=== PATIENT | female | born 1950 | race Caucasian/White ===

== ENCOUNTER 2018-05-29 15:42 | Emergency (ER) | payer MEDICARE, SELFPAY ==
[2018-05-29] VITALS (7 sets, daily range): BP systolic 139–172; BP diastolic 69–88; PULSE 62–78; RESP 18–31; TEMP 30.9–37.5; O2SAT 92–93; BMI 26.4
--- NOTE | 2018-05-29 16:03 | EKG12_ITS ---
Test Reason : SOB Blood Pressure : / mmHG Vent. Rate : 063 BPM Atrial Rate : 063 BPM P-R Int : 162 ms QRS Dur : 092 ms QT Int : 456 ms P-R-T Axes : 056 038 030 degrees QTc Int : 466 ms Normal sinus rhythm Nonspecific T wave abnormality Abnormal ECG Confirmed by LI JEFFRIES, CRISTI ([id number]), field map editor SHANTEL KEMP ([id number]) on 06/04/2018 9:54:16 AM Referred By: EMILY Confirmed By:CRISTI JEFFERSON MD
[2018-05-29 17:18] LABS: Absolute Lymphocyte Count 1.35 X10^3/ul (0.83-4.51); Absolute Neutrophil Count 3.4 X10^3/uL (2.0-7.7); Basophil# 0.03 X10^3/uL; Basophil% 0.6 % (0-1); Eosinophil# 0.18 X10^3/uL; Eosinophils% 3.4 % (0-5); Hematocrit 36.8 % (37-47); Hemoglobin 11.4 g/dl (12.0-15.0); Lymphocyte # 1.35 X10^3/ul (4.0); Lymphocyte % 25.4 % (19-41); Mean Corpuscular Hgb 28.9 pg (27.0-32.0); Mean Corpuscular Volume 93.4 fL (81-99); Mean Platelet Vol. 10.2 fl (6.2-12.0); Monocyte# 0.32 X10^3/uL; Neutrophil # 3.43 X10^3/uL (2.7-7.7); Neutrophil % 64.6 % (47-70); Platelet Count 156 K/mm3 (150-450); RBC Distribution Width CV 13.7 % (11.6-14.6); RBC Distribution Width SD 46.8 fl (35.1-43.9); Red Blood Count 3.94 M/mm3 (4.2-5.4); White Blood Count 5.3 K/mm3 (4.4-11.0)
[2018-05-29 17:20] LABS: POSITIVE COUNT NO; POSITIVE DIFFERENTIAL NO; POSITIVE MORPHOLOGY NO
--- NOTE | 2018-05-29 17:25 | RAD_ITS ---
STUDY: X-RAY CHEST REASON FOR EXAM: Female, 68 years old. Shortness of breath, leg swelling, crackles in lungs. TECHNIQUE: PA and lateral views of the chest. The patient is mildly rotated to the left. COMPARISON: Portable AP upright chest x-ray October 12, 2016. FINDINGS: Right chest wall MediPort again seen with its tip in the superior vena cava. There are postsurgical changes in the right lung with radiopaque sutures again seen in a vertical orientation along the lateral apex and midlung. Elevation of right diaphragm corresponds to overall volume loss in the right hemithorax. There is persistent prominence of the pulmonary vascular markings versus inflammatory peribronchial thickening. No acute lobar consolidation. There is no demonstrated pleural abnormality. There is stable mild to moderate cardiac enlargement. Normal mediastinum. Stable mild fullness of the elif. There is stable atherosclerotic calcification of the aortic arch. There is demineralization of the osseous structures. There are stable mild degenerative changes of the visualized thoracic spine. Metal hardware of prior left total shoulder arthroplasty again noted. There are surgical clips of prior cholecystectomy in the left upper quadrant abdomen. Radiopaque suture line seen in the medial left upper quadrant. The upper portion of a double-J right ureteral stent is also identified. RAD/Chest PA and Lateral IMPRESSION: Stable x-ray examination of the chest since September 2016, as described. Electronically Signed: Josiah Bolden MD at 18:21 EST , Service support ,
[2018-05-29 17:36] LABS: D-Dimer Quantitative (DVT/PE) 1.12 FEU/ug/m (0.27-0.49)
--- NOTE | 2018-05-29 17:37 | CT_ITS ---
STUDY: CTA CHEST REASON FOR EXAM: Female, 68 years old. Dyspnea. Swelling of the right leg. RADIATION DOSAGE (If Supplied By Facility): CTDIvol = ( 6.82 ) mGy, DLP = ( 148.82 ) mGycm TECHNIQUE: The examination was performed with the intravenous administration of 75ML ml of Isovue 370 contrast material. Post-processing of the angiographic images was performed, with multiplanar reformation and 3D reconstruction. Individualized dose optimization techniques were used for this CT. COMPARISON: Chest, May 29, 2018. CT of the chest, February 04, 2015. FINDINGS: There is a right jugular [id number] with its catheter in the superior vena cava. Normal enhancement of the main pulmonary artery and right and left pulmonary arteries. Normal enhancement of the bilateral peripheral pulmonary arteries. There is no demonstrated pulmonary embolism. There is prominence of the main pulmonary arteries and peripheral pulmonary arteries, consistent with congestive heart failure (CHF). There is atherosclerotic tortuosity of the thoracic aorta without aneurysm. There is no demonstrated aortic dissection. The heart is enlarged. There is no evidence of pericardial abnormality. Normal mediastinum. Normal hilar regions. Normal visualized trachea and bronchi. The lungs are hypoexpanded. There is diffuse groundglass densities throughout both lungs. Normal pleura. There are no pleural effusions. Normal chest wall structures. There are degenerative changes of the thoracic spine. There is a left artificial shoulder. Normal visualized upper abdomen. CT/CTA Chest W/WO Contrast IMPRESSION: 1. No evidence of pulmonary embolus. 2. No aortic dissection or aneurysm. 3. Cardiomegaly with prominent pulmonary arteries in groundglass infiltrates in both lungs. Question mild failure. 4. Stable right jugular Port-A-Cath. Electronically Signed: Tha Feng DO at 19:18 EST Tel [phone], Service support ,
--- NOTE | 2018-05-29 17:37 | ED.RN ---
LAB CALLED WITH D-DIMER 1.12, DR RUEDA INFORMED OF SAME.
[2018-05-29 17:40] LABS: Anion Gap 8 (5-15); BUN 27 mg/dL (7-18); BUN/Creat Ratio 22.1 RATIO (10-20); Calcium,Total 8.2 mg/dL (8.5-10.1); Chloride 114 mmol/L (98-107); Creatinine, Serum 1.22 mg/dL (0.55-1.02); EST Glomerular Filtration Rate 46 mL/min (>60); Est Glom Filt Rate - Afr Amer 56 mL/min (>60); Estimated Creatinine Clearance 40.24 ml/min; Glucose 89 mg/dL (74-106); Potassium 3.9 mmol/L (3.5-5.1); Sodium Level 146 mmol/L (136-145)
[2018-05-29 18:34] LABS: BNP,B-Type NATRIURETIC PEPTIDE 2002.1 pg/mL (0-100)
--- NOTE | 2018-05-29 19:33 | ED.DCSUM_ITS ---
- ER Visit Summary Date of Service: 05/29/18 Chief Complaint: [Shortness of breath] History of Present Illness: The patient is a 68 F [presents to the emergency department with complaint of shortness of breath that is relatively chronic. She was seen by her primary care physician yesterday and was referred for follow-up in the emergency department because patient's been complaining of right leg swelling out of proportion to the left. There was concern about DVT or PE. Primary care physician also heard some rales in the bases of the lungs and was concerned about congestive heart failure. Patient states that she does have a history of prior congestive heart failure. Patient has a history of hypertension as well as lung fibrosis. 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 Patient states she is chronically short of breath and does not feel like she is more short of breath than usual. She denies recent travel or recent surgery. Patient's last chemo was 6 years ago.] Patient states that she is gained about 10 pounds in the last week. Patient has a water pill as needed for home but she states she has to be careful about taking it due to her kidney function. Physical Examination: [HEENT-PERRLA, EOMI. Cranial nerves II through XII grossly intact. TMs clear. Mucous membranes moist. No adenopathy. Cardiovascular-regular rate and rhythm without murmur or ectopy Lungs-diminished bilaterally. Few rales in both bases. No accessory muscle use or retractions. Abdomen-normoactive bowel sounds, soft, nontender, no rebound or rigidity, no peritoneal signs. Extremities-intact ?4, normal range of motion, normal pulses, atraumatic. Patient does have +2 edema both lower extremities.] Test Results: [EKG obtained arrival shows sinus rhythm with a ventricular rate of 63 bpm with some nonspecific ST changes noted. CBC with differential showed a white count of 5.3, hemoglobin 11.4, hematocrit 37, platelets 156. Chemistries unremarkable. BUN was 27 and creatinine 1.22. Troponin was 0.024. BNP was 2002. D-dimer was slightly elevated 1.12. Chest x-ray showed some postsurgical changes otherwise nothing acute. CT of the chest showed no evidence of PE or dissection however she had some bilateral groundglass infiltrates which raise the possibility for mild CHF.] Emergency Department Course and Treatment: [Patient will be given Lasix 40 mg IV.] Treatment Plan: [Patient advised to take Lasix for the next 2 days and follow-up with her primary care physician to have her kidney function rechecked. At this point she is hemodynamically stable and is in no respiratory distress. I feel patient can be discharged home with outpatient follow-up.] Disposition: [Discharged home in stable condition] Impression: [CHF exacerbation-mild] This note was generated with [email or web address] dictation software. It may contain incorrect words, spelling, and punctuation that were not noted in review of the chart prior to signing ED Disposition - Plan for ED Patient: Chief Complaint: Shortness of Breath Referrals: Sharad Burns MD [Primary Care Provider] -
--- NOTE | 2018-05-29 19:34 | ED.DEP ---
ED Disposition - Plan for ED Patient: Chief Complaint: Shortness of Breath Instructions: ED CHF General Referrals: Sharad Burns MD [Primary Care Provider] - 3-5 Days Additional Instructions: take your water pill for the next 2 days and follow up with your doctor to have your kidney function checked again
[2018-05-29] MEDS: Furosemide 40 MG/4 ML Vial IV (19:45)
== END 2018-05-29 21:15 | disposition home or self-care (01) ==
LOC: ED 16:13
PROVIDERS: Emergency Provider Emergency Medicine; Family Provider Family Medicine; PCP Family Medicine
DX: I11.0 Hypertensive heart disease with heart failure (principal); I50.9 Heart failure, unspecified; J84.10 Pulmonary fibrosis, unspecified; Z85.831 Personal history of malignant neoplasm of soft tissue; Z86.2 Personal history of diseases of the blood and blood-forming organs and certain disorders involving the immune mechanism; Z92.21 Personal history of antineoplastic chemotherapy; Z79.899 Other long term (current) drug therapy
CPT/HCPCS: 36591; 71046; 71275; 80048; 83880; 84484; 85025; 85379; 93005; 93970; 96374; 99283; Q9967; A4216; J1940

== ENCOUNTER 2018-08-20 16:33 | Inpatient (IN) | payer MEDICARE, BC, SELFPAY ==
[2018-05-29 15:44] VITALS: BMI 26.4
[2018-08-20] VITALS (11 sets, daily range): BP systolic 147–176; BP diastolic 73–123; PULSE 60–93; RESP 17–27; TEMP 36.7–37.9; O2SAT 88–97; BMI 25.0; BMI 24.3
--- NOTE | 2018-08-20 16:53 | EKG12_ITS ---
Test Reason : CP Blood Pressure : / mmHG Vent. Rate : 088 BPM Atrial Rate : 088 BPM P-R Int : 168 ms QRS Dur : 090 ms QT Int : 374 ms P-R-T Axes : 050 002 -27 degrees QTc Int : 452 ms Sinus rhythm with Premature supraventricular complexes Left ventricular hypertrophy Nonspecific ST/T Wave Abnormality Abnormal ECG Confirmed by EV JEFFRIES, PARVIN ([id number]), dude wrangler IRAM MCKEON ([id number]) on 08/24/2018 11:33:04 AM Referred By: Teodoro Gonzalez Confirmed By:PARVIN CARRENO MD
--- NOTE | 2018-08-20 17:35 | RAD_ITS ---
STUDY: X-RAY CHEST REASON FOR EXAM: Female, 68 years old. Shortness of breath. TECHNIQUE: PA and lateral views of the chest. COMPARISON: PA and lateral chest x-ray May 29, 2018. FINDINGS: Right-sided Port-A-Cath again seen with its tip in the superior vena cava. There is stable mild elevation of the right diaphragm stable postsurgical changes in the right upper and midlung. Persistent prominence of the bilateral interstitial/vascular markings. No acute consolidating infiltrate. There is no demonstrated pleural abnormality. There is stable mild to moderate cardiac enlargement. Normal mediastinum. Stable mild fullness of the elif. There is stable atherosclerotic calcification of the aortic arch. There are stable degenerative changes of the visualized thoracic spine. Prior left total shoulder arthroplasty with metal hardware again noted. Surgical clips of prior cholecystectomy again project in the medial right upper quadrant of the abdomen. There is a nonspecific bowel gas pattern. The upper portion of right ureteral stent is again seen. Suture line again projects in the medial left upper quadrant. RAD/Chest PA and Lateral IMPRESSION: Stable x-ray examination of the chest May 29, 2018, as described. Electronically Signed: Josiah Bolden MD at 18:29 EDT , Service support ,
[2018-08-20 17:40] LABS: Absolute Neutrophil Count 3.4 X10^3/uL (2.0-7.7); Basophil# 0.04 X10^3/uL; Basophil% 0.8 % (0-1); Eosinophil# 0.09 X10^3/uL; Eosinophils% 1.7 % (0-5); Hematocrit 37.7 % (37-47); Hemoglobin 11.9 g/dl (12.0-15.0); Mean Corp Hgb Conc 31.6 g/gl (32-36); Mean Corpuscular Hgb 29.5 pg (27.0-32.0); Mean Corpuscular Volume 93.3 fL (81-99); Mean Platelet Vol. 11.6 fl (6.2-12.0); Monocyte# 0.64 X10^3/uL; Monocyte% 12.2 % (0-10); Neutrophil # 3.35 X10^3/uL (2.7-7.7); Neutrophil % 64.1 % (47-70); POSITIVE COUNT NO; POSITIVE DIFFERENTIAL NO; POSITIVE MORPHOLOGY NO; Platelet Count 133 K/mm3 (150-450); RBC Distribution Width CV 14.2 % (11.6-14.6); RBC Distribution Width SD 47.4 fl (35.1-43.9); Red Blood Count 4.04 M/mm3 (4.2-5.4); White Blood Count 5.2 K/mm3 (4.4-11.0)
[2018-08-20 17:51] LABS: Anion Gap 5 (5-15); BUN 20 mg/dL (7-18); BUN/Creat Ratio 16.5 RATIO (10-20); Calcium,Total 7.9 mg/dL (8.5-10.1); Chloride 109 mmol/L (98-107); Creatinine, Serum 1.21 mg/dL (0.55-1.02); EST Glomerular Filtration Rate 47 mL/min (>60); Est Glom Filt Rate - Afr Amer 57 mL/min (>60); Estimated Creatinine Clearance 38.49 ml/min; Glucose 79 mg/dL (74-106); Potassium 3.5 mmol/L (3.5-5.1); Sodium Level 141 mmol/L (136-145)
--- NOTE | 2018-08-20 18:46 | ED.VISSUMM ---
- ER Visit Summary Date of Service: 08/20/18 Chief Complaint: Short of breath, cough, chest pain History of Present Illness: The patient is a 68 F with a one-week history of shortness of breath, worse with exertion. She also has chest pain with exertion. Patient recently stopped her Lasix stating that it made her sick. She was seen by her PCP today and was noted to have cardiomegaly on chest x-ray which they stated was different from her prior study. She also had evidence of interstitial edema. Her oxygen saturation was 89% in the office. Patient states that she has been having to sit upright to sleep at night. She does note increased swelling to her legs. Physical Examination: Blood pressure is 156/73, temperature 100.2 TA, 98.9 oral. Heart rate is 93, respiratory rate 18, pulse ox 94% on room air. Patient is a cachectic appearing elderly female. She is in no acute distress and speaking full sentences. Heart is regular rate and rhythm. Lung sounds are diminished at the bases. Abdomen is soft and nontender. Lower external examination was 2-3+ edema that is symmetric. Test Results: EKG is sinus 88 with occasional PACs. Minimal ST depression is noted in V5 and V6. Slightly more pronounced when compared to prior. Two-view chest x-ray shows mild to moderate cardiomegaly. CBC significant only for platelet count of 133,000. Chemistry studies reveal BUN of 20 creatinine 1.21. Troponin is 0.019. BNP is 2326. Emergency Department Course and Treatment: Test results were discussed with the patient. She states she did not have any trouble last time she was given IV Lasix in the hospital. She be given 40 mg of IV Lasix and a Amanda catheter will be placed as she normally has to straight cath in order to urinate at home. Oxygen saturations did drop down to 88% on room air and she is on 2 L nasal cannula at the time of my re-eval. Her oxygen saturations on 2 L are in the high 90s. Treatment Plan: [] Disposition: Admit Impression: CHF with mild hypoxia This note was generated with [employer] dictation software. It may contain incorrect words, spelling, and punctuation that were not noted in review of the chart prior to signing ED Disposition - Plan for ED Patient: Referrals: Sharad Burns MD [Primary Care Provider] -
[2018-08-20] MEDS: Furosemide 40 MG/4 ML Vial IV (19:13)
--- NOTE | 2018-08-20 19:42 | PCM.HP.STD ---
Problem List (1) Acute respiratory failure with hypoxia Status: Acute (2) Acute exacerbation of CHF (congestive heart failure) Status: Chronic Qualifiers: Heart failure type: unspecified Qualified Code(s): I50.9 - Heart failure, unspecified History of Present Illness Date of Admission: 08/20/18 Chief Complaint: shortness of breath. The patient is a 68 year old F with shortness of breath. Patient has been short of breath for months but has increasingly gotten worse over the past 3 days. Over the past 3 weeks, patient was on Lasix for reported heart failure. Patient stopped it about a week ago because it was making her nauseous. Patient was directed to the emergency room from her primary care's office due to heart failure and cardiomegaly. Patient states that she has put on 10 pounds over the past week though was not she told the emergency room physician that she does not with herself daily. She does state that she has increasing lower extremity edema. Does have chest pain when she coughs. [] Past Medical History Past Medical History (Chronic Problems): Chronic Problems Acute exacerbation of CHF (congestive heart failure) (Chronic) Chronic anemia (Chronic) Hypertension (Chronic) Congestive heart failure (Chronic) Synovial sarcoma of right hip (Chronic) Chronic acquired lymphedema (Chronic) Chronic venous stasis dermatitis (Chronic) Chronic fibrosis of lung (Chronic) Peripheral venous insufficiency (Chronic) Venous stasis dermatitis of both lower extremities (Chronic) Lymphedema of both lower extremities (Chronic) Allergies linezolid [From Zyvox] Adverse Reaction (Unknown, Verified 08/20/18 16:42) Other azithromycin Adverse Reaction (Verified 08/20/18 16:42) Diarrhea Home Medications: Ambulatory Orders Medication Instructions Recorded Calcium Carbonate [Calcium] 600 mg PO DAILY 05/29/18 Carvedilol 6.25 mg PO BID 05/29/18 Cholecalciferol (Vitamin D3) 2,000 unit PO DAILY 05/29/18 [D3-2000] Cyanocobalamin (Vitamin B-12) 1,000 mcg IJ QMONTH 05/29/18 [Cyanocobalamin Injection] Lisinopril [Zestril] 10 mg PO DAILY 05/29/18 Oxybutynin Chloride [Oxybutynin 15 mg PO DAILY 05/29/18 Chloride ER] Sertraline HCl 150 mg PO DAILY 05/29/18 traZODone [Desyrel] 100 mg PO QHS PRN PRN 05/29/18 Gabapentin 600 mg PO TID 08/20/18 Lactobacillus Acidophilus 1 each PO DAILY 08/20/18 [Probiotic] Multivit-Min/Iron/Folic/Lutein 1 tab PO DAILY 08/20/18 [Centrum Silver Women Tablet] Mv,Giovanny,Iron,Mn/Folic Acid/Chol 1 cap PO DAILY 08/20/18 [Hair, Skin and Nails Capsule] Potassium (Otc) [Potassium Otc] 99 mg PO DAILY 08/20/18 Surgical History: cholecystectomy, gastric bypass, herniorrhaphy, hysterectomy, tonsillectomy, - - 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 Denies: Anorexia, Chills, Fever Eyes: Denies: Blurred vision, Double vision HEENT: Denies: Head Aches, Sinus Congestion, Sinus Drainage Cardiovascular: Reports: Chest Pain, Edema Respiratory: Reports: Cough, Shortness of breath upon exertion, Sputum production Gastrointestinal: Reports: Abdominal Pain, Constipation, Diarrhea, Dyspepsia Genitourinary: Reports: Dysuria, Frequency, Hematuria Musculoskeletal: Denies: Arm Pain, Foot Pain Skin: Denies: Dryness, Jaundice Neurological: Denies: Balance problems, Blurred vision, Double vision Psychiatric: Denies: Anxiety, Depression Endocrine: Reports: Change in Body Habitus. Denies: Heat/ Cold Intolerance Hematologic/ Lymphatic: Denies: Easy Bruising, Easy Bleeding, Hx of blood clot Comment: A 10 point review of systems were negative except as mentioned in the history of present illness and the other review of systems. VTE Information - Inpt Only VTE Present on Admission: No VTE Mechan Device Prophylaxis: None VTE Pharm Prophylaxis ordered?: Yes Patient Problems: Active and Suspected Problems Acute respiratory failure with hypoxia (Acute) - Physical Exam General: Alert, Cooperative, No apparent distress HEENT: Atraumatic, Normocephalic, - - No scleral icterus Oral: Moist Mucosa, No Gingival or Mucosal Lesions/ Ulcerations Neck: No Nodes, Thyroid Normal Size and Texture, JVD, Right Lungs: Diminished, - - Crackles bilaterally Cardiovascular: Regular rate, Regular Rhythm, Normal S1, Normal S2, - - 2/6 holosystolic murmur Abdomen: Bowel Sounds Present, Soft, Non Tender, Non-Distended Extremities: No Calf Tenderness, Edema - Trace in lower extremities Skin: No rashes, No breakdown Psych/Mental Status: Normal Affect, Appropriate Vital Signs Temp Pulse Resp BP Pulse Ox 37.9 C H 80 24 H 159/78 H 97 08/20/18 16:35 08/20/18 19:17 08/20/18 19:17 08/20/18 19:17 08/20/18 19:17 Oxygen Flow Rate (L/min) 2 Oxygen Delivery Method Nasal Cannula Weight: 56.36 kg Body Mass Index (BMI) 25.0 Laboratory Tests Past 24 Hrs 08/20/18 08/20/18 08/20/18 17:22 17:22 17:22 WBC 5.2 RBC 4.04 L Hgb 11.9 L Hct 37.7 MCV 93.3 MCH 29.5 MCHC 31.6 L RDW 14.2 RDW Differential 47.4 H Plt Count 133 L MPV 11.6 Immature Gran % (Auto) 0.200 Neut % (Auto) 64.1 Lymph % (Auto) 21.0 Sterling % (Auto) 12.2 H Eos % (Auto) 1.7 Baso % (Auto) 0.8 Absolute Neuts (auto) 3.4 Absolute Lymphs (auto) 1.10 Total Counted Not Reportable Sodium 141 Potassium 3.5 Chloride 109 H Carbon Dioxide 27.0 Anion Gap 5 BUN 20 H Creatinine 1.21 H Estim Creat Clear Calc 38.49 Est GFR (MDRD) Af Amer 57 L Est GFR (MDRD) Non-Af 47 L BUN/Creatinine Ratio 16.5 Glucose 79 Calcium 7.9 L Troponin I 0.019 B-Natriuretic Peptide 2326.1 H Chest x-ray personally reviewed and shows more likely chronic changes in her lungs. Appears somewhat better from May of this year. No effusions noted. Assessment/Plan All Active Problems Acute respiratory failure with hypoxia (Acute) Acute respiratory insufficiency (Resolved) Fall on stairs (Resolved) Healthcare-associated pneumonia (Resolved) MRSA (methicillin resistant Staphylococcus aureus) (Resolved) 1. Acute heart failure Presumed. Patient does have shortness of breath and she does have an elevated BNP and abnormal chest x-ray. Chest x-ray appears to be chronically abnormal dating back to at least 2017. We will treat the patient empirically for heart failure with IV Lasix. Check an echocardiogram 2. Acute hypoxic respiratory failure Patient was hypoxic upon arrival and was having tachypnea and labored breathing. Improved with the implementation of oxygen Etiology of the hypoxia is undetermined at this time but may be multifactorial. Possibilities include heart failure as mentioned above versus chronic lung disease unclear as to what that may be and other possibilities such as upper respiratory infections. Wean oxygen as tolerated Depending on the patient's clinical response to heart failure therapy may need secondary opinion in regards to this is cardiac versus pulmonary or combination thereof with a specialist. Holding off on consultation at this time 3. Cachexia Patient is a very gaunt. 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 Appears to be in summation at this time Follow-up with oncology as outpatient 5. Chest pain Atypical Per history, worse with cough Suspect may be chest wall pain/costochondritis Will cycle troponins and if those are negative, would not recommend any additional workup at this time unless her condition changes 6.DVT prophylaxis with Lovenox Code Visit Inpatient E&M: 38003 Init Hosp L3
--- NOTE | 2018-08-20 19:47 | HP.PCM_ITS ---
Problem List (1) Acute respiratory failure with hypoxia Status: Acute (2) Acute exacerbation of CHF (congestive heart failure) Status: Chronic Qualifiers: Heart failure type: unspecified Qualified Code(s): I50.9 - Heart failure, unspecified History of Present Illness Date of Admission: 08/20/18 Chief Complaint: shortness of breath. The patient is a 68 year old F with shortness of breath. Patient has been short of breath for months but has increasingly gotten worse over the past 3 days. Over the past 3 weeks, patient was on Lasix for reported heart failure. Patient stopped it about a week ago because it was making her nauseous. Patient was directed to the emergency room from her primary care's office due to heart failure and cardiomegaly. Patient states that she has put on 10 pounds over the past week though was not she told the emergency room physician that she does not with herself daily. She does state that she has increasing lower extremity edema. Does have chest pain when she coughs. [] Past Medical History Past Medical History (Chronic Problems): Chronic Problems Acute exacerbation of CHF (congestive heart failure) (Chronic) Chronic anemia (Chronic) Hypertension (Chronic) Congestive heart failure (Chronic) Synovial sarcoma of right hip (Chronic) Chronic acquired lymphedema (Chronic) Chronic venous stasis dermatitis (Chronic) Chronic fibrosis of lung (Chronic) Peripheral venous insufficiency (Chronic) Venous stasis dermatitis of both lower extremities (Chronic) Lymphedema of both lower extremities (Chronic) Allergies linezolid [From Zyvox] Adverse Reaction (Unknown, Verified 08/20/18 16:42) Other azithromycin Adverse Reaction (Verified 08/20/18 16:42) Diarrhea Home Medications: Ambulatory Orders Medication Instructions Recorded Calcium Carbonate [Calcium] 600 mg PO DAILY 05/29/18 Carvedilol 6.25 mg PO BID 05/29/18 Cholecalciferol (Vitamin D3) 2,000 unit PO DAILY 05/29/18 [D3-2000] Cyanocobalamin (Vitamin B-12) 1,000 mcg IJ QMONTH 05/29/18 [Cyanocobalamin Injection] Lisinopril [Zestril] 10 mg PO DAILY 05/29/18 Oxybutynin Chloride [Oxybutynin 15 mg PO DAILY 05/29/18 Chloride ER] Sertraline HCl 150 mg PO DAILY 05/29/18 traZODone [Desyrel] 100 mg PO QHS PRN PRN 05/29/18 Gabapentin 600 mg PO TID 08/20/18 Lactobacillus Acidophilus 1 each PO DAILY 08/20/18 [Probiotic] Multivit-Min/Iron/Folic/Lutein 1 tab PO DAILY 08/20/18 [Centrum Silver Women Tablet] Mv,Giovanny,Iron,Mn/Folic Acid/Chol 1 cap PO DAILY 08/20/18 [Hair, Skin and Nails Capsule] Potassium (Otc) [Potassium Otc] 99 mg PO DAILY 08/20/18 Surgical History: cholecystectomy, gastric bypass, herniorrhaphy, hysterectomy, tonsillectomy, - - 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 Psychiatric History: Anxiety, Depression [employer] History: No pertinent [employer] history, - Lives: Spouse/ Significant Other Smoking Status: Never smoker Tobacco Use: Non-smoker - *Family History Maternal History Items: Diabetes - alive age 86 Paternal History Items: Cancer - age 79 Offspring History Items: - - 3 children: 2 living, 1 Review of Systems Constitutional: Reports: Malaise, Weakness. Denies: Anorexia, Chills, Fever Eyes: Denies: Blurred vision, Double vision HEENT: Denies: Head Aches, Sinus Congestion, Sinus Drainage Cardiovascular: Reports: Chest Pain, Edema Respiratory: Reports: Cough, Shortness of breath upon exertion, Sputum production Gastrointestinal: Reports: Abdominal Pain, Constipation, Diarrhea, Dyspepsia Genitourinary: Reports: Dysuria, Frequency, Hematuria Musculoskeletal: Denies: Arm Pain, Foot Pain Skin: Denies: Dryness, Jaundice Neurological: Denies: Balance problems, Blurred vision, Double vision Psychiatric: Denies: Anxiety, Depression Endocrine: Reports: Change in Body Habitus. Denies: Heat/ Cold Intolerance Hematologic/ Lymphatic: Denies: Easy Bruising, Easy Bleeding, Hx of blood clot Comment: A 10 point review of systems were negative except as mentioned in the history of present illness and the other review of systems. VTE Information - Inpt Only VTE Present on Admission: No VTE Mechan Device Prophylaxis: None VTE Pharm Prophylaxis ordered?: Yes Patient Problems: Active and Suspected Problems Acute respiratory failure with hypoxia (Acute) - Physical Exam General: Alert, Cooperative, No apparent distress HEENT: Atraumatic, Normocephalic, - - No scleral icterus Oral: Moist Mucosa, No Gingival or Mucosal Lesions/ Ulcerations Neck: No Nodes, Thyroid Normal Size and Texture, JVD, Right Lungs: Diminished, - - Crackles bilaterally Cardiovascular: Regular rate, Regular Rhythm, Normal S1, Normal S2, - - 2/6 holosystolic murmur Abdomen: Bowel Sounds Present, Soft, Non Tender, Non-Distended Extremities: No Calf Tenderness, Edema - Trace in lower extremities Skin: No rashes, No breakdown Psych/Mental Status: Normal Affect, Appropriate Vital Signs Temp Pulse Resp BP Pulse Ox 37.9 C H 80 24 H 159/78 H 97 08/20/18 16:35 08/20/18 19:17 08/20/18 19:17 08/20/18 19:17 08/20/18 19:17 Oxygen Flow Rate (L/min) 2 Oxygen Delivery Method Nasal Cannula Weight: 56.36 kg Body Mass Index (BMI) 25.0 Laboratory Tests Past 24 Hrs 08/20/18 08/20/18 08/20/18 17:22 17:22 17:22 WBC 5.2 RBC 4.04 L Hgb 11.9 L Hct 37.7 MCV 93.3 MCH 29.5 MCHC 31.6 L RDW 14.2 RDW Differential 47.4 H Plt Count 133 L MPV 11.6 Immature Gran % (Auto) 0.200 Neut % (Auto) 64.1 Lymph % (Auto) 21.0 [place] % (Auto) 12.2 H Eos % (Auto) 1.7 Baso % (Auto) 0.8 Absolute Neuts (auto) 3.4 Absolute Lymphs (auto) 1.10 Total Counted Not Reportable Sodium 141 Potassium 3.5 Chloride 109 H Carbon Dioxide 27.0 Anion Gap 5 BUN 20 H Creatinine 1.21 H Estim Creat Clear Calc 38.49 Est GFR (MDRD) Af Amer 57 L Est GFR (MDRD) Non-Af 47 L BUN/Creatinine Ratio 16.5 Glucose 79 Calcium 7.9 L Troponin I 0.019 B-Natriuretic Peptide 2326.1 H Chest x-ray personally reviewed and shows more likely chronic changes in her lungs. Appears somewhat better from May of this year. No effusions noted. Assessment/Plan All Active Problems Acute respiratory failure with hypoxia (Acute) Acute respiratory insufficiency (Resolved) Fall on stairs (Resolved) Healthcare-associated pneumonia (Resolved) MRSA (methicillin resistant Staphylococcus aureus) (Resolved) 1. Acute heart failure * Presumed. Patient does have shortness of breath and she does have an elevated BNP and abnormal chest x-ray. Chest x-ray appears to be chronically abnormal dating back to at least 2017. We will treat the patient empirically for heart failure with IV Lasix. * Check an echocardiogram 2. Acute hypoxic respiratory failure * Patient was hypoxic upon arrival and was having tachypnea and labored breathing. * Improved with the implementation of oxygen * Etiology of the hypoxia is undetermined at this time but may be multifactorial. Possibilities include heart failure as mentioned above versus chronic lung disease unclear as to what that may be and other possibilities such as upper respiratory infections. * Wean oxygen as tolerated * Depending on the patient's clinical response to heart failure therapy may need secondary opinion in regards to this is cardiac versus pulmonary or co mbination thereof with a specialist. Holding off on consultation at this time 3. Cachexia * Patient is a very gaunt. 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 * Appears to be in summation at this time * Follow-up with oncology as outpatient 5. Chest pain * Atypical * Per history, worse with cough * Suspect may be chest wall pain/costochondritis * Will cycle troponins and if those are negative, would not recommend any additional workup at this time unless her condition changes 6.DVT prophylaxis with Lovenox Code Visit Inpatient E&M: 79623 Init Hosp L3
--- NOTE | 2018-08-20 20:18 | ECHOD_ITS ---
Reason For Study: CHF Procedure This was a 2D Doppler, Color Flow transthoracic echocardiogram. The exam was of adequate technical quality. Exam performed portable in patient room. Left Ventricle Normal LV size. Mild global left ventricular systolic dysfunction. The estimated ejection fraction is 40 %. There is evidence of diastolic dysfunction. Right Ventricle Normal RV size. Normal systolic function. Atria The left atrium is moderately enlarged. Normal right atrium. No doppler evidence for ASD. Mitral Valve There is moderate mitral annular calcification. Extension of the mitral annular calcification onto the posterior mitral valve leaflet. Mild diffuse mitral valve thickening. Mild (1+) mitral valve insufficiency. Tricuspid Valve Normal tricuspid valve. Trivial tricuspid valve insufficiency. Right ventricular systolic pressure estimated to be 31 mmHg. Aortic Valve Trisinus/trileaflet aortic valve. Normal aortic valve. Pulmonic Valve The pulmonic valve is not well visualized. Mild (1+) pulmonic valve insufficiency. Great Vessels Normal sized aortic root. Pericardium/Pleural No pericardial effusion. MMode/2D Measurements & Calculations LVIDd: 5.0 cm IVSd: 0.90 cm Ao root diam: 3.3 cm LVIDs: 4.1 cm LVPWd: 0.92 cm RVDd: 3.3 cm FS: 18.3 % LAV(MOD-bp): 104.5 ml LA A4 area: 28.2 cm2 RA A4 area: 11.9 cm2 LAV(MOD-bp) Indexed: 70.4 ml/m2 LAV(MOD-sp2): 92.5 ml LAV(MOD-sp4): 117.0 ml Doppler Measurements & Calculations MV E max arvin: 63.9 cm/sec Lat Peak E' Arvin: 7.3 cm/sec Med Peak E' Arvin: 3.5 cm/sec MV A max arvin: 79.5 cm/sec E/E' lat: 8.8 E/E' med: 18.0 MV E/A: 0.80 Ao V2 max: 169.7 cm/sec LV V1 max: 63.2 cm/sec PA V2 max: 111.1 cm/sec Ao max P.5 mmHg LV V1 max P.6 mmHg TR max arvin: 264.8 cm/sec TR max P.2 mmHg Interpretation Summary Mild global left ventricular systolic dysfunction. The estimated ejection fraction is 40 %. The left atrium is moderately enlarged. There is moderate mitral annular calcification. Extension of the mitral annular calcification onto the posterior mitral valve leaflet. Mild diffuse mitral valve thickening. Mild (1+) mitral valve insufficiency. Trivial tricuspid valve insufficiency. Mild (1+) pulmonic valve insufficiency. Right ventricular systolic pressure estimated to be 31 mmHg. There is evidence of diastolic dysfunction. Ordering Physician: Teodoro Gonzalez Referring Physician: Sharad Burns Performed By: Shirlene France RDCS, RVT
[2018-08-20] MEDS: Gabapentin 600 MG Tablet PO (20:47)
[2018-08-20] MEDS: Carvedilol 6.25 MG Tablet PO (20:47)
[2018-08-20 21:12] LABS: Thyroid Stim Hormone (TSH) 0.47 uIU/mL (0.358-3.74)
[2018-08-20] MEDS: 0.9% NaCl VAD Flush 10 ML IV (22:13)
[2018-08-21] VITALS (15 sets, daily range): BP systolic 116–164; BP diastolic 61–72; PULSE 56–79; RESP 16; TEMP 36.6–37.3; O2SAT 93–98
[2018-08-21] MEDS: Loperamide 2 MG Capsule PO (00:02)
[2018-08-21] MEDS: 0.9% NaCl VAD Flush 10 ML IV ×4 (00:06→04:50)
[2018-08-21 05:12] LABS: Anion Gap 4 (5-15); BUN 19 mg/dL (7-18); BUN/Creat Ratio 13.7 RATIO (10-20); Calcium,Total 7.7 mg/dL (8.5-10.1); Chloride 108 mmol/L (98-107); Cholesterol 110 mg/dL (200); Creatinine, Serum 1.39 mg/dL (0.55-1.02); EST Glomerular Filtration Rate 40 mL/min (>60); Est Glom Filt Rate - Afr Amer 48 mL/min (>60); Estimated Creatinine Clearance 32.46 ml/min; Glucose 80 mg/dL (74-106); High Density Lipoprotein 41 mg/dL; Potassium 3.1 mmol/L (3.5-5.1); Prealbumin 15.6 mg/dL (20.0-40.0); Sodium Level 143 mmol/L (136-145); Triglycerides 101 mg/dL; Very Low Density Lipoprotein 20 mg/dL (5-40)
[2018-08-21] MEDS: Gabapentin 600 MG Tablet PO ×3 (06:15→21:36)
[2018-08-21] MEDS: Tolterodine Tartrate 4 MG CAP.SA PO (09:01)
[2018-08-21] MEDS: Sertraline 50 MG Tablet 150 MG PO (09:01)
[2018-08-21] MEDS: Carvedilol 6.25 MG Tablet PO ×2 (09:01→21:36)
[2018-08-21] MEDS: Calcium (Elemental) 500 MG Tablet PO (09:02)
[2018-08-21] MEDS: Enoxaparin 40 MG/0.4 ML Syringe SC (09:02)
[2018-08-21] MEDS: Furosemide 40 MG/4 ML Vial IV (09:02)
[2018-08-21] MEDS: Multivitamins,Ther W-Minerals Tablet 1 TABLET PO (09:02)
[2018-08-21] MEDS: Lisinopril 10 MG Tablet PO (09:03)
--- NOTE | 2018-08-21 11:13 | CASEMGMT ---
YOLANDA HOOK assessment: Face to Face with patient for initial transition planning/care coordination assessment. YOLANDA HOOK introduced self and role at [facility], pt voices understanding and consents to assessment at this time. Pt is sitting up in chair in no distress at this time. Pt is A/Ox4 at this time and answers all questions appropriately at this time. Care providers, pharmacy, and demographics verified at this time. PCP: Katy Specialists: paz Cintron Pharmacy: [facility] Insurance: [employer] Prescription Benefit: [employer] Living Will/HPOA: Pt has LW/HPOA and they are currently on file at [facility] at this time. Pt states her , Jose Carey, is HPOA. LNOK: Jose Carey, /HPOA Living Arrangements: Pt states lives with on main level of 2 story home and states no concerns at home at this time. Pt states that their landlord has not fixed their walkway and it is uneven. Pt states is independent with ADL's at this time. Transportation: Pt states drives self or drives and states no transportation concerns at this time. DME/HHC: Pt states has a cane, walker, w/c and shower chair but only really uses the shower chair. Pt states no need for any further DME at this time. Pt states that she does have a therapy dog also. Pt states has had HHC in the past when in [place] and has been to the [facility] s/p hip replacement. Pt states 'I am depressed, I am at the bottom of the barrel.' Pt states that she has been depressed d/t her teeth. Pt states that the chemo she had ruined her teeth and she is very self-conscious about it. Pt states 'I used to be very social and go out all the time to different activities but know I only go to [employer] and [employer] occasionally.' Pt states that her PCP put her on zoloft but states that she has never talked to anybody. Pt is agreeable to Behavioral Health referral at this time. Call to Brain at [facility] behavioral health and he states he will try to come over this afternoon to speak with pt. Pt states no concerns with going home at time of discharge. Pt states is retired. Pt states does not smoke and drinks ETOH rarely. Pt voices no further questions/concerns/needs at this time. CM to follow for any further discharge planning/needs. Advised pt to ask for CM if any further questions/concerns/needs arise, voices understanding. Plan: Home SStmatilde GUERRERO CM
[2018-08-21 11:50] LABS: Bedside Glucose 125 mg/dL (70-110)
[2018-08-21] MEDS: Acetaminophen 325 MG Tablet 650 MG PO (13:08)
--- NOTE | 2018-08-21 13:25 | PCM.PROGNOTE ---
<Ameena Whitman - Last Filed: 08/21/18 13:35> Patient Problems: Active and Suspected Problems Acute respiratory failure with hypoxia (Acute) Subjective: Patient seen and examined. Reports improvement in shortness of breath. She states she has side effects from Lasix including diarrhea and headache. She states she has been placed on Lasix as outpatient in the past and has had those side effects as well. - Physical Exam General: Alert, Oriented x3, Cooperative HEENT: Atraumatic, PERRLA, EOMI, Normocephalic Neck: Supple, No JVD, Negative Carotid Bruits Lungs: Diminished, - - Find crackles bilateral bases Cardiovascular: Regular rate, Regular Rhythm, Normal S1, Normal S2, Murmur Abdomen: Bowel Sounds Present, Soft, Non Tender, Non-Distended Extremities: No clubbing, No cyanosis, No edema, Capillary Refill Less than 3 Seconds Skin: No rashes, No breakdown Musculoskeletal: No Tenderness to Palpation of Joints or Extremities Neurological: Cranial nerves II-XII grossly intact, Neuro grossly intact Psych/Mental Status: Normal Affect, Appropriate Vital Signs Temp Pulse Resp BP Pulse Ox 99.2 F H 71 16 141/61 H 98 08/21/18 08:54 08/21/18 08:54 08/21/18 08:54 08/21/18 08:54 08/21/18 11:25 Oxygen Flow Rate (L/min) 2 Oxygen Delivery Method Nasal Cannula Weight: 120 lb 5.958 oz Body Mass Index (BMI) 24.3 Intake and Output for Last 24 Hours 08/19/18 08/20/18 08/21/18 23:59 23:59 23:59 Intake Total 150 / 150 100 / 100 Output Total 1275 / 1275 550 / 550 Balance -1125 / -1125 -450 / -450 Laboratory Tests Past 24 Hrs 08/20/18 08/20/18 08/20/18 17:22 17:22 17:22 WBC 5.2 RBC 4.04 L Hgb 11.9 L Hct 37.7 MCV 93.3 MCH 29.5 MCHC 31.6 L RDW 14.2 RDW Differential 47.4 H Plt Count 133 L MPV 11.6 Immature Gran % (Auto) 0.200 Neut % (Auto) 64.1 Lymph % (Auto) 21.0 [place] % (Auto) 12.2 H Eos % (Auto) 1.7 Baso % (Auto) 0.8 Absolute Neuts (auto) 3.4 Absolute Lymphs (auto) 1.10 Total Counted Not Reportable Sodium 141 Potassium 3.5 Chloride 109 H Carbon Dioxide 27.0 Anion Gap 5 BUN 20 H Creatinine 1.21 H Estim Creat Clear Calc 38.49 Est GFR (MDRD) Af Amer 57 L Est GFR (MDRD) Non-Af 47 L BUN/Creatinine Ratio 16.5 Glucose 79 Calcium 7.9 L Troponin I 0.019 B-Natriuretic Peptide 2326.1 H Prealbumin Triglycerides Cholesterol LDL Cholesterol VLDL Cholesterol HDL Cholesterol TSH 08/20/18 08/20/18 08/21/18 17:22 21:10 00:05 WBC RBC Hgb Hct MCV MCH MCHC RDW RDW Differential Plt Count MPV Immature Gran % (Auto) Neut % (Auto) Lymph % (Auto) [place] % (Auto) Eos % (Auto) Baso % (Auto) Absolute Neuts (auto) Absolute Lymphs (auto) Total Counted Sodium Potassium Chloride Carbon Dioxide Anion Gap BUN Creatinine Estim Creat Clear Calc Est GFR (MDRD) Af Amer Est GFR (MDRD) Non-Af BUN/Creatinine Ratio Glucose Calcium Troponin I 0.026 0.022 B-Natriuretic Peptide Prealbumin Triglycerides Cholesterol LDL Cholesterol VLDL Cholesterol HDL Cholesterol TSH 0.47 08/21/18 04:45 WBC RBC Hgb Hct MCV MCH MCHC RDW RDW Differential Plt Count MPV Immature Gran % (Auto) Neut % (Auto) Lymph % (Auto) [place] % (Auto) Eos % (Auto) Baso % (Auto) Absolute Neuts (auto) Absolute Lymphs (auto) Total Counted Sodium 143 Potassium 3.1 L Chloride 108 H Carbon Dioxide 31.0 Anion Gap 4 L BUN 19 H Creatinine 1.39 H Estim Creat Clear Calc 32.46 Est GFR (MDRD) Af Amer 48 L Est GFR (MDRD) Non-Af 40 L BUN/Creatinine Ratio 13.7 Glucose 80 Calcium 7.7 L Troponin I B-Natriuretic Peptide Prealbumin 15.6 L Triglycerides 101 Cholesterol 110 LDL Cholesterol 49 VLDL Cholesterol 20 HDL Cholesterol 41 TSH POC Glucose 08/21/18 11:09 POC Glucose 125 H Medical Necessity - Tobacco Use Smoking Status: Never smoker Tobacco Use: Non-smoker Assessment/Plan All Active Problems Acute respiratory failure with hypoxia (Acute) Acute respiratory insufficiency (Resolved) Fall on stairs (Resolved) Healthcare-associated pneumonia (Resolved) MRSA (methicillin resistant Staphylococcus aureus) (Resolved) 1. Acute hypoxia secondary to acute on chronic combined systolic and diastolic CHF-BNP 2326. Chest x-ray admission stable. Patient reports poor reaction to Lasix including diarrhea. She reports similar symptoms when placed on Lasix as outpatient as well. Transition IV Lasix to IV Bumex. Echocardiogram from September 2016 with EF 40-45%, stage I diastolic dysfunction, mild tricuspid valve insufficiency, RVSP estimated to be 29 mmHg. Repeat echocardiogram pending. Strict I&O. Daily weight. 2. Hypokalemia-secondary to diuretic regimen. Replace per protocol. Trend BMP. 3. Hypertension-stable, continue home carvedilol, lisinopril regimen. 4. Anemia of chronic disease- stable. 5. Chronic kidney disease stage III-stable, trend BMP. 6. 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 Follows with Dr. Cintron, oncology. 7. History of gastric bypass 8. Depression-continue home sertraline/trazodone regimen. DVT prophylaxis-Lovenox subcu This patient was seen by ОЛЕГ Maldonado under the supervision of Dr. Jennings. <Kayla Jennings - Last Filed: 08/21/18 14:29> - Physical Exam Vital Signs Temp Pulse Resp BP Pulse Ox 99.2 F H 71 16 141/61 H 98 08/21/18 08:54 08/21/18 08:54 08/21/18 08:54 08/21/18 08:54 08/21/18 11:25 Oxygen Flow Rate (L/min) 2 Oxygen Delivery Method Nasal Cannula Weight: 54.6 kg Body Mass Index (BMI) 24.3 Intake and Output for Last 24 Hours 08/19/18 08/20/18 08/21/18 23:59 23:59 23:59 Intake Total 150 / 150 100 / 100 Output Total 1275 / 1275 550 / 550 Balance -1125 / -1125 -450 / -450 Laboratory Tests Past 24 Hrs 08/20/18 08/20/18 08/20/18 17:22 17:22 17:22 WBC 5.2 RBC 4.04 L Hgb 11.9 L Hct 37.7 MCV 93.3 MCH 29.5 MCHC 31.6 L RDW 14.2 RDW Differential 47.4 H Plt Count 133 L MPV 11.6 Immature Gran % (Auto) 0.200 Neut % (Auto) 64.1 Lymph % (Auto) 21.0 [place] % (Auto) 12.2 H Eos % (Auto) 1.7 Baso % (Auto) 0.8 Absolute Neuts (auto) 3.4 Absolute Lymphs (auto) 1.10 Total Counted Not Reportable Sodium 141 Potassium 3.5 Chloride 109 H Carbon Dioxide 27.0 Anion Gap 5 BUN 20 H Creatinine 1.21 H Estim Creat Clear Calc 38.49 Est GFR (MDRD) Af Amer 57 L Est GFR (MDRD) Non-Af 47 L BUN/Creatinine Ratio 16.5 Glucose 79 Calcium 7.9 L Troponin I 0.019 B-Natriuretic Peptide 2326.1 H Prealbumin Triglycerides Cholesterol LDL Cholesterol VLDL Cholesterol HDL Cholesterol TSH 08/20/18 08/20/18 08/21/18 17:22 21:10 00:05 WBC RBC Hgb Hct MCV MCH MCHC RDW RDW Differential Plt Count MPV Immature Gran % (Auto) Neut % (Auto) Lymph % (Auto) [place] % (Auto) Eos % (Auto) Baso % (Auto) Absolute Neuts (auto) Absolute Lymphs (auto) Total Counted Sodium Potassium Chloride Carbon Dioxide Anion Gap BUN Creatinine Estim Creat Clear Calc Est GFR (MDRD) Af Amer Est GFR (MDRD) Non-Af BUN/Creatinine Ratio Glucose Calcium Troponin I 0.026 0.022 B-Natriuretic Peptide Prealbumin Triglycerides Cholesterol LDL Cholesterol VLDL Cholesterol HDL Cholesterol TSH 0.47 08/21/18 04:45 WBC RBC Hgb Hct MCV MCH MCHC RDW RDW Differential Plt Count MPV Immature Gran % (Auto) Neut % (Auto) Lymph % (Auto) [place] % (Auto) Eos % (Auto) Baso % (Auto) Absolute Neuts (auto) Absolute Lymphs (auto) Total Counted Sodium 143 Potassium 3.1 L Chloride 108 H Carbon Dioxide 31.0 Anion Gap 4 L BUN 19 H Creatinine 1.39 H Estim Creat Clear Calc 32.46 Est GFR (MDRD) Af Amer 48 L Est GFR (MDRD) Non-Af 40 L BUN/Creatinine Ratio 13.7 Glucose 80 Calcium 7.7 L Troponin I B-Natriuretic Peptide Prealbumin 15.6 L Triglycerides 101 Cholesterol 110 LDL Cholesterol 49 VLDL Cholesterol 20 HDL Cholesterol 41 TSH POC Glucose 08/21/18 11:09 POC Glucose 125 H Assessment/Plan This patient was seen in conjunction with Ameena Whitman NP. I have independently interviewed and examined the patient and reviewed pertinent historical, laboratory, and other data. Please refer to her note for patient's presentation, findings, and recommendations. Patient was seen and examined. She complains of diarrhea in the past with Lasix. Had one large loose bowel movement last night. She expresses concern over continued use of Lasix. Denied any worsening shortness of breath. Generally feels improved. No chest pain or dizziness or palpitations. Vitals were reviewed, on 2 L of oxygen which is new for her Physical Exam: Gen: Appears comfortable, not pale, not jaundiced, alert oriented x3, 2 L of oxygen, kyphosis of the thoracic spine CVS:HS I +II, regular, no murmurs RESP: Few crackles at the lung bases GI: Full, soft, nontender, no palpable organs EXT: +1 bipedal edema Labs reviewed: ASSESSMENT: 1. Acute hypoxic respiratory insufficiency second to acute on chronic combined CHF 2. Acute combined CHF 3. Hypokalemia 4. Anemia of chronic disease 5. CKD stage III 6. 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 Depression Meds reviewed Plan: Discussed with pharmacy, will switch patient to Bumex IV -therapeutic exchange Continue with strict I's and O's Incentive spirometer Wean off oxygen for SPO2 more than 94% Code Visit Inpatient E&M: 95025 Subs Hosp L2
--- NOTE | 2018-08-21 15:55 | BH.NOTE ---
BH: Inpatient Note - Notes Behavioral Health Inpatient Note: 08/21/18 15:56 Referral to [facility] Behavioral Health from [facility] due to depression. Met with pt in her room with present. Pt was agreeable to speaking with present. Pt reports long-standing hx of Depression and Anxiety. Currently she is prescribed an antidepressant from her PCP. Hx of counseling in the past however has not attended in 6 years. Reports significant stressors including financial, medical, and housing. Most significant trigger to increased depression is teeth complications as the result of chemotherapy. Extremely self-conscious of her appearance due to teeth. Teeth also resulting in difficulty chewing and swallowing food. Pt reports that cancer resulted in loss of job. Endorses anxiety attacks in certain situations. Due to depression and anxiety pt reports isolative behaviors stating I don't want people to see me like this. Denies any suicidal ideations, plan, or intent. Denies any desire to be . is supportive however doesn't see the point in counseling and believes her emotions will improve with reconstructive surgery for her mouth and more stable housing. Pt has more insight and believes that counseling could be an additional benefit to her antidepressant. Pt is agreeable to local mental health provider. Referred to [facility] in [place]. Also gave additional counseling providers.
[2018-08-21] MEDS: Bumetanide 1 MG/4 ML Vial IV (17:50)
[2018-08-21] MEDS: traZODone 50 MG Tablet 100 MG PO (23:39)
[2018-08-22] VITALS (11 sets, daily range): BP systolic 101–121; BP diastolic 31–82; PULSE 60–89; RESP 14–18; TEMP 36.7–37.4; O2SAT 91–94
[2018-08-22] MEDS: 0.9% NaCl VAD Flush 10 ML IV ×2 (05:00→05:05)
[2018-08-22 05:46] LABS: Anion Gap 6 (5-15); BUN 29 mg/dL (7-18); Calcium,Total 8.3 mg/dL (8.5-10.1); Chloride 105 mmol/L (98-107); Creatinine, Serum 1.61 mg/dL (0.55-1.02); EST Glomerular Filtration Rate 34 mL/min (>60); Est Glom Filt Rate - Afr Amer 41 mL/min (>60); Estimated Creatinine Clearance 28.03 ml/min; Glucose 85 mg/dL (74-106); Potassium 3.8 mmol/L (3.5-5.1); Sodium Level 141 mmol/L (136-145)
[2018-08-22] MEDS: Gabapentin 600 MG Tablet PO ×3 (05:46→22:18)
[2018-08-22] MEDS: Sertraline 50 MG Tablet 150 MG PO (09:22)
[2018-08-22] MEDS: Calcium (Elemental) 500 MG Tablet PO (09:22)
[2018-08-22] MEDS: Multivitamins,Ther W-Minerals Tablet 1 TABLET PO (09:22)
[2018-08-22] MEDS: Tolterodine Tartrate 4 MG CAP.SA PO (09:22)
[2018-08-22] MEDS: Carvedilol 6.25 MG Tablet PO ×2 (09:27→22:18)
[2018-08-22] MEDS: Enoxaparin 40 MG/0.4 ML Syringe SC (09:27)
[2018-08-22] MEDS: Acetaminophen 325 MG Tablet 650 MG PO (09:28)
--- NOTE | 2018-08-22 12:59 | PN_ITS ---
Addendum entered and electronically signed by ОЛЕГ Maldonado 08/22/18 14:28: Code Visit Clarification: Patient noted to have acute hypoxic respiratory insufficiency, respiratory failure ruled out. Original Note: <Ameena Whitman - Last Filed: 08/22/18 14:28> Patient Problems: Active and Suspected Problems Acute respiratory failure with hypoxia (Acute) Subjective: Patient seen and examined. Reports improvement in breathing. Complains of nonproductive cough and generalized weakness. Denies other current complaints. - Physical Exam General: Alert, Oriented x3, Cooperative HEENT: Atraumatic, PERRLA, EOMI, Normocephalic Neck: Supple, No JVD, Negative Carotid Bruits Lungs: Clear to auscultation, Diminished Cardiovascular: Regular rate, Regular Rhythm, Normal S1, Normal S2, No murmurs Abdomen: Bowel Sounds Present, Soft, Non Tender, Non-Distended Extremities: No clubbing, No cyanosis, No edema, Capillary Refill Less than 3 Seconds Skin: No rashes, No breakdown Musculoskeletal: No Tenderness to Palpation of Joints or Extremities Neurological: Cranial nerves II-XII grossly intact, Neuro grossly intact Psych/Mental Status: Normal Affect, Appropriate Vital Signs Temp Pulse Resp BP Pulse Ox 98.0 F 60 18 103/31 L 93 08/22/18 09:16 08/22/18 10:59 08/22/18 09:16 08/22/18 09:16 08/22/18 09:16 Oxygen Flow Rate (L/min) 1 Oxygen Delivery Method Room Air Weight: 118 lb 2.684 oz Body Mass Index (BMI) 24.3 Intake and Output for Last 24 Hours 08/20/18 08/21/18 08/22/18 23:59 23:59 23:59 Intake Total 150 / 150 540 / 540 Output Total 1275 / 1275 1900 / 1900 200 / 200 Balance -1125 / -1125 -1360 / -1360 -200 / -200 Laboratory Tests Past 24 Hrs 08/22/18 05:00 Sodium 141 Potassium 3.8 Chloride 105 Carbon Dioxide 30.0 Anion Gap 6 BUN 29 H Creatinine 1.61 H Estim Creat Clear Calc 28.03 Est GFR (MDRD) Af Amer 41 L Est GFR (MDRD) Non-Af 34 L BUN/Creatinine Ratio 18.0 Glucose 85 Calcium 8.3 L Medical Necessity - Tobacco Use Smoking Status: Never smoker Tobacco Use: Non-smoker Assessment/Plan All Active Problems Acute respiratory failure with hypoxia (Acute) Acute respiratory insufficiency (Resolved) Fall on stairs (Resolved) Healthcare-associated pneumonia (Resolved) MRSA (methicillin resistant Staphylococcus aureus) (Resolved) 1. Acute hypoxia secondary to acute on chronic combined systolic and diastolic CHF-BNP 2326. Chest x-ray admission stable. Patient reports poor reaction to Lasix including diarrhea. She reports similar symptoms when placed on Lasix as outpatient as well. IV Lasix changed to IV Bumex. DC further direutics given increase in creatinine. Echocardiogram from September 2016 with EF 40-45%, stage I diastolic dysfunction, mild tricuspid valve insufficiency, RVSP estimated to be 29 mmHg. Repeat echocardiogram shows an EF of 40%, mild mitral valve insufficiency, trivial tricuspid valve insufficiency, mild pulmonic valve insufficiency, RVSP estimated to be 31 mmHg. Strict I&O. Daily weight. 2. URI symptoms, suspect viral- Respiratory panel pending. Albuterol aerosols and PRN Robitussin for symptoms. 3. FROYLAN on Chronic kidney disease stage III-secondary to diuretic regimen. Diuretic regimen discontinued. Trend BMP. 4. Anemia of chronic disease- stable. 5. Hypertension-stable, continue home carvedilol, regimen. Lisinopril on hold due to acute kidney injury. 6. 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 Follows with Dr. Cintron, oncology. 7. History of gastric bypass 8. Depression-continue home sertraline/trazodone regimen. Behavioral health consulted. Patient given outpatient resources. 9. Hypokalemia- resolved. DVT prophylaxis-Lovenox subcu This patient was seen by ОЛЕГ Malodnado under the supervision of Dr. Jennings. <Kayla Jennings - Last Filed: 08/22/18 17:33> - Physical Exam Vital Signs Temp Pulse Resp BP Pulse Ox 98.7 F 68 16 116/57 L 93 08/22/18 15:30 08/22/18 15:30 08/22/18 15:30 08/22/18 15:30 08/22/18 15:30 Oxygen Flow Rate (L/min) 1 Oxygen Delivery Method Room Air Weight: 53.6 kg Body Mass Index (BMI) 24.3 Intake and Output for Last 24 Hours 08/20/18 08/21/18 08/22/18 23:59 23:59 23:59 Intake Total 150 / 150 540 / 540 875 / 875 Output Total 1275 / 1275 1900 / 1900 200 / 200 Balance -1125 / -1125 -1360 / -1360 675 / 675 Laboratory Tests Past 24 Hrs 08/22/18 05:00 Sodium 141 Potassium 3.8 Chloride 105 Carbon Dioxide 30.0 Anion Gap 6 BUN 29 H Creatinine 1.61 H Estim Creat Clear Calc 28.03 Est GFR (MDRD) Af Amer 41 L Est GFR (MDRD) Non-Af 34 L BUN/Creatinine Ratio 18.0 Glucose 85 Calcium 8.3 L Assessment/Plan This patient was seen in conjunction with Ameena Whtiman NP. I have independently interviewed and examined the patient and reviewed pertinent historical, laboratory, and other data. Please refer to her note for patient's p resentation, findings, and recommendations. Patient was seen and examined. She feels improved. off oxygen. Denies any worsening chest pain, dizziness, palpitations. Vitals were reviewed. Physical Exam: Gen: Appears comfortable, not pale, not jaundiced, alert oriented x3, kyphosis of the thoracic spine CVS:HS I +II, regular, no murmurs RESP: CTA GI: Full, soft, nontender, no palpable organs EXT: No edema Labs reviewed: ASSESSMENT: 1. Acute hypoxic respiratory insufficiency secondary to acute on chronic combined CHF, resolved 2. Acute combined CHF, resolved 3. Hypokalemia, resolved 4. Anemia of chronic disease 5. CKD stage III 6. 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 Depression Meds reviewed Plan: Will hold diuretics today Recheck BMP in am Patient might possible need oral Bumex every other day on discharge, possibly tomorrow Code Visit Inpatient E&M: 72082 Subs Hosp L2
[2018-08-22] MEDS: Loperamide 2 MG Capsule PO (13:07)
[2018-08-22] MEDS: Ensure Clear 120 ML Liquid PO (13:07)
--- NOTE | 2018-08-22 15:04 | CHAPLAIN ---
Type of Pastoral Visit _x__ Initial Visit ___ Follow-up Visit ___ On-call Visit ___ General Patient Visit ___ Spiritual Assessment ___ Family Conference ___ Bereavement ___ Rapid Response ___ Code Blue ___ Other (describe below) Pastoral Care Referral From _x__ Patient ___ Family ___ Nurse ___ Physician ___ Dam Worker ___ Capsule Filler ___ Other (describe below) Sacrament/Intervention _x__ Active listening ___ Anointing ___ Restorationism ___ Bereavement ___ Communion _x__ Ryann exploration ___ _x__ Life review _x__ Prayer ___ Reconciliation ___ Sacrament of Sick _x__ Supportive presence ___ Wedding ___ Other (describe below) Pastoral Comments
[2018-08-22] MEDS: guaiFENesin 10 ML UDC (200MG/10ML) PO ×2 (15:40→22:18)
[2018-08-22] MEDS: Fluticasone 0.05% 1 SPRAY NASAL.SRY NASAL (18:41)
[2018-08-22] MEDS: Benzonatate 100 MG Capsule PO (18:41)
[2018-08-22] MEDS: traZODone 50 MG Tablet 100 MG PO (23:50)
[2018-08-23] VITALS (7 sets, daily range): BP systolic 110–142; BP diastolic 43–70; PULSE 66–74; RESP 16–17; TEMP 36.6–36.9; O2SAT 91–94
[2018-08-23] MEDS: 0.9% NaCl VAD Flush 10 ML IV ×4 (04:51→15:34)
[2018-08-23 05:13] LABS: Anion Gap 5 (5-15); BUN 35 mg/dL (7-18); BUN/Creat Ratio 20.7 RATIO (10-20); Calcium,Total 7.8 mg/dL (8.5-10.1); Chloride 109 mmol/L (98-107); Creatinine, Serum 1.69 mg/dL (0.55-1.02); EST Glomerular Filtration Rate 32 mL/min (>60); Est Glom Filt Rate - Afr Amer 38 mL/min (>60); Estimated Creatinine Clearance 26.21 ml/min; Glucose 88 mg/dL (74-106); Potassium 3.5 mmol/L (3.5-5.1); Sodium Level 143 mmol/L (136-145)
[2018-08-23 05:15] LABS: Hematocrit 38.8 % (37-47); Hemoglobin 12.1 g/dl (12.0-15.0); Mean Corp Hgb Conc 31.2 g/gl (32-36); Mean Corpuscular Hgb 29.4 pg (27.0-32.0); Mean Corpuscular Volume 94.4 fL (81-99); Mean Platelet Vol. 10.9 fl (6.2-12.0); Platelet Count 120 K/mm3 (150-450); RBC Distribution Width CV 14.2 % (11.6-14.6); RBC Distribution Width SD 48.7 fl (35.1-43.9); Red Blood Count 4.11 M/mm3 (4.2-5.4); White Blood Count 5.1 K/mm3 (4.4-11.0)
[2018-08-23 05:16] LABS: Scan Indicated on CBC? Y/N NO
[2018-08-23] MEDS: Gabapentin 600 MG Tablet PO ×2 (05:31→15:13)
[2018-08-23] MEDS: Benzonatate 100 MG Capsule PO ×2 (06:23→15:17)
[2018-08-23] MEDS: Acetaminophen 325 MG Tablet 650 MG PO (06:23)
[2018-08-23] MEDS: guaiFENesin 10 ML UDC (200MG/10ML) PO ×2 (09:00→15:17)
[2018-08-23] MEDS: Sertraline 50 MG Tablet 150 MG PO (09:00)
[2018-08-23] MEDS: Multivitamins,Ther W-Minerals Tablet 1 TABLET PO (09:00)
[2018-08-23] MEDS: Carvedilol 6.25 MG Tablet PO (09:01)
[2018-08-23] MEDS: Calcium (Elemental) 500 MG Tablet PO (09:01)
[2018-08-23] MEDS: Tolterodine Tartrate 4 MG CAP.SA PO (09:01)
[2018-08-23] MEDS: Fluticasone 0.05% 1 SPRAY NASAL.SRY NASAL (09:01)
[2018-08-23] MEDS: Enoxaparin 40 MG/0.4 ML Syringe SC (09:01)
[2018-08-23] MEDS: Loratadine 10 MG Tablet PO (11:15)
[2018-08-23] MEDS: SUMAtriptan 6 MG/0.5 ML Vial SC (11:15)
--- NOTE | 2018-08-23 11:18 | CASEMGMT ---
This RN CM to room to speak with pt regarding discharge plan and pt is requesting pain meds for migraine at this time. Miroslava GUERRERO aware and states she is awaiting med from pharmacy at this time. This RN CM will check in later after meds kick in to discuss discharge plan. Laurie GUERRERO CM
--- NOTE | 2018-08-23 11:26 | DCINST_ITS ---
- Discharge Diagnoses Current Active Problems: Current Active and Chronic Problems Acute respiratory failure with hypoxia (Acute) Acute exacerbation of CHF (congestive heart failure) (Chronic) Reason(s) for Visit for Discharge Instructions: Shortness of breath You will use the following diet at home:: Cardiac, Fluid restricted (specify 2000 mls, 1500 mls) - 1500mls Your food should be the consistency of: Regular Your liquids should be the consistency of: Regular/Thin Discharge Activity: Return to Normal Activity Additional Instructions: You are advised to continue on a low salt diet and to restrict your total fluid intake to less than 1500mls. Follow-up with your PCP within a week for repeat blood work to follow up on your kidney function. Weigh yourself everyday and let your doctor know if you gain more than 5 pounds of weight. Continue on conservative management for your viral infection. You should follow-up with your primary care doctor for referral to cardiology if needed for heart failure. Allergies/Adverse Reactions: Allergies linezolid [From Zyvox] Adverse Reaction (Unknown, Verified 08/20/18 16:42) Other azithromycin Adverse Reaction (Verified 08/20/18 16:42) Diarrhea Medications to take at Discharge Calcium Carbonate [Calcium] 600 mg PO DAILY 05/29/18 Carvedilol 6.25 mg PO BID 05/29/18 Cholecalciferol (Vitamin D3) [D3-2000] 2,000 unit PO DAILY 05/29/18 Cyanocobalamin (Vitamin B-12) [Cyanocobalamin Injection] 1,000 mcg IJ QMONTH 05/29/18 Oxybutynin Chloride [Oxybutynin Chloride ER] 15 mg PO DAILY 05/29/18 Sertraline HCl 150 mg PO DAILY 05/29/18 traZODone [Desyrel] 100 mg PO QHS PRN PRN 05/29/18 Gabapentin 600 mg PO TID 08/20/18 Lactobacillus Acidophilus [Probiotic] 1 each PO DAILY 08/20/18 Multivit-Min/Iron/Folic/Lutein [Centrum Silver Women Tablet] 1 tab PO DAILY 08/20/18 Mv,Giovanny,Iron,Mn/Folic Acid/Chol [Hair, Skin and Nails Capsule] 1 cap PO DAILY 08/20/18 Potassium (Otc) [Potassium OTC] 99 mg PO DAILY 08/20/18 Acetaminophen [Tylenol Tablet] 650 mg PO Q6H PRN PRN tablet 08/23/18 Benzonatate [Tessalon Perle] 100 mg PO TID PRN PRN #20 capsule 08/23/18 Bumetanide [Bumex] 0.5 mg GT QODAY #15 tablet 08/23/18 Ensure Clear 120 ml PO 4X/DAY #120 liquid 08/23/18 Fluticasone 0.05% [Flonase Nasal [place]] 1 spray NASAL BID #1 nasal.sry 08/23/18 Guaifenesin [Robitussin] 10 ml PO Q4H PRN PRN 7 Days #1 bottle 08/23/18 Loratadine [Claritin] 10 mg PO DAILY #7 tablet 08/23/18 The following prescriptions were given: Guaifenesin [Robitussin] 10 ml PO Q4H PRN PRN 7 Days #1 bottle PRN Reason: Cough Benzonatate [Tessalon Perle] 100 mg PO TID PRN PRN #20 capsule PRN Reason: COUGH Bumetanide [Bumex] 0.5 mg GT QODAY #15 tablet Loratadine [Claritin] 10 mg PO DAILY #7 tablet Fluticasone 0.05% [Flonase Nasal [place]] 1 spray NASAL BID #1 nasal.sry Ensure Clear 120 ml PO 4X/DAY #120 liquid Primary Care Physician: Sharad Burns MD [Primary Care Provider] - Please follow up with your Primary Care Physician in: within 1-2 weeks Test Results: Test results from this visit will be discussed in further detail at your follow- up appointment, if applicable. Proposed Discharge Date: 08/23/18
--- NOTE | 2018-08-23 11:33 | DS.PCM_ITS ---
Discharge Date and Diagnosis - Problem List Patient Problems: Active and Suspected Problems Acute respiratory failure with hypoxia (Acute) Date of Admission: 08/20/18 Date of Discharge: 08/23/18 - Primary Discharge Diagnosis Active and Suspected Problems Acute hypoxic respiratory insufficiency Acute on chronic combined CHF RSV B upper respiratory infection FROYLAN on CKD stage III secondary to diuretic use - Secondary Discharge Diagnosis Chronic Problems Acute exacerbation of CHF (congestive heart failure) (Chronic) Chronic anemia (Chronic) Hypertension (Chronic) Congestive heart failure (Chronic) Synovial sarcoma of right hip (Chronic) Chronic acquired lymphedema (Chronic) Chronic venous stasis dermatitis (Chronic) Chronic fibrosis of lung (Chronic) Peripheral venous insufficiency (Chronic) Venous stasis dermatitis of both lower extremities (Chronic) Lymphedema of both lower extremities (Chronic) Hospital Course and Treatment Imaging Results: Clinical Impression(s) from Imaging Studies Chest X-Ray 08/20/18 17:35 IMPRESSION: Stable x-ray examination of the chest May 29, 2018, as described. Electronically Signed: Josiah Bolden MD at 18:29 EDT , Service support , Operations: None, - Procedures: 2-D Echocardiogram Summary of Care Provided: The patient is a 68 year old F with multiple comorbidities who presented with shortness of breath ongoing for months but worse 3 days prior to admission. Patient reported that she was on Lasix for heart failure but stopped it a week prior because it was making her nauseous. Patient was found to be in severe heart failure, admitting BNP was 2326.1. She was started on IV Lasix but reportedly had large bowel movements and insisted on being taken off it. She subsequently was put on Bumex for which she did well with. Her creatinine continued to increase the next day and Bumex was stopped. She initially was on oxygen but got off oxygen the next day. Patient was managed off diuretics and repeat blood work the next day shows slightly worsening of the kidney function. She was discharged on Bumex every other day with repeat blood work to be done within a week. States that she will follow-up with a primary care doctor in the [facility] system and have her linked to a meat blender in the [facility] system. Patient had complained of nasal congestion, respiratory panel was positive for RSV B. Conservative, symptomatic care was recommended. She was discharged on Claritin, saline nasal spray. Patient Problems: Active and Suspected Problems Acute respiratory failure with hypoxia (Acute) Subjective: On the day of discharge, patient was seen and examined. Respiratory panel was positive for RSV B. Patient complains of postnasal drip, started on Claritin and nasal spray. Denied any fever or chills. Objective: Physical Exam: Gen: Appears comfortable, not pale, not jaundiced, alert oriented x3, kyphosis of the thoracic spine CVS:HS I +II, regular, no murmurs RESP: CTA GI: Full, soft, nontender, no palpable organs EXT: No edema - Physical Exam Vital Signs Temp Pulse Resp BP Pulse Ox 97.9 F 66 16 110/43 L 94 08/23/18 08:46 08/23/18 11:00 08/23/18 08:46 08/23/18 08:46 08/23/18 08:46 Oxygen Flow Rate (L/min) 1 Oxygen Delivery Method Room Air Weight: 53.6 kg Body Mass Index (BMI) 24.3 Intake and Output for Last 24 Hours 08/21/18 08/22/18 08/23/18 23:59 23:59 23:59 Intake Total 540 / 540 1095 / 1095 Output Total 1900 / 1900 525 / 525 300 / 300 Balance -1360 / -1360 570 / 570 -300 / -300 Laboratory Tests Past 24 Hrs 08/23/18 08/23/18 04:50 04:50 WBC 5.1 RBC 4.11 L Hgb 12.1 Hct 38.8 MCV 94.4 MCH 29.4 MCHC 31.2 L RDW 14.2 RDW Differential 48.7 H Plt Count 120 L MPV 10.9 Sodium 143 Potassium 3.5 Chloride 109 H Carbon Dioxide 29.0 Anion Gap 5 BUN 35 H Creatinine 1.69 H Estim Creat Clear Calc 26.21 Est GFR (MDRD) Af Amer 38 L Est GFR (MDRD) Non-Af 32 L BUN/Creatinine Ratio 20.7 H Glucose 88 Calcium 7.8 L Discharge Diet: Low fat/ Low Cholesterol, 2000 mg Sodium Diet Discharge Activity: Return to Normal Activity Home Medications: Medications to take at Discharge Calcium Carbonate [Calcium] 600 mg PO DAILY 05/29/18 Carvedilol 6.25 mg PO BID 05/29/18 Cholecalciferol (Vitamin D3) [D3-2000] 2,000 unit PO DAILY 05/29/18 Cyanocobalamin (Vitamin B-12) [Cyanocobalamin Injection] 1,000 mcg IJ QMONTH 05/29/18 Oxybutynin Chloride [Oxybutynin Chloride ER] 15 mg PO DAILY 05/29/18 Sertraline HCl 150 mg PO DAILY 05/29/18 traZODone [Desyrel] 100 mg PO QHS PRN PRN 05/29/18 Gabapentin 600 mg PO TID 08/20/18 Lactobacillus Acidophilus [Probiotic] 1 each PO DAILY 08/20/18 Multivit-Min/Iron/Folic/Lutein [Centrum Silver Women Tablet] 1 tab PO DAILY 08/20/18 Mv,Giovanny,Iron,Mn/Folic Acid/Chol [Hair, Skin and Nails Capsule] 1 cap PO DAILY 08/20/18 Potassium (Otc) [Potassium OTC] 99 mg PO DAILY 08/20/18 Acetaminophen [Tylenol Tablet] 650 mg PO Q6H PRN PRN tablet 08/23/18 Benzonatate [Tessalon Perle] 100 mg PO TID PRN PRN #20 capsule 08/23/18 Bumetanide [Bumex] 0.5 mg GT QODAY #15 tablet 08/23/18 Ensure Clear 120 ml PO 4X/DAY #120 liquid 08/23/18 Fluticasone 0.05% [Flonase Nasal [place]] 1 spray NASAL BID #1 nasal.sry 08/23/18 Guaifenesin [Robitussin] 10 ml PO Q4H PRN PRN 7 Days #1 bottle 08/23/18 Loratadine [Claritin] 10 mg PO DAILY #7 tablet 08/23/18 Following Prescrptions Were Given to Patient: Guaifenesin [Robitussin] 10 ml PO Q4H PRN PRN 7 Days #1 bottle PRN Reason: Cough Benzonatate [Tessalon Perle] 100 mg PO TID PRN PRN #20 capsule PRN Reason: COUGH Bumetanide [Bumex] 0.5 mg GT QODAY #15 tablet Loratadine [Claritin] 10 mg PO DAILY #7 tablet Fluticasone 0.05% [Flonase Nasal [place]] 1 spray NASAL BID #1 nasal.sry Ensure Clear 120 ml PO 4X/DAY #120 liquid Primary Care Physician: Sharad Burns MD [Primary Care Provider] - Please follow up with your Primary Care Physician in: within 1-2 weeks Disposition: Home Minutes spent on discharge:: 40 Patient Condition:: Stable Medical Necessity - Tobacco Use Smoking Status: Never smoker Tobacco Use: Non-smoker Meaningful Use Info Meaningful Use Diagnoses (Choose all that apply): None applicable Code Visit Inpatient E&M: 99214 Disch Hosp
--- NOTE | 2018-08-23 14:58 | CASEMGMT ---
PT note states no therapy recommended and this RN CM to room and pt declines need for HHC or OP therapy at this time. Pt states no need for any further resources at this time. SStaten RN CM
[2018-08-23] MEDS: Ensure Clear 120 ML Liquid PO (15:13)
--- NOTE | 2018-08-24 12:19 | CASEMGMT ---
YOLANDA CM DC PHONE CALL DC DATE: 08/23/18 DC Disposition: Home LACE/STRATA: 04/24 Message left for patient with call back information if there were questions re: instructions, follow up or prescriptions. Rolly HALNEYN RN ACM
== END 2018-08-23 16:41 | disposition home or self-care (01) | DRG 291 ==
LOC: ED 18:11 → PCU 19:44
PROVIDERS: Nurse Practitioner Family; Emergency Provider Emergency Medicine; Family Provider Family Medicine; PCP Family Medicine; Visit Provider Internal Medicine
DX: I13.0 Hypertensive heart and chronic kidney disease with heart failure and stage 1 through stage 4 chronic kidney disease, or unspecified chronic kidney disease (principal); I50.43 Acute on chronic combined systolic (congestive) and diastolic (congestive) heart failure; R64 Cachexia; N17.9 Acute kidney failure, unspecified; E87.6 Hypokalemia; N18.3 Chronic kidney disease, stage 3 (moderate); D63.8 Anemia in other chronic diseases classified elsewhere; R06.89 Other abnormalities of breathing; J06.9 Acute upper respiratory infection, unspecified; B97.4 Respiratory syncytial virus as the cause of diseases classified elsewhere; R09.02 Hypoxemia; Z92.21 Personal history of antineoplastic chemotherapy; Z68.24 Body mass index [BMI] 24.0-24.9, adult; Z85.830 Personal history of malignant neoplasm of bone; Z92.3 Personal history of irradiation; Z98.84 Bariatric surgery status; I87.2 Venous insufficiency (chronic) (peripheral)
CPT/HCPCS: 36591; 71046; 80048; 80061; 82962; 83880; 84134; 84443; 84484; 85025; 85027; 87633; 93005; 93306; 94760; 97162; 97166; 97530; 97535; 97802; 99284; A4216; J1940; J3030

== ENCOUNTER 2018-09-17 17:27 | Emergency (ER) | payer MEDICARE, BC, SELFPAY ==
[2018-09-17 17:27] VITALS: BMI 25.0
[2018-09-17 17:28] VITALS: BP 137/71; PULSE 87; RESP 18; TEMP 36.8; O2SAT 94; BMI 26.0
--- NOTE | 2018-09-17 18:21 | RAD_ITS ---
STUDY: X-RAY - LEFT TIBIA AND FIBULA REASON FOR EXAM: Female, 68 years old. Status post fall TECHNIQUE: 2 view(s) of the tibia and fibula were obtained. COMPARISON: None. FINDINGS: There is demineralization of the tibia. There is demineralization of the fibula. There is no demonstrated acute fracture. The soft tissue structures are unremarkable. RAD/Tibia & Fibula 2 Views IMPRESSION: No acute findings Electronically Signed: Hardik Daivla DO at 19:42 EDT Tel , Service support ,
--- NOTE | 2018-09-17 18:57 | US_ITS ---
STUDY: VENOUS DOPPLER ULTRASOUND - LEFT LOWER EXTREMITY REASON FOR EXAM: Female, 68 years old. Status post fall with left leg pain TECHNIQUE: Ultrasound evaluation of the deep vein system to include lee-scale imaging and compression was performed. Lee-scale imaging and Doppler sonographic evaluation, including duplex spectral analysis and qualitative color flow sonography, was performed. COMPARISON: None. FINDINGS: Common Femoral Vein: Normal compression, spontaneity and augmentation. Normal color Doppler. Common Femoral Vein/Greater Saphenous Junction: Normal compression, spontaneity and augmentation. Normal color Doppler. Femoral Proximal: Normal compression, spontaneity and augmentation. Normal color Doppler. Femoral Middle: Normal compression, spontaneity and augmentation. Normal color Doppler. Femoral Distal: Normal compression, spontaneity and augmentation. Normal color Doppler. Popliteal Vein: Normal compression, spontaneity and augmentation. Normal color Doppler. Posterior Tibial Vein: Normal compression, spontaneity and augmentation. Normal color Doppler. US/Venous Duplex Imag/Limited/Uni IMPRESSION: Normal venous Doppler ultrasound of the lower extremity. Electronically Signed: Hardik Davila DO at 19:55 EDT Tel , Service support ,
--- NOTE | 2018-09-17 19:16 | ED.VISSUMM ---
- ER Visit Summary Date of Service: 09/17/18 Chief Complaint: Left lower extremity hematoma History of Present Illness: The patient is a 68 F presents after tripping and falling yesterday. She has pain and swelling in her left lower leg. She states it was swollen to about twice the size it is currently. The area is painful and bruised. She went to see her PCP but because it was late in the evening he could not get test performed in the office and sent her to the emergency room. Patient is not currently on blood thinners. She does have a history of lymphedema. Physical Examination: Vital signs unremarkable. Patient sitting upright in bed no acute distress. Heart is regular rate and rhythm. Lung sounds are grossly clear. Lower extremity examination reveals mild edema and ecchymosis to the left lower leg. Area is tender to touch. She has strong distal pulses. Test Results: Left tib-fib x-rays are obtained and reveal no fracture. Venous ultrasound of the leg shows no DVT. Emergency Department Course and Treatment: Patient was given 1 tab of p.o. [place]. Camron wrap was applied to the lower leg. I advised her she has a hematoma this will need to reabsorb. She does have very minimal erythema. It is not consistent with cellulitis, but I advised her to monitor it every day and return if it worsens. Treatment Plan: [] Disposition: Discharge Impression: Left lower extremity contusion with hematoma This note was generated with [employer] dictation software. It may contain incorrect words, spelling, and punctuation that were not noted in review of the chart prior to signing ED Disposition - Plan for ED Patient: Disposition: Home or Assisted Living Instructions: ED Hematoma Prescriptions: Hydrocodone Bitart/Apap 5-325 [[place] 5MG-325MG] 1 tablet PO Q6H PRN PRN 3 Days #10 tablet PRN Reason: Pain Referrals: Sharad Burns MD [Primary Care Provider] - 1 Week
[2018-09-17] MEDS: HYDROcodone Bitartrate/Apap 5/325 Tablet PO (19:25)
[2018-09-17 19:55] VITALS: BP 136/78; PULSE 77; RESP 16; O2SAT 97
== END 2018-09-17 19:55 | disposition home or self-care (01) ==
PROVIDERS: Emergency Provider Emergency Medicine; Family Provider Family Medicine; PCP Family Medicine
DX: S80.12XA Contusion of left lower leg, initial encounter (principal); W01.0XXA Fall on same level from slipping, tripping and stumbling without subsequent striking against object, initial encounter; Y93.9 Activity, unspecified; Y92.9 Unspecified place or not applicable; I11.0 Hypertensive heart disease with heart failure; I50.9 Heart failure, unspecified; D64.9 Anemia, unspecified; I89.0 Lymphedema, not elsewhere classified; Z79.899 Other long term (current) drug therapy; R60.0 Localized edema
CPT/HCPCS: 73590; 93971; 99283

== ENCOUNTER 2018-11-16 19:49 | Inpatient (IN) | payer MEDICARE, BC, SELFPAY ==
[2018-11-16 19:50] VITALS: BP 129/77; PULSE 89; RESP 14; TEMP 36.7; O2SAT 89; BMI 23.4
--- NOTE | 2018-11-16 20:04 | RAD_ITS ---
STUDY: X-RAY CHEST REASON FOR EXAM: Female, 68 years old. CHF TECHNIQUE: Frontal and lateral views of the chest. COMPARISON: August 20, 2018 FINDINGS: Stable right chest wall port. Chronic interstitial lung changes without superimposed acute alveolar disease. Stable elevation of the right hemidiaphragm. There is no demonstrated pleural abnormality. Stable cardiomediastinal silhouette. Normal mediastinum and elif. Normal visualized pulmonary arteries. Normal visualized aortic arch and descending thoracic aorta. Normal visualized thoracic spine. Left shoulder arthroplasty. Cholecystectomy clips. RAD/Chest PA and Lateral IMPRESSION: Chronic interstitial lung changes without superimposed acute alveolar disease. Electronically Signed: Sharad Urbina MD at 20:20 EDT Tel , Service support ,
[2018-11-16 20:57] VITALS: O2SAT 88
--- NOTE | 2018-11-16 21:02 | ED.VISSUMM ---
- ER Visit Summary Date of Service: 11/16/18 Chief Complaint: Lower extremity edema History of Present Illness: The patient is a 68 F who presents for 2 to 3 days of significant swelling in her right lower extremity. Patient states she had cancer in the right hemipelvis that required surgical resection and chemotherapy several years ago. Since then she has been having difficulty with swelling in the extremity and she wears compression stocking. The last few days it is been much worse and the leg is diffusely tender. She has chronic swelling of the left lower extremity and had a an injury to the lower leg that caused it to swell as well about 6 weeks ago. Patient is complaining of dyspnea on exertion and shortness of breath. She denies chest pain, fever, cough. She has history of spindle cell carcinoma. She has poor right kidney function due to the cancer and the chemotherapy. History of CHF. She is not on any blood thinners. She denies history of PE or DVT. Physical Examination: Vital signs: afebrile, hemodynamically stable, 88% on room air General: well nourished, well developed, in no distress Skin: warm, dry, no rash, no pallor HEENT: normocephalic and atraumatic; PERRL, EOMI, moist mucous membranes Cardiovascular: regular rate and rhythm without murmurs, significant bilateral lower extremity edema, right lower extremity and a full-length compression stocking, 2+ pulses all distal extremities Respiratory: Mild increased work of breathing, lungs have diffuse crackles Abdominal: Abdomen is soft, nontender with normoactive bowel sounds, no guarding or rebound, no masses MSK: Moves all extremities, no deformities, normal strength Neuro: Awake and alert, oriented ?4. No facial droop, sensation and motor function intact and symmetric Test Results: Abnormal Lab Results 11/16/18 11/16/18 11/16/18 21:10 21:10 21:10 WBC 7.6 RBC 3.86 L Hgb 10.2 L Hct 34.2 L MCV 88.6 MCH 26.4 L MCHC 29.8 L RDW 17.4 H RDW Differential 56.3 H Plt Count 171 MPV 10.7 Immature Gran % (Auto) 0.100 Neut % (Auto) 78.1 H Lymph % (Auto) 12.2 L [place] % (Auto) 7.4 Eos % (Auto) 1.8 Baso % (Auto) 0.4 Absolute Neuts (auto) 5.9 Absolute Lymphs (auto) 0.93 Total Counted Not Reportable Sodium 144 Potassium 3.5 Chloride 118 H Carbon Dioxide 22.0 Anion Gap 4 L BUN 32 H Creatinine 1.52 H Estim Creat Clear Calc 28.61 Est GFR (MDRD) Af Amer 43 L Est GFR (MDRD) Non-Af 36 L BUN/Creatinine Ratio 21.1 H Glucose 96 Calcium 7.6 L Total Bilirubin 0.20 AST 42 H ALT 64 H Alkaline Phosphatase 147 H Troponin I B-Natriuretic Peptide 1598.5 H Total Protein 6.9 Albumin 2.9 L Globulin 4.0 Albumin/Globulin Ratio 0.7 L 11/16/18 21:10 WBC RBC Hgb Hct MCV MCH MCHC RDW RDW Differential Plt Count MPV Immature Gran % (Auto) Neut % (Auto) Lymph % (Auto) [place] % (Auto) Eos % (Auto) Baso % (Auto) Absolute Neuts (auto) Absolute Lymphs (auto) Total Counted Sodium Potassium Chloride Carbon Dioxide Anion Gap BUN Creatinine Estim Creat Clear Calc Est GFR (MDRD) Af Amer Est GFR (MDRD) Non-Af BUN/Creatinine Ratio Glucose Calcium Total Bilirubin AST ALT Alkaline Phosphatase Troponin I 0.034 B-Natriuretic Peptide Total Protein Albumin Globulin Albumin/Globulin Ratio Clinical Impression(s) from Imaging Studies Chest X-Ray 11/16/18 20:04 IMPRESSION: Chronic interstitial lung changes without superimposed acute alveolar disease. Electronically Signed: Sharad Urbina MD at 20:20 EDT Tel , Service support , Venous Duplex 11/16/18 22:28 IMPRESSION: No DVT is identified. Electronically Signed: Sharad Urbina MD at 23:15 EDT Tel , Service support , Medications Given Discontinued Medications Acetaminophen (Tylenol) 1,000 mg PO X1 ONE Stop: 11/16/18 23:17 Last Admin: 11/16/18 23:21 Dose: 1,000 mg Documented by: KERI Nitroglycerin (Nitrobid) 0.5 inch TRANSDERM. X1 ONE Stop: 11/16/18 23:01 Last Admin: 11/16/18 23:21 Dose: 0.5 inch Documented by: KERI Emergency Department Course and Treatment: Patient presents concern for her lower extremity edema, right greater than left, but is also having significant dyspnea on exertion and overall shortness of breath. Patient was 88% on room air and was placed on a nasal cannula for hypoxia. Because of patient's cancer history, differential includes DVT and/or PE, return of pelvic mass resulting in venous and/or lymphatic compression causing the swelling in the right lower extremity, or acute CHF. Ultrasound was performed of the lower extremities that showed no evidence of DVT. Patient's lung exam was concerning for acute CHF, with diffuse rales. She also was hypoxic and is having shortness of breath consistent with acute CHF. patient's BNP is significantly elevated, and it was elevated at her last admission for similar symptoms with acute CHF exacerbation. EKG shows atrial fibrillation, which was not present on her prior EKGs this year. Patient states she cannot take Lasix and required a special diuretic during her prior admission. Chart review showed that patient was on Bumex and required careful balance of renal insufficiency versus appropriate diuresis. Nitropaste was placed on patient's chest but diuretic is deferred until admission. She was discussed with Dr. Quiroz for admission for further treatment of acute CHF exacerbation, hypoxia on room air, and new A. fib on EKG. Treatment Plan: [] Disposition: Admission to PCU Impression: Acute CHF exacerbation, hypoxia on room air, new onset atrial fibrillation This note was generated with [employer] dictation software. It may contain incorrect words, spelling, and punctuation that were not noted in review of the chart prior to signing ED Disposition - Plan for ED Patient: Referrals: Sharad Burns MD [Primary Care Provider] -
[2018-11-16 21:29] LABS: Absolute Lymphocyte Count 0.93 X10^3/ul (0.83-4.51); Absolute Neutrophil Count 5.9 X10^3/uL (2.0-7.7); Basophil# 0.03 X10^3/uL; Basophil% 0.4 % (0-1); Eosinophil# 0.14 X10^3/uL; Eosinophils% 1.8 % (0-5); Hematocrit 34.2 % (37-47); Hemoglobin 10.2 g/dl (12.0-15.0); Lymphocyte # 0.93 X10^3/ul (4.0); Lymphocyte % 12.2 % (19-41); Mean Corp Hgb Conc 29.8 g/gl (32-36); Mean Corpuscular Hgb 26.4 pg (27.0-32.0); Mean Corpuscular Volume 88.6 fL (81-99); Mean Platelet Vol. 10.7 fl (6.2-12.0); Monocyte# 0.56 X10^3/uL; Monocyte% 7.4 % (0-10); Neutrophil # 5.93 X10^3/uL (2.7-7.7); Neutrophil % 78.1 % (47-70); POSITIVE COUNT NO; POSITIVE DIFFERENTIAL NO; Platelet Count 171 K/mm3 (150-450); RBC Distribution Width CV 17.4 % (11.6-14.6); RBC Distribution Width SD 56.3 fl (35.1-43.9); Red Blood Count 3.86 M/mm3 (4.2-5.4); White Blood Count 7.6 K/mm3 (4.4-11.0)
[2018-11-16 21:30] LABS: POSITIVE MORPHOLOGY NO
[2018-11-16 21:48] LABS: ALB/GLOB Ratio 0.7 RATIO (0.9-2.4); AST(SGOT) 42 U/L (15-37); Alanine Aminotransfer ALT/SGPT 64 U/L (13-56); Albumin, Serum 2.9 g/dL (3.2-5.0); Alkaline Phosphatase 147 U/L (45-117); Anion Gap 4 (5-15); BUN 32 mg/dL (7-18); BUN/Creat Ratio 21.1 RATIO (10-20); Calcium,Total 7.6 mg/dL (8.5-10.1); Chloride 118 mmol/L (98-107); Creatinine, Serum 1.52 mg/dL (0.55-1.02); EST Glomerular Filtration Rate 36 mL/min (>60); Est Glom Filt Rate - Afr Amer 43 mL/min (>60); Estimated Creatinine Clearance 28.61 ml/min; Glucose 96 mg/dL (74-106); Potassium 3.5 mmol/L (3.5-5.1); Protein, Total 6.9 g/dL (6.4-8.2); Sodium Level 144 mmol/L (136-145)
[2018-11-16 21:55] LABS: BNP,B-Type NATRIURETIC PEPTIDE 1598.5 pg/mL (0-100)
--- NOTE | 2018-11-16 22:28 | US_ITS ---
STUDY: VENOUS DOPPLER ULTRASOUND - BILATERAL LOWER EXTREMITIES REASON FOR EXAM: Female, 68 years old. Leg swelling TECHNIQUE: Ultrasound evaluation of the deep vein system to include lee-scale imaging and compression was performed. Lee-scale imaging and Doppler sonographic evaluation, including duplex spectral analysis and qualitative color flow sonography, was performed. COMPARISON: None. FINDINGS: No deep venous thrombosis is identified. All visualized veins demonstrate normal compressibility, augmentation and/or color flow. US/Venous Duplex Imag/Abdiel Extrem IMPRESSION: No DVT is identified. Electronically Signed: Sharad Urbina MD at 23:15 EDT Tel , Service support ,
[2018-11-16 23:21] VITALS: BP 154/105; PULSE 83
[2018-11-16] MEDS: Nitroglycerin Oint 1 INCH PACKET 0.5 INCH TRANSDERM. (23:21)
[2018-11-16] MEDS: Acetaminophen 500 MG Tablet 1000 MG PO (23:21)
[2018-11-16 23:23] VITALS: BP 154/105; PULSE 93; RESP 22; O2SAT 93
--- NOTE | 2018-11-16 23:59 | PCM.HP.STD ---
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 The patient is a 68 year old F with past medical history as mentioned above presented to the emergency room because of leg swelling and shortness of breath. Her symptoms started around 3 to 4 days ago with increasing bilateral leg swelling, right leg more than the left leg, associated with gaining weight and shortness of breath. She mentioned that she has been getting more short of breath than usual over the last 3 days, shortness of breath on minimal exertion, she can walk only for few feet without getting short of breath, aggravated by activity, relieved by rest, associated with mild cough and increasing bilateral leg edema. She stated that she did not take her Bumex for the last couple of days because she has been going to [employer] for shopping and she cannot take diuretics while she is outside of her house because she is incontinent of urine. She denied chest pain, palpitation, dizziness or lightheadedness. Recently, she had mechanical fall and she had left leg hematoma. In the emergency department, she was afebrile, blood pressure was stable, heart rate was in the 80s, pulse ox was 88% on room air. Routine blood work was remarkable for hemoglobin of 10.2 g/dL, BUN of 32, creatinine 1.52. EKG revealed irregular rhythm, questionable A. fib which is new, no acute ischemic changes. Troponin was negative. BNP was elevated at 1598 but it has been chronically elevated. LFT revealed chronic elevation of liver transaminases and alkaline phosphatase which is not new. Chest x-ray revealed cardiomegaly and fibrotic changes, no significant change compared to previous chest x-rays. Venous Doppler of both legs showed no acute DVT. She is being admitted for acute on chronic combined systolic and diastolic CHF as well as questionable new onset atrial fibrillation. Past Medical History Past Medical History (Chronic Problems): Chronic Problems Chronic anemia (Chronic) Hypertension (Chronic) Congestive heart failure (Chronic) Synovial sarcoma of right hip (Chronic) Chronic acquired lymphedema (Chronic) Chronic venous stasis dermatitis (Chronic) Chronic fibrosis of lung (Chronic) Peripheral venous insufficiency (Chronic) Venous stasis dermatitis of both lower extremities (Chronic) Lymphedema of both lower extremities (Chronic) Allergies erythromycin base Allergy (Verified 11/16/18 19:52) Unknown linezolid [From Zyvox] Adverse Reaction (Unknown, Verified 11/16/18 19:52) Other azithromycin Adverse Reaction (Verified 11/16/18 19:52) Diarrhea Home Medications: Ambulatory Orders Medication Instructions Recorded Calcium Carbonate [Calcium] 600 mg PO DAILY 05/29/18 Carvedilol 6.25 mg PO BID 05/29/18 Cholecalciferol (Vitamin D3) 2,000 unit PO DAILY 05/29/18 [D3-2000] Cyanocobalamin (Vitamin B-12) 1,000 mcg IJ QMONTH 05/29/18 [Cyanocobalamin Injection] Oxybutynin Chloride [Oxybutynin 15 mg PO DAILY 05/29/18 Chloride ER] Gabapentin 600 mg PO TID 08/20/18 Lactobacillus Acidophilus 1 each PO DAILY 08/20/18 [Probiotic] Multivit-Min/Iron/Folic/Lutein 1 tab PO DAILY 08/20/18 [Centrum Silver Women Tablet] Mv,Giovanny,Iron,Mn/Folic Acid/Chol 1 cap PO DAILY 08/20/18 [Hair, Skin and Nails Capsule] Potassium (Otc) [Potassium OTC] 99 mg PO DAILY 08/20/18 Acetaminophen [Tylenol Tablet] 650 mg PO Q6H PRN PRN tablet 08/23/18 Fluticasone 0.05% [Flonase Nasal 1 spray NASAL BID #1 nasal.sry 08/23/18 [place]] Loratadine [Claritin] 10 mg PO DAILY #7 tablet 08/23/18 Sertraline HCl [Zoloft] 75 mg PO DAILY 09/17/18 Ensure Clear 120 ml PO DAILY PRN 11/16/18 busPIRone [Buspar] 5 mg PO BID 11/16/18 Surgical History: cholecystectomy, gastric bypass, herniorrhaphy, hysterectomy, tonsillectomy, - - 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 Psychiatric History: Anxiety, Depression CROP CONSULTANT History: No pertinent CROP CONSULTANT history, - Lives: Spouse/ Significant Other Smoking Status: Never smoker Alcohol: None Drugs: None - *Family History Maternal History Items: Diabetes - alive age 86 Paternal History Items: Cancer - age 79 Offspring History Items: - - 3 children: 2 living, 1 Review of Systems Constitutional: Reports: Weakness. Denies: Anorexia, Chills, Fever Eyes: Denies: Blurred vision, Double vision, Drainage, Redness HEENT: Denies: Difficulty Hearing, Ear Pain, Eye Pain, Nasal Congestion, Sore Throat Cardiovascular: Reports: Edema. Denies: Chest Pain, Claudication, Chest Pressure, Chest Tightness, Heaviness, Light Headedness, Palpitations, Paroxysmal Noc. Dyspnea, Syncope Respiratory: Reports: Shortness of Breath, Shortness of breath upon exertion. Denies: Cough, Hemoptysis, Pleuritic Pain, Sputum production, Wheezing Gastrointestinal: Denies: Abdominal Pain, Constipation, Diarrhea, Nausea, Vomiting Genitourinary: Reports: Incontinence. Denies: Dysuria, Frequency, Hematuria Musculoskeletal: Denies: Arm Pain, Back Pain, Foot Pain Skin: Denies: Dryness, Rash Neurological: Denies: Balance problems, Blurred vision, Double vision, Change in Speech, Slurred speech, Confusion, Headaches, Incoordination, Numbness Psychiatric: Denies: Anxiety, Depression Endocrine: Denies: Change in Body Habitus, Polydipsia, Polyuria VTE Information - Inpt Only VTE Present on Admission: No VTE Mechan Device Prophylaxis: None VTE Pharm Prophylaxis ordered?: Yes - Physical Exam General: Alert, Oriented x3, Cooperative, No apparent distress HEENT: Atraumatic, PERRLA, EOMI, Normocephalic Oral: Moist Mucosa, No Gingival or Mucosal Lesions/ Ulcerations Neck: Supple, No JVD, Negative Carotid Bruits, Trachea Midline, Thyroid Normal Size and Texture Lungs: No wheeze, Diminished, Rales, Rhonchi, - - Decreased breath sounds bilaterally, faint bilateral basal crackles, rhonchi. Cardiovascular: Regular rate, Regular Rhythm, Normal S1, Normal S2, PMI Normal Abdomen: Bowel Sounds Present, Soft, Non Tender, Non-Distended, No Hepato-splenomegaly Extremities: No clubbing, No cyanosis, Edema - Right leg:++ Pitting edema. Left leg: Skin discoloration,+ edema. Skin: No rashes, No breakdown Lymphatic: No Cervical, Supraclavicular, or Inguinal Adenopathy Neurological: Cranial nerves II-XII grossly intact, Motor Exam 5/5 strength throughout Psych/Mental Status: Normal Affect, Appropriate, Alert and oriented to time, place, person, mood and affect Vital Signs Temp Pulse Resp BP Pulse Ox 98.1 F 93 22 H 154/105 H 93 11/16/18 19:50 11/16/18 23:23 11/16/18 23:23 11/16/18 23:23 11/16/18 23:23 Oxygen Flow Rate (L/min) 2 Oxygen Delivery Method Nasal Cannula Weight: 116 lb Body Mass Index (BMI) 23.4 Laboratory Tests Past 24 Hrs 11/16/18 11/16/18 11/16/18 21:10 21:10 21:10 WBC 7.6 RBC 3.86 L Hgb 10.2 L Hct 34.2 L MCV 88.6 MCH 26.4 L MCHC 29.8 L RDW 17.4 H RDW Differential 56.3 H Plt Count 171 MPV 10.7 Immature Gran % (Auto) 0.100 Neut % (Auto) 78.1 H Lymph % (Auto) 12.2 L [place] % (Auto) 7.4 Eos % (Auto) 1.8 Baso % (Auto) 0.4 Absolute Neuts (auto) 5.9 Absolute Lymphs (auto) 0.93 Total Counted Not Reportable Sodium 144 Potassium 3.5 Chloride 118 H Carbon Dioxide 22.0 Anion Gap 4 L BUN 32 H Creatinine 1.52 H Estim Creat Clear Calc 28.61 Est GFR (MDRD) Af Amer 43 L Est GFR (MDRD) Non-Af 36 L BUN/Creatinine Ratio 21.1 H Glucose 96 Calcium 7.6 L Total Bilirubin 0.20 AST 42 H ALT 64 H Alkaline Phosphatase 147 H Troponin I B-Natriuretic Peptide 1598.5 H Total Protein 6.9 Albumin 2.9 L Globulin 4.0 Albumin/Globulin Ratio 0.7 L 11/16/18 21:10 WBC RBC Hgb Hct MCV MCH MCHC RDW RDW Differential Plt Count MPV Immature Gran % (Auto) Neut % (Auto) Lymph % (Auto) [place] % (Auto) Eos % (Auto) Baso % (Auto) Absolute Neuts (auto) Absolute Lymphs (auto) Total Counted Sodium Potassium Chloride Carbon Dioxide Anion Gap BUN Creatinine Estim Creat Clear Calc Est GFR (MDRD) Af Amer Est GFR (MDRD) Non-Af BUN/Creatinine Ratio Glucose Calcium Total Bilirubin AST ALT Alkaline Phosphatase Troponin I 0.034 B-Natriuretic Peptide Total Protein Albumin Globulin Albumin/Globulin Ratio Clinical Impression(s) from Imaging Studies Chest X-Ray 11/16/18 20:04 IMPRESSION: Chronic interstitial lung changes without superimposed acute alveolar disease. Electronically Signed: Sharad Urbina MD at 20:20 EDT Tel , Service support , Venous Duplex 11/16/18 22:28 IMPRESSION: No DVT is identified. Electronically Signed: Sharad Urbina MD at 23:15 EDT Tel , Service support , Assessment/Plan This is a 68 years old female patient presented to the emergency room because of increasing bilateral leg edema, worsening shortness of breath, has not been taking her Bumex for the last couple of days and she was found to have acute on chronic combined systolic and diastolic CHF, found to have irregular heart rhythm on EKG questionable for new onset atrial fibrillation and she is being admitted for treatment. #1 acute on chronic combined systolic congestive CHF/hypoxia: Secondary to noncompliance, patient has not been taking her Bumex for the last couple of days because she is incontinent and she wants to go outside the house. She is not sure how much she takes Bumex and she mentioned that she is allergic to Lasix. EKG revealed questionable new onset A. fib, no acute segment changes. Chest x-ray reviewed. Venous Doppler showed no acute DVT of both legs. She had 2D echocardiogram back on August, and her ejection fraction of 40%. BNP is elevated. Troponin is negative. Plan: Admit to PCU, cardiac monitoring, fluid restriction to less than 1500 cc daily, start IV Bumex, input output chart, repeat CBC and BMP tomorrow morning, albuterol as needed, incentive parameter, PT OT evaluation and treatment. #2 cardiac arrhythmia: Questionable new onset A. fib: EKG is questionable for A. fib, rate is controlled. No acute changes. She has no past history of A. fib. Plan: Cardiac monitoring, repeat EKG tomorrow morning, check serum magnesium. Serum potassium is normal. #3 hypertension: Blood pressure slightly elevated, continue Coreg, IV hydralazine PRN. #4 stage III chronic kidney disease: Baseline creatinine is around 1.4 to 1.7 mg/dL. Admission creatinine is 1.52, stable at baseline. 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 #6 chronic anemia: Hemoglobin and hematocrit are stable at baseline, no active bleeding. #7 DVT prophylaxis: Subcu heparin. This note was generated with [employer] dictation software. It may contain incorrect words, spelling, and punctuation that were not noted in checking the note before signing. Code Visit Inpatient E&M: 98704 Init Hosp L3
[2018-11-17] VITALS (13 sets, daily range): BP systolic 122–161; BP diastolic 62–98; PULSE 78–122; RESP 16–26; TEMP 36.5–36.9; O2SAT 94–96; BMI 30.2; BMI 30.3
[2018-11-17] MEDS: Bumetanide 1 MG/4 ML Vial 2 MG IV ×3 (01:25→17:03)
[2018-11-17] MEDS: 0.9% NaCl Peripheral Flush Adult/Peds IV ×3 (01:45→17:03)
--- NOTE | 2018-11-17 04:33 | NURSING ---
This RN used a purwick on patient instead of a urinary catheter. The FINISH GRINDER stated per the Doctors conversation with patient we would use purwick initially. Patient is able to tell when she has urinary retention and will let us know if she begins to feel that way.
--- NOTE | 2018-11-17 05:55 | EKG12_ITS ---
Test Reason : AM EKG Blood Pressure : / mmHG Vent. Rate : 082 BPM Atrial Rate : 080 BPM P-R Int : 000 ms QRS Dur : 098 ms QT Int : 392 ms P-R-T Axes : 000 006 144 degrees QTc Int : 457 ms Atrial fibrillation Nonspecific ST and T wave abnormality Abnormal ECG Confirmed by EV JEFFRIES, PARVIN ([id number]), editor farm journal GORDON ROMERO ([id number]) on 11/21/2018 12:42:15 PM Referred By: FOX Confirmed By:PARVIN CARRENO MD
[2018-11-17] MEDS: Gabapentin 600 MG Tablet PO ×3 (06:09→21:45)
[2018-11-17] MEDS: Heparin Injection (Vial) 5,000 UNIT/ML VIAL 5000 UNIT SC ×3 (06:09→21:44)
--- NOTE | 2018-11-17 06:57 | NURSING ---
This RN and the TECHNICAL SOLUTIONS ENGINEER repositioned the purewick and it is catching patients urination. Due to this the urinary catheter was not placed at this time. Previously Emergency room nurse passed along to try purewick first and use urinary catheter if purewick was not working. Will continue to monitor and let dayshift nurse that if needed it can be inserted.
[2018-11-17 07:10] LABS: Absolute Lymphocyte Count 1.26 X10^3/ul (0.83-4.51); Absolute Neutrophil Count 4.4 X10^3/uL (2.0-7.7); Basophil# 0.03 X10^3/uL; Basophil% 0.5 % (0-1); Eosinophil# 0.19 X10^3/uL; Eosinophils% 2.9 % (0-5); Hematocrit 34.1 % (37-47); Hemoglobin 10.1 g/dl (12.0-15.0); Lymphocyte # 1.26 X10^3/ul (4.0); Lymphocyte % 19.4 % (19-41); Mean Corp Hgb Conc 29.6 g/gl (32-36); Mean Corpuscular Hgb 26.2 pg (27.0-32.0); Mean Corpuscular Volume 88.3 fL (81-99); Mean Platelet Vol. 11.1 fl (6.2-12.0); Monocyte# 0.64 X10^3/uL; Monocyte% 9.8 % (0-10); Neutrophil # 4.37 X10^3/uL (2.7-7.7); Neutrophil % 67.2 % (47-70); Platelet Count 163 K/mm3 (150-450); RBC Distribution Width CV 17.2 % (11.6-14.6); RBC Distribution Width SD 55.2 fl (35.1-43.9); Red Blood Count 3.86 M/mm3 (4.2-5.4); White Blood Count 6.5 K/mm3 (4.4-11.0)
[2018-11-17 07:12] LABS: POSITIVE COUNT NO; POSITIVE DIFFERENTIAL NO; POSITIVE MORPHOLOGY NO
[2018-11-17 07:27] LABS: Anion Gap 7 (5-15); BUN 31 mg/dL (7-18); BUN/Creat Ratio 21.4 RATIO (10-20); Chloride 116 mmol/L (98-107); Creatinine, Serum 1.45 mg/dL (0.55-1.02); EST Glomerular Filtration Rate 38 mL/min (>60); Est Glom Filt Rate - Afr Amer 46 mL/min (>60); Estimated Creatinine Clearance 38.75 ml/min; Glucose 95 mg/dL (74-106); Potassium 3.2 mmol/L (3.5-5.1); Sodium Level 147 mmol/L (136-145)
[2018-11-17] MEDS: Acetaminophen 325 MG Tablet 650 MG PO (07:48)
[2018-11-17] MEDS: Fluticasone 0.05% 1 SPRAY NASAL.SRY NASAL ×2 (09:51→21:44)
[2018-11-17] MEDS: Calcium Carbonate 500 MG Tablet PO (09:53)
[2018-11-17] MEDS: Tolterodine Tartrate 4 MG CAP.SA PO (09:53)
[2018-11-17] MEDS: Sertraline 50 MG Tablet 75 MG PO (09:54)
[2018-11-17] MEDS: Loratadine 10 MG Tablet PO (09:54)
[2018-11-17] MEDS: busPIRone 5 MG Tablet PO ×2 (09:54→21:44)
[2018-11-17] MEDS: Carvedilol 6.25 MG Tablet PO ×2 (09:55→21:44)
--- NOTE | 2018-11-17 13:54 | PCM.PROGNOTE ---
Subjective: LE edema is still severe. Improvement in SOB, Dry cough present. No fever/chills. She does have orthopnea and cannot lay flat currently. No CP/dizziness/LH/palp. - Physical Exam General: Alert, Oriented x3, Cooperative HEENT: Atraumatic, PERRLA, EOMI, Normocephalic Neck: Supple, No JVD, Negative Carotid Bruits Lungs: Normal air movement, No rales Cardiovascular: Regular rate, No murmurs Abdomen: Bowel Sounds Present, Soft, Non Tender Extremities: Capillary Refill Less than 3 Seconds, Edema - 3+ pitting edema BLE including thighs Skin: No rashes, No breakdown Musculoskeletal: No Tenderness to Palpation of Joints or Extremities Neurological: Cranial nerves II-XII grossly intact Psych/Mental Status: Normal Affect, Appropriate, Alert and oriented to time, place, person, mood and affect Vital Signs Temp Pulse Resp BP Pulse Ox 97.9 F 80 16 128/62 H 94 11/17/18 09:48 11/17/18 11:00 11/17/18 09:48 11/17/18 09:48 11/17/18 09:48 Oxygen Flow Rate (L/min) 1 Oxygen Delivery Method Room Air Weight: 149 lb 14.629 oz Body Mass Index (BMI) 30.2 Intake and Output for Last 24 Hours 11/15/18 11/16/18 11/17/18 23:59 23:59 23:59 Intake Total 700 / 700 Output Total 1275 / 1275 Balance -575 / -575 Laboratory Tests Past 24 Hrs 11/16/18 11/16/18 11/16/18 21:10 21:10 21:10 WBC 7.6 RBC 3.86 L Hgb 10.2 L Hct 34.2 L MCV 88.6 MCH 26.4 L MCHC 29.8 L RDW 17.4 H RDW Differential 56.3 H Plt Count 171 MPV 10.7 Immature Gran % (Auto) 0.100 Neut % (Auto) 78.1 H Lymph % (Auto) 12.2 L [place] % (Auto) 7.4 Eos % (Auto) 1.8 Baso % (Auto) 0.4 Absolute Neuts (auto) 5.9 Absolute Lymphs (auto) 0.93 Total Counted Not Reportable Sodium 144 Potassium 3.5 Chloride 118 H Carbon Dioxide 22.0 Anion Gap 4 L BUN 32 H Creatinine 1.52 H Estim Creat Clear Calc 28.61 Est GFR (MDRD) Af Amer 43 L Est GFR (MDRD) Non-Af 36 L BUN/Creatinine Ratio 21.1 H Glucose 96 Calcium 7.6 L Magnesium Total Bilirubin 0.20 AST 42 H ALT 64 H Alkaline Phosphatase 147 H Troponin I B-Natriuretic Peptide 1598.5 H Total Protein 6.9 Albumin 2.9 L Globulin 4.0 Albumin/Globulin Ratio 0.7 L 11/16/18 11/16/18 11/17/18 21:10 21:10 06:42 WBC 6.5 RBC 3.86 L Hgb 10.1 L Hct 34.1 L MCV 88.3 MCH 26.2 L MCHC 29.6 L RDW 17.2 H RDW Differential 55.2 H Plt Count 163 MPV 11.1 Immature Gran % (Auto) 0.200 Neut % (Auto) 67.2 Lymph % (Auto) 19.4 [place] % (Auto) 9.8 Eos % (Auto) 2.9 Baso % (Auto) 0.5 Absolute Neuts (auto) 4.4 Absolute Lymphs (auto) 1.26 Total Counted Not Reportable Sodium Potassium Chloride Carbon Dioxide Anion Gap BUN Creatinine Estim Creat Clear Calc Est GFR (MDRD) Af Amer Est GFR (MDRD) Non-Af BUN/Creatinine Ratio Glucose Calcium Magnesium 2.0 Total Bilirubin AST ALT Alkaline Phosphatase Troponin I 0.034 B-Natriuretic Peptide Total Protein Albumin Globulin Albumin/Globulin Ratio 11/17/18 06:42 WBC RBC Hgb Hct MCV MCH MCHC RDW RDW Differential Plt Count MPV Immature Gran % (Auto) Neut % (Auto) Lymph % (Auto) [place] % (Auto) Eos % (Auto) Baso % (Auto) Absolute Neuts (auto) Absolute Lymphs (auto) Total Counted Sodium 147 H Potassium 3.2 L Chloride 116 H Carbon Dioxide 24.0 Anion Gap 7 BUN 31 H Creatinine 1.45 H Estim Creat Clear Calc 38.75 Est GFR (MDRD) Af Amer 46 L Est GFR (MDRD) Non-Af 38 L BUN/Creatinine Ratio 21.4 H Glucose 95 Calcium 8.0 L Magnesium Total Bilirubin AST ALT Alkaline Phosphatase Troponin I B-Natriuretic Peptide Total Protein Albumin Globulin Albumin/Globulin Ratio Medical Necessity - Tobacco Use Smoking Status: Never smoker Tobacco Use: Non-smoker Assessment/Plan 1. Acute systolic / diastolic CHF exacerbation - EF 40% per echo this past August. Continue IV bumex - she cannot have lasix due to intolerance - GI upset. Add LE compression. Trend I/O, sodium and fluid restriction. She had not taken her bumex at home for several days. US for DVT negative. Trop negative. BNP markedly elevated. 2. CKD III - improved with diuresis. replace K+. 3. 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 Chronic anemia - stable. 5. Anxiety - buspar, zoloft 6. Hypocalcemia - continue home Ca/Vit D, corrected calcium is 8.9 (normal range) DVT ppx: heparin DC planning: PTOT, she is frail. This patient was seen by Trent Hardy PA-C under the supervision of Dr. Cantrell.
--- NOTE | 2018-11-17 15:17 | CASEMGMT ---
RN CM Assessment Introduced role of RN CM to patient.? Patient is alert, oriented and able?to participate in RN CM Assessment. ?Care providers, pharmacy, and demographics verified. Presentation: x2-3 days significant swelling RLE Admit Dx: Acute on Chronic Combined Systolic and Diastolic CHF Re-Admit: No, Inpt 08/20-08/23/18 for Acute CHF Barriers/Issues: None PCP: Sharad Burns Specialists: Onc- Dr Cintron, Cardio- Has not seen yet but has information. Ortho- Dr Landeros at [facility] Preferred Pharmacy: [facility], [place] Insurance: [employer], [employer] [place] Rx Benefit:?Yes ?LNOK: Laron Carey LW/HPOA: Yes both on file at [facility], HPOA- Laron Carey Living Arrangements:?Lives with and son in a 2 story home, bedroom on Lower Level. 5 steps to enter home. ADL?s: Ambulates with cane, Independent with ADL's Transportation: and same upon DC DME: Shower Chair, High Toilet, Cane, Commode (does not use), WC, Walker HHC: Past in [facility] SNF: Past at the [facility] Goal: Home and does not think will have any needs. Denies questions or concerns. Aware CM remains available for any emerging needs. DC PLAN: Home with no anticipated needs identified at this time. BRADLEY Hui
--- NOTE | 2018-11-17 15:23 | CASEMGMT ---
Case Management Progress Note: Per PT/OT eval note patient did not ambulate d/t not wanting Catheter out. Primary nurse Melly made aware to attempt and document ambulation status later today to determine need for HH PT/OT upon DC, Patient possible DC Tomorrow. Maria Del Carmen Benjamin RNCM
[2018-11-17 16:56] LABS: Bedside Glucose 92 mg/dL (70-110)
[2018-11-17] MEDS: HYDROcodone Bitartrate/Apap 5/325 Tablet PO ×2 (17:03→21:50)
[2018-11-18] VITALS (9 sets, daily range): BP systolic 113–141; BP diastolic 58–76; PULSE 58–104; RESP 16–18; TEMP 36.7–37; O2SAT 85–96
[2018-11-18] MEDS: HYDROcodone Bitartrate/Apap 5/325 Tablet PO ×2 (04:39→19:58)
[2018-11-18] MEDS: Gabapentin 600 MG Tablet PO ×3 (05:55→21:18)
[2018-11-18] MEDS: Heparin Injection (Vial) 5,000 UNIT/ML VIAL 5000 UNIT SC ×3 (05:55→21:17)
--- NOTE | 2018-11-18 05:55 | RAD_ITS ---
STUDY: X-RAY CHEST REASON FOR EXAM: Female, 68 years old. Shortness of breath. TECHNIQUE: AP and lateral views of the chest were obtained. COMPARISON: November 16, 2018. FINDINGS: A right-sided MediPort is noted with tip projecting over the SVC. There is mild pulmonary vascular congestion. There is airspace disease at both lung bases with interval worsening at the left. There is a small left pleural effusion Normal size heart. Normal mediastinum and elif. Normal visualized pulmonary arteries. Normal visualized aortic arch and descending thoracic aorta. Normal visualized thoracic spine. Normal visualized ribs, clavicles, and shoulders. There is no demonstrated abnormality of the visualized soft tissue structures of the upper abdomen. RAD/Chest PA and Lateral IMPRESSION: Airspace disease at the lung bases with worsening on the left. Mild pulmonary vascular congestion. Electronically Signed: Felton Hayes, at 7:46 EDT Tel , Service support ,
[2018-11-18 06:37] LABS: Anion Gap 3 (5-15); BUN 37 mg/dL (7-18); BUN/Creat Ratio 24.2 RATIO (10-20); Calcium,Total 7.8 mg/dL (8.5-10.1); Chloride 114 mmol/L (98-107); Creatinine, Serum 1.53 mg/dL (0.55-1.02); EST Glomerular Filtration Rate 36 mL/min (>60); Est Glom Filt Rate - Afr Amer 43 mL/min (>60); Estimated Creatinine Clearance 34.84 ml/min; Glucose 91 mg/dL (74-106); Potassium 3.9 mmol/L (3.5-5.1); Sodium Level 142 mmol/L (136-145)
[2018-11-18] MEDS: Bumetanide 1 MG/4 ML Vial 2 MG IV ×2 (09:50→17:01)
[2018-11-18] MEDS: busPIRone 5 MG Tablet PO ×2 (09:51→21:16)
[2018-11-18] MEDS: Loratadine 10 MG Tablet PO (09:51)
[2018-11-18] MEDS: Fluticasone 0.05% 1 SPRAY NASAL.SRY NASAL ×2 (09:52→21:17)
[2018-11-18] MEDS: Carvedilol 6.25 MG Tablet PO ×2 (09:53→21:16)
[2018-11-18] MEDS: Calcium Carbonate 500 MG Tablet PO (09:53)
[2018-11-18] MEDS: Tolterodine Tartrate 4 MG CAP.SA PO (09:54)
[2018-11-18] MEDS: Sertraline 50 MG Tablet 75 MG PO (09:54)
--- NOTE | 2018-11-18 14:53 | PCM.PROGNOTE ---
Subjective: Pt is improving and weaned off O2 at rest. Her LE edema is improved as well. No cough. No fever/chills. No CP. She was walked off O2 a few steps to the door and became very SOB with O2 declining to 85% per RN. She states she is still too SOB to feel comfortable going home. - Physical Exam General: Alert, Oriented x3, Cooperative HEENT: Atraumatic, PERRLA, EOMI, Normocephalic Neck: Supple, No JVD, Negative Carotid Bruits Lungs: No rales - L>R side, Diminished Cardiovascular: Regular rate, No murmurs Abdomen: Bowel Sounds Present, Soft, Non Tender Extremities: Capillary Refill Less than 3 Seconds, Edema Skin: No rashes, No breakdown Musculoskeletal: - - kyphotic Neurological: Cranial nerves II-XII grossly intact Psych/Mental Status: Normal Affect, Appropriate Vital Signs Temp Pulse Resp BP Pulse Ox 98.2 F 91 18 113/65 92 11/18/18 10:00 11/18/18 10:00 11/18/18 10:00 11/18/18 10:00 11/18/18 10:00 Oxygen Flow Rate (L/min) 1 Oxygen Delivery Method Room Air Weight: 142 lb 3.17 oz Body Mass Index (BMI) 30.2 Intake and Output for Last 24 Hours 11/16/18 11/17/18 11/18/18 23:59 23:59 23:59 Intake Total 1280 / 1280 800 / 800 Output Total 3005 / 3005 580 / 580 Balance -1725 / -1725 220 / 220 Laboratory Tests Past 24 Hrs 11/18/18 05:22 Sodium 142 Potassium 3.9 Chloride 114 H Carbon Dioxide 25.0 Anion Gap 3 L BUN 37 H Creatinine 1.53 H Estim Creat Clear Calc 34.84 Est GFR (MDRD) Af Amer 43 L Est GFR (MDRD) Non-Af 36 L BUN/Creatinine Ratio 24.2 H Glucose 91 Calcium 7.8 L POC Glucose 11/17/18 16:49 POC Glucose 92 Medical Necessity - Tobacco Use Smoking Status: Never smoker Tobacco Use: Non-smoker Assessment/Plan 1. Acute systolic / diastolic CHF exacerbation - EF 40% per echo this past August. Continue IV bumex - she cannot have lasix due to intolerance - decrease to BID dose. Still very SOB with exertion. Diurese one more night. Likely home tomorrow may need home o2. 2. CKD III - Cr bump, repeat in AM. K normal now. 3. 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 Chronic anemia - stable. 5. Anxiety - buspar, zoloft 6. Hypocalcemia - continue home Ca/Vit D, corrected calcium is 8.9 (normal range) DVT ppx: heparin DC planning: PTOT, she is frail. Home tomorrow may need home PTOT and O2. This patient was seen by Trent Hardy PA-C under the supervision of Dr. Cantrell.
[2018-11-18] MEDS: 0.9% NaCl Peripheral Flush Adult/Peds IV (19:58)
[2018-11-19] VITALS (10 sets, daily range): BP systolic 98–125; BP diastolic 51–71; PULSE 80–97; RESP 16; TEMP 36.6–36.8; O2SAT 88–95
[2018-11-19] MEDS: HYDROcodone Bitartrate/Apap 5/325 Tablet PO ×3 (00:07→12:54)
[2018-11-19] MEDS: Heparin Injection (Vial) 5,000 UNIT/ML VIAL 5000 UNIT SC ×2 (05:13→14:50)
[2018-11-19] MEDS: Gabapentin 600 MG Tablet PO ×2 (05:13→14:50)
--- NOTE | 2018-11-19 05:55 | RAD_ITS ---
STUDY: X-RAY CHEST REASON FOR EXAM: Female, 68 years old. Congestive heart failure. Shortness of breath. TECHNIQUE: AP and lateral views of the chest. COMPARISON: Comparison is made with prior examination dated November 18, 2018. FINDINGS: A right-sided portacatheter is seen with the tip at the junction of the superior vena cava and right atrium. EKG electrodes are seen. Elevation of the right hemidiaphragm. The vascular congestion has improved. Residual infiltration and/or atelectasis is seen in the left lower lobe with blunting of the left costophrenic angle. Mild increased markings in the right upper lobe suggestive of scarring. There is moderate cardiac enlargement. Normal mediastinum and elif. Normal visualized pulmonary arteries. There is atherosclerotic calcification of the aortic arch with tortuosity. There is demineralization of the osseous structures. Prior left shoulder replacement. Marked degree of degenerative changes of the right shoulder joint. There is no demonstrated abnormality of the visualized soft tissue structures of the upper abdomen. RAD/Chest PA and Lateral IMPRESSION: Mild improvement in the CHF. Electronically Signed: Pako Clancy, at 15:47 EDT , Service support ,
[2018-11-19 06:19] LABS: Anion Gap 3 (5-15); BUN 40 mg/dL (7-18); BUN/Creat Ratio 26.1 RATIO (10-20); Calcium,Total 7.5 mg/dL (8.5-10.1); Chloride 112 mmol/L (98-107); Creatinine, Serum 1.53 mg/dL (0.55-1.02); EST Glomerular Filtration Rate 36 mL/min (>60); Est Glom Filt Rate - Afr Amer 43 mL/min (>60); Glucose 86 mg/dL (74-106); Potassium 3.9 mmol/L (3.5-5.1); Sodium Level 143 mmol/L (136-145)
[2018-11-19] MEDS: Bumetanide 1 MG/4 ML Vial 2 MG IV (08:57)
[2018-11-19] MEDS: Sertraline 50 MG Tablet 75 MG PO (08:58)
[2018-11-19] MEDS: busPIRone 5 MG Tablet PO (08:58)
[2018-11-19] MEDS: Fluticasone 0.05% 1 SPRAY NASAL.SRY NASAL (08:58)
[2018-11-19] MEDS: Calcium Carbonate 500 MG Tablet PO (08:59)
[2018-11-19] MEDS: Tolterodine Tartrate 4 MG CAP.SA PO (08:59)
[2018-11-19] MEDS: Carvedilol 6.25 MG Tablet PO (08:59)
[2018-11-19] MEDS: Loratadine 10 MG Tablet PO (08:59)
--- NOTE | 2018-11-19 09:19 | CASEMGMT ---
Patient has a Healthcare LW and Healthcare POA on file at [facility]. Amie BARAJAS CONTRACT POST OFFICE CLERK
--- NOTE | 2018-11-19 10:12 | CASEMGMT ---
Addendum entered by Chhaya Carranza 11/19/18 12:18: Pt is being discharged home on Eliquis. Call placed to [facility] and Eliquis 30-day free trial offer applied. Cost for 1st 30 days is free and then refills thereafter will be approximately $43.50 per pharmacist, [place]. Pt made aware and informed her, that if this is not affordable, to talk to her automobile repair service estimator about other more affordable options. Pt voices understanding. Addendum entered by Chhaya Carranza 11/19/18 11:33: Call placed to [facility] and banks check for Bumex and K-dur done: total cost is $27. Pt made aware and she states this is affordable. Pt made aware [facility] able to accept her for HH services. Awaiting [facility] to deliver portable oxygen to room prior to pt being discharged. Pt and RNRosie, made aware. Original Note: RN MONSTER NOTE: Pt being discharged home today per report from ALLI Del Cid. PT/OT notes reviewed and YOLANDA HOOK to room to talk with pt. Pt agreeable to C and wants [facility]. Pt voices concerns about receiving HHC and [facility] still paying for her self-contained catheters. Pt made aware RN MONSTER will let HHC agency know of her concerns so they can discuss this with her and assist as needed. Order received for [facility]: snf and PT/OT. Call placed to Camille @ [facility] and referral made. Camille made aware pt is being discharged home today and will be going home on Oxygen which is new for this pt. Camille states they are able to accept patient. Discussed MCR guidelines and being homebound with pt. Pt states she is homebound and it takes considerable amount of effort to go places. Pulse ox 88% RA. Pt qualifies for Home O2. Script for oxygen obtained and faxed to [facility] and call placed to Merced @ [facility]. She was made aware pt is discharging today and will need portable oxygen tank prior to discharge and is in room 116. Merced was also made aware pt is requesting the small portable oxygen tanks. Will fax discharge summary/[id number] stating necessity of oxygen to [facility] once it is available. Pt states has difficulty paying for her medications/prescriptions on an on-going bases. SW made aware. Will do banks check for any discharge home meds prior to discharge. Leonarda BSN RN CM
--- NOTE | 2018-11-19 10:21 | CASEMGMT ---
Patient expressed that she is having some difficulties affording her medications. SW spoke with her and she said they don't qualify for any extra help. Her most expensive medication is around $30. SW does not really have anything to offer due to income guidelines for programs. Amie BARAJAS KETTLE CHIPPER
--- NOTE | 2018-11-19 11:12 | PCM.DC ---
You will use the following diet at home:: Cardiac - 2500 - 3000 mg sodium daily Your food should be the consistency of: Regular Your liquids should be the consistency of: Regular/Thin Discharge Activity: Return to Normal Activity Instructions: Heart Failure: Tracking Your Weight Allergies/Adverse Reactions: Allergies erythromycin base Allergy (Verified 11/16/18 19:52) Unknown linezolid [From Zyvox] Adverse Reaction (Unknown, Verified 11/16/18 19:52) Other azithromycin Adverse Reaction (Verified 11/16/18 19:52) Diarrhea furosemide [From Lasix] Adverse Reaction (Verified 11/17/18 10:17) Nausea Medications to take at Discharge Calcium Carbonate [Calcium] 600 mg PO DAILY 05/29/18 Carvedilol 6.25 mg PO BID 05/29/18 Cholecalciferol (Vitamin D3) [D3-2000] 2,000 unit PO DAILY 05/29/18 Cyanocobalamin (Vitamin B-12) [Cyanocobalamin Injection] 1,000 mcg IJ QMONTH 05/29/18 Oxybutynin Chloride [Oxybutynin Chloride ER] 15 mg PO DAILY 05/29/18 Gabapentin 600 mg PO TID 08/20/18 Mv,Giovanny,Iron,Mn/Folic Acid/Chol [Hair, Skin and Nails Capsule] 1 cap PO DAILY 08/20/18 Acetaminophen [Tylenol Tablet] 650 mg PO Q6H PRN PRN tablet 08/23/18 Fluticasone 0.05% [Flonase Nasal [place]] 1 spray NASAL BID #1 nasal.sry 08/23/18 Loratadine [Claritin] 10 mg PO DAILY #7 tablet 08/23/18 Sertraline HCl [Zoloft] 75 mg PO DAILY 09/17/18 Ensure Clear 120 ml PO DAILY PRN 11/16/18 busPIRone [Buspar] 5 mg PO BID 11/16/18 Bumetanide [Bumex] 2 mg PO BID #60 tab 11/19/18 Potassium Chloride [K-Dur] 20 meq PO BIDCM #60 tab 11/19/18 The following prescriptions were given: Bumetanide [Bumex] 2 mg PO BID #60 tab Transmission Status: Pending to [facility] Potassium Chloride [K-Dur] 20 meq PO BIDCM #60 tab Transmission Status: Pending to [facility] Primary Care Physician: Shraad Burns MD [Primary Care Provider] - Please follow up with your Primary Care Physician in: 1 week Test Results: Test results from this visit will be discussed in further detail at your follow-up appointment, if applicable. Proposed Discharge Date: 11/19/18
--- NOTE | 2018-11-19 14:15 | PCM.DC.SUM ---
<Trent Hardy - Last Filed: 11/19/18 14:32> Discharge Date and Diagnosis Date of Admission: 11/17/18 Date of Discharge: 11/19/18 - Primary Discharge Diagnosis Acute systolic congestive heart failure exacerbation New onset atrial fibrillation CKD stage III History of sarcoma/spindle cell carcinoma of the right pelvic bone in remission Chronic anemia Anxiety Hypocalcemia Generalized debility - Secondary Discharge Diagnosis Chronic Problems Chronic anemia (Chronic) Hypertension (Chronic) Congestive heart failure (Chronic) Synovial sarcoma of right hip (Chronic) Chronic acquired lymphedema (Chronic) Chronic venous stasis dermatitis (Chronic) Chronic fibrosis of lung (Chronic) Peripheral venous insufficiency (Chronic) Venous stasis dermatitis of both lower extremities (Chronic) Lymphedema of both lower extremities (Chronic) Hospital Course and Treatment Imaging Results: DIAGNOSTICS: RAD/Chest PA and Lateral IMPRESSION: Chronic interstitial lung changes without superimposed acute alveolar disease. US/Venous Duplex Imag/Abdiel Extrem IMPRESSION: No DVT is identified. RAD/Chest PA and Lateral IMPRESSION: Airspace disease at the lung bases with worsening on the left. Mild pulmonary vascular congestion. Operations: None, - Procedures: None Summary of Care Provided: Hospital course: The patient is a 68 year old F with past medical history of systolic congestive heart failure, spindle cell carcinoma of the right pelvic bone in remission, chronic anemia, CKD stage III, anxiety, hypocalcemia, who presented to the emergency room with complaints of bilateral lower extremity edema and shortness of breath at a progressively worsened over the past 3 days. She admitted she had not taken her Bumex for several days. She was found to have significant pitting lower extremity edema, hypoxia on room air at 88%, elevated beta natruretic peptide, chest x-ray consistent with fibrotic changes. She had an echo in August that demonstrated an EF of 40%. She had an ultrasound of her lower extremities and no DVT was found. She was admitted for systolic congestive heart failure exacerbation with hypoxia, she was given oxygen via nasal cannula, she was placed on IV Bumex. She does not tolerate Lasix it makes her very nauseous. The patient responded well to diuresis and had significant improvement in her lower extremity edema and and her shortness of breath. As she recently had an echo a repeat was deferred at this time. The patient was noted to be in atrial fibrillation at presentation. She did not develop RVR. She was continued on Coreg and had appropriate rate control. Her Chavez Vascor is 4 and her has bled score is 1 so she was started on Eliquis. The patient did have some underlying debility and home health care was recommended, she was agreeable. The patient was discharged home in stable condition on Bumex and Eliquis. She plans to follow-up with a professor of forestry at [facility], I recommended this be done within 1 week, I also recommended she follow-up with her PCP in 1 to 2 weeks. She should have her BMP evaluated as an outpatient to assess her diuretic therapy. This patient was seen by Trent Hardy PA-C under the supervision of Doctor Ruba. [] - Physical Exam General: Alert, Oriented x3, Cooperative HEENT: Atraumatic, PERRLA, EOMI, Normocephalic Neck: Supple, No JVD, Negative Carotid Bruits Lungs: Normal air movement, Rales Cardiovascular: No murmurs, Irregular Rate Abdomen: Bowel Sounds Present, Soft, Non Tender Extremities: Capillary Refill Less than 3 Seconds, Edema - Left leg, hematoma, 2+ pitting edema Skin: No rashes, No breakdown Musculoskeletal: No Tenderness to Palpation of Joints or Extremities Neurological: Cranial nerves II-XII grossly intact Psych/Mental Status: Normal Affect, Appropriate Vital Signs Temp Pulse Resp BP Pulse Ox 98.3 F 97 16 98/51 L 94 11/19/18 12:49 11/19/18 12:49 11/19/18 12:49 11/19/18 12:49 11/19/18 12:49 Oxygen Flow Rate (L/min) 1 Oxygen Delivery Method Nasal Cannula Weight: 134 lb 11.239 oz Body Mass Index (BMI) 30.2 Intake and Output for Last 24 Hours 11/17/18 11/18/18 11/19/18 23:59 23:59 23:59 Intake Total 1280 / 1280 1640 / 1640 440 / 440 Output Total 3005 / 3005 3030 / 3030 600 / 600 Balance -1725 / -1725 -1390 / -1390 -160 / -160 Laboratory Tests Past 24 Hrs 11/19/18 05:20 Sodium 143 Potassium 3.9 Chloride 112 H Carbon Dioxide 28.0 Anion Gap 3 L BUN 40 H Creatinine 1.53 H Estim Creat Clear Calc 33.00 Est GFR (MDRD) Af Amer 43 L Est GFR (MDRD) Non-Af 36 L BUN/Creatinine Ratio 26.1 H Glucose 86 Calcium 7.5 L Discharge Diet: Low fat/ Low Cholesterol, 2000 mg Sodium Diet Discharge Activity: Return to Normal Activity Home Medications: Medications to take at Discharge Calcium Carbonate [Calcium] 600 mg PO DAILY 05/29/18 Carvedilol 6.25 mg PO BID 05/29/18 Cholecalciferol (Vitamin D3) [D3-2000] 2,000 unit PO DAILY 05/29/18 Cyanocobalamin (Vitamin B-12) [Cyanocobalamin Injection] 1,000 mcg IJ QMONTH 05/29/18 Oxybutynin Chloride [Oxybutynin Chloride ER] 15 mg PO DAILY 05/29/18 Gabapentin 600 mg PO TID 08/20/18 Mv,Giovanny,Iron,Mn/Folic Acid/Chol [Hair, Skin and Nails Capsule] 1 cap PO DAILY 08/20/18 Acetaminophen [Tylenol Tablet] 650 mg PO Q6H PRN PRN tablet 08/23/18 Fluticasone 0.05% [Flonase Nasal [place]] 1 spray NASAL BID #1 nasal.sry 08/23/18 Loratadine [Claritin] 10 mg PO DAILY #7 tablet 08/23/18 Sertraline HCl [Zoloft] 75 mg PO DAILY 09/17/18 Ensure Clear 120 ml PO DAILY PRN 11/16/18 busPIRone [Buspar] 5 mg PO BID 11/16/18 Apixaban [Eliquis] 5 mg PO BID #60 tab 11/19/18 Bumetanide [Bumex] 2 mg PO BID #60 tab 11/19/18 Potassium Chloride [K-Dur] 20 meq PO BIDCM #60 tab 11/19/18 Following Prescrptions Were Given to Patient: Bumetanide [Bumex] 2 mg PO BID #60 tab Transmission Status: Received by [facility] Apixaban [Eliquis] 5 mg PO BID #60 tab Transmission Status: Received by [facility] Potassium Chloride [K-Dur] 20 meq PO BIDCM #60 tab Transmission Status: Received by [facility] Primary Care Physician: Sharad Burns MD [Primary Care Provider] - Please follow up with your Primary Care Physician in: 1 week Please Follow Up With: Sharad Burns MD When: Nadeem Burns will see patient Please Follow Up With: Nancy cardiology When: 1 week Patient Instructions: Heart Failure: Tracking Your Weight Disposition: Home with Home Health Minutes spent on discharge:: 35 Patient Condition:: Stable Medical Necessity - Tobacco Use Smoking Status: Never smoker Tobacco Use: Non-smoker Meaningful Use Info Meaningful Use Diagnoses (Choose all that apply): CHF - CHF SONNY/ARB ordered at discharge?: No Reason SONNY/ARB not ordered?: Worsening renal disease Documented LVEF (%): 40 <Rigoberto Yeh - Last Filed: 11/19/18 15:21> Discharge Date and Diagnosis - Secondary Discharge Diagnosis Chronic Problems Chronic anemia (Chronic) Hypertension (Chronic) Congestive heart failure (Chronic) Synovial sarcoma of right hip (Chronic) Chronic acquired lymphedema (Chronic) Chronic venous stasis dermatitis (Chronic) Chronic fibrosis of lung (Chronic) Peripheral venous insufficiency (Chronic) Venous stasis dermatitis of both lower extremities (Chronic) Lymphedema of both lower extremities (Chronic) Hospital Course and Treatment Summary of Care Provided: T This patient was seen in conjunction with Trent Hardy PA-C . I have independently interviewed and examined the patient and reviewed pertinent historical, laboratory, and other data. Please refer to Trent Hardy PA-C note for details of this patient's presentation, findings, and recommendations. I have reviewed Trent Hardy PA-C note and concur with documented findings. In brief, patient is a 68-year-old lady with past medical history significant for congestive heart failure with reduced ejection fraction, history of spindle cell carcinoma involving the right pelvic bone currently in remission chronic kidney disease stage III who presented with progressive shortness of breath and relative hypoxia. On assessment of acute congestive heart failure was made admitted to a monitored bed where patient was managed per protocol Hospital course as elicited above by Trent Hardy PA-C - Physical Exam Vital Signs Temp Pulse Resp BP Pulse Ox 98.3 F 97 16 98/51 L 94 11/19/18 12:49 11/19/18 12:49 11/19/18 12:49 11/19/18 12:49 11/19/18 12:49 Oxygen Flow Rate (L/min) 1 Oxygen Delivery Method Nasal Cannula Weight: 61.1 kg Body Mass Index (BMI) 30.2 Intake and Output for Last 24 Hours 11/17/18 11/18/18 11/19/18 23:59 23:59 23:59 Intake Total 1280 / 1280 1640 / 1640 440 / 440 Output Total 3005 / 3005 3030 / 3030 1050 / 1050 Balance -1725 / -1725 -1390 / -1390 -610 / -610 Laboratory Tests Past 24 Hrs 11/19/18 05:20 Sodium 143 Potassium 3.9 Chloride 112 H Carbon Dioxide 28.0 Anion Gap 3 L BUN 40 H Creatinine 1.53 H Estim Creat Clear Calc 33.00 Est GFR (MDRD) Af Amer 43 L Est GFR (MDRD) Non-Af 36 L BUN/Creatinine Ratio 26.1 H Glucose 86 Calcium 7.5 L Code Visit Inpatient E&M: 22278 Disch Hosp
--- NOTE | 2018-11-19 15:11 | CHAPLAIN ---
Type of Pastoral Visit _x__ Initial Visit ___ Follow-up Visit ___ On-call Visit ___ General Patient Visit ___ Spiritual Assessment ___ Family Conference ___ Bereavement ___ Rapid Response ___ Code Blue ___ Other (describe below) Pastoral Care Referral From _x__ Patient ___ Family ___ Nurse ___ Physician ___ Laundry Agent ___ Supervisor Pyrotechnic Loading ___ Other (describe below) Sacrament/Intervention _x__ Active listening ___ Anointing ___ Roman Catholic ___ Bereavement ___ Communion ___ Ryann exploration ___ _x__ Life review _x__ Prayer ___ Reconciliation ___ Sacrament of Sick _x__ Supportive presence ___ Wedding ___ Other (describe below) Pastoral Comments
--- NOTE | 2018-11-20 12:02 | CASEMGMT ---
YOLANDA DC PHONE CALL DC DATE: 11/19/18 DC Disposition: Home Diagnosis on Discharge: CHF LACE/STRATA: 14 Attempted call to pt with given phone. Voice mail box is full. No answer to call. Rolly ULLOA RN ACM
== END 2018-11-19 16:26 | disposition home or self-care (01) | DRG 291 ==
LOC: ED 20:44 → PCU 23:56
PROVIDERS: Internal Medicine; Physician Assistant; Admitting Provider Hospitalist; Emergency Provider Emergency Medicine; Family Provider Family Medicine; PCP Family Medicine; Visit Provider Internal Medicine
DX: I13.0 Hypertensive heart and chronic kidney disease with heart failure and stage 1 through stage 4 chronic kidney disease, or unspecified chronic kidney disease (principal); I50.23 Acute on chronic systolic (congestive) heart failure; N18.3 Chronic kidney disease, stage 3 (moderate); D64.9 Anemia, unspecified; E83.51 Hypocalcemia; I48.91 Unspecified atrial fibrillation; I89.0 Lymphedema, not elsewhere classified; R53.81 Other malaise; F41.9 Anxiety disorder, unspecified; I87.2 Venous insufficiency (chronic) (peripheral); J84.10 Pulmonary fibrosis, unspecified; Z92.21 Personal history of antineoplastic chemotherapy; Z92.3 Personal history of irradiation; Z85.830 Personal history of malignant neoplasm of bone; R09.02 Hypoxemia
CPT/HCPCS: 71046; 80048; 80053; 82962; 83735; 83880; 84484; 85025; 93005; 93970; 94760; 97110; 97162; 97166; 97530; 97535; 97802; 99285; A4216

== ENCOUNTER → 2019-01-04 | Outpatient (CLI) | payer MEDICARE, BC, SELFPAY ==
[2018-12-18 13:29] VITALS: BMI 27.6
--- NOTE | 2019-01-07 12:02 | STRESSREP_ITS ---
Stress Test Report Date: 01/04/2019 Procedure: Pharmacologic stress nuclear imaging study Indications: CHF Consent: Per the patient Procedure: The patient underwent pharmacologic (Regadenoson) evaluation with a peak heart rate of 93 beats per minute (62 %predicted maximal heart rate) and a peak blood pressure of 140/72 mmHg. The baseline ECG demonstrated atrial fibrillation with nonspecific ST-T changes, right axis deviation, possible prior anterior IN. EKG during lexiscan infusion revealed no significant change from baseline. EKG post infusion revealed no significant change from baseline [There were no cardiac dysrhythmias pretest, during pharmacologic infusion, or recovery]. [There was no complaint of chest discomfort during pharmacologic infusion or recovery]. The examination was discontinued secondary to completion of protocol. Impression: 1. Lexiscan stress test test is negative for Lexiscan infusion induced EKG rahman ges of ischemia. 2. Lexiscan stress test test is negative for Lexiscan infusion induced chest pain. 3. Results of the nuclear portion of the test is as below Myocardial perfusion imaging study: Technique: The patient was injected with 11.3 millicuries of technetium 99m Cardiolite and subsequently rest SPECT Cardiolite nuclear imaging was obtained in the horizontal long, vertical long, and short axis views. The patient underwent pharmacologic (Regadenoson) evaluation. Please see above for details. The patient was injected with 32.8 millicuries of technetium 99m Cardiolite and subsequently stress SPECT Cardiolite nuclear imaging was obtained in the horizontal long, vertical long, and short axis views. A gated Cardiolite study at peak stress was obtained. Interpretation: Rest and stress SPECT Cardiolite nuclear imaging status post realignment, normalization, and attenuation correction demonstrate overall uniform myocardial radioisotope uptake prior to attenuation correction. Gated images reveal global hypokinesis. The reported LVEF is 27 %. Impression: 1. There is no evidence of significant ischemia. 2. Estimated ejection fraction is 27%. This note was generated with [employer] Mead[employer] software. It may contain incorrect words, spelling, and punctuation that were not noted in checking the note before signing.
== END | disposition home or self-care (01) ==
LOC: CVS 06:51
PROVIDERS: Family Provider Family Medicine; PCP Family Medicine; Referring Provider Specialist; Visit Provider Specialist
DX: I50.9 Heart failure, unspecified (principal); R06.02 Shortness of breath
CPT/HCPCS: 78452; 93017; A9500; A4216; J2785

== ENCOUNTER → 2019-02-15 16:22 | Outpatient (CLI) | payer MEDICARE, BC, SELFPAY ==
[2019-02-15 14:20] VITALS: BMI 29.9
[2019-02-15 17:05] LABS: Absolute Lymphocyte Count 1.15 X10^3/uL (0.83-4.51); Basophil# 0.04 X10^3/uL; Basophil% 0.8 % (0-1); Eosinophil# 0.19 X10^3/uL; Eosinophils% 3.9 % (0-5); Hematocrit 39.9 % (37-47); Hemoglobin 12.1 g/dL (12.0-15.0); Lymphocyte # 1.15 X10^3/ul (4.0); Lymphocyte % 23.7 % (19-41); Mean Corp Hgb Conc 30.3 g/dL (32-36); Mean Corpuscular Hgb 29.7 pg (27.0-32.0); Mean Corpuscular Volume 97.8 fL (81-99); Mean Platelet Vol. 11.2 fl (6.2-12.0); Monocyte# 0.44 X10^3/uL; Monocyte% 9.1 % (0-10); NRBC Flagged by Analyzer 0 % (0-5); Neutrophil # 3.03 X10^3/uL (2.7-7.7); Neutrophil % 62.3 % (47-70); Platelet Count 144 K/mm3 (150-450); RBC Distribution Width CV 17.5 % (11.6-14.6); RBC Distribution Width SD 63.4 fl (35.1-43.9); Red Blood Count 4.08 M/mm3 (4.2-5.4); White Blood Count 4.9 K/mm3 (4.4-11.0)
[2019-02-15 17:13] LABS: International Normalized Ratio 1.3; Prothrombin Time (Protime)PT. 15.8 SECONDS (11.7-14.9)
[2019-02-15 17:14] LABS: Partial Thromboplast Time 36.5 Seconds (24.1-36.2)
[2019-02-15 17:30] LABS: Anion Gap 5 (5-15); BUN 35 mg/dL (7-18); BUN/Creat Ratio 26.7 RATIO (10-20); Calcium,Total 8.2 mg/dL (8.5-10.1); Chloride 109 mmol/L (98-107); Creatinine, Serum 1.31 mg/dL (0.55-1.02); EST Glomerular Filtration Rate 43 mL/min (>60); Est Glom Filt Rate - Afr Amer 52 mL/min (>60); Glucose 86 mg/dL (74-106); Sodium Level 145 mmol/L (136-145)
== END ==
PROVIDERS: Family Provider Family Medicine; PCP Family Medicine; Referring Provider Internal Medicine Cardiovascular Disease; Visit Provider Internal Medicine Cardiovascular Disease
DX: I50.22 Chronic systolic (congestive) heart failure (principal); I48.2 Chronic atrial fibrillation; R06.02 Shortness of breath
CPT/HCPCS: 36415; 80048; 85025; 85610; 85730

== ENCOUNTER → 2019-02-20 09:50 | Day surgery (SDC) | payer MEDICARE, BC, SELFPAY ==
[2019-02-15 14:20] VITALS: BMI 29.9
[2019-02-18 11:21] VITALS: BMI 29.9
--- NOTE | 2019-02-20 10:58 | PCM.HP.BLA ---
Problem List (1) Shortness of breath Status: Acute (2) Chronic anemia Status: Chronic (3) Chronic atrial fibrillation Status: Chronic (4) Congestive heart failure Status: Chronic Qualifiers: (5) Essential hypertension Status: Chronic History and Physical Date of Admission: 02/20/19 [facility] [address] [place] [address] OFFICE VISIT Date of Service: 02/15/19 MR#: [id number] Acct: [id number] Name: TAMIR PATRICK Rep #: [id number] : 1950 Provider: Felton Potter MD Age/Sex: 68/F Location[place] [facility] [place] Status: Signed HPI HPI History of Present Illness Surgical H&P: Yes Details: Mrs. 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 Her most recent non-walking nuclear stress test took place on 01/04/2019 which was negative for inducible ischemia and estimated her EF to be about 27%. Her most recent echocardiogram took place on 08/20/2018 which showed the following: Interpretation Summary Mild global left ventricular systolic dysfunction. The estimated ejection fraction is 40 %. The left atrium is moderately enlarged. There is moderate mitral annular calcification. Extension of the mitral annular calcification onto the posterior mitral valve leaflet. Mild diffuse mitral valve thickening. Mild (1+) mitral valve insufficiency. Trivial tricuspid valve insufficiency. Mild (1+) pulmonic valve insufficiency. Right ventricular systolic pressure estimated to be 31 mmHg. There is evidence of diastolic dysfunction. She recently saw my colleague Dr. Nunez on 12/18/2018 and wished for transfer of care and a second opinion. She appears to be taking and tolerating her medicines well. Patient is currently in a wheelchair, however she does walk at home with a cane and does bear weight on her right hip despite her reconstruction of her pelvis, and radiation therapy to her right pelvis for her spindle cell cancer. Despite maximal medical therapy, the patient complains of dyspnea on exertion, shortness of breath with minimal activity. She has never had a heart catheterization. She denies any exertional chest pain, angina, and feels better now that she has been placed on oxygen. She cannot detect her feel her atrial fibrillation and so therefore has no idea how long she is been in it. It appears to have been recently discovered in November 2018 at which time she was placed on Eliquis. Patient states that she is able to lay down flat without any difficulty although she chooses not to and sleeps upright. She denies any orthopnea or PND. In our office today her blood pressure is 114/56, and pulse of 68 and irregular. Her physical exam demonstrates an irregularly irregular rhythm, normal S1/S2, no S3, no murmurs are noted. Patient has bilateral 2+ lower extremity edema. Her left leg appears to have a resolving hematoma from many months ago when she fell down and hit her left leg. Her lipids as of 08/21/2018 show an LDL of 49 and HDL of 41. 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: No Accompanied by: Is patient in pain?: No Allergies cyclobenzaprine [From Flexeril] Allergy (Severe, Verified 02/15/19 14:29) frequent falls nitrofurantoin Allergy (Severe, Verified 02/15/19 14:29) mental status change levofloxacin [From Levaquin] Allergy (Intermediate, Verified 02/15/19 14:29) diarrhea erythromycin base Allergy (Verified 02/15/19 14:29) Unknown linezolid [From Zyvox] Adverse Reaction (Unknown, Verified 02/15/19 14:29) Other azithromycin Adverse Reaction (Verified 02/15/19 14:29) Diarrhea furosemide [From Lasix] Adverse Reaction (Verified 02/15/19 14:29) Nausea Medications Calcium Carbonate [Calcium] 600 mg PO DAILY 05/29/18 [History Confirmed 02/15/19] Carvedilol 6.25 mg PO BID 05/29/18 [History Confirmed 02/15/19] Cyanocobalamin (Vitamin B-12) [Cyanocobalamin Injection] 1,000 mcg IJ QMONTH 05/29/18 [History Confirmed 02/15/19] Oxybutynin Chloride [Oxybutynin Chloride ER] 15 mg PO DAILY 05/29/18 [History Confirmed 02/15/19] Gabapentin 600 mg PO TID 08/20/18 [History Confirmed 02/15/19] Fluticasone 0.05% [Flonase Nasal Economy] 1 spray NASAL BID #1 nasal.sry 08/23/18 [Rx Confirmed 02/15/19] lisinopril 10 mg tablet 10 mg PO DAILY 12/17/18 [History Confirmed 02/15/19] multivitamin tablet 1 tab PO DAILY 12/17/18 [History Confirmed 02/15/19] sertraline 50 mg tablet 150 mg PO DAILY tab 12/17/18 [History Confirmed 02/15/19] biotin 5 mg capsule 5 mg PO DAILY 12/18/18 [History Confirmed 02/15/19] cephalexin 250 mg capsule PO #40 cap 12/18/18 [History Confirmed 02/15/19] cholecalciferol (vitamin D3) 1,000 unit capsule 1,000 unit PO DAILY 12/18/18 [History Confirmed 02/15/19] potassium chloride ER 20 mEq tablet,extended release 20 meq PO BID 12/18/18 [History Confirmed 02/15/19] apixaban 5 mg tablet 2.5 mg PO BID #60 tab 01/14/19 [Rx Confirmed 02/15/19] bumetanide 2 mg tablet 2 mg PO BID tab 02/15/19 [History] enoxaparin 60 mg/0.6 mL subcutaneous syringe 60 mg SC Q12H 02/15/19 [History Confirmed 02/15/19] trazodone 50 mg tablet 100 mg PO QHS PRN tab 02/15/19 [History Confirmed 02/15/19] Ejection fraction %: 40 to 44 PFSH Medical History Shortness of breath (Acute) Chronic atrial fibrillation (Chronic) Essential hypertension (Chronic) Chronic anemia (Chronic) Congestive heart failure (Chronic) Anxiety (Chronic) CKD (chronic kidney disease), stage III (Chronic) Chronic acquired lymphedema (Chronic) Chronic fibrosis of lung (Chronic) Chronic venous stasis dermatitis (Chronic) Depressive disorder (Chronic) Osteoporosis (Chronic) 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) Varicose veins of both lower extremities (Chronic) Venous stasis dermatitis of both lower extremities (Chronic) Surgical History History of bladder suspension procedure (Resolved) History of cataract extraction (Resolved) History of cholecystectomy (Resolved) History of gastric bypass (Resolved 11/29/00) History of hysterectomy (Resolved) History of pelvic surgery (Resolved ~2008) History of reverse total replacement of left shoulder joint (Resolved) History of right hip replacement (Resolved) History of ventral hernia repair (Resolved) Family History Father Cancer pancreatic Mother Dementia Grandmother CVA (cerebral vascular accident) Social History (Updated 02/15/19 @ 15:24 by Felton Potter MD) Smoking Status: Never smoker alcohol intake: current alcohol intake frequency: holidays/special occasions only substance use type: does not use caffeine: Yes Type: tea Number of servings: 4 ROS Const Const: Negative for fatigue, weakness, headache(s), frequent falls, difficulty sleeping or excessive sweating Eyes Eyes: Negative for loss of peripheral vision, transient loss of vision, blurry vision, double vision or tunnel vision ENT ENT: Positive for balance problems; negative for headache(s), dizziness or Nosebleed/epistaxis Cardio Chest Pain: No Palpitations: No Edema: Bilateral (Left worse than right) Muscle aches with walking: None Resp Respiratory: Positive for SOB with activity; negative for SOB at rest, SOB orthopnea\SOB lying down, Cough or paroxysmal nocturnal dyspnea GI GI: Negative nausea, vomiting, heartburn or black,tarry stools : Negative for hematuria Musc Musc: Positive for joint pain (arthritis) and balance problems; negative for muscle aches/ myalgia or muscle weakness Skin Skin: Negative non-healing lesions, rash or unusual bruising Neuro Neuro: Negative for dizziness, near syncope, syncope, frequent falls, headache(s), weakness, blurry vision, double vision or lack of coordination Santy Hematologic/Lymphatic: Negative for easy bleeding or easy bruising Endo Endo: Negative for fatigue, excessive sweating or increased thirst/drinking Psych Psych: Negative for anxiety or depression Allergy Allergy/Immunology: Negative for hives, Negative for rash Cardiology Exam Const Appearance: cooperative, healthy appearing and no acute distress Nutritional Appearance: well nourished Orientation: alert, oriented x3 and oriented to person Head Head: normal to inspection, normocephalic and atraumatic Nose: external nose normal Face and Sinus: face symmetric Mouth: oral mucosae normal Eyes General: appearance normal, both eyes and all related structures Eyelids: eyelids normal Conjunctivae: conjunctivae normal Pupils: PERRL and normal by confrontation EOM: EOM intact bilaterally Neck Neck: normal visual inspection and full ROM Carotids: normal carotid upstroke Chest Chest inspection: normal inspection of the chest Auscultation: Bilateral: Clear to Auscultation Cardio Palpation: normal PMI Rate: regular rate Rhythm: regular rhythm Heart sounds: S1 normal and S2 normal GI GI: normal to inspection, no hepatosplenomegaly and bowel sounds present Neuro General: alert, awake, oriented x3, CN's II-XI intact bilaterally and moves all extremities Skin Skin: no rashes or lesions noted Extremities Pulses: Normal: Right Femoral Pulse, Left Femoral Pulse, Right Dorsalis Pedis Pulse, Left Dorsalis Pedis Pulse, Right Posterior Tibial Pulse, Left Posterior Tibial Pulse, Right Radial Pulse, Left Radial Pulse Lower Extremity Edema: None: Bilateral Psych Psychological: normal affect Assessment & Plan 1. Shortness of breath R06.02 Plan 1. Shortness of breath: The patient has dyspnea on exertion, shortness of breath, lower extremity edema despite maximal medical therapy. 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 She denies any radiation treatment to her chest. Despite being on adequate medical therapy and despite a negative stress test, the patient continues to have shortness of breath and dyspnea on exertion. She has never had a heart catheterization. I believe she would benefit from resynchronization therapy if this is possible. At this point I recommended the patient undergo a left and right heart catheterization via the left groin to confirm/deny the presence of pulmonary hypertension and concomitant coronary artery disease. I recommended that she stop her Eliquis today and start Lovenox on Choco morning, holding her Lovenox on the day of her procedure this upcoming Monday. The risks/benefits of the procedure were thoroughly explained to the patient including specific attention to lack of on-site surgical back-up, and the patient has agreed to proceed. We will hold off on loading her with Plavix but I believe it is reasonable to start baby aspirin 81 mg p.o. daily. Should she require intervention she will need to be loaded with Plavix and will require dual antiplatelet therapy superimposed on anticoagulation therapy. If the patient requires no intervention, we will restart her anticoagulation per protocol, and proceed with amiodarone assisted DC cardioversion in an attempt to resynchronize her to improve her cardiac output and overall cardiac efficiency. In the meantime she will continue her Bumex, Coreg, lisinopril and potassium. 2. Chronic atrial fibrillation I48.2 Plan 2. Chronic atrial fibrillation: It is uncertain how long the patient has been in atrial fibrillation as she cannot detect that she is in it. Once her catheterizations completed and we have an idea of her anatomy and pulmonary pressures, we will proceed with elective amiodarone assisted DC cardioversion. We will start amiodarone after her left heart catheterization has been completed. 3. Hyperlipidemia: Her LDL and HDL cholesterol are fairly well-controlled given her risk factors. We will hold off on antilipid therapy at this time. 4. Return to office in 6 months. This note was generated using a voice recognition system and there may be incorrect words, spelling or punctuation that were not noted when reviewing the office note prior to saving. 3. Chronic systolic congestive heart failure I50.22 Plan Detail Other Medications New: enoxaparin (Lovenox) 60 mg subcut Q12H Follow Up +6M ([facility]) Coding Level of Care Code Off vis,est,level 3 Diagnoses Shortness of breath R06.02 Chronic atrial fibrillation I48.2 Chronic systolic congestive heart failure I50.22 ??Heart failure type: systolic ??Heart failure chronicity: chronic Coding Level of Care Code Off vis,est,level 3 Diagnoses Shortness of breath R06.02 Chronic atrial fibrillation I48.2 Chronic systolic congestive heart failure I50.22 ??Heart failure type: systolic ??Heart failure chronicity: chronic Supplemental Info Supplemental Information Labs LDL Cholesterol 49 mg/dL (0-130) 08/21/18 HDL Cholesterol 41 mg/dL (40-) 08/21/18 Triglycerides 101 mg/dL (-199) 08/21/18 VLDL Cholesterol 20 mg/dL (5-40) 08/21/18 Diagnostics Electrocardiogram 11/17/18 Echocardiogram 08/20/18 Stress Test 01/07/19 Chest X-Ray 11/19/18 02/15/19 1524 <Electronically signed by Felton Potter MD> Date Felton Potter MD Cosign Signature: Date (if applicable) CC: Sharad Burns MD ~ Interventional cardiology attending addendum: Patient seen and examined and above reviewed and no interim changes noted. The risks/benefits of the procedure were thoroughly explained the patient including specific attention to lack of on-site surgical back-up, the patient is agreed to proceed. Catheterization to follow.
[2019-02-20 11:36] LABS: Blood Gas Specimen Type VEN; VBG BASE EXCESS 3 mmol/L (-1.0-3.5); VBG Bicarbonate 29 mmol/L (22-26); VBG Oxygen Content 30 mmol/L (23-33); VBG PO2 30 mmHg (25-40); VBG SO2 53 % (50-70); VBG pCO2 51.2 mmHg (41-51); VBG pH 7.36 (7.32-7.42)
[2019-02-20 11:36] LABS: Blood Gas Specimen Type VEN; VBG BASE EXCESS 2 mmol/L (-1.0-3.5); VBG Bicarbonate 28 mmol/L (22-26); VBG Oxygen Content 29 mmol/L (23-33); VBG PO2 27 mmHg (25-40); VBG SO2 47 % (50-70); VBG pCO2 48.4 mmHg (41-51); VBG pH 7.36 (7.32-7.42)
[2019-02-20 11:36] LABS: Base Excess 1 mmol/L (-2 to +2); Bicarbonate 25.5 mmol/L (22-26); Blood Gas Specimen Type ART; PO2 57 mmHG (75-100); SO2 89 % (95-99); Total Carbon Dioxide 27 mmol/L; pCO2 41.2 mmHg (35-45)
--- NOTE | 2019-02-20 11:47 | CL.D_ITS ---
Patient Name: TAMIR PATRICK Study Date: 02/20/2019 Performing: Felton oPtter MD Ht: 59.05 inches 150 cm : 1950 Wt: 147.71 lbs 67 kg Age: 68 Gender: female BSA: 1.62 PROCEDURE(S) PERFORMED UO90-GQH/LHC/COR/LV CLINICAL PROFILE AND INDICATIONS Indications: Suspected CAD, Cardiac Arrythmia, LV Dysfunction Heart Failure: NYHA Class: 3, Newly Diagnosed: Yes, Heart Failure Type: Systolic Stress/Imaging Date: 12/18/2018Stress Test with SPECT MPI: Negative Angina Classification Anginal Classification w/in 2 Weeks: No symptoms CAD Presentations: Other: Dyspnea on exertion, edema, O2 requirements Comorbidities/Risk Factors: Hypertension Dyslipidemia Prior CHF CONCLUSIONS Non obstructive coronary arteries Cardiomyopathy: Congestive Right heart pressures - severely elevated The patient has pulmonary hypertension which is severe. RECOMMENDATIONS Management as per referring [employer] P[employer] Outseamer Start metolazone 2.5 mg q mon and mon, cont bumex, restart eliquis 02/23/2109. D/c cardioversion once optimized hemodynamically., Referred for immediate PCI Routine post intervention care Resume full activity Pericardial fluid analysis ASA Indefinitely Consider PCI of LAD if pt does not improve with medical therapy. Manual sheath removal. DESCRIPTION OF PROCEDURE The patient arrived to the procedure lab. The risks and benefits of the procedure as well as a full d escription of our services here and current unavailability of surgical backup were fully explained to the patient and/or their significant other prior to the catheterization. The Timeout was completed, verifying the correct patient and procedure. The patient's procedural site was prepped and draped in the usual fashion. Local anesthetic was given subcutaneously to left groin region with Lidocaine 2%. Using a modified Seldinger technique, arterial access was obtained via the left femoral artery, a 4Fr sheath was inserted Venous access was obtained via the left femoral vein, a 7Fr sheath was inserted. A 7Fr thermal dilution catheter was inserted and right heart pressures were recorded, it was then ad vanced to PA position for cardiac outputs. Thermal dilution cardiac outputs were then recorded. O2 sa turations were then obtained. The Thermal dilution catheter was then removed. Left Ventriculography was performed in BURNETTE projection using a 4 Fr. Pigtail catheter. LV to AO pullback pr essures were then recorded. Left Coronary Artery selective angiography was performed in multiple view s using a 4 Fr. JL5 catheter. Right Coronary Artery selective angiography was then performed in multi ple views using a 4 Fr. 3DRC catheter.The arterial sheath was pulled and manual compression applied u ntil hemostasis is achieved.. The venous sheath was then pulled and manual compression applied until hemostasis achieved CORONARY ANGIOGRAPHY DOMINANCE: Right Dominant LEFT HEART ASSESSMENT Left Ventricular Ejection Fraction: by LV Gram 25 % Global Hypokinesis - Severe Depressed Left Ventricular systolic function LVEDP: 23 mmHg Elevated Left Ventricular End Diastolic Pressure RIGHT HEART ASSESSMENT Thermal CO: 4.68 Thermal CI: 2.89 Dagoberto CO: 3.36 Dagoberto CI: 2.07 PW: / PA: 59/25 39 RV: 62/4 13 RA: / 13 PVR: 274 SVR: 1538 Mitral Valve Area: 1.44 Mitral Valve index: 0.89 Mitral Valve Mean Gradient: 13.4 Right Heart pressures - elevated Pulmonary Hypertension Severe LEFT MAIN: Angiographically normal LEFT ANTERIOR DESCENDING ARTERY: MID LAD: Moderate luminal irregularities up to 50% CIRCUMFLEX ARTERY: Angiographically normal RIGHT CORONARY ARTERY: Non-obstructive COMPLICATIONS No Complications PROCEDURE MEDICATIONS Oxygen: 2 L/min via nasal cannula Oxygen: Discontinued Oxygen: 3 L/min via nasal cannula SUMMARY OF HEMODYNAMIC DATA Time AIR REST ECG 10:28:08 RA / (13) SV 11:13:40 RV 62/4, 13 11:14:05 PA 59/25 (39) PA 11:15:19 PW / (23) PV 11:17:16 LV 154/-3, 11 11:22:09 LV 159/-3, 10 11:22:15 LV 160/-3, 13 11:22:35 PA 38/0 (34) 11:22:35 LV 151/-4, 14 11:22:46 PA 55/21 (36) 11:22:46 LV 157/-3, 13 11:23:06 PW / (22) 11:23:06 LV 153/-1, 13 11:23:22 RV 60/0, 9 11:23:22 LV 169/0, 15 11:23:28 RV 62/1, 10 11:23:28 LV 156/2, 26 11:24:39 LV 158/-2, 20 11:24:45 LVp 166/-1, 16 11:24:49 AOp 165/81 (115) 11:24:54 AO 134/78 (103) SA 11:26:09 Valve Area (c P-P/ms Time AIR REST Mitral 1.44 13.4 mn/301 ms9.0 pk/301 ms 11:23:06 Other 0.00 11:23:28 Type SV CO (l/m) CI (l/m/ HR Time AIR REST Thermal 59.20 4.68 2.89 79 10:28:08 Dagoberto 42.50 3.36 2.07 79 10:28:08 Label % O2 Pres/Loc Time AIR REST AO 89 PV 11:27:36 PA 50 PA 11:28:28 Signed By Felton Potter MD On 02/20/2019 11:46:13 Felton Potter MD
== END ==
LOC: CLSP 09:51
PROVIDERS: Family Provider Family Medicine; PCP Family Medicine; Referring Provider Internal Medicine Cardiovascular Disease; Visit Provider Internal Medicine Cardiovascular Disease
DX: I27.20 Pulmonary hypertension, unspecified (principal); I42.0 Dilated cardiomyopathy; D50.9 Iron deficiency anemia, unspecified; I48.20 Chronic atrial fibrillation, unspecified; I13.0 Hypertensive heart and chronic kidney disease with heart failure and stage 1 through stage 4 chronic kidney disease, or unspecified chronic kidney disease; N18.3 Chronic kidney disease, stage 3 (moderate); I50.22 Chronic systolic (congestive) heart failure; J84.10 Pulmonary fibrosis, unspecified; F41.9 Anxiety disorder, unspecified; F32.9 Major depressive disorder, single episode, unspecified; M81.0 Age-related osteoporosis without current pathological fracture; I83.12 Varicose veins of left lower extremity with inflammation; I83.11 Varicose veins of right lower extremity with inflammation; Z85.53 Personal history of malignant neoplasm of renal pelvis; Z92.21 Personal history of antineoplastic chemotherapy; Z98.84 Bariatric surgery status; Z79.01 Long term (current) use of anticoagulants; Z79.82 Long term (current) use of aspirin; Z79.899 Other long term (current) drug therapy
CPT/HCPCS: 82803; 93460; J7040; Q9967; C1751; C1769; C1894

== ENCOUNTER → 2019-03-15 13:44 | Outpatient (CLI) | payer MEDICARE, BC, SELFPAY ==
[2019-02-18 11:21] VITALS: BMI 29.9
--- NOTE | 2019-03-15 13:48 | VDLE_ITS ---
Reason For Study: Swelling RIGHT LEFT GSV is normal. GSV is normal. CFV is compressible, spontaneous, phasic, CFV is compressible, spontaneous, phasic, competent and demonstrates normal competent, and demonstrates normal augmentation. augmentation. FV is compressible, spontaneous, phasic, FV is compressible, spontaneous, phasic, competent and demonstrates normal competent and demonstrates normal augmentation. augmentation. POP V is compressible, spontaneous, phasic, POP V is compressible, spontaneous, phasic, competent and demonstrates normal competent and demonstrates normal augmentation. augmentation. T/P Trunk is compressible. T/P Trunk is compressible. PTV is compressible. PTV is compressible. RT PerV is compressible. LT PerV is compressible. Procedure Exam performed in department. A preliminary report was called and/or faxed to [facility]. Interpretation Summary No evidence for acute deep venous thrombosis bilateral lower extremities with patent and compressible bilateral great saphenous veins. Ordering Physician: Felton Potter Referring Physician: Sharad Burns Performed By: Verenice Tomas RVT
[2019-03-15 15:51] LABS: Hematocrit 36.6 % (37-47); Hemoglobin 11.2 g/dL (12.0-15.0); Mean Corp Hgb Conc 30.6 g/dL (32-36); Mean Corpuscular Hgb 30.9 pg (27.0-32.0); Mean Corpuscular Volume 100.8 fL (81-99); Mean Platelet Vol. 11.7 fl (6.2-12.0); Platelet Count 148 K/mm3 (150-450); RBC Distribution Width CV 14.4 % (11.6-14.6); RBC Distribution Width SD 51.7 fl (35.1-43.9); Red Blood Count 3.63 M/mm3 (4.2-5.4); White Blood Count 5.9 K/mm3 (4.4-11.0)
[2019-03-15 16:27] LABS: Anion Gap 3 (5-15); BUN 55 mg/dL (7-18); BUN/Creat Ratio 32.2 RATIO (10-20); Calcium,Total 8.3 mg/dL (8.5-10.1); Chloride 112 mmol/L (98-107); Creatinine, Serum 1.71 mg/dL (0.55-1.02); EST Glomerular Filtration Rate 31 mL/min (>60); Est Glom Filt Rate - Afr Amer 38 mL/min (>60); Glucose 79 mg/dL (74-106); Potassium 4.5 mmol/L (3.5-5.1); Sodium Level 142 mmol/L (136-145)
== END ==
PROVIDERS: Family Provider Family Medicine; PCP Family Medicine; Referring Provider Internal Medicine Cardiovascular Disease; Visit Provider Internal Medicine Cardiovascular Disease
DX: D64.9 Anemia, unspecified (principal); Z79.01 Long term (current) use of anticoagulants; N28.9 Disorder of kidney and ureter, unspecified; I50.9 Heart failure, unspecified; S80.10XA Contusion of unspecified lower leg, initial encounter; M79.89 Other specified soft tissue disorders
CPT/HCPCS: 36415; 80048; 85027; 93970

== ENCOUNTER 2019-07-10 06:59 | Emergency (ER) | payer MEDICARE, BC, SELFPAY ==
[2019-03-15 13:43] VITALS: BMI 29.9
[2019-07-10 07:02] VITALS: BP 181/103; PULSE 73; RESP 18; TEMP 36.4; O2SAT 94; BMI 25.8
--- NOTE | 2019-07-10 07:04 | CT_ITS ---
HISTORY: Trauma, tripped and fell, hematoma and small laceration to right eyebrow, headache. No LOC. ADDITIONAL HISTORY: None provided. COMPARISON: 01/26/2015 TECHNIQUE: Axial, coronal and sagittal CT images were obtained of the brain without intravenous contrast. Number of images including paperwork: 250. A radiation dose optimization technique was used for this scan. FINDINGS: BRAIN: No acute hemorrhage or mass. No definite acute infarct; MRI more sensitive. White matter hypodensity is nonspecific but most commonly seen with chronic ischemic changes. Generalized atrophy. VENTRICULAR SYSTEM: No hydrocephalus. PARANASAL SINUSES AND MASTOIDS: No air-fluid level in the imaged extent. Mild mucosal thickening noted. ORBITS: Unremarkable imaged extent. SKELETON AND SOFT TISSUES: Calvarium intact. Right frontal scalp hematoma. ASPECTS score: Not applicable. CT/Brain/Head without Contrast IMPRESSION: No acute intracranial abnormality. Chronic involutional and white matter changes. Individualized dose optimization techniques were used for this CT. at 0753 Reported and signed by: Earlene Ribera MD Electronically Signed: Earlene Ribera MD at 7:53 EST Tel , Service support ,
--- NOTE | 2019-07-10 07:05 | CT_ITS ---
STUDY: CT FACIAL BONES WITHOUT CONTRAST REASON FOR EXAM: Female, 69 years old. Trauma, tripped and fell, hematoma and small laceration to right eyebrow, headache. No LOC. RADIATION DOSAGE (If Supplied By Facility): CTDIvol = ( 29.38 ) mGy, DLP = ( 488.69 ) mGycm TECHNIQUE: The patient was scanned in a multi detector CT scanner. Sagittal and coronal images were reconstructed. Individualized dose optimization techniques were used for this CT. COMPARISON: None. FINDINGS: Normal soft tissue structures. Normal orbital otero and orbital contents. Normal nasal bones and anterior nasal spine. Normal facial bones. There is no demonstrated fracture. Normal visualized paranasal sinuses. CT/Sinus/Facial Bone IMPRESSION: There is no demonstrated fracture. Electronically Signed: Nicki Sorto MD at 8:09 EST Tel , Service support ,
--- NOTE | 2019-07-10 07:05 | CT_ITS ---
STUDY: CT CERVICAL SPINE WITHOUT CONTRAST REASON FOR EXAM: Female, 69 years old. Trauma, tripped and fell, hematoma and small laceration to right eyebrow, headache. No LOC. RADIATION DOSAGE (If Supplied By Facility): CTDIvol = ( 17.29 ) mGy, DLP = ( 281.72 ) mGycm TECHNIQUE: The patient was scanned in a multi detector CT scanner. High resolution transaxial imaging was performed. Sagittal and coronal images were reconstructed. Individualized dose optimization techniques were used for this CT. COMPARISON: January 26, 2050 FINDINGS: Normal cervical lordosis. There are no demonstrated fractures of the cervical spine. There is multilevel endplate spondylosis of the vertebrae. There is multi-level degenerative disc disease with multi-level disc space narrowing. Normal visualized paraspinous soft tissue structures. CT/Spine Cervical without Contras IMPRESSION: No demonstrated fractures. Multilevel degenerative changes. Electronically Signed: Nicki Sorto MD at 8:08 EST Tel , Service support ,
--- NOTE | 2019-07-10 07:07 | ED.DCSUM_ITS ---
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 Patient states that she was in her kitchen today. She went to seek go up a stair that was approximately 4 inches. She states she lost her balance and fell forward. She struck her head but did not lose consciousness. She did have bleeding above her right eye. She also hit her right hand. She has noticed some swelling of her forehead. She also admits to mild headache. She denies any nausea or vomiting. She states she is otherwise been in her normal state of health. Prior similar symptoms: No Recent Illness/Hospitalization: No Past Medical History - Allergies and Home Meds Allergies/Adverse Reactions: Allergies cyclobenzaprine [From Flexeril] Allergy (Severe, Verified 02/18/19 11:22) frequent falls nitrofurantoin Allergy (Severe, Verified 02/18/19 11:22) mental status change levofloxacin [From Levaquin] Allergy (Intermediate, Verified 02/18/19 11:22) diarrhea erythromycin base Allergy (Verified 02/18/19 11:22) Unknown linezolid [From Zyvox] Adverse Reaction (Unknown, Verified 02/18/19 11:22) Other azithromycin Adverse Reaction (Verified 02/18/19 11:22) Diarrhea furosemide [From Lasix] Adverse Reaction (Verified 02/18/19 11:22) Nausea Primary Care Physician: Sharad Burns MD [Primary Care Provider] - Prior records reviewed: Yes Past Medical History: - - Atrial fibrillation, respiratory failure Surgical History: cholecystectomy, gastric bypass, herniorrhaphy, hysterectomy, tonsillectomy, - - 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 Smoking Status: Never smoker - Family History Maternal Family History: Family History (Last Reviewed 02/15/19 @ 14:33 by Giovanna Goodwin) Father Cancer Mother Dementia Grandmother CVA (cerebral vascular accident) Family History: Reports: Diabetes - alive age 86 Paternal Family History: Family History (Last Reviewed 02/15/19 @ 14:33 by Giovanna Goodwin) Father Cancer Mother Dementia Grandmother CVA (cerebral vascular accident) Family History: Reports: Cancer - age 79 Offspring Family History: Family History (Last Reviewed 02/15/19 @ 14:33 by Giovanna Goodwin) Father Cancer Mother Dementia Grandmother CVA (cerebral vascular accident) Family History: Reports: - - 3 children: 2 living, 1 Review of Systems General: Denies: Chills, Fever, Sweats Eyes: Denies: Visual changes - bilaterally, Diplopia ENT: Denies: Rhinorrhea, Sore throat Cardiovascular: Denies: Chest pain, Palpitations Respiratory: Denies: Dyspnea, Cough, Dyspnea on exertion Gastrointestinal: Denies: Abdominal pain, Nausea, Vomiting, Diarrhea, Melena, Hematochezia Genitourinary: Denies: Dysuria, Hematuria, Frequency Musculoskeletal: Denies: Back pain, Extremity Pain Skin: Denies: Rash, Wounds Neurological: Denies: Headache, Weakness, Numbness Physical Exam Vital Signs/Narrative: Vital Signs Temp Pulse Resp BP Pulse Ox 07/10/19 07:02 97.5 F L 73 18 181/103 H 94 Inital Vital Signs reviewed: Yes General: Well nourished, Well developed, No Acute Distress Head: Normocephalic, Trauma - Large hematoma above the right eye. 1 cm full- thickness laceration above the right eyebrow. Nasal contusion without septal hematoma. Eyes: Perrl, EOMI ENT: Moist mucous membranes, No rhinorrhea Neck: Supple, Nontender Cardiovascular: Regular rate, Regular rhythm, No murmurs Respiratory: No distress, CTA bilaterally, Chest nontender Abdomen: Soft, Nontender, Nondistended, Normal bowel sounds Back: Nontender, Normal Inspection Extremities: Nontender, No edema Skin: Normal color, No rash Neurological: Alert, Oriented x3, Cranial nerves II-XII grossly intact, Normal Strength, Normal Sensation Psychological: Normal affect, Normal Mood Diagnostic/Tx/Re-eval Clinical Impression(s) from Imaging Studies Brain CT 07/10/19 07:04 IMPRESSION: No acute intracranial abnormality. Chronic involutional and white matter changes. Individualized dose optimization techniques were used for this CT. at 0753 Reported and signed by: Earlene Ribera MD Electronically Signed: Earlene Ribera MD at 7:53 EST Tel , Service support , Cervical Spine CT 07/10/19 07:05 IMPRESSION: No demonstrated fractures. Multilevel degenerative changes. Electronically Signed: Nicki Sorto MD at 8:08 EST Tel , Service support , Facial/Sinus 07/10/19 07:05 IMPRESSION: There is no demonstrated fracture. Electronically Signed: Nicki Sorto MD at 8:09 EST Tel , Service support , - Medical Decision Making The patient presents after mechanical fall. She does have facial injury. She had a 2 cm laceration to the upper lateral aspect of the right eyebrow. It was anesthetized with 3 cc of lidocaine with epinephrine. The wound was irrigated. It was closed with 3 simple 6-0 interrupted suture. The patient tolerated this without issue. She did have a facial hematoma, but no nasal septal hematoma. There is no malocclusion. Given her mechanism and anticoagulants, CT of the head, face, and C-spine were obtained which are unremarkable for acute process. The patient was given oral analgesics. X-rays of her hand show no evidence of fracture. At this point, I do feel the patient is safe for outpatient follow- up. She is comfortable with this plan of care. They were counseled on concerning symptoms, pain control, and reasons to return. Impression 1. Mechanical fall 2. Facial contusion with laceration with repair 3. Right hand contusion ED Disposition - Plan for ED Patient: Instructions: FALL, Mechanical, LACERATION, All Prescriptions: Hydrocodone Bitart/Apap 5-325 [[place] 5MG-325MG] 1 tab PO Q6H PRN PRN 3 Days #10 tab PRN Reason: Pain Prescription Printed Referrals: Sharad Burns MD [Primary Care Provider] - 7 Days for suture removal
[2019-07-10] MEDS: HYDROcodone Bitartrate/Apap 5/325 Tablet PO ×2 (07:13→08:23)
--- NOTE | 2019-07-10 07:45 | RAD_ITS ---
STUDY: X-RAY - RIGHT HAND REASON FOR EXAM: Pain in the distal third through fifth metacarpals, bruising and swelling, fall this morning. TECHNIQUE: 3 view(s) of the hand. COMPARISON: None. FINDINGS: There is osteopenia. Normal radiocarpal articulation. Normal distal radioulnar joint. Normal visualized carpal bones. Normal carpal articulations Normal carpometacarpal articulation of the thumb. There is joint space narrowing of the second carpometacarpal articulation. Normal metacarpi. There is joint space loss of the metacarpophalangeal joint of the thumb and mild ulnar subluxation of the articulation. There is joint space narrowing of the interphalangeal joint of the thumb. Normal proximal and distal phalanges of the thumb. There is joint space narrowing of the third metacarpophalangeal joint. There is joint space narrowing of the fourth and fifth proximal interphalangeal joints. Normal phalanges of the second through fifth fingers. There is a small ossicle at the ulnar styloid process. RAD/Hand Min 3 Views IMPRESSION: Arthrosis of the first metacarpophalangeal joint with mild ulnar subluxation. Arthrosis of the second carpometacarpal articulation, interphalangeal joint of the thumb, third metacarpophalangeal joint and fourth and fifth proximal interphalangeal joints. Electronically Signed: Owen Talley MD at 8:28 EST Tel , Service support ,
[2019-07-10 08:04] VITALS: TEMP 36.4; O2SAT 94
--- NOTE | 2019-07-10 08:17 | NURSING ---
pt back from ct and c/o sob and feeling anxious spo2 94% but o2 increased per pt request to 3.5l. stated, i turn it up at home when i feel like this will monitor. cool washcloth over eyes for montalvo and comfort. at bedside
== END 2019-07-10 08:57 | disposition home or self-care (01) ==
LOC: ED 07:42
PROVIDERS: Emergency Provider Emergency Medicine; PCP Family Medicine
DX: S01.111A Laceration without foreign body of right eyelid and periocular area, initial encounter (principal); S00.33XA Contusion of nose, initial encounter; S60.221A Contusion of right hand, initial encounter; W10.9XXA Fall (on) (from) unspecified stairs and steps, initial encounter; Y93.9 Activity, unspecified; Y92.9 Unspecified place or not applicable; J96.11 Chronic respiratory failure with hypoxia; I48.91 Unspecified atrial fibrillation; Z85.9 Personal history of malignant neoplasm, unspecified; Z92.3 Personal history of irradiation; Z92.21 Personal history of antineoplastic chemotherapy; Z99.81 Dependence on supplemental oxygen; Z79.01 Long term (current) use of anticoagulants; Z79.82 Long term (current) use of aspirin; Z79.899 Other long term (current) drug therapy
CPT/HCPCS: 12011; 70450; 70486; 72125; 73130; 99285; A4216

== ENCOUNTER → 2020-01-03 13:57 | Outpatient (CLI) | payer MEDICARE, BC, SELFPAY ==
[2020-01-03 15:18] LABS: Hematocrit 34.9 % (37-47); Hemoglobin 10.4 g/dL (12.0-15.0); Mean Corp Hgb Conc 29.8 g/dL (32-36); Mean Corpuscular Volume 100.6 fL (81-99); Mean Platelet Vol. 10.9 fl (6.2-12.0); Platelet Count 166 K/mm3 (150-450); RBC Distribution Width CV 12.9 % (11.6-14.6); RBC Distribution Width SD 47.8 fl (35.1-43.9); Red Blood Count 3.47 M/mm3 (4.2-5.4); White Blood Count 6.9 K/mm3 (4.4-11.0)
[2020-01-03 15:44] LABS: Anion Gap 3 (5-15); BNP,B-Type NATRIURETIC PEPTIDE 894.3 pg/mL (0-100); BUN 29 mg/dL (7-18); Calcium,Total 8.1 mg/dL (8.5-10.1); Chloride 107 mmol/L (98-107); Creatinine, Serum 1.32 mg/dL (0.55-1.02); EST Glomerular Filtration Rate 42 mL/min (>60); Est Glom Filt Rate - Afr Amer 51 mL/min (>60); Glucose 90 mg/dL (74-106); Potassium 3.5 mmol/L (3.5-5.1); Sodium Level 142 mmol/L (136-145)
== END ==
PROVIDERS: PCP Family Medicine; Referring Provider Physician Assistant Medical; Visit Provider Physician Assistant Medical
DX: I10 Essential (primary) hypertension (principal); I48.20 Chronic atrial fibrillation, unspecified; R06.02 Shortness of breath; R42 Dizziness and giddiness
CPT/HCPCS: 36415; 80048; 83880; 85027

== ENCOUNTER → 2020-01-10 14:48 | Outpatient (CLI) | payer MEDICARE, BC, SELFPAY ==
[2020-01-03 14:18] VITALS: BMI 27.5
[2020-01-10 16:32] LABS: Anion Gap 3 (5-15); BUN 26 mg/dL (7-18); BUN/Creat Ratio 19.3 RATIO (10-20); Calcium,Total 7.9 mg/dL (8.5-10.1); Chloride 105 mmol/L (98-107); Creatinine, Serum 1.35 mg/dL (0.55-1.02); EST Glomerular Filtration Rate 41 mL/min (>60); Est Glom Filt Rate - Afr Amer 50 mL/min (>60); Glucose 86 mg/dL (74-106); Potassium 3.1 mmol/L (3.5-5.1); Sodium Level 141 mmol/L (136-145)
== END ==
PROVIDERS: PCP Family Medicine; Referring Provider Physician Assistant Medical; Visit Provider Physician Assistant Medical
DX: I50.9 Heart failure, unspecified (principal); R06.02 Shortness of breath
CPT/HCPCS: 36415; 80048

== ENCOUNTER 2020-02-17 11:35 | Inpatient (IN) | payer MEDICARE, BC, SELFPAY ==
[2020-01-03 14:18] VITALS: BMI 27.5
[2020-02-17] VITALS (15 sets, daily range): BP systolic 99–135; BP diastolic 46–95; PULSE 78–106; RESP 18–33; TEMP 36.4–38.9; O2SAT 94–100; BMI 31.1; BMI 29.4
--- NOTE | 2020-02-17 12:28 | EKG12_ITS ---
Test Reason : Blood Pressure : / mmHG Vent. Rate : 104 BPM Atrial Rate : 394 BPM P-R Int : 000 ms QRS Dur : 090 ms QT Int : 274 ms P-R-T Axes : 000 -10 204 degrees QTc Int : [address] & T wave abnormality, consider lateral ischemia Abnormal ECG Confirmed by LI JEFFRIES, CRISTI ([id number]), medical transcription editor IRAM MCKEON ([id number]) on 02/19/2020 8:29:49 AM Referred By: Kayla Jennings Confirmed By:CRISTI JEFFERSON MD
--- NOTE | 2020-02-17 12:28 | CT_ITS ---
STUDY: CT CERVICAL SPINE WITHOUT CONTRAST REASON FOR EXAM: Female, 69 years old. HEAD INJURY, FALL. WEAKNESS. RADIATION DOSAGE (If Supplied By Facility): CTDIvol = ( ) mGy, DLP = ( ) mGycm TECHNIQUE: High resolution transaxial imaging was performed without contrast material. Sagittal and coronal images were reconstructed. Individualized dose optimization techniques were used for this CT. COMPARISON: Comparison is made with prior study dated 07/10/2019. FINDINGS: Normal craniovertebral junction. Normal anterior atlantoaxial articulation. Normal odontoid process. There is reversal of the normal cervical lordosis. Normal vertebral bodies and posterior osseous elements. C2-3: Normal endplates. Normal disc height and morphology. Normal central canal and intervertebral neuroforamina. C3-4: Minimal anterior listhesis of C3 on C4 most likely secondary to facet joint osteoarthritis. C4-5: Normal endplates. Normal disc height and morphology. Normal central canal and intervertebral neuroforamina. C5-6: Moderate degree of disc space narrowing and spondylosis. C6-7: Moderate degree of disc space narrowing and spondylosis. C7-T1: Normal endplates. Normal disc height and morphology. Normal central canal and intervertebral neuroforamina. Normal visualized soft tissue structures. CT/Spine Cervical without Contras IMPRESSION: Multilevel degenerative changes, as described above. Electronically Signed: Pako Clancy, at 14:34 EDT , Service support ,
--- NOTE | 2020-02-17 12:28 | CT_ITS ---
STUDY: CT BRAIN WITHOUT CONTRAST REASON FOR EXAM: Female, 69 years old. HEAD INJURY, FALL. WEAKNESS. RADIATION DOSAGE (If Supplied By Facility): CTDIvol = ( 44.99 ) mGy, DLP = ( 829.85 ) mGycm TECHNIQUE: Transaxial CT imaging of the brain was performed without administration of intravenous contrast material. Individualized dose optimization techniques were used for this CT. COMPARISON: Comparison is made with prior study dated 07/10/2019. FINDINGS: Normal soft tissue structures. There is hyperostosis frontalis internus. There is mild cerebral atrophy with widening of the extra-axial spaces and ventricular dilatation. Normal white matter tracts of the cerebral hemispheres. Normal basal ganglia and thalami. Normal brainstem. Normal cerebellum. There is no intracranial hemorrhage. There are no findings of an acute ischemic infarction. Normal visualized paranasal sinuses. CT/Brain/Head without Contrast IMPRESSION: Chronic involutional changes of the brain. Electronically Signed: Pako Clancy, at 14:35 EDT , Service support ,
--- NOTE | 2020-02-17 12:28 | RAD_ITS ---
STUDY: X-RAY CHEST REASON FOR EXAM: Female, 69 years old. SHORTNESS OF BREATH, WEAKNESS, COUGH, CHILL, CONGESTION, HEADACHE TECHNIQUE: Single AP portable view of the chest. COMPARISON: Comparison is made with prior study dated 11/19/2018. FINDINGS: A right-sided portacatheter is seen with the tip in the proximal portion of the superior vena cava. EKG electrodes are seen. Stable elevation of the right hemidiaphragm. There is evidence of vascular congestion and mild degree of CHF. There is no demonstrated pleural abnormality. There is moderate cardiac enlargement. Normal mediastinum and elif. Normal visualized pulmonary arteries. There is atherosclerotic calcification of the aortic arch with tortuosity. Normal visualized thoracic spine. Status post left shoulder replacement. There is no demonstrated abnormality of the visualized soft tissue structures of the upper abdomen. RAD/Chest 1 View (Portable) IMPRESSION: Cardiomegaly and CHF. Electronically Signed: Pako Clancy, at 14:30 EDT , Service support ,
[2020-02-17 12:41] LABS: Absolute Lymphocyte Count 0.62 X10^3/uL (0.83-4.51); Absolute Neutrophil Count 10.9 X10^3/uL (2.0-7.7); Basophil# 0.02 X10^3/uL; Basophil% 0.2 % (0-1); Hematocrit 31.6 % (37-47); Hemoglobin 10.1 g/dL (12.0-15.0); Lymphocyte # 0.62 X10^3/ul (4.0); Lymphocyte % 5.1 % (19-41); Mean Corpuscular Hgb 30.3 pg (27.0-32.0); Mean Corpuscular Volume 94.9 fL (81-99); Mean Platelet Vol. 13.2 fl (6.2-12.0); Monocyte# 0.67 X10^3/uL; Monocyte% 5.5 % (0-10); NRBC Flagged by Analyzer 0 % (0-5); Neutrophil # 10.86 X10^3/uL (2.7-7.7); Neutrophil % 88.7 % (47-70); POSITIVE COUNT YES; Platelet Count 86 K/mm3 (150-450); RBC Distribution Width CV 13.4 % (11.6-14.6); RBC Distribution Width SD 46.5 fl (35.1-43.9); Red Blood Count 3.33 M/mm3 (4.2-5.4); White Blood Count 12.2 K/mm3 (4.4-11.0)
[2020-02-17 12:48] LABS: Differential Indicated SCAN CRITERIA MET
[2020-02-17 12:53] LABS: Lactic Acid 1.4 mmol/L (0.4-1.9)
[2020-02-17] MEDS: Acetaminophen 500 MG Tablet 1000 MG PO (13:12)
[2020-02-17] MEDS: 0.9% Normal Saline 1,000 ML 150 ML IV (13:12)
[2020-02-17 13:23] LABS: Platelet Estimate MOD DEC (ADEQ); Red Cell Morphology NORM C+C NORMAL (NORM C&C)
[2020-02-17 13:25] LABS: Mucous, Urine 0 SEEN /hpf (<or=2+)
[2020-02-17 13:30] LABS: ALB/GLOB Ratio 0.6 RATIO (0.9-2.4); AST(SGOT) 45 U/L (15-37); Alanine Aminotransfer ALT/SGPT 50 U/L (13-56); Albumin, Serum 2.7 g/dL (3.2-5.0); Alkaline Phosphatase 109 U/L (45-117); Anion Gap 8 (5-15); BUN 82 mg/dL (7-18); Calcium,Total 7.8 mg/dL (8.5-10.1); Chloride 100 mmol/L (98-107); Creatinine, Serum 2.73 mg/dL (0.55-1.02); EST Glomerular Filtration Rate 18 mL/min (>60); Est Glom Filt Rate - Afr Amer 22 mL/min (>60); Estimated Creatinine Clearance 20.86 ml/min; Globulin 4.2 g/dL (2.2-4.2); Glucose 83 mg/dL (74-106); Potassium 2.9 mmol/L (3.5-5.1); Protein, Total 6.9 g/dL (6.4-8.2); Sodium Level 135 mmol/L (136-145)
[2020-02-17 13:54] LABS: Color, Urine Yellow (Yellow); Glucose, Dipstick Normal (Normal); Ketone-Dipstick Negative (Negative); Leukocyte Esterase-Dipstick 500 /ul (Negative); Nitrite-Dipstick Negative (Negative); Occult Blood-Urine 50 /ul (Negative); Protein-Dipstick 100 mg/dl (Negative); Urine Bilirubin Dipstick Negative (Negative); Urine Clarity Turbid (Clear); Urine Urobilinogen 1 mg/dl (Normal)
[2020-02-17 13:56] LABS: International Normalized Ratio 1.4; Prothrombin Time (Protime)PT. 16.2 SECONDS (11.7-14.9)
[2020-02-17 13:57] LABS: Partial Thromboplast Time 38.3 Seconds (24.1-36.2)
[2020-02-17 14:02] LABS: Bacteria 3+ /hpf (None Seen); Red Blood Cells-Urine 0-5 SEEN /hpf (0-5); Squamous Epithelial Cells - UA 0-5 SEEN /hpf (5-10); White Blood Cells 25-50 SEEN /hpf (0-5)
--- NOTE | 2020-02-17 14:14 | ED.DCSUM_ITS ---
History of Present Illness Chief Complaint: General Illness Informant: Patient, Family Narrative: Patient presents the emergency department with 5 days of fever, shortness of breath, cough, 2 falls, and generalized weakness. Patient chronically wears home oxygen and tells me that she has to wear it due to A. fib. She has a history of anemia and CHF. She states that 1 of the falls about 4 days ago she struck the back of her head and her neck also hurts. She states that sometimes her fever is high and sometimes it is normal. Patient states that she does not feel that she is emptying her bladder all the way. However the patient self caths but has not been doing so the past couple days. - Past Medical History (1) Iron deficiency anemia Status: Chronic (2) Chronic atrial fibrillation Status: Chronic (3) Essential hypertension Status: Chronic (4) Congestive heart failure Status: Chronic Past Medical History - Allergies and Home Meds Allergies/Adverse Reactions: Allergies cyclobenzaprine [From Flexeril] Allergy (Severe, Verified 02/17/20 11:37) frequent falls nitrofurantoin Allergy (Severe, Verified 02/17/20 11:37) mental status change levofloxacin [From Levaquin] Allergy (Intermediate, Verified 02/17/20 11:37) diarrhea erythromycin base Allergy (Verified 02/17/20 11:37) Unknown linezolid [From Zyvox] Adverse Reaction (Unknown, Verified 02/17/20 11:37) Other azithromycin Adverse Reaction (Verified 02/17/20 11:37) Diarrhea furosemide [From Lasix] Adverse Reaction (Verified 02/17/20 11:37) Nausea Primary Care Physician: Sharad Burns MD [Primary Care Provider] - Surgical History: cholecystectomy, gastric bypass, herniorrhaphy, hysterectomy, tonsillectomy, - - 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 Smoking Status: Never smoker - Family History Maternal Family History: Family History (Last Reviewed 02/15/19 @ 14:33 by Giovanna Goodwin) Father Cancer Mother Dementia Grandmother CVA (cerebral vascular accident) Family History: Reports: Diabetes - alive age 86 Paternal Family History: Family History (Last Reviewed 02/15/19 @ 14:33 by Giovanna Goodwin) Father Cancer Mother Dementia Grandmother CVA (cerebral vascular accident) Family History: Reports: Cancer - age 79 Offspring Family History: Family History (Last Reviewed 02/15/19 @ 14:33 by Giovanna Goodwin) Father Cancer Mother Dementia Grandmother CVA (cerebral vascular accident) Family History: Reports: - - 3 children: 2 living, 1 Review of Systems General: Reports: Chills, Fever, Malaise. Denies: Sweats Eyes: Denies: Visual changes - bilaterally, Diplopia ENT: Denies: Rhinorrhea, Sore throat Cardiovascular: Denies: Chest pain, Palpitations Respiratory: Reports: Dyspnea, Cough. Denies: Dyspnea on exertion Gastrointestinal: Denies: Abdominal pain, Nausea, Vomiting, Diarrhea, Melena, Hematochezia Genitourinary: Denies: Dysuria, Hematuria, Frequency Musculoskeletal: Reports: Neck pain. Denies: Back pain, Extremity Pain Skin: Denies: Rash, Wounds Neurological: Reports: Headache. Denies: Weakness, Numbness Physical Exam Vital Signs/Narrative: Vital Signs Temp Pulse Resp BP Pulse Ox 02/17/20 14:00 24 H 02/17/20 13:29 101.2 F H 97 28 H 118/82 H 94 02/17/20 13:28 101.2 F H 28 H 02/17/20 12:48 102 H 28 H 121/82 H 97 02/17/20 11:47 102.1 F H 91 33 H 135/66 H 98 02/17/20 11:43 102.1 F H 91 32 H 135/95 H 98 Inital Vital Signs reviewed: Yes General: Well nourished, Well developed, No Acute Distress Head: Normocephalic, Atraumatic Eyes: Perrl, EOMI ENT: Moist mucous membranes, No rhinorrhea Neck: Supple, Nontender Cardiovascular: No murmurs, Irregular, Tachycardia Respiratory: No distress, Chest nontender, Diminished, Decreased Air Movement Abdomen: Soft, Nontender, Nondistended, Normal bowel sounds, Tender - Tender palpation suprapubic region.. Negative for: Guarding, Rebound tenderness Back: Nontender, Normal Inspection Extremities: Nontender, Edema Skin: Normal color, No rash Neurological: Alert, Oriented x3, Cranial nerves II-XII grossly intact, Normal Strength, Normal Sensation Psychological: Normal affect, Normal Mood Diagnostic/Tx/Re-eval Laboratory Last Values WBC 12.2 K/mm3 (4.4-11.0) H 02/17/20 11:55 RBC 3.33 M/mm3 (4.2-5.4) L 02/17/20 11:55 Hgb 10.1 g/dL (12.0-15.0) L 02/17/20 11:55 Hct 31.6 % (37-47) L 02/17/20 11:55 MCV 94.9 fL (81-99) 02/17/20 11:55 MCH 30.3 pg (27.0-32.0) 02/17/20 11:55 MCHC 32.0 g/dL (32-36) 02/17/20 11:55 RDW Std Deviation 46.5 fl (35.1-43.9) H 02/17/20 11:55 RDW Coeff of Som 13.4 % (11.6-14.6) 02/17/20 11:55 Plt Count 86 K/mm3 (150-450) L 02/17/20 11:55 MPV 13.2 fl (6.2-12.0) H 02/17/20 11:55 Immature Gran % (Auto) 0.500 % (0.0-0.9) 02/17/20 11:55 Neut % (Auto) 88.7 % (47-70) H 02/17/20 11:55 Lymph % (Auto) 5.1 % (19-41) L 02/17/20 11:55 [place] % (Auto) 5.5 % (0-10) 02/17/20 11:55 Eos % (Auto) 0.0 % (0-5) 02/17/20 11:55 Baso % (Auto) 0.2 % (0-1) 02/17/20 11:55 Absolute Neuts (auto) 10.9 X10^3/uL (2.0-7.7) H 02/17/20 11:55 Absolute Lymphs (auto) 0.62 X10^3/uL (0.83-4.51) L 02/17/20 11:55 Nucleated RBC % 0 % (0-5) 02/17/20 11:55 Platelet Estimate MOD DEC (ADEQ) 02/17/20 11:55 RBC Morphology NORM C+C NORMAL (NORM C&C) 02/17/20 11:55 PT 16.2 SECONDS (11.7-14.9) H 02/17/20 13:06 INR 1.4 02/17/20 13:06 APTT 38.3 Seconds (24.1-36.2) H 02/17/20 13:06 Sodium 135 mmol/L (136-145) L 02/17/20 13:06 Potassium 2.9 mmol/L (3.5-5.1) L 02/17/20 13:06 Chloride 100 mmol/L (98-107) 02/17/20 13:06 Carbon Dioxide 27.0 mmol/L (21.0-32.0) 02/17/20 13:06 Anion Gap 8 (5-15) 02/17/20 13:06 BUN 82 mg/dL (7-18) H 02/17/20 13:06 Creatinine 2.73 mg/dL (0.55-1.02) H 02/17/20 13:06 Estim Creat Clear Calc 20.86 ml/min 02/17/20 13:06 Est GFR (MDRD) Af Amer 22 mL/min (>60) L 02/17/20 13:06 Est GFR (MDRD) Non-Af 18 mL/min (>60) L 02/17/20 13:06 BUN/Creatinine Ratio 30.0 RATIO (10-20) H 02/17/20 13:06 Glucose 83 mg/dL (74-106) 02/17/20 13:06 Lactic Acid 1.4 mmol/L (0.4-1.9) 02/17/20 11:55 Calcium 7.8 mg/dL (8.5-10.1) L 02/17/20 13:06 Total Bilirubin 0.80 mg/dL (0.20-1.00) 02/17/20 13:06 AST 45 U/L (15-37) H 02/17/20 13:06 ALT 50 U/L (13-56) 02/17/20 13:06 Alkaline Phosphatase 109 U/L (45-117) 02/17/20 13:06 Troponin I 0.139 ng/mL (<0.045) H 02/17/20 13:06 Total Protein 6.9 g/dL (6.4-8.2) 02/17/20 13:06 Albumin 2.7 g/dL (3.2-5.0) L 02/17/20 13:06 Globulin 4.2 g/dL (2.2-4.2) 02/17/20 13:06 Albumin/Globulin Ratio 0.6 RATIO (0.9-2.4) L 02/17/20 13:06 Urine Color Yellow (Yellow) 02/17/20 13:20 Urine Clarity Turbid (Clear) 02/17/20 13:20 Urine pH 7.0 (5.0 - 8.0) 02/17/20 13:20 Ur Specific [place] 1.010 (1.002-1.030) 02/17/20 13:20 Urine Protein 100 mg/dl (Negative) H 02/17/20 13:20 Urine Glucose (UA) Normal mg/dl (Normal) 02/17/20 13:20 Urine Ketones Negative mg/dl (Negative) 02/17/20 13:20 Urine Occult Blood 50 /ul (Negative) H 02/17/20 13:20 Urine Nitrite Negative (Negative) 02/17/20 13:20 Urine Bilirubin Negative mg/dL (Negative) 02/17/20 13:20 Urine Urobilinogen 1 mg/dl (Normal) H 02/17/20 13:20 Ur Leukocyte Esterase 500 /ul (Negative) H 02/17/20 13:20 Urine RBC 0-5 SEEN /hpf (0-5) 02/17/20 13:20 Urine WBC 25-50 SEEN /hpf (0-5) 02/17/20 13:20 Ur Squamous Epith Cells 0-5 SEEN /hpf (5-10) 02/17/20 13:20 Urine Bacteria 3+ /hpf (None Seen) 02/17/20 13:20 Urine Mucus 0 SEEN /hpf (<or=2+) 02/17/20 13:20 - Medical Decision Making Patient received IV fluids and Tylenol. Urine is grossly infected and we gave Zosyn. ED Disposition - Plan for ED Patient: Disposition: Acute Care Hospital [facility] Diagnosis: Acute kidney injury, UTI (urinary tract infection), Sepsis, Congestive heart failure, Chronic atrial fibrillation, Hypokalemia Referrals: Sharad Burns MD [Primary Care Provider] -
[2020-02-17] MEDS: 0.9% Normal Saline 1,000 ML 999 ML IV (14:41)
--- NOTE | 2020-02-17 14:52 | PCM.HP.STD ---
Problem List (1) Acute kidney injury Status: Acute (2) UTI (urinary tract infection) Status: Acute Qualifiers: Urinary tract infection type: catheter-associated UTI Indwelling urinary catheter type: unspecified Encounter type: initial encounter Qualified Code(s): T83.511A - Infection and inflammatory reaction due to indwelling urethral catheter, initial encounter; N39.0 - Urinary tract infection, site not specified (3) Sepsis Status: Acute Qualifiers: Sepsis acute organ dysfunction status: with acute organ dysfunction Severe sepsis acute organ dysfunction type: acute renal failure (4) Hypokalemia Status: Acute (5) Shortness of breath Status: Acute (6) Chronic atrial fibrillation Status: Chronic (7) Essential hypertension Status: Chronic (8) Chronic anemia Status: Chronic (9) Congestive heart failure Status: Chronic Qualifiers: Heart failure type: unspecified Heart failure chronicity: chronic Qualified Code(s): I50.9 - Heart failure, unspecified History of Present Illness Date of Admission: 02/17/20 Chief Complaint: Fever- 2 days. 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 Patient lives with her and adult son. She is usually immobile and ambulates with a scooter. She denied any sick contacts or going out of the house.Patient also has been having recurrent falls. Last fell a couple of days prior to admission. Patient believes this was mechanical. She however has been having intermittent dizziness. She presented with shortness of breath ongoing for 5 to 6 days as well as fever for 2 days. Patient has chronic diarrhea which she attributes to when she takes Eliquis. She admits to having about 2-3 loose bowel movements a day, large in volume. She denies any hematochezia or melena. She admits to nausea but no vomiting. She has poor oral intake. He noted fever at home over the last 2 days. She self catheterizes throughout the day. The last time she catheterized on the day of admission, she did not get much out. She denied any lower abdominal discomfort. Vitals in the ED showed temperature 102.1 F, heart rate 91, blood pressure 135/95, respiratory rate was 32, SPO2 was 98% on 5 L of oxygen. Her WBC count was 12.2, hemoglobin was 10.1, which is close to her baseline, platelet count was 86. Most recent platelet count was 166. Her INR was 1.4, APTT was 38.3, sodium 135, potassium 2.9, BUN 82, creatinine 2.73. Previous baseline creatinine was 1.35, lactic acid was 1.4, AST 45, troponin 0 0.139. UA showed turbid urine, nitrite negative, leuk leukocyte Estrace 500, WBC 25-50, 3+ bacteria. COVID-19 PCR test was negative. CT scan of the brain showed chronic involutional changes. Cervical spine CT showed multilevel degenerative changes. Chest x-ray showed cardiomegaly and CHF. Past Medical History Past Medical History (Chronic Problems): Chronic Problems (Last Reviewed 02/15/19 @ 14:33 by Giovanna Goodwin) Iron deficiency anemia (Chronic) History of right and left heart catheterization (Chronic 02/20/19) 50% stenosis in LAD, all other coronaries normal. No need for PCI. Severe pulmonary hypertension, severe LV dysfunction: EF 25%. Per TU @ [facility] 02/20/2019 Chronic atrial fibrillation (Chronic) Essential hypertension (Chronic) Chronic anemia (Chronic) Congestive heart failure (Chronic) Medical History: Medical History (Last Reviewed 02/15/19 @ 14:33 by Giovanna Goodwin) Shortness of breath (Acute) R06.02 Chronic atrial fibrillation (Chronic) I48.2 Essential hypertension (Chronic) I10 Chronic anemia (Chronic) D64.9 Congestive heart failure (Chronic) I50.9 Anxiety F41.9 CKD (chronic kidney disease), stage III N18.3 Chronic acquired lymphedema I89.0 Chronic fibrosis of lung J84.10 Chronic venous stasis dermatitis I83.10 Depressive disorder F32.9 Osteoporosis M81.0 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 Varicose veins of both lower extremities I83.93 Venous stasis dermatitis of both lower extremities I83.11, I83.12 Allergies cyclobenzaprine [From Flexeril] Allergy (Severe, Verified 02/17/20 11:37) frequent falls nitrofurantoin Allergy (Severe, Verified 02/17/20 11:37) mental status change levofloxacin [From Levaquin] Allergy (Intermediate, Verified 02/17/20 11:37) diarrhea erythromycin base Allergy (Verified 02/17/20 11:37) Unknown linezolid [From Zyvox] Adverse Reaction (Unknown, Verified 02/17/20 11:37) Other azithromycin Adverse Reaction (Verified 02/17/20 11:37) Diarrhea furosemide [From Lasix] Adverse Reaction (Verified 02/17/20 11:37) Nausea Home Medications: Ambulatory Orders Medication Instructions Recorded Carvedilol 6.25 mg PO BID 05/29/18 Oxybutynin Chloride [Oxybutynin 15 mg PO DAILY 05/29/18 Chloride ER] Gabapentin 600 mg PO TID 08/20/18 sertraline 50 mg tablet 150 mg PO DAILY tab 12/17/18 biotin 5 mg capsule 5 mg PO DAILY 12/18/18 aspirin 81 mg tablet,delayed 81 mg PO DAILY 02/15/19 release Apixaban [Eliquis] 2.5 mg PO BID 02/17/20 Calcium Carbonate 600 mg PO DAILY 02/17/20 Cholecalciferol (Vitamin D3) 2,000 unit PO DAILY 02/17/20 [Vitamin D3] Cyanocobalamin (Vitamin B-12) 1,000 mcg IJ QMONTH 02/17/20 [Cyanocobalamin Injection] Fluticasone 0.05% [Flonase Nasal 1 spray NASAL DAILY 02/17/20 [place]] Lisinopril [Prinivil] 10 mg PO BID 02/17/20 Multivitamin 1 tab PO DAILY 02/17/20 Potassium Chloride [K-Tab ER] 40 meq PO BID 02/17/20 Surgical History: Surgical History (Last Updated 02/20/19 @ 12:50 by Paulina Mace) History of right and left heart catheterization (Chronic) Onset Date: 02/20/19 Z98.890 50% stenosis in LAD, all other coronaries normal. No need for PCI. Severe pulmonary hypertension, severe LV dysfunction: EF 25%. 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 Smoking Status: Never smoker Tobacco Use: Non-smoker Alcohol: None Drugs: None - *Family History Maternal Family History: Family History (Last Reviewed 02/15/19 @ 14:33 by Giovanna Goodwin) Father Cancer Mother Dementia Grandmother CVA (cerebral vascular accident) History Items: Diabetes - alive age 86 Paternal Family History: Family History (Last Reviewed 02/15/19 @ 14:33 by Giovanna Goodwin) Father Cancer Mother Dementia Grandmother CVA (cerebral vascular accident) History Items: Cancer - age 79 Offspring Family History: Family History (Last Reviewed 02/15/19 @ 14:33 by Giovanna Nolt) Father Cancer Mother Dementia Grandmother CVA (cerebral vascular accident) History Items: - - 3 children: 2 living, 1 Review of Systems Constitutional: Reports: Anorexia, Chills, Fever, Night Sweats, Malaise, Weakness, Fatigue. Denies: Weight Change Eyes: Denies: Blurred vision, Cataracts, Conjunctivae Inflammation, Pain, Redness, Vision Change HEENT: Denies: Difficulty Hearing, Difficulty Swallowing, Head Aches, Hearing Changes, Sinus Congestion, Sinus Drainage Cardiovascular: Reports: Light Headedness. Denies: Chest Pain, Claudication, Orthopnea, Palpitations, Paroxysmal Noc. Dyspnea Respiratory: Reports: Shortness of Breath, Shortness of breath at rest, Shortness of breath upon exertion. Denies: Cough, Hemoptysis, Sputum production Gastrointestinal: Reports: Diarrhea, Nausea. Denies: Abdominal Pain, Constipation, Hematemesis, Hematochezia, Vomiting Genitourinary: Denies: Dysuria, Frequency, Incontinence, Nocturia Musculoskeletal: Denies: Joint Pain, Joint stiffness, Joint swelling, Joint Tenderness Skin: Denies: Rash, Wounds Neurological: Denies: Difficulty swallowing, Focal weakness, Numbness, Tingling Psychiatric: Denies: Anxiety, Depression, Homicidal Ideations, Suicidal Ideations Hematologic/ Lymphatic: Denies: Easy Bruising, Easy Bleeding VTE Information - Inpt Only VTE Present on Admission: No VTE Pharm Prophylaxis ordered?: Yes Patient Problems: Active and Suspected Problems (Last Reviewed 02/15/19 @ 14:33 by Giovanna Goodwin) Acute kidney injury (Acute) UTI (urinary tract infection) (Acute) Sepsis (Acute) Hypokalemia (Acute) - Physical Exam Vitals/I&O's: Vital Signs Temp Pulse Resp BP Pulse Ox 98 F 91 22 H 100/46 L 96 02/17/20 14:32 02/17/20 14:32 02/17/20 14:32 02/17/20 14:32 02/17/20 14:32 Oxygen Flow Rate (L/min) 5 Oxygen Delivery Method Nasal Cannula Weight: 69.9 kg Body Mass Index (BMI) 31.1 Intake and Output for Last 24 Hours 02/15/20 02/16/20 02/17/20 23:59 23:59 23:59 Intake Total 232.5 / 232.5 Balance 232.5 / 232.5 General: Alert, Oriented x3, Cooperative, - - looks chronically unwell, on 2L oxygen HEENT: Atraumatic, PERRLA, EOMI, Normocephalic Oral: Dry Mucosa Neck: Supple, No JVD, Negative Carotid Bruits Lungs: Diminished Cardiovascular: Regular rate, No murmurs Abdomen: Bowel Sounds Present, Soft, Non Tender, Non-Distended, No Hepato-splenomegaly Extremities: Edema - Bilateral pedal edema +2-3, with evidence of chronic venous stasis Skin: No rashes Musculoskeletal: No Tenderness to Palpation of Joints or Extremities Lymphatic: No Cervical, Supraclavicular, or Inguinal Adenopathy Neurological: Cranial nerves II-XII grossly intact, Neuro grossly intact Psych/Mental Status: Normal Affect, Appropriate Laboratory Results 02/17/20 11:55: Sodium Cancelled, Potassium Cancelled, Chloride Cancelled, Carbon Dioxide Cancelled, Anion Gap Cancelled, BUN Cancelled, Creatinine Cancelled, Estim Creat Clear Calc Cancelled, Est GFR (MDRD) Af Amer Cancelled, Est GFR (MDRD) Non-Af Cancelled, BUN/Creatinine Ratio Cancelled, Glucose Cancelled, Calcium Cancelled, Total Bilirubin Cancelled, AST Cancelled, ALT Cancelled, Alkaline Phosphatase Cancelled, Troponin I Cancelled, Total Protein Cancelled, Albumin Cancelled, Globulin Cancelled, Albumin/Globulin Ratio Cancelled 02/17/20 11:55: WBC 12.2 H, RBC 3.33 L, Hgb 10.1 L, Hct 31.6 L, MCV 94.9, MCH 30.3, MCHC 32.0, RDW Std Deviation 46.5 H, RDW Coeff of Som 13.4, Plt Count 86 L, MPV 13.2 H, Immature Gran % (Auto) 0.500, Neut % (Auto) 88.7 H, Lymph % (Auto) 5.1 L, [place] % (Auto) 5.5, Eos % (Auto) 0.0, Baso % (Auto) 0.2, Absolute Neuts (auto) 10.9 H, Absolute Lymphs (auto) 0.62 L, Nucleated RBC % 0, Platelet Estimate MOD DEC, RBC Morphology NORM C+C 02/17/20 11:55: Lactic Acid 1.4 02/17/20 13:06: PT 16.2 H, INR 1.4, APTT 38.3 H 02/17/20 13:06: Sodium 135 L, Potassium 2.9 L, Chloride 100, Carbon Dioxide 27.0, Anion Gap 8, BUN 82 H, Creatinine 2.73 H, Estim Creat Clear Calc 20.86, Est GFR (MDRD) Af Amer 22 L, Est GFR (MDRD) Non-Af 18 L, BUN/Creatinine Ratio 30.0 H, Glucose 83, Calcium 7.8 L, Total Bilirubin 0.80, AST 45 H, ALT 50, Alkaline Phosphatase 109, Troponin I 0.139 H, Total Protein 6.9, Albumin 2.7 L, Globulin 4.2, Albumin/Globulin Ratio 0.6 L 02/17/20 13:15: COVID-19 ([facility]) Pending 02/17/20 13:20: Urine Color Yellow, Urine Clarity Turbid, Urine pH 7.0, Ur Specific [place] 1.010, Urine Protein 100 H, Urine Glucose (UA) Normal, Urine Ketones Negative, Urine Occult Blood 50 H, Urine Nitrite Negative, Urine Bilirubin Negative, Urine Urobilinogen 1 H, Ur Leukocyte Esterase 500 H, Urine RBC 0-5 SEEN, Urine WBC 25-50 SEEN, Ur Squamous Epith Cells 0-5 SEEN, Urine Bacteria 3+, Urine Mucus 0 SEEN Current Medications Sodium Chloride () 1,000 mls @ 150 mls/hr IV .Q6H40M [facility] Last Infusion: 02/17/20 14:45 Dose: 0 mls/hr Documented by: Sodium Chloride () 1,000 mls @ 999 mls/hr IV .Q1H1M ONE Stop: 02/17/20 15:38 Last Admin: 02/17/20 14:41 Dose: 999 mls/hr Documented by: Assessment/Plan All Active Problems (Last Reviewed 02/15/19 @ 14:33 by Giovanna Goodwin) Acute kidney injury (Acute) UTI (urinary tract infection) (Acute) Sepsis (Acute) Hypokalemia (Acute) Shortness of breath (Acute) 1. Sepsis secondary to Acute UTI, probable pneumonia-patient presented with fever, leukocytosis, positive urinalysis Previous urine cultures had grown enterococcus/Klebsiella/E. coli Started on IV Zosyn, urine and blood cultures taken We will continue on IV Zosyn, follow-up on blood work 2. Acute UTI, likely related to intermittent self-catheterization Continue on antibiotics as seen #1 3. Acute on chronic hypoxic respiratory failure, likely secondary to probable pneumonia versus acute on chronic combined CHF Chest x-ray was negative for acute infiltrate. COVID-19 test was negative BNPep are pending. Continue to wean off oxygen, may consider repeat chest x-ray in a.m. 4. Acute diarrhea, no recent antibiotics Will check stool for enteric panel, C diff 5. Hypokalemia, admitting potassium was 2.9 secondary to acute diarrhea Replaced, would also check for magnesium, recheck BMP at 6 PM 6. Hyponatremia, likely related to dehydration, mild Admitting sodium is 135. Previous have been normal 7. Thrombocytopenia, platelet count is 86, previous platelet was 166 On aspirin and Eliquis Discussed with hematology lab staff, no schizocytes to suggest TTP Will repeat blood work again 7. Chronic anemia, history of iron deficiency anemia, Hemoglobin is 10.4, which is about her baseline We will repeat blood work in a.m. 8. FROYLAN on CKD stage III, likely prerenal from dehydration from acute diarrhea and poor p.o. intake I doubt patient has severe sepsis as a small probable that patient has dehydration from diarrhea greater than sepsis Baseline creatinine 1.35, admitting creatinine was 2.73 We will hold lisinopril On IV fluids, will continue to monitor I's and O's, would also monitor for fluid overload/CHF exacerbation 9. Elevated troponins, related to #8, admitting troponin is 0.139 Admitting EKG did not have acute ST changes. Recent cardiac cath a year ago showed nonobstructive coronary arteries We will trend troponins 10. Chronic atrial fibrillation/severe pulmonary hypertension/hypertension, all remain relatively stable for now Carvedilol on hold for now on account of relative hypotension Continued on Eliquis 11. Relative hypotension in the emergency department, patient with history of hypertension Lisinopril on hold on account of acute kidney injury. Would also hold carvedilol Carvedilol may be restarted in a.m. if blood pressures are better 12. DVT prophylaxis with apixaban 13. CODE STATUS is a DNR CCA I discussed goals of care in this admission with patient and her at the bedside. I went on to explain in details the various types of CODE STATUS-full code, DNR CCA, DNR CC. She did not want to be kept on artificial life support. She chose DNR CCA. I recommended choosing a healthcare power of compliance attorney. Time spent discussing CODE STATUS 17 minutes Inpatient E&M: 90855 Init Hosp L3 Procedures: 36213 Advncd Care Plan 30 Min
--- NOTE | 2020-02-17 15:54 | NURSING ---
CVICU 202 UTI, SEPSIS, CHF PAINTSIL
[2020-02-17] MEDS: 0.9% Normal Saline 1,000 ML 125 ML IV (17:48)
[2020-02-17 18:01] LABS: Absolute Lymphocyte Count 0.52 X10^3/uL (0.83-4.51); Absolute Neutrophil Count 7.4 X10^3/uL (2.0-7.7); Basophil# 0.01 X10^3/uL; Basophil% 0.1 % (0-1); Eosinophil# 0.14 X10^3/uL; Eosinophils% 1.6 % (0-5); Hematocrit 29.1 % (37-47); Lymphocyte # 0.52 X10^3/ul (4.0); Mean Corp Hgb Conc 30.9 g/dL (32-36); Mean Corpuscular Hgb 30.4 pg (27.0-32.0); Mean Corpuscular Volume 98.3 fL (81-99); Mean Platelet Vol. 12.1 fl (6.2-12.0); Monocyte# 0.58 X10^3/uL; Monocyte% 6.7 % (0-10); NRBC Flagged by Analyzer 0 % (0-5); Neutrophil % 85.4 % (47-70); POSITIVE COUNT YES; POSITIVE DIFFERENTIAL YES; Platelet Count 73 K/mm3 (150-450); RBC Distribution Width CV 13.3 % (11.6-14.6); RBC Distribution Width SD 47.7 fl (35.1-43.9); Red Blood Count 2.96 M/mm3 (4.2-5.4); White Blood Count 8.7 K/mm3 (4.4-11.0)
[2020-02-17 18:04] LABS: Differential Indicated SCAN CRITERIA MET
[2020-02-17 18:30] LABS: Differential Comment SCANNED; Platelet Estimate MOD DEC (ADEQ)
[2020-02-17 18:35] LABS: Anion Gap 10 (5-15); BUN 81 mg/dL (7-18); Calcium,Total 7.4 mg/dL (8.5-10.1); Chloride 107 mmol/L (98-107); EST Glomerular Filtration Rate 18 mL/min (>60); Est Glom Filt Rate - Afr Amer 22 mL/min (>60); Estimated Creatinine Clearance 19.93 ml/min; Glucose 86 mg/dL (74-106); Potassium 2.9 mmol/L (3.5-5.1); Sodium Level 140 mmol/L (136-145)
[2020-02-17 18:56] LABS: BNP,B-Type NATRIURETIC PEPTIDE 1709.6 pg/mL (0-100)
[2020-02-17] MEDS: Furosemide 40 MG/4 ML Vial IV (20:16)
[2020-02-17] MEDS: Potassium Chloride 10mEq/100mL 10 MEQ/100 ML IV.SOLN. 100 MEQ IV BOLUS ×2 (20:42→22:41)
[2020-02-18] VITALS (10 sets, daily range): BP systolic 103–125; BP diastolic 62–74; PULSE 84–106; RESP 18; TEMP 36.3–36.8; O2SAT 92–98
[2020-02-18] MEDS: Acetaminophen 325 MG Tablet 650 MG PO (05:46)
[2020-02-18 06:13] LABS: Absolute Lymphocyte Count 0.44 X10^3/uL (0.83-4.51); Absolute Neutrophil Count 8.2 X10^3/uL (2.0-7.7); Basophil# 0.01 X10^3/uL; Basophil% 0.1 % (0-1); Eosinophil# 0.02 X10^3/uL; Eosinophils% 0.2 % (0-5); Hematocrit 31.9 % (37-47); Hemoglobin 9.9 g/dL (12.0-15.0); Lymphocyte # 0.44 X10^3/ul (4.0); Lymphocyte % 4.8 % (19-41); Mean Corpuscular Hgb 30.5 pg (27.0-32.0); Mean Corpuscular Volume 98.2 fL (81-99); Mean Platelet Vol. 12.3 fl (6.2-12.0); Monocyte# 0.59 X10^3/uL; Monocyte% 6.4 % (0-10); NRBC Flagged by Analyzer 0 % (0-5); Neutrophil # 8.15 X10^3/uL (2.7-7.7); Neutrophil % 88.1 % (47-70); POSITIVE COUNT YES; POSITIVE DIFFERENTIAL YES; Platelet Count 73 K/mm3 (150-450); RBC Distribution Width CV 13.5 % (11.6-14.6); RBC Distribution Width SD 48.8 fl (35.1-43.9); Red Blood Count 3.25 M/mm3 (4.2-5.4); White Blood Count 9.3 K/mm3 (4.4-11.0)
[2020-02-18 06:16] LABS: Differential Indicated SCAN CRITERIA MET
[2020-02-18 06:41] LABS: Differential Comment SCANNED; Platelet Estimate MOD DEC (ADEQ)
[2020-02-18 06:48] LABS: ALB/GLOB Ratio 0.6 RATIO (0.9-2.4); AST(SGOT) 30 U/L (15-37); Alanine Aminotransfer ALT/SGPT 40 U/L (13-56); Albumin, Serum 2.3 g/dL (3.2-5.0); Alkaline Phosphatase 94 U/L (45-117); Anion Gap 6 (5-15); BUN 83 mg/dL (7-18); BUN/Creat Ratio 30.4 RATIO (10-20); Chloride 107 mmol/L (98-107); Creatinine, Serum 2.73 mg/dL (0.55-1.02); EST Glomerular Filtration Rate 18 mL/min (>60); Est Glom Filt Rate - Afr Amer 22 mL/min (>60); Estimated Creatinine Clearance 19.39 ml/min; Globulin 3.9 g/dL (2.2-4.2); Glucose 69 mg/dL (74-106); Potassium 3.6 mmol/L (3.5-5.1); Protein, Total 6.2 g/dL (6.4-8.2); Sodium Level 140 mmol/L (136-145)
[2020-02-18] MEDS: Sertraline 100 MG Tablet 150 MG PO (08:33)
[2020-02-18] MEDS: Aspirin E.C. 81 MG Tablet PO (08:33)
[2020-02-18] MEDS: Fluticasone 0.05% 1 SPRAY NASAL.SRY NASAL ×2 (08:34→08:35)
[2020-02-18] MEDS: Furosemide 40 MG/4 ML Vial IV (08:40)
[2020-02-18] MEDS: 0.9% Saline Lock 10 ML Syringe IV ×2 (08:43→20:59)
--- NOTE | 2020-02-18 08:59 | PCM.CONS.R ---
Consultation - Renal 02/18/20 PCP/ Referring MD: Requesting physician: [] Primary care physician: Dr. 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 The pt presented to the hospital yesterday with 6 days history of anorexia, fever, and increasing SOB as well as LE edema. She also has chronic loose BM which has also been increasing in severity. She also performs CIC multiple times per day due to bladder dysfunction although she is not followed by urology. The pt was admitted and diagnosed with UTI. Nephrology is asked to see the pt because of FROYLAN on CKD. Her baseline SCr is 1.4-1.6 mg/dL. SCr is now 2.73 mg/dL. The pt had been on lisinopril prior to admission. She also reports poor oral intake for the past week. She denies chronic use of NSAID or recent exposure to IV contrast. Yfn denies CP, SOB at rest, or nausea currently. Since admission, she has not had BM. - Allergies Allergies: Allergies nitrofurantoin Allergy (Severe, Verified 02/17/20 11:37) mental status change cyclobenzaprine [From Flexeril] Adverse Reaction (Severe, Verified 02/17/20 16:04) frequent falls levofloxacin [From Levaquin] Adverse Reaction (Intermediate, Verified 02/17/20 16:04) diarrhea linezolid [From Zyvox] Adverse Reaction (Unknown, Verified 02/17/20 16:04) PT UNSURE OF REACTION azithromycin Adverse Reaction (Verified 02/17/20 11:37) Diarrhea erythromycin base Adverse Reaction (Verified 02/17/20 16:04) Diarrhea furosemide [From Lasix] Adverse Reaction (Verified 02/17/20 11:37) Nausea - Current Medications Current Medications: Current Medications Acetaminophen (Tylenol) 650 mg PO Q6H PRN PRN PRN Reason: Pain Score 1-10/Temp > 100.7 F Last Admin: 02/18/20 05:46 Dose: 650 mg Documented by: Albuterol Sulfate (Ventolin Aerosols) 2.5 mg INHALATION Q2H PRN PRN PRN Reason: SOB/Wheezing Aspirin (Ecotrin) 81 mg PO DAILY [facility] Last Admin: 02/18/20 08:33 Dose: 81 mg Documented by: Fluticasone Propionate (Flonase Nasal [place]) 1 spray NASAL DAILY [facility] Last Admin: 02/18/20 08:35 Dose: 1 spray Documented by: Furosemide (Lasix) 40 mg IV DAILY [facility] Last Admin: 02/18/20 08:40 Dose: 40 mg Documented by: Hydralazine HCl (Apresoline) 10 mg PO 4X/DAY PRN PRN Reason: BLOOD PRESSURE Piperacillin Sod/Tazobactam (Sod 3.375 gm/ Sodium Chloride) 50 mls @ 12.5 mls/hr IV Q12 [facility] Last Infusion: 02/18/20 03:25 Dose: Infused Documented by: Influenza Virus Vaccine Quadrival (Flucelvax /Fluzone ) 0.5 ml IM .ONCE ONE Stop: 02/18/20 10:01 Morphine Sulfate () 2 mg IV Q3H PRN PRN PRN Reason: Pain Score 6-10/10 Nitroglycerin (Nitrostat) 0.4 mg SUBLINGUAL Q5M PRN PRN Reason: CARDIAC/CHEST PAIN Ondansetron HCl (Zofran) 4 mg IV Q8H PRN PRN PRN Reason: NAUSEA/VOMITING Sertraline HCl (Zoloft) 150 mg PO DAILY [facility] Last Admin: 02/18/20 08:33 Dose: 150 mg Documented by: Sodium Chloride () 10 - 40 ml IV UD PRN PRN Reason: SALINE FLUSH Last Admin: 02/18/20 08:43 Dose: 10 ml Documented by: - Past Medical History Past Medical History (Chronic Problems): Chronic Problems (Last Reviewed 02/15/19 @ 14:33 by Giovanna Goodwin) Iron deficiency anemia (Chronic) History of right and left heart catheterization (Chronic 02/20/19) 50% stenosis in LAD, all other coronaries normal. No need for PCI. Severe pulmonary hypertension, severe LV dysfunction: EF 25%. 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 - Social History Smoking Status: Never smoker Alcohol: None Drugs: None - Family History Maternal Family History: Family History (Last Reviewed 02/15/19 @ 14:33 by Giovanna Goodwin) Father Cancer Mother Dementia Grandmother CVA (cerebral vascular accident) History Items: Diabetes - alive age 86 Paternal Family History: Family History (Last Reviewed 02/15/19 @ 14:33 by Giovanna Goodwin) Father Cancer Mother Dementia Grandmother CVA (cerebral vascular accident) History Items: Cancer - age 79 Offspring Family History: Family History (Last Reviewed 02/15/19 @ 14:33 by Giovanna Goodwin) Father Cancer Mother Dementia Grandmother CVA (cerebral vascular accident) History Items: - - 3 children: 2 living, 1 Review of Systems Constitutional: Reports: Anorexia, Chills, Fever Eyes: Denies: Blurred vision, Pain, Redness, Vision Change HEENT: Denies: Head Aches, Sinus Congestion, Sinus Drainage Cardiovascular: Denies: Chest Pain, Orthopnea, Palpitations Respiratory: Reports: Shortness of breath upon exertion. Denies: Cough, Shortness of breath at rest, Sputum production Gastrointestinal: Reports: Diarrhea - chronic, Nausea - occasional. Denies: Abdominal Pain, Constipation, Vomiting Genitourinary: Reports: Retention. Denies: Dysuria, Hematuria Musculoskeletal: Denies: Joint Pain, Joint Tenderness Skin: Denies: Rash, Wounds Neurological: Reports: Balance problems. Denies: Focal weakness, Numbness, Tingling Psychiatric: Denies: Anxiety, Depression, Homicidal Ideations, Suicidal Ideations Hematologic/ Lymphatic: Denies: Easy Bruising, Easy Bleeding Patient Problems: Active and Suspected Problems (Last Reviewed 02/15/19 @ 14:33 by Giovanna Goodwin) Acute kidney injury (Acute) UTI (urinary tract infection) (Acute) Sepsis (Acute) Hypokalemia (Acute) - Physical Exam Vitals/I&O's: Vital Signs Temp Pulse Resp BP Pulse Ox 97.4 F L 88 18 125/74 H 92 02/18/20 08:27 02/18/20 08:27 02/18/20 08:27 02/18/20 08:27 02/18/20 08:27 Oxygen Flow Rate (L/min) 4 Oxygen Delivery Method Nasal Cannula Weight: 65 kg Body Mass Index (BMI) 29.4 Intake and Output for Last 24 Hours 02/16/20 02/17/20 02/18/20 23:59 23:59 23:59 Intake Total 1784.58 / 1904.58 290 / 290 Output Total 275 / 950 1325 / 1325 Balance 1509.58 / 954.58 -1035 / -1035 General: Alert, Oriented x3 HEENT: Atraumatic, PERRLA, EOMI Oral: Moist Mucosa Neck: Supple, No JVD Lungs: Clear to auscultation Cardiovascular: Normal S1, Normal S2, No murmurs, Irregular Rate Abdomen: Bowel Sounds Present, Soft, Non Tender Extremities: No clubbing, Edema - 1+ Musculoskeletal: No Tenderness to Palpation of Joints or Extremities Neurological: Cranial nerves II-XII grossly intact Psych/Mental Status: Normal Affect Microbiology Past 72 Hours 02/17/20 13:06 Blood Culture (Wb) - Right Hand Blood Culture - Preliminary Laboratory Results 02/17/20 11:55: Sodium Cancelled, Potassium Cancelled, Chloride Cancelled, Carbon Dioxide Cancelled, Anion Gap Cancelled, BUN Cancelled, Creatinine Cancelled, Estim Creat Clear Calc Cancelled, Est GFR (MDRD) Af Amer Cancelled, Est GFR (MDRD) Non-Af Cancelled, BUN/Creatinine Ratio Cancelled, Glucose Cancelled, Calcium Cancelled, Total Bilirubin Cancelled, AST Cancelled, ALT Cancelled, Alkaline Phosphatase Cancelled, Troponin I Cancelled, Total Protein Cancelled, Albumin Cancelled, Globulin Cancelled, Albumin/Globulin Ratio Cancelled 02/17/20 11:55: WBC 12.2 H, RBC 3.33 L, Hgb 10.1 L, Hct 31.6 L, MCV 94.9, MCH 30.3, MCHC 32.0, RDW Std Deviation 46.5 H, RDW Coeff of Som 13.4, Plt Count 86 L, MPV 13.2 H, Immature Gran % (Auto) 0.500, Neut % (Auto) 88.7 H, Lymph % (Auto) 5.1 L, [place] % (Auto) 5.5, Eos % (Auto) 0.0, Baso % (Auto) 0.2, Absolute Neuts (auto) 10.9 H, Absolute Lymphs (auto) 0.62 L, Nucleated RBC % 0, Platelet Estimate MOD APR, RBC Morphology NORM C+C 02/17/20 11:55: Lactic Acid 1.4 02/17/20 13:06: PT 16.2 H, INR 1.4, APTT 38.3 H 02/17/20 13:06: Sodium 135 L, Potassium 2.9 L, Chloride 100, Carbon Dioxide 27.0, Anion Gap 8, BUN 82 H, Creatinine 2.73 H, Estim Creat Clear Calc 20.86, Est GFR (MDRD) Af Amer 22 L, Est GFR (MDRD) Non-Af 18 L, BUN/Creatinine Ratio 30.0 H, Glucose 83, Calcium 7.8 L, Total Bilirubin 0.80, AST 45 H, ALT 50, Alkaline Phosphatase 109, Troponin I 0.139 H, Total Protein 6.9, Albumin 2.7 L, Globulin 4.2, Albumin/Globulin Ratio 0.6 L 02/17/20 13:15: COVID-19 (SHAILESH) Not Detected 02/17/20 13:20: Urine Color Yellow, Urine Clarity Turbid, Urine pH 7.0, Ur Specific [place] 1.010, Urine Protein 100 H, Urine Glucose (UA) Normal, Urine Ketones Negative, Urine Occult Blood 50 H, Urine Nitrite Negative, Urine Bilirubin Negative, Urine Urobilinogen 1 H, Ur Leukocyte Esterase 500 H, Urine RBC 0-5 SEEN, Urine WBC 25-50 SEEN, Ur Squamous Epith Cells 0-5 SEEN, Urine Bacteria 3+, Urine Mucus 0 SEEN 02/17/20 17:25: WBC 8.7, RBC 2.96 L, Hgb 9.0 L, Hct 29.1 L, MCV 98.3, MCH 30.4, MCHC 30.9 L, RDW Std Deviation 47.7 H, RDW Coeff of Som 13.3, Plt Count 73 L, MPV 12.1 H, Immature Gran % (Auto) 0.200, Neut % (Auto) 85.4 H, Lymph % (Auto) 6.0 L, [place] % (Auto) 6.7, Eos % (Auto) 1.6, Baso % (Auto) 0.1, Absolute Neuts (auto) 7.4, Absolute Lymphs (auto) 0.52 L, Nucleated RBC % 0, Differential Comment SCANNED, Platelet Estimate MOD DEC 02/17/20 17:25: Magnesium 2.0 02/17/20 17:25: B-Natriuretic Peptide 1709.6 H 02/17/20 17:25: Troponin I 0.124 H 02/17/20 17:25: Sodium 140, Potassium 2.9 L, Chloride 107, Carbon Dioxide 23.0, Anion Gap 10, BUN 81 H, Creatinine 2.70 H, Estim Creat Clear Calc 19.93, Est GFR (MDRD) Af Amer 22 L, Est GFR (MDRD) Non-Af 18 L, BUN/Creatinine Ratio 30.0 H, Glucose 86, Calcium 7.4 L 02/17/20 20:35: Troponin I 0.094 H 02/18/20 06:00: WBC 9.3, RBC 3.25 L, Hgb 9.9 L, Hct 31.9 L, MCV 98.2, MCH 30.5, MCHC 31.0 L, RDW Std Deviation 48.8 H, RDW Coeff of Som 13.5, Plt Count 73 L, MPV 12.3 H, Immature Gran % (Auto) 0.400, Neut % (Auto) 88.1 H, Lymph % (Auto) 4.8 L, [place] % (Auto) 6.4, Eos % (Auto) 0.2, Baso % (Auto) 0.1, Absolute Neuts (auto) 8.2 H, Absolute Lymphs (auto) 0.44 L, Nucleated RBC % 0, Differential Comment SCANNED, Platelet Estimate MOD 02/18/20 06:00: Sodium 140, Potassium 3.6, Chloride 107, Carbon Dioxide 27.0, Anion Gap 6, BUN 83 H, Creatinine 2.73 H, Estim Creat Clear Calc 19.39, Est GFR (MDRD) Af Amer 22 L, Est GFR (MDRD) Non-Af 18 L, BUN/Creatinine Ratio 30.4 H, Glucose 69 L, Calcium 8.0 L, Total Bilirubin 0.80, AST 30, ALT 40, Alkaline Phosphatase 94, Total Protein 6.2 L, Albumin 2.3 L, Globulin 3.9, Albumin/Globulin Ratio 0.6 L Current Medications Acetaminophen (Tylenol) 650 mg PO Q6H PRN PRN PRN Reason: Pain Score 1-10/Temp > 100.7 F Last Admin: 02/18/20 05:46 Dose: 650 mg Documented by: Albuterol Sulfate (Ventolin Aerosols) 2.5 mg INHALATION Q2H PRN PRN PRN Reason: SOB/Wheezing Aspirin (Ecotrin) 81 mg PO DAILY [facility] Last Admin: 02/18/20 08:33 Dose: 81 mg Documented by: Fluticasone Propionate (Flonase Nasal [place]) 1 spray NASAL DAILY [facility] Last Admin: 02/18/20 08:35 Dose: 1 spray Documented by: Furosemide (Lasix) 40 mg IV DAILY [facility] Last Admin: 02/18/20 08:40 Dose: 40 mg Documented by: Hydralazine HCl (Apresoline) 10 mg PO 4X/DAY PRN PRN Reason: BLOOD PRESSURE Piperacillin Sod/Tazobactam (Sod 3.375 gm/ Sodium Chloride) 50 mls @ 12.5 mls/hr IV Q12 [facility] Last Infusion: 02/18/20 03:25 Dose: Infused Documented by: Influenza Virus Vaccine Quadrival (Flucelvax /Fluzone ) 0.5 ml IM .ONCE ONE Stop: 02/18/20 10:01 Morphine Sulfate () 2 mg IV Q3H PRN PRN PRN Reason: Pain Score 6-10/10 Nitroglycerin (Nitrostat) 0.4 mg SUBLINGUAL Q5M PRN PRN Reason: CARDIAC/CHEST PAIN Ondansetron HCl (Zofran) 4 mg IV Q8H PRN PRN PRN Reason: NAUSEA/VOMITING Sertraline HCl (Zoloft) 150 mg PO DAILY [facility] Last Admin: 02/18/20 08:33 Dose: 150 mg Documented by: Sodium Chloride () 10 - 40 ml IV UD PRN PRN Reason: SALINE FLUSH Last Admin: 02/18/20 08:43 Dose: 10 ml Documented by: Assessment/Plan All Active Problems (Last Reviewed 02/15/19 @ 14:33 by Giovanna Goodwin) Acute kidney injury (Acute) UTI (urinary tract infection) (Acute) Sepsis (Acute) Hypokalemia (Acute) Shortness of breath (Acute) 1. Acute kidney injury on chronic kidney disease stage 3. Baseline SCr is 1.4-1.6 mg/dL. Unclear why she has CKD. Possibility includes prior obstruction (she performs CIC) or CRS. Suspect FROYLAN is due to prerenal azotemia from sepsis/decreased intake and concurrent use of ACEI. She could have also developed ATN from the same factors. Agree with holding ACEI. She does not look to be overtly volume overloaded. We should hold Lasix today. If oral intake is poor, perhaps we can gently give her limited amount of IVF today-will discuss with Dr. Gonzalez. Will check on results of urine indices. Low suspicion for other causes of FROYLAN, but will check renal US given her history of bladder dysfunction. No urgent need for kidney replacement therapy. 2. Hypokalemia. Better today. Was likely due to GI loss and diuresis (she was on Lasix at home) in the setting of poor oral intake. Continue to monitor K and Mg. Will discuss holding Lasix with hospitalist. 3. UTI. Complicated by daily CIC. She now has Amanda. Antibiotic as per hospital medicine service.
--- NOTE | 2020-02-18 09:25 | US_ITS ---
STUDY: RENAL ULTRASOUND - COMPLETE REASON FOR EXAM: Female, 69 years old. FROYLAN TECHNIQUE: Ultrasound evaluation of the kidneys was performed with real-time and static johnson-scale imaging. COMPARISON: None. FINDINGS: RIGHT KIDNEY: with mild renal atrophy. The right kidney measures 7 cm x 2.4 cm x 3.9 cm. There is diffuse thinning of the renal cortex. The renal cortex measures 0.7 cm. There is a 1 cm x 0.9 cm x 0.9 cm cyst. There are no right renal calculi. There is no right hydronephrosis. DISTAL RIGHT URETER: There is non-visualization of the distal right ureter. There is no demonstrated right ureterovesical junction calculus. There is no demonstrated right ureteral jet. LEFT KIDNEY: Normal location of the left kidney, which is normal in size. The left kidney measures 12.1 cm x 5.2 cm x 4.9 cm. There is a normal cortex of the left kidney. The renal cortex measures 1.6 cm. There is no left renal mass or cyst. There are no left renal calculi. There is no left hydronephrosis. DISTAL LEFT URETER: There is non-visualization of the distal left ureter. There is no demonstrated left ureterovesical junction calculus. There is a visualized left ureteral jet. BLADDER: A HAWKINS catheter is seen within the bladder. The bladder is not adequately distended for assessment US/Kidney and Bladder IMPRESSION: Atrophy of the right kidney. Small right renal cyst. Electronically Signed: Pako Clancy, at 15:48 EDT , Service support ,
[2020-02-18 10:47] LABS: Urine Sodium 107 mmol/L (Not Establ.)
[2020-02-18 10:57] LABS: Creatinine, Urine < 13.00 mg/dL (NO RANGE EST.)
[2020-02-18 11:00] LABS: Urea Nitrogen, Urine 217 mg/dL (NO RANGE EST.)
--- NOTE | 2020-02-18 11:02 | CASEMGMT ---
Patient has Healthcare Power of Public Improvement Inspector and a Healthcare Living Will on file at [facility]. Her , Laron is her Healthcare Power of Public Improvement Inspector. Amie BARAJAS MSW
--- NOTE | 2020-02-18 13:38 | CASEMGMT ---
SW assisted patient in completing a new Healthcare Power of Independent Trader. Copies were made and given to patient along with originals. A copy was also placed in her chart. She named her son, Jaswant as her Healthcare Power of Independent Trader. She also asked if she would qualify for assistance with medications etc since her is out of the home. They are still . DANIEL told her they would still count her 's income even if he is not in the house as they are still . Amie BARAJAS MSW
--- NOTE | 2020-02-18 13:57 | CASEMGMT ---
YOLANDA HOOK assessment: Face to Face with patient for initial transition planning/care coordination assessment. RN MONSTER introduced self and role at [facility], pt voices understanding and consents to assessment at this time. Pt is lying in bed in no distress at this time. Pt is A/Ox4 at this time and answers all questions appropriately at this time. Care providers, pharmacy, and demographics verified/updated at this time. Presentation: Pt presents with SOB, weakness, 2 recent falls, and cough Admitting dx: Sepsis, SOB PCP: Katy Specialists: Saida, onc; [facility] cardio Preferred Pharmacy: [facility] Insurance: [facility] A/B, [place] Prescription Benefit: Yes Living Will/HPOA: Pt states has LW/HPOA and is aware that they are on file at [facility] at this time. Pt states that her , Laron Carey, is currently primary HPOA but she would like to change to her son, Jaswant Cabrera, as primary HPOA at this time. Vero SANCHEZ aware, voices understanding. LNOK: Jaswant Cabrera, son/HPOA; Laron Carey, Living Arrangements: Pt states that she lives with her son on main level of 2 story home with about 5 railed steps in. Pt states her is not currently living with her at this time and pt does not elaborate as to why. Pt does ask if any more resources would be available to her at this time since her is not living with her and Vero SANCHEZ aware, voices understanding. Pt states son/ do assist her with ADL's at home. Transportation: Pt states her son/ do most of the driving and states no transportation concerns at this time. DME/HHC: Pt states has the following DME: cane, rollator, w/c, scooter, raised toilet seat, therapy dog, shower chair, and 5liters home oxygen through [employer]. Pt states no need for any further DME at this time. Pt states has has [facility] in the past and has been to the [place] in the past. Pt states no concerns with going home at time of discharge. Pt states is retired. Pt states does not smoke cigarettes or drink ETOH. Pt voices no further concerns/needs at this time. CM to follow for any further discharge planning/needs. Advised pt to ask for CM if any further questions/concerns/needs arise, voices understanding. Pt Goal: Home Plan: Home Laurie GUERRERO CM
--- NOTE | 2020-02-18 15:01 | PN_ITS ---
Patient Problems: Active and Suspected Problems (Last Reviewed 02/15/19 @ 14:33 by Giovanna Goodwin) Acute kidney injury (Acute) UTI (urinary tract infection) (Acute) Sepsis (Acute) Hypokalemia (Acute) Reason for Visit: sepsis Subjective: No new complaints. Vitals/I&O's: Vital Signs Temp Pulse Resp BP Pulse Ox 36.7 C 94 18 116/67 98 02/18/20 14:30 02/18/20 14:30 02/18/20 14:30 02/18/20 14:30 02/18/20 14:30 Oxygen Flow Rate (L/min) 4 Oxygen Delivery Method Nasal Cannula Weight: 65 kg Body Mass Index (BMI) 29.4 Intake and Output for Last 24 Hours 02/16/20 02/17/20 02/18/20 23:59 23:59 23:59 Intake Total 1784.58 / 1904.58 650 / 650 Output Total 275 / 950 1950 / 1950 Balance 1509.58 / 954.58 -1300 / -1300 General: Alert, No apparent distress HEENT: Atraumatic, Normocephalic Oral: Moist Mucosa, No Gingival or Mucosal Lesions/ Ulcerations Neck: No Nodes, Thyroid Normal Size and Texture Lungs: Clear to auscultation, Normal air movement, No rhonchi, No wheeze Cardiovascular: Regular rate, Regular Rhythm, Normal S1, Normal S2 Abdomen: Bowel Sounds Present, Soft, Non Tender, Non-Distended, No Hepato- splenomegaly Psych/Mental Status: Normal Affect, Appropriate Microbiology Past 72 Hours 02/18/20 09:50 Stool Enteric Bacteriology - Final 02/17/20 13:20 Urine, Catheterized Urine Culture - Preliminary GNR lactose spring winder GNR lactose spring winder#2 02/17/20 13:06 Blood Culture (Wb) - Right Hand Blood Culture - Preliminary Laboratory Results 02/17/20 13:15: COVID-19 (SHAILESH) Not Detected 02/17/20 17:25: WBC 8.7, RBC 2.96 L, Hgb 9.0 L, Hct 29.1 L, MCV 98.3, MCH 30.4, MCHC 30.9 L, RDW Std Deviation 47.7 H, RDW Coeff of Som 13.3, Plt Count 73 L, MPV 12.1 H, Immature Gran % (Auto) 0.200, Neut % (Auto) 85.4 H, Lymph % (Auto) 6.0 L, [place] % (Auto) 6.7, Eos % (Auto) 1.6, Baso % (Auto) 0.1, Absolute Neuts (auto) 7.4, Absolute Lymphs (auto) 0.52 L, Nucleated RBC % 0, Differential Comment SCANNED, Platelet Estimate MOD 02/17/20 17:25: Magnesium 2.0 02/17/20 17:25: B-Natriuretic Peptide 1709.6 H 02/17/20 17:25: Troponin I 0.124 H 02/17/20 17:25: Sodium 140, Potassium 2.9 L, Chloride 107, Carbon Dioxide 23.0, Anion Gap 10, BUN 81 H, Creatinine 2.70 H, Estim Creat Clear Calc 19.93, Est GFR (MDRD) Af Amer 22 L, Est GFR (MDRD) Non-Af 18 L, BUN/Creatinine Ratio 30.0 H, Glucose 86, Calcium 7.4 L 02/17/20 20:35: Troponin I 0.094 H 02/18/20 06:00: WBC 9.3, RBC 3.25 L, Hgb 9.9 L, Hct 31.9 L, MCV 98.2, MCH 30.5, MCHC 31.0 L, RDW Std Deviation 48.8 H, RDW Coeff of Som 13.5, Plt Count 73 L, MPV 12.3 H, Immature Gran % (Auto) 0.400, Neut % (Auto) 88.1 H, Lymph % (Auto) 4.8 L, [place] % (Auto) 6.4, Eos % (Auto) 0.2, Baso % (Auto) 0.1, Absolute Neuts (auto) 8.2 H, Absolute Lymphs (auto) 0.44 L, Nucleated RBC % 0, Differential Comment SCANNED, Platelet Estimate MOD 02/18/20 06:00: Sodium 140, Potassium 3.6, Chloride 107, Carbon Dioxide 27.0, Anion Gap 6, BUN 83 H, Creatinine 2.73 H, Estim Creat Clear Calc 19.39, Est GFR (MDRD) Af Amer 22 L, Est GFR (MDRD) Non-Af 18 L, BUN/Creatinine Ratio 30.4 H, Glucose 69 L, Calcium 8.0 L, Total Bilirubin 0.80, AST 30, ALT 40, Alkaline Phosphatase 94, Total Protein 6.2 L, Albumin 2.3 L, Globulin 3.9, Albumin/Globulin Ratio 0.6 L 02/18/20 10:25: Urine Creatinine < 13.00 02/18/20 10:25: Urine Urea Nitrogen 217 02/18/20 10:25: Ur Random Sodium 107 Current Medications Acetaminophen (Tylenol) 650 mg PO Q6H PRN PRN PRN Reason: Pain Score 1-10/Temp > 100.7 F Last Admin: 02/18/20 05:46 Dose: 650 mg Documented by: Albuterol Sulfate (Ventolin Aerosols) 2.5 mg INHALATION Q2H PRN PRN PRN Reason: SOB/Wheezing Aspirin (Ecotrin) 81 mg PO DAILY [facility] Last Admin: 02/18/20 08:33 Dose: 81 mg Documented by: Fluticasone Propionate (Flonase Nasal [place]) 1 spray NASAL DAILY [facility] Last Admin: 02/18/20 08:35 Dose: 1 spray Documented by: Hydralazine HCl (Apresoline) 10 mg PO 4X/DAY PRN PRN Reason: BLOOD PRESSURE Piperacillin Sod/Tazobactam (Sod 3.375 gm/ Sodium Chloride) 50 mls @ 12.5 mls/hr IV Q12 [facility] Last Admin: 02/18/20 11:16 Dose: 12.5 mls/hr Documented by: Morphine Sulfate () 2 mg IV Q3H PRN PRN PRN Reason: Pain Score 6-10/10 Nitroglycerin (Nitrostat) 0.4 mg SUBLINGUAL Q5M PRN PRN Reason: CARDIAC/CHEST PAIN Ondansetron HCl (Zofran) 4 mg IV Q8H PRN PRN PRN Reason: NAUSEA/VOMITING Sertraline HCl (Zoloft) 150 mg PO DAILY [facility] Last Admin: 02/18/20 08:33 Dose: 150 mg Documented by: Sodium Chloride () 10 - 40 ml IV UD PRN PRN Reason: SALINE FLUSH Last Admin: 02/18/20 08:43 Dose: 10 ml Documented by: STROKE Vital Signs/Narrative: Vital Signs Temp Pulse Resp BP Pulse Ox 02/18/20 14:30 36.7 C 94 18 116/67 98 Medical Necessity - Tobacco Use Smoking Status: Never smoker Tobacco Use: Non-smoker Assessment/Plan All Active Problems (Last Reviewed 02/15/19 @ 14:33 by Giovanna Goodwin) Acute kidney injury (Acute) UTI (urinary tract infection) (Acute) Sepsis (Acute) Hypokalemia (Acute) Shortness of breath (Acute) 1. sepsis * 2/2 UTI * supportive mgmt * follow up cultures 2. UTI, * catheter facilitated as patient straight caths, not a CAUTI, as she does not have a chronic indwelling catheter at baseline * on pip/tazo * UCx growing out GNR 3. Pneumonia v chronic changes * doubt CHF * on pip/tazo 4. FROYLAN on CKD3 * FENa 17.39% * baseline creatinine 1.35 * nephrology following * monitoring * hold furosemide * renal US pending 5. hypokalemia * improved * monitor 6. chronic incontinence * typically straight caths, but is incontinent * will maintain marcano catheter for now. 7. anemia * monitor * no need for transfusion at this time 8. afib * controlled * resume apixaban 9. VTE prophylaxis: anticoagulated Inpatient E&M: 57454 Subs Hosp L2
[2020-02-18] MEDS: Calcium Carbonate 500 MG Tablet PO (20:58)
[2020-02-19] VITALS (11 sets, daily range): BP systolic 101–130; BP diastolic 49–67; PULSE 88–104; RESP 14–20; TEMP 36.5–37.7; O2SAT 95–100
[2020-02-19] MEDS: hydrOXYzine 10 MG Tablet PO ×2 (01:18→23:31)
[2020-02-19 06:33] LABS: Albumin, Serum 2.3 g/dL (3.2-5.0); BUN 71 mg/dL (7-18); BUN/Creat Ratio 27.4 RATIO (10-20); Calcium,Total 7.9 mg/dL (8.5-10.1); Chloride 101 mmol/L (98-107); Creatinine, Serum 2.59 mg/dL (0.55-1.02); EST Glomerular Filtration Rate 19 mL/min (>60); Est Glom Filt Rate - Afr Amer 23 mL/min (>60); Estimated Creatinine Clearance 20.44 ml/min; Glucose 98 mg/dL (74-106); Phosphorus 3.3 mg/dL (2.5-4.9); Potassium 2.8 mmol/L (3.5-5.1); Sodium Level 136 mmol/L (136-145)
--- NOTE | 2020-02-19 09:24 | PCM.PN.HOSP ---
Patient Problems: Active and Suspected Problems (Last Reviewed 02/15/19 @ 14:33 by Giovanna Goodwin) Acute kidney injury (Acute) UTI (urinary tract infection) (Acute) Sepsis (Acute) Hypokalemia (Acute) Reason for Visit: FROYLAN Subjective: Complains of headache today. Gets headaches occasionally. Vitals/I&O's: Vital Signs Temp Pulse Resp BP Pulse Ox 37.7 C H 101 H 18 130/54 H 95 02/19/20 02:50 02/19/20 03:06 02/19/20 02:50 02/19/20 02:50 02/19/20 07:16 Oxygen Flow Rate (L/min) 5 Oxygen Delivery Method Nasal Cannula Weight: 65 kg Body Mass Index (BMI) 29.4 Intake and Output for Last 24 Hours 02/17/20 02/18/20 02/19/20 23:59 23:59 23:59 Intake Total 1784.58 / 1904.58 1060 / 1300 290 / 290 Output Total 275 / 950 3300 / 3850 1150 / 1150 Balance 1509.58 / 954.58 -2240 / -2550 -860 / -860 General: Alert, No apparent distress HEENT: Atraumatic, Normocephalic Oral: Moist Mucosa, No Gingival or Mucosal Lesions/ Ulcerations Neck: No Nodes, Thyroid Normal Size and Texture Lungs: Clear to auscultation, Normal air movement, No rhonchi, No wheeze Cardiovascular: Regular rate, Regular Rhythm, Normal S1, Normal S2, No murmurs Abdomen: Bowel Sounds Present, Soft, Non Tender, Non-Distended, No Hepato-splenomegaly Extremities: No edema, No Calf Tenderness Skin: No rashes, No breakdown Musculoskeletal: - - kyphotic Psych/Mental Status: Normal Affect, Appropriate Microbiology Past 72 Hours 02/17/20 11:55 Blood Culture (Wb) - Left Hand Blood Culture - Preliminary No growth in 48 hours. 02/17/20 13:20 Urine, Catheterized Urine Culture - Preliminary GNR lactose dinkey locomotive engineer GNR lactose dinkey locomotive engineer#2 02/18/20 09:50 Stool Enteric Bacteriology - Final 02/17/20 13:06 Blood Culture (Wb) - Right Hand Blood Culture - Preliminary Laboratory Results 02/18/20 10:25: Urine Creatinine < 13.00 09/29/20 10:25: Urine Urea Nitrogen 217 02/18/20 10:25: Ur Random Sodium 107 02/19/20 05:42: Sodium 136, Potassium 2.8 L, Chloride 101, Carbon Dioxide 29.0, BUN 71 H, Creatinine 2.59 H, Estim Creat Clear Calc 20.44, Est GFR (MDRD) Af Amer 23 L, Est GFR (MDRD) Non-Af 19 L, BUN/Creatinine Ratio 27.4 H, Glucose 98, Calcium 7.9 L, Phosphorus 3.3, Albumin 2.3 L Current Medications Acetaminophen (Tylenol) 650 mg PO Q6H PRN PRN PRN Reason: Pain Score 1-10/Temp > 100.7 F Last Admin: 02/18/20 05:46 Dose: 650 mg Documented by: Albuterol Sulfate (Ventolin Aerosols) 2.5 mg INHALATION Q2H PRN PRN PRN Reason: SOB/Wheezing Aspirin (Ecotrin) 81 mg PO DAILY [facility] Last Admin: 02/18/20 08:33 Dose: 81 mg Documented by: [facility] ([facility] Last Admin: 02/18/20 20:58 Dose: 500 mg Documented by: Carvedilol (Coreg) 6.25 mg PO BID [facility] Fluticasone Propionate (Flonase Nasal [place]) 1 spray NASAL DAILY [facility] Last Admin: 02/18/20 08:35 Dose: 1 spray Documented by: Gabapentin (Neurontin) 100 mg PO TID [facility] Hydralazine HCl (Apresoline) 10 mg PO 4X/DAY PRN PRN Reason: BLOOD PRESSURE Hydroxyzine HCl (Atarax Tablet) 10 mg PO QHS PRN PRN PRN Reason: ANXIETY Last Admin: 02/19/20 01:18 Dose: 10 mg Documented by: Piperacillin Sod/Tazobactam (Sod 3.375 gm/ Sodium Chloride) 50 mls @ 12.5 mls/hr IV Q12 [facility] Last Infusion: 02/19/20 02:01 Dose: Infused Documented by: Sodium Chloride () 1,000 mls @ 75 mls/hr IV .[id number] [facility] Nitroglycerin (Nitrostat) 0.4 mg SUBLINGUAL Q5M PRN PRN Reason: CARDIAC/CHEST PAIN Non-Formulary Medication (Cholecalciferol (Vitamin D3) [Vitamin D3]) 2,000 unit PO DAILY [facility] Non-Formulary Medication (Oxybutynin Chloride [Oxybutynin Chloride Er]) 15 mg PO DAILY [facility] Ondansetron HCl (Zofran) 4 mg IV Q8H PRN PRN PRN Reason: NAUSEA/VOMITING Potassium Chloride (K-Dur) 40 meq PO BIDCM [facility] Sertraline HCl (Zoloft) 150 mg PO DAILY [facility] Last Admin: 02/18/20 08:33 Dose: 150 mg Documented by: Sodium Chloride () 10 - 40 ml IV UD PRN PRN Reason: SALINE FLUSH Last Admin: 02/18/20 20:59 Dose: 10 ml Documented by: Sodium Chloride () 10 - 40 ml IV UD PRN PRN Reason: SALINE FLUSH STROKE Vital Signs/Narrative: Vital Signs Pulse Ox 02/19/20 07:16 95 Medical Necessity - Tobacco Use Smoking Status: Never smoker Tobacco Use: Non-smoker Assessment/Plan All Active Problems (Last Reviewed 02/15/19 @ 14:33 by Giovanna Goodwin) Acute kidney injury (Acute) UTI (urinary tract infection) (Acute) Sepsis (Acute) Hypokalemia (Acute) Shortness of breath (Acute) 1. sepsis 2/2 UTI supportive mgmt follow up cultures 2. UTI, catheter facilitated as patient straight caths, not a CAUTI, as she does not have a chronic indwelling catheter at baseline on pip/tazo UCx growing out GNR 3. Pneumonia v chronic changes doubt CHF on pip/tazo has been told she had lung changes due to chemotherapy, but she is not sure what the chemotherapy agent was. Changes are unlikely due to XRT as her XRT was directed at her hip, not lungs. 4. FROYLAN on CKD3 FENa 17.39% baseline creatinine 1.35 nephrology following monitoring hold furosemide renal showed no hydronephrosis add NS 75cc/h 5. hypokalemia ongoing, replace monitor 6. chronic incontinence typically straight caths, but is incontinent will maintain marcano catheter for now. 7. anemia monitor no need for transfusion at this time 8. afib controlled resume apixaban 9. elevated troponins likely skewed given FROYLAN but may also be a type II event related with sepsis and UTI in a patient with a cardiomyopathy (EF 25% from [facility] on 02/2019) no EKG evidence of strain recheck echo 10. headache began 02/18 have pt try acetaminophen 11. VTE prophylaxis: anticoagulated Inpatient E&M: 36113 Subs Hosp L2
--- NOTE | 2020-02-19 09:30 | ECHOD_ITS ---
Version 2 Reason For Study: AFIB Procedure This was a 2D Doppler, Color Flow transthoracic echocardiogram. Exam performed with pt in supine position. Exam performed portable in patient room. Left Ventricle Normal LV size. Mild global left ventricular systolic dysfunction. Unable to assess diastolic dysfunction due to arrhythmia. The estimated ejection fraction is 42 %. There is borderline global hypokinesis of the left ventricle. Right Ventricle Normal RV size. Normal systolic function. Atria The left atrium is severely enlarged. Normal right atrium. Mitral Valve Bileaflet diffuse mitral valve thickening. There is mild to moderate mitral annular calcification. Mild (1+) mitral valve insufficiency. Tricuspid Valve Normal tricuspid valve. Mild to moderate (1-2+) tricuspid valve insufficiency. Pulmonary artery systolic pressure is 50 mmHg. Moderate pulmonary hypertension. Aortic Valve Normal aortic valve. Trivial aortic valve insufficiency. Pulmonic Valve Normal pulmonic valve. Mild (1+) pulmonic valve insufficiency. Great Vessels Normal aortic root. The pulmonary artery is normal size. Normal inferior vena cava. Pericardium/Pleural No pericardial effusion. MMode/2D Measurements & Calculations LVIDd: 4.6 cm IVSd: 0.84 cm Ao root diam: 3.1 cm LVIDs: 3.7 cm LVPWd: 0.90 cm RVDd: 3.2 cm FS: 19.4 % LAV(MOD-bp): 121.8 ml LA A4 area: 31.8 cm2 LA dimension(2D): 4.8 cm LAV(MOD-bp) Indexed: 76.1 ml/m2 LAV(MOD-sp2): 120.3 ml LAV(MOD-sp4): 101.2 ml RA A4 area: 23.4 cm2 Doppler Measurements & Calculations Ao V2 max: 166.4 cm/sec LV V1 max: 112.1 cm/sec PA V2 max: 124.1 cm/sec Ao max P.1 mmHg LV V1 max P.1 mmHg TR max tammy: 339.8 cm/sec TR max P.2 mmHg Interpretation Summary Normal LV size. Mild global left ventricular systolic dysfunction. Unable to assess diastolic dysfunction due to arrhythmia. Mild (1+) mitral valve insufficiency. Pulmonary artery systolic pressure is 50 mmHg. Moderate pulmonary hypertension. The estimated ejection fraction is 42 %. There is mild to moderate mitral annular calcification. Compared to prior study, there is no significant change. Ordering Physician: Teodoro Gonzalez Referring Physician: DILLON ROJAS Performed By: Khushboo Maciel, CHARITYCS, RVT
[2020-02-19] MEDS: Calcium Carbonate 500 MG Tablet PO ×2 (10:12→16:27)
[2020-02-19] MEDS: Tolterodine Tartrate 2 MG CAP.SA PO (10:15)
[2020-02-19] MEDS: 0.9% Normal Saline 1,000 ML 75 ML IV ×2 (10:16→23:32)
[2020-02-19] MEDS: Carvedilol 6.25 MG Tablet PO ×2 (10:16→21:00)
[2020-02-19] MEDS: Aspirin E.C. 81 MG Tablet PO (10:26)
--- NOTE | 2020-02-19 12:17 | PN.RENAL_ITS ---
Patient Problems: Active and Suspected Problems (Last Reviewed 02/15/19 @ 14:33 by Giovanna Goodwin) Acute kidney injury (Acute) UTI (urinary tract infection) (Acute) Sepsis (Acute) Hypokalemia (Acute) Subjective: Following for FROYLAN on CKD. Pt denies CP, SOB at rest. No vomiting. Diarrhea is better. - Physical Exam Vitals/I&O's: Vital Signs Temp Pulse Resp BP Pulse Ox 98.1 F 103 H 20 H 111/52 L 100 02/19/20 08:50 02/19/20 08:50 02/19/20 08:50 02/19/20 08:50 02/19/20 10:20 Oxygen Flow Rate (L/min) 4 Oxygen Delivery Method Nasal Cannula Weight: 65 kg Body Mass Index (BMI) 29.4 Intake and Output for Last 24 Hours 02/17/20 02/18/20 02/19/20 23:59 23:59 23:59 Intake Total 1784.58 / 1904.58 1060 / 1300 290 / 290 Output Total 275 / 950 3300 / 3850 1150 / 1150 Balance 1509.58 / 954.58 -2240 / -2550 -860 / -860 General: Alert, Oriented x3 HEENT: Atraumatic, PERRLA Oral: Moist Mucosa Neck: Supple Lungs: Clear to auscultation - anteriorly Cardiovascular: Normal S1, Normal S2, No murmurs Abdomen: Bowel Sounds Present, Soft, Non Tender Extremities: No edema - of LEs Microbiology Past 72 Hours 02/17/20 11:55 Blood Culture (Wb) - Left Hand Blood Culture - Preliminary No growth in 48 hours. 02/17/20 13:20 Urine, Catheterized Urine Culture - Preliminary GNR lactose regional ehs manager GNR lactose regional ehs manager#2 02/18/20 09:50 Stool Enteric Bacteriology - Final 02/17/20 13:06 Blood Culture (Wb) - Right Hand Blood Culture - Preliminary Laboratory Results 02/19/20 05:42: Sodium 136, Potassium 2.8 L, Chloride 101, Carbon Dioxide 29.0, BUN 71 H, Creatinine 2.59 H, Estim Creat Clear Calc 20.44, Est GFR (MDRD) Af Amer 23 L, Est GFR (MDRD) Non-Af 19 L, BUN/Creatinine Ratio 27.4 H, Glucose 98, Calcium 7.9 L, Phosphorus 3.3, Albumin 2.3 L Current Medications Acetaminophen (Tylenol) 650 mg PO Q6H PRN PRN PRN Reason: Pain Score 1-10/Temp > 100.7 F Last Admin: 02/18/20 05:46 Dose: 650 mg Documented by: Albuterol Sulfate (Ventolin Aerosols) 2.5 mg INHALATION Q2H PRN PRN PRN Reason: SOB/Wheezing Aspirin (Ecotrin) 81 mg PO DAILY [facility] Last Admin: 02/19/20 10:26 Dose: 81 mg Documented by: Calcium Carbonate (Tums) [facility] Last Admin: 02/19/20 10:12 Dose: 500 mg Documented by: Carvedilol (Coreg) 6.25 mg PO BID [facility] Last Admin: 02/19/20 10:16 Dose: 6.25 mg Documented by: Cholecalciferol (Vitamin D (25mcg)) 2,000 unit [facility] Fluticasone Propionate (Flonase Nasal [place]) 1 spray NASAL DAILY [facility] Last Admin: 02/18/20 08:35 Dose: 1 spray Documented by: Gabapentin (Neurontin) 100 mg PO TIDCM [facility] Hydralazine HCl (Apresoline) 10 mg PO 4X/DAY PRN PRN Reason: BLOOD PRESSURE Hydroxyzine HCl (Atarax Tablet) 10 mg PO QHS PRN PRN PRN Reason: ANXIETY Last Admin: 02/19/20 01:18 Dose: 10 mg Documented by: Piperacillin Sod/Tazobactam (Sod 3.375 gm/ Sodium Chloride) 50 mls @ 12.5 mls/hr IV Q12 [facility] Last Admin: 02/19/20 10:16 Dose: 12.5 mls/hr Documented by: Sodium Chloride () 1,000 mls @ 75 mls/hr IV .[id number] [facility] Last Admin: 02/19/20 10:16 Dose: 75 mls/hr Documented by: Nitroglycerin (Nitrostat) 0.4 mg SUBLINGUAL Q5M PRN PRN Reason: CARDIAC/CHEST PAIN Ondansetron HCl (Zofran) 4 mg IV Q8H PRN PRN PRN Reason: NAUSEA/VOMITING Potassium Chloride (K-Dur) 40 meq [facility] Last Admin: 09/30/20 10:15 Dose: 40 meq Documented by: Sertraline HCl (Zoloft) 150 mg PO DAILY [facility] Last Admin: 02/18/20 08:33 Dose: 150 mg Documented by: Sodium Chloride () 10 - 40 ml IV UD PRN PRN Reason: SALINE FLUSH Last Admin: 02/18/20 20:59 Dose: 10 ml Documented by: Sodium Chloride () 10 - 40 ml IV UD PRN PRN Reason: SALINE FLUSH Tolterodine Tartrate (Detrol La) 2 mg PO DAILY [facility] Last Admin: 02/19/20 10:15 Dose: 2 mg Documented by: Medical Necessity - Tobacco Use Smoking Status: Never smoker Tobacco Use: Non-smoker Assessment/Plan All Active Problems (Last Reviewed 02/15/19 @ 14:33 by Giovanna Goodwin) Acute kidney injury (Acute) UTI (urinary tract infection) (Acute) Sepsis (Acute) Hypokalemia (Acute) Shortness of breath (Acute) 1. Acute kidney injury on chronic kidney disease stage 3. Baseline SCr is 1.4- 1.6 mg/dL. Looks like she has ischemic nephropathy with atrophic R kidney on renal US. No evidence of obstruction despite history of bladder dysfunction (pt performs CIC at home, currently has Amanda). Suspect FROYLAN is due to prerenal azotemia from sepsis/decreased intake and concurrent use of ACEI. She could have also developed ATN from these same factors. Renal function is slightly better today and she is not oliguric. Continue to ACEI. She does not look to be overtly volume overloaded. We continue to hold Lasix today. One more day of gentle IVF. Can stop IVF tomorrow if oral intake is OK. No need for MENTAL HEALTH SPECIALIST. Recheck renal function in am. 2. Hypokalemia. Worse again today. Agree with KCl replacement. Hypoklemia is likely due to GI loss and diuresis (she was on Lasix at home) in the setting of poor oral intake. Hold Lasix one more day since she is not volume overloaded. Continue to monitor K and Mg. 3. UTI. Complicated by daily CIC. She now has Amanda. Antibiotic as per hospital medicine service.
[2020-02-19] MEDS: Gabapentin 100 MG Capsule PO ×2 (12:47→16:27)
[2020-02-19] MEDS: Sertraline 100 MG Tablet 150 MG PO (12:48)
--- NOTE | 2020-02-19 14:27 | CASEMGMT ---
SW met with patient again. SW discussed Palliative Care with patient. She was open to SW making a referral. SW told her they would call her to set up a time to talk with her about their services. DANIEL then called Palliative Care and made the referral to [facility]. Amie BARAJAS MSW
[2020-02-19] MEDS: Lidocaine 5% Patch 1 PATCH TOPICAL (16:28)
--- NOTE | 2020-02-19 19:40 | NURSING ---
Security notified this RN that pt forgot his cell phone in pt's room. This RN obtained and verified with pt's that it was her 's cell phone. Cell phone given to security by this RN to be given to . Tiana GUERRERO
[2020-02-20] VITALS (23 sets, daily range): BP systolic 95–218; BP diastolic 39–205; PULSE 80–122; RESP 16–24; TEMP 36.5–37.1; O2SAT 96–100
--- NOTE | 2020-02-20 05:13 | PCM.PN.BLA ---
Progress Note Nurse reported patient had a large bowel movement with dark black stools and with gross blood. Discontinue aspirin. Patient's Eliquis was held on presentation. CBC already ordered in a.m. Follow. Serial H&H ordered. Will discontinue aspirin. Start on Protonix IV push. Follow blood pressures. STROKE Vital Signs/Narrative: Vital Signs Temp Pulse Resp BP Pulse Ox 02/20/20 04:30 98.1 F 80 16 120/75 96 02/20/20 03:00 99
[2020-02-20 06:10] LABS: Absolute Lymphocyte Count 0.92 X10^3/uL (0.83-4.51); Absolute Neutrophil Count 10.2 X10^3/uL (2.0-7.7); Basophil# 0.02 X10^3/uL; Basophil% 0.2 % (0-1); Eosinophil# 0.08 X10^3/uL; Eosinophils% 0.7 % (0-5); Hematocrit 25.2 % (37-47); Hemoglobin 7.6 g/dL (12.0-15.0); Lymphocyte # 0.92 X10^3/ul (4.0); Lymphocyte % 7.6 % (19-41); Mean Corp Hgb Conc 30.2 g/dL (32-36); Mean Corpuscular Hgb 30.3 pg (27.0-32.0); Mean Corpuscular Volume 100.4 fL (81-99); Mean Platelet Vol. 12.4 fl (6.2-12.0); Monocyte# 0.69 X10^3/uL; Monocyte% 5.7 % (0-10); NRBC Flagged by Analyzer 0 % (0-5); Neutrophil # 10.18 X10^3/uL (2.7-7.7); Neutrophil % 84.6 % (47-70); POSITIVE COUNT YES; Platelet Count 85 K/mm3 (150-450); RBC Distribution Width CV 13.6 % (11.6-14.6); RBC Distribution Width SD 49.9 fl (35.1-43.9); Red Blood Count 2.51 M/mm3 (4.2-5.4)
[2020-02-20 06:31] LABS: Anion Gap 4 (5-15); BUN 60 mg/dL (7-18); BUN/Creat Ratio 28.7 RATIO (10-20); Calcium,Total 7.3 mg/dL (8.5-10.1); Chloride 109 mmol/L (98-107); Creatinine, Serum 2.09 mg/dL (0.55-1.02); EST Glomerular Filtration Rate 25 mL/min (>60); Est Glom Filt Rate - Afr Amer 30 mL/min (>60); Estimated Creatinine Clearance 25.72 ml/min; Glucose 119 mg/dL (74-106); Magnesium 1.8 mg/dL (1.6-2.6); Potassium 3.9 mmol/L (3.5-5.1); Sodium Level 141 mmol/L (136-145)
--- NOTE | 2020-02-20 08:13 | NURSING ---
Dr. Rosario in room patient was onbsc had lg bm blood bright red and some dark will take her down now for egd per Dr. Rosario was called and notified and spoke to patient
--- NOTE | 2020-02-20 08:15 | PCM.CONS.GEN ---
Problem List (1) GI bleed Status: Acute Qualifiers: GI bleed type/associated pathology: unspecified gastrointestinal hemorrhage type Qualified Code(s): K92.2 - Gastrointestinal hemorrhage, unspecified Reason for Consult Date of Consultation: 02/20/20 Reason for Consultation: GI bleed History of Present Illness: The patient is a 69 year old F who was admitted with possible UTI and fevers. The patient then developed large bloody bowel movements overnight. Her bowel movements are dark and black in color. She had another large bloody bowel movement this morning. It was very dark and maroon. She is not having any abdominal pain but she is having some dizziness. She reports that she had gastric bypass in 1999 and in 2015 she had an upper GI scope by Dr. Huffman and he found a marginal ulcer at the anastomosis. Past Medical History Past Medical History (Chronic Problems): Chronic Problems (Last Reviewed 02/15/19 @ 14:33 by Giovanna Goodwin) Iron deficiency anemia (Chronic) History of right and left heart catheterization (Chronic 02/20/19) 50% stenosis in LAD, all other coronaries normal. No need for PCI. Severe pulmonary hypertension, severe LV dysfunction: EF 25%. Per TU @ [facility] 02/20/2019 Chronic atrial fibrillation (Chronic) Essential hypertension (Chronic) Chronic anemia (Chronic) Congestive heart failure (Chronic) Medical History: Medical History (Last Reviewed 02/15/19 @ 14:33 by Giovanna Goodwin) Shortness of breath (Acute) R06.02 Chronic atrial fibrillation (Chronic) I48.2 Essential hypertension (Chronic) I10 Chronic anemia (Chronic) D64.9 Congestive heart failure (Chronic) I50.9 Anxiety F41.9 CKD (chronic kidney disease), stage III N18.3 Chronic acquired lymphedema I89.0 Chronic fibrosis of lung J84.10 Chronic venous stasis dermatitis I83.10 Depressive disorder F32.9 Osteoporosis M81.0 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 Varicose veins of both lower extremities I83.93 Venous stasis dermatitis of both lower extremities I83.11, I83.12 Allergies nitrofurantoin Allergy (Severe, Verified 02/17/20 11:37) mental status change cyclobenzaprine [From Flexeril] Adverse Reaction (Severe, Verified 02/17/20 16:04) frequent falls levofloxacin [From Levaquin] Adverse Reaction (Intermediate, Verified 02/17/20 16:04) diarrhea linezolid [From Zyvox] Adverse Reaction (Unknown, Verified 02/17/20 16:04) PT UNSURE OF REACTION azithromycin Adverse Reaction (Verified 02/17/20 11:37) Diarrhea erythromycin base Adverse Reaction (Verified 02/17/20 16:04) Diarrhea furosemide [From Lasix] Adverse Reaction (Verified 02/17/20 11:37) Nausea Home Medications: Ambulatory Orders Medication Instructions Recorded Carvedilol 6.25 mg PO BID 05/29/18 Oxybutynin Chloride [Oxybutynin 15 mg PO DAILY 05/29/18 Chloride ER] Gabapentin 600 mg PO TID 08/20/18 sertraline 50 mg tablet 150 mg PO DAILY tab 12/17/18 biotin 5 mg capsule 5 mg PO DAILY 12/18/18 aspirin 81 mg tablet,delayed 81 mg PO DAILY 02/15/19 release Apixaban [Eliquis] 2.5 mg PO BID 02/17/20 Calcium Carbonate 600 mg PO BID 02/17/20 Cholecalciferol (Vitamin D3) 2,000 unit PO DAILY 02/17/20 [Vitamin D3] Cyanocobalamin (Vitamin B-12) 1,000 mcg IJ QMONTH 02/17/20 [Cyanocobalamin Injection] Fluticasone 0.05% [Flonase Nasal 1 spray NASAL DAILY 02/17/20 [place]] Lisinopril [Prinivil] 10 mg PO BID 02/17/20 Multivitamin 1 tab PO DAILY 02/17/20 Potassium Chloride [K-Tab ER] 40 meq PO BID 02/17/20 Surgical History: Surgical History (Last Updated 02/20/19 @ 12:50 by Paulina Mace) History of right and left heart catheterization (Chronic) Onset Date: 02/20/19 Z98.890 50% stenosis in LAD, all other coronaries normal. No need for PCI. Severe pulmonary hypertension, severe LV dysfunction: EF 25%. 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 Smoking Status: Never smoker Tobacco Use: Non-smoker Alcohol: None Drugs: None - *Family History Maternal Family History: Family History (Last Reviewed 02/15/19 @ 14:33 by Giovanna Goodwin) Father Cancer Mother Dementia Grandmother CVA (cerebral vascular accident) History Items: Diabetes - alive age 86 Paternal Family History: Family History (Last Reviewed 02/15/19 @ 14:33 by Giovanna Goodwin) Father Cancer Mother Dementia Grandmother CVA (cerebral vascular accident) History Items: Cancer - age 79 Offspring Family History: Family History (Last Reviewed 02/15/19 @ 14:33 by Giovanna Goodwin) Father Cancer Mother Dementia Grandmother CVA (cerebral vascular accident) History Items: - - 3 children: 2 living, 1 Review of Systems Constitutional: Denies: Anorexia, Fever HEENT: Denies: Difficulty Swallowing Cardiovascular: Denies: Chest Pain Respiratory: Denies: Cough Gastrointestinal: Reports: Hematochezia, Melena. Denies: Abdominal Pain, Hematemesis, Nausea, Vomiting Musculoskeletal: Reports: - - Right LE amputation for sarcoma Patient Problems: Active and Suspected Problems (Last Reviewed 02/15/19 @ 14:33 by Giovanna Goodwin) Acute kidney injury (Acute) UTI (urinary tract infection) (Acute) Sepsis (Acute) Hypokalemia (Acute) GI bleed (Acute) - Physical Exam Vitals/I&O's: Vital Signs Temp Pulse Resp BP Pulse Ox 98.1 F 94 16 120/75 96 02/20/20 04:30 02/20/20 06:55 02/20/20 04:30 02/20/20 04:30 02/20/20 07:20 Oxygen Flow Rate (L/min) 4 Oxygen Delivery Method Nasal Cannula Weight: 145 lb 8.081 oz Body Mass Index (BMI) 29.4 Intake and Output for Last 24 Hours 02/18/20 02/19/20 02/20/20 23:59 23:59 23:59 Intake Total 1060 / 1300 2495 / 2495 727.5 / 727.5 Output Total 3300 / 3850 2450 / 2450 300 / 300 Balance -2240 / -2550 45 / 45 427.5 / 427.5 General: Alert, Oriented x3 Neck: No JVD Lungs: Normal air movement Cardiovascular: Regular rate, Regular Rhythm Abdomen: Soft, Non Tender, Non-Distended Musculoskeletal: No Muscle Wasting Neurological: Cranial nerves II-XII grossly intact Psych/Mental Status: Normal Affect Microbiology Past 72 Hours 02/17/20 13:20 Urine, Catheterized Urine Culture - Final Escherichia coli Klebsiella pneumoniae sp pneum 02/17/20 13:06 Blood Culture (Wb) - Right Hand Blood Culture - Preliminary GNR lactose skiver counter 02/17/20 11:55 Blood Culture (Wb) - Left Hand Blood Culture - Preliminary No growth in 48 hours. 02/18/20 09:50 Stool Enteric Bacteriology - Final Laboratory Results 02/20/20 05:35: WBC 12.0 H, RBC 2.51 L, Hgb 7.6 L, Hct 25.2 L, MCV 100.4 H, MCH 30.3, MCHC 30.2 L, RDW Std Deviation 49.9 H, RDW Coeff of Som 13.6, Plt Count 85 L, MPV 12.4 H, Immature Gran % (Auto) 1.200 H, Neut % (Auto) 84.6 H, Lymph % (Auto) 7.6 L, [place] % (Auto) 5.7, Eos % (Auto) 0.7, Baso % (Auto) 0.2, Absolute Neuts (auto) 10.2 H, Absolute Lymphs (auto) 0.92, Nucleated RBC % 0 02/20/20 05:35: Sodium 141, Potassium 3.9, Chloride 109 H, Carbon Dioxide 28.0, Anion Gap 4 L, BUN 60 H, Creatinine 2.09 H, Estim Creat Clear Calc 25.72, Est GFR (MDRD) Af Amer 30 L, Est GFR (MDRD) Non-Af 25 L, BUN/Creatinine Ratio 28.7 H, Glucose 119 H, Calcium 7.3 L, Magnesium 1.8 02/20/20 05:35: Blood Type Pending, Antibody Screen Pending, Crossmatch See Detail Clinical Impression(s) from Imaging Studies Brain CT 02/17/20 12:28 IMPRESSION: Chronic involutional changes of the brain. Electronically Signed: Pako Clancy, at 14:35 EDT , Service support , Cervical Spine CT 02/17/20 12:28 IMPRESSION: Multilevel degenerative changes, as described above. Electronically Signed: Pako Clancy, at 14:34 EDT , Service support , Chest X-Ray 02/17/20 12:28 IMPRESSION: Cardiomegaly and CHF. Electronically Signed: Pako Clancy, at 14:30 EDT , Service support , Renal Ultrasound 02/18/20 09:25 IMPRESSION: Atrophy of the right kidney. Small right renal cyst. Electronically Signed: Pako Clancy, at 15:48 EDT , Service support , Current Medications Acetaminophen (Tylenol) 650 mg PO Q6H PRN PRN PRN Reason: Pain Score 1-10/Temp > 100.7 F Last Admin: 02/18/20 05:46 Dose: 650 mg Documented by: Albuterol Sulfate (Ventolin Aerosols) 2.5 mg INHALATION Q2H PRN PRN PRN Reason: SOB/Wheezing [facility]) [facility] Last Admin: 02/19/20 16:27 Dose: 500 mg Documented by: Carvedilol (Coreg) 6.25 mg PO BID [facility] Last Admin: 02/19/20 21:00 Dose: 6.25 mg Documented by: Cholecalciferol (Vitamin D (25mcg)) 2,000 unit [facility] Fluticasone Propionate (Flonase Nasal [place]) 1 spray NASAL DAILY [facility] Last Admin: 02/18/20 08:35 Dose: 1 spray Documented by: Gabapentin (Neurontin) 100 mg PO TIDCM [facility] Last Admin: 02/19/20 16:27 Dose: 100 mg Documented by: Hydralazine HCl (Apresoline) 10 mg PO 4X/DAY PRN PRN Reason: BLOOD PRESSURE Hydroxyzine HCl (Atarax Tablet) 10 mg PO QHS PRN PRN PRN Reason: ANXIETY Last Admin: 02/19/20 23:31 Dose: 10 mg Documented by: Piperacillin Sod/Tazobactam (Sod 3.375 gm/ Sodium Chloride) 50 mls @ 12.5 mls/hr IV Q12 [facility] Last Infusion: 02/20/20 01:00 Dose: Infused Documented by: Pantoprazole Sodium 40 mg/ (Sodium Chloride) 110 mls @ 330 mls/hr IV Q12 [facility] Last Infusion: 02/20/20 05:50 Dose: Infused Documented by: Lidocaine (Lidoderm Patch) 1 patch TOPICAL DAILY [facility]; Protocol Last Admin: 02/19/20 16:28 Dose: 1 patch Documented by: Nitroglycerin (Nitrostat) 0.4 mg SUBLINGUAL Q5M PRN PRN Reason: CARDIAC/CHEST PAIN Ondansetron HCl (Zofran) 4 mg IV Q8H PRN PRN PRN Reason: NAUSEA/VOMITING Potassium Chloride (K-Dur) 40 meq PO BIDCM [facility] Last Admin: 02/19/20 16:28 Dose: 40 meq Documented by: Sertraline HCl (Zoloft) 150 mg PO DAILY [facility] Last Admin: 02/19/20 12:48 Dose: 150 mg Documented by: Sodium Chloride () 10 - 40 ml IV UD PRN PRN Reason: SALINE FLUSH Last Admin: 02/18/20 20:59 Dose: 10 ml Documented by: Sodium Chloride () 10 - 40 ml IV UD PRN PRN Reason: SALINE FLUSH Tolterodine Tartrate (Detrol La) 2 mg PO DAILY [facility] Last Admin: 02/19/20 10:15 Dose: 2 mg Documented by: Assessment/Plan All Active Problems (Last Reviewed 02/15/19 @ 14:33 by Giovanna Goodwin) Acute kidney injury (Acute) UTI (urinary tract infection) (Acute) Sepsis (Acute) Hypokalemia (Acute) GI bleed (Acute) Shortness of breath (Acute) 69-year-old female with upper GI bleed and history of marginal ulcers after gastric bypass 1. Patient had EGD in 2016 which showed marginal ulcers at her gastric anastomosis. The patient is having large dark bloody bowel movements. Recommend EGD for evaluation and possible treatment of the bleed. If there is no blood present I would recommend transfer as this is from the gastric remnant and she would need IR. If the bleeding is from her marginal ulcer I would try epinephrine injections as well as clips. I discussed this with the patient in detail. I explained endoscopy in detail to the patient. I explained the risks including but not limited to stroke or heart attack with anesthesia, perforation of the GI tract, bleeding, infection. I explained that any of these could necessitate further emergency surgery. The patient understands and all questions were answered sufficiently. The patient wishes to proceed with procedure. Juan A Rosario MD Pager: [facility] [address] [place] [address] [address] [place] [address] Office:
--- NOTE | 2020-02-20 08:19 | NURSING ---
report called to ac charge patient taken down to egd
--- NOTE | 2020-02-20 09:04 | PN_ITS ---
Progress Note I performed an EGD this morning. The patient had a bleeding marginal ulcer. The ulcer was injected with epinephrine and clips were placed around the ulcer. Clips were unable to be placed over the ulcer do the inflammation. The bleeding was halted by the epinephrine injections. I recommend continuing n.p.o. and rechecking hemoglobin. Transfuse and bolus as necessary. Possibility that she will need further scope in the future so continue n.p.o. status until bleeding appears to stop. Continue PPI. Juan A Rosario MD Pager: [facility] [address] [place] [address], [address] [place] [address] Office: [facility] Vital Signs/Narrative: Vital Signs Pulse BP Pulse Ox 02/20/20 08:10 100 97/39 L 02/20/20 07:20 96 02/20/20 06:55 94
--- NOTE | 2020-02-20 09:08 | OP.EGD_ITS ---
Patient Name: Barbara Carey Procedure Date: 02/20/2020 8:08 AM Date of : 1950 Age: 69 Procedure: Upper GI endoscopy Indications: Hematochezia, Melena Providers: Juan A Rosario MD Referring MD: Kayla Jennings Medicines: Monitored Anesthesia Care Patient Profile: This is a 69 year old female. Refer to note in patient chart for documentation of history and physical. Complications: No immediate complications. Estimated blood loss: Minimal. Procedure: Pre-Anesthesia Assessment: - Prior to the procedure, a History and Physical was performed, and patient medications and allergies were reviewed. The patient's tolerance of previous anesthesia was also reviewed. The risks and benefits of the procedure and the sedation options and risks were discussed with the patient. All questions were answered, and informed consent was obtained. Prior Anticoagulants: The patient has taken aspirin. After reviewing the risks and benefits, the patient was deemed in satisfactory condition to undergo the procedure. After obtaining informed consent, the endoscope was passed under direct vision. Throughout the procedure, the patient's blood pressure, pulse, and oxygen saturations were monitored continuously. The gastroscope was introduced through the mouth, and advanced to the operative stoma of duodenum. The upper GI endoscopy was accomplished without difficulty. The patient tolerated the procedure well. Scope In: 8:40:12 AM Scope Out: 8:56:00 AM Total Procedure Duration Time 0 hours 15 minutes 48 seconds Findings: One oozing cratered gastric ulcer was found at the anastomosis. Area was successfully injected with 3 mL of a 1:10,000 solution of epinephrine for hemostasis. For hemostasis, two hemostatic clips were successfully placed. There was no bleeding at the end of the procedure. Impression: - Oozing gastric ulcer. Injected. Clips were placed. - No specimens collected. Recommendation: - Return patient to [facility] for [facility]. - NPO. - Continue present medications. Procedure Code(s): --- Professional --- 82296, Esophagogastroduodenoscopy, flexible, transoral; with control of bleeding, any method Diagnosis Code(s): --- Professional --- K25.4, Chronic or unspecified gastric ulcer with hemorrhage K92.1, Melena (includes Hematochezia) CPT copyright 2017 [employer]. All rights reserved. The codes documented in this report are preliminary and upon orthopedic coder review may be revised to meet current compliance requirements. Juan A Rosario MD 02/20/2020 9:08:21 AM This report has been signed electronically. Number of Addenda: 0 Note Initiated On: 02/20/2020 8:08 AM
--- NOTE | 2020-02-20 09:08 | OP.CCLET_ITS ---
02/20/2020 Sharad Burns Re : Upper GI endoscopy procedure for Barbara Carey [place] This procedure was performed on February. My impressions and recommendations are as follows: Impressions : - Oozing gastric ulcer. Injected. Clips were placed. - No specimens collected. Recommendations : - Return patient to [facility] for [facility]. - NPO. - Continue present medications. My findings are described in the full procedure note, which is enclosed. If I can be of further assistance, please feel free to contact me at Doctor phone number(s): , Work: . Sincerely, Juan A Rosario MD 02/20/2020 9:08:21 AM This report has been signed electronically.
[2020-02-20] MEDS: 0.9% Normal Saline 1,000 ML 75 ML IV (09:18)
--- NOTE | 2020-02-20 10:33 | PN.RENAL_ITS ---
Patient Problems: Active and Suspected Problems (Last Reviewed 02/15/19 @ 14:33 by Giovanna Goodwin) Acute kidney injury (Acute) UTI (urinary tract infection) (Acute) Sepsis (Acute) Hypokalemia (Acute) GI bleed (Acute) Subjective: Creatinine improving Good UO - Physical Exam Vitals/I&O's: Vital Signs Temp Pulse Resp BP Pulse Ox 97.7 F L 107 H 18 98/65 99 02/20/20 09:20 02/20/20 09:20 02/20/20 09:20 02/20/20 09:20 02/20/20 09:20 Oxygen Flow Rate (L/min) 4 Oxygen Delivery Method Nasal Cannula Weight: 66 kg Body Mass Index (BMI) 29.4 Intake and Output for Last 24 Hours 02/18/20 02/19/20 02/20/20 23:59 23:59 23:59 Intake Total 1060 / 1300 2495 / 2495 1280.0 / 1280.0 Output Total 3300 / 3850 2450 / 2450 300 / 300 Balance -2240 / -2550 45 / 45 980.0 / 980.0 General: Alert Lungs: Clear to auscultation Cardiovascular: Regular rate Abdomen: Bowel Sounds Present Microbiology Past 72 Hours 02/17/20 13:20 Urine, Catheterized Urine Culture - Final Escherichia coli Klebsiella pneumoniae sp pneum 02/17/20 13:06 Blood Culture (Wb) - Right Hand Blood Culture - Preliminary GNR lactose note specialist 02/17/20 11:55 Blood Culture (Wb) - Left Hand Blood Culture - Preliminary No growth in 48 hours. 02/18/20 09:50 Stool Enteric Bacteriology - Final Laboratory Results 02/20/20 05:35: WBC 12.0 H, RBC 2.51 L, Hgb 7.6 L, Hct 25.2 L, MCV 100.4 H, MCH 30.3, MCHC 30.2 L, RDW Std Deviation 49.9 H, RDW Coeff of Som 13.6, Plt Count 85 L, MPV 12.4 H, Immature Gran % (Auto) 1.200 H, Neut % (Auto) 84.6 H, Lymph % (Auto) 7.6 L, [place] % (Auto) 5.7, Eos % (Auto) 0.7, Baso % (Auto) 0.2, Absolute Neuts (auto) 10.2 H, Absolute Lymphs (auto) 0.92, Nucleated RBC % 0 02/20/20 05:35: Sodium 141, Potassium 3.9, Chloride 109 H, Carbon Dioxide 28.0, Anion Gap 4 L, BUN 60 H, Creatinine 2.09 H, Estim Creat Clear Calc 25.72, Est GFR (MDRD) Af Amer 30 L, Est GFR (MDRD) Non-Af 25 L, BUN/Creatinine Ratio 28.7 H , Glucose 119 H, Calcium 7.3 L, Magnesium 1.8 02/20/20 05:35: Blood Type O NEGATIVE, Antibody Screen NEGATIVE, Crossmatch See Detail Current Medications Acetaminophen (Tylenol) 650 mg PO Q6H PRN PRN PRN Reason: Pain Score 1-10/Temp > 100.7 F Last Admin: 02/18/20 05:46 Dose: 650 mg Documented by: Albuterol Sulfate (Ventolin Aerosols) 2.5 mg INHALATION Q2H PRN PRN PRN Reason: SOB/Wheezing [facility] Last Admin: 02/19/20 16:27 Dose: 500 mg Documented by: Carvedilol (Coreg) 6.25 mg PO BID [facility] AT [facility] Last Admin: 02/19/20 21:00 Dose: 6.25 mg Documented by: Cholecalciferol (Vitamin D (25mcg)) 2,[facility] Fluticasone Propionate (Flonase Nasal [place]) 1 spray NASAL DAILY [facility]S INCLUDE 234 BEDS AT THE [facility] Last Admin: 02/18/20 08:35 Dose: 1 spray Documented by: Gabapentin (Neurontin) 100 mg PO TIDCM [facility]S [facility]CLUDE 234 BEDS AT THE [facility] Last Admin: 02/19/20 16:27 Dose: 100 mg Documented by: Hydralazine HCl (Apresoline) 10 mg PO 4X/DAY PRN PRN Reason: BLOOD PRESSURE Hydroxyzine HCl (Atarax Tablet) 10 mg PO QHS PRN PRN PRN Reason: ANXIETY Last Admin: 02/19/20 23:31 Dose: 10 mg Documented by: Piperacillin Sod/Tazobactam (Sod 3.375 gm/ Sodium Chloride) 50 mls @ 12.5 mls/hr IV Q12 [facility] 234 BEDS AT THE [facility] Last Admin: 02/20/20 10:02 Dose: 12.5 mls/hr Documented by: Pantoprazole Sodium 40 mg/ (Sodium Chloride) 110 mls @ 330 mls/hr IV Q12 [facility] 234 BEDS AT THE [facility] Last Infusion: 02/20/20 05:50 Dose: Infused Documented by: Lidocaine (Lidoderm Patch) 1 patch TOPICAL DAILY [facility]CLUDE 234 BEDS AT THE [facility]; Protocol Last Admin: 02/19/20 16:28 Dose: 1 patch Documented by: Nitroglycerin (Nitrostat) 0.4 mg SUBLINGUAL Q5M PRN PRN Reason: CARDIAC/CHEST PAIN Ondansetron HCl (Zofran) 4 mg IV Q8H PRN PRN PRN Reason: NAUSEA/VOMITING Potassium Chloride (K-Dur) 40 meq PO BIDCM COUNTS INCLUDE 234 BEDS AT THE [facility] Last Admin: 02/19/20 16:28 Dose: 40 meq Documented by: Sertraline HCl (Zoloft) 150 mg PO DAILY [facility]S [facility]CLUDE 234 BEDS AT THE [facility] Last Admin: 02/19/20 12:48 Dose: 150 mg Documented by: Sodium Chloride () 10 - 40 ml IV UD PRN PRN Reason: SALINE FLUSH Last Admin: 02/18/20 20:59 Dose: 10 ml Documented by: Sodium Chloride () 10 - 40 ml IV UD PRN PRN Reason: SALINE FLUSH Tolterodine Tartrate (Detrol La) 2 mg PO DAILY [facility]S INCLUDE 234 BEDS AT THE [facility] Last Admin: 02/19/20 10:15 Dose: 2 mg Documented by: Medical Necessity - Tobacco Use Smoking Status: Never smoker Tobacco Use: Non-smoker Assessment/Plan All Active Problems (Last Reviewed 02/15/19 @ 14:33 by Giovanna Goodwin) Acute kidney injury (Acute) UTI (urinary tract infection) (Acute) Sepsis (Acute) Hypokalemia (Acute) GI bleed (Acute) Shortness of breath (Acute) 1. Acute kidney injury on chronic kidney disease stage 3. Baseline SCr is 1.4- 1.6 mg/dL. Looks like she has ischemic nephropathy with atrophic R kidney on renal US. No evidence of obstruction despite history of bladder dysfunction (pt performs CIC at home, currently has Amanda). Suspect FROYLAN is due to prerenal azotemia from sepsis/decreased intake and concurrent use of ACEI. She could have also developed ATN from these same factors. Renal function is slightly better today and she is not oliguric. Continue to ACEI. She does not look to be overtly volume overloaded. We continue to hold Lasix today. DC IVF No need for B[employer]. Recheck renal function in am. 2. Hypokalemia. Worse again today. Agree with KCl replacement. Hypoklemia is likely due to GI loss and diuresis (she was on Lasix at home) in the setting of poor oral intake. Hold Lasix she is not volume overloaded. Continue to monitor K and Mg. 3. UTI. Complicated by daily CIC. She now has Amanda. Antibiotic as per hospital medicine service.
--- NOTE | 2020-02-20 12:30 | PN_ITS ---
<Trent Hardy - Last Filed: 02/20/20 12:58> Patient Problems: Active and Suspected Problems (Last Reviewed 02/15/19 @ 14:33 by Giovanna Goodwin) Acute kidney injury (Acute) UTI (urinary tract infection) (Acute) Sepsis (Acute) Hypokalemia (Acute) GI bleed (Acute) Reason for Visit: uti, gi bleed Subjective: Pt self caths at baseline but reports that she came in because she could not urinate. she has no fever/chills. She denies dysuria or abd pain. Currently mild SOB. No nausea/vomiting. Had stool with clots this AM - taken for EGD and had oozing ulcer - hx ulcers. Vitals/I&O's: Vital Signs Temp Pulse Resp BP Pulse Ox 98.3 F 107 H 19 H 102/49 L 100 02/20/20 11:44 02/20/20 12:00 02/20/20 11:44 02/20/20 11:44 02/20/20 11:44 Oxygen Flow Rate (L/min) 4 Oxygen Delivery Method Nasal Cannula Weight: 145 lb 8.081 oz Body Mass Index (BMI) 29.4 Intake and Output for Last 24 Hours 02/18/20 02/19/20 02/20/20 23:59 23:59 23:59 Intake Total 1060 / 1300 2495 / 2495 1280.0 / 1280.0 Output Total 3300 / 3850 2450 / 2450 300 / 300 Balance -2240 / -2550 45 / 45 980.0 / 980.0 General: Alert, Oriented x3, Cooperative HEENT: Atraumatic, PERRLA, EOMI, Normocephalic Neck: Supple, No JVD, Negative Carotid Bruits Lungs: Clear to auscultation, Normal air movement Cardiovascular: Regular rate, No murmurs Abdomen: Bowel Sounds Present, Soft, Non Tender Extremities: No edema, Capillary Refill Less than 3 Seconds Skin: No rashes, No breakdown Musculoskeletal: No Tenderness to Palpation of Joints or Extremities Neurological: Cranial nerves II-XII grossly intact Psych/Mental Status: Normal Affect, Appropriate, Alert and oriented to time, place, person, mood and affect Microbiology Past 72 Hours 02/17/20 13:20 Urine, Catheterized Urine Culture - Final Escherichia coli Klebsiella pneumoniae sp pneum 02/17/20 13:06 Blood Culture (Wb) - Right Hand Blood Culture - Preliminary GNR lactose mechanical insulator 02/17/20 11:55 Blood Culture (Wb) - Left Hand Blood Culture - Preliminary No growth in 48 hours. 02/18/20 09:50 Stool Enteric Bacteriology - Final Laboratory Results 02/20/20 05:35: WBC 12.0 H, RBC 2.51 L, Hgb 7.6 L, Hct 25.2 L, MCV 100.4 H, MCH 30.3, MCHC 30.2 L, RDW Std Deviation 49.9 H, RDW Coeff of Som 13.6, Plt Count 85 L, MPV 12.4 H, Immature Gran % (Auto) 1.200 H, Neut % (Auto) 84.6 H, Lymph % (Auto) 7.6 L, [place] % (Auto) 5.7, Eos % (Auto) 0.7, Baso % (Auto) 0.2, Absolute Neuts (auto) 10.2 H, Absolute Lymphs (auto) 0.92, Nucleated RBC % 0 02/20/20 05:35: Sodium 141, Potassium 3.9, Chloride 109 H, Carbon Dioxide 28.0, Anion Gap 4 L, BUN 60 H, Creatinine 2.09 H, Estim Creat Clear Calc 25.72, Est GFR (MDRD) Af Amer 30 L, Est GFR (MDRD) Non-Af 25 L, BUN/Creatinine Ratio 28.7 H , Glucose 119 H, Calcium 7.3 L, Magnesium 1.8 02/20/20 05:35: Blood Type O NEGATIVE, Antibody Screen NEGATIVE, Crossmatch See Detail Current Medications Acetaminophen (Tylenol) 650 mg PO Q6H PRN PRN PRN Reason: Pain Score 1-10/Temp > 100.7 F Last Admin: 02/18/20 05:46 Dose: 650 mg Documented by: Albuterol Sulfate (Ventolin Aerosols) 2.5 mg INHALATION Q2H PRN PRN PRN Reason: SOB/Wheezing [facility] ([facility]) [facility] Last Admin: 02/19/20 16:27 Dose: 500 mg Documented by: Carvedilol (Coreg) 6.25 mg PO BID [facility] Last Admin: 02/19/20 21:00 Dose: 6.25 mg Documented by: Cholecalciferol (Vitamin D (25mcg)) 2,000 [facility] Fluticasone Propionate (Flonase Nasal [place]) 1 spray NASAL DAILY [facility] Last Admin: 02/18/20 08:35 Dose: 1 spray Documented by: Gabapentin (Neurontin) 100 mg PO TIDCM [facility] Last Admin: 02/19/20 16:27 Dose: 100 mg Documented by: Hydralazine HCl (Apresoline) 10 mg PO 4X/DAY PRN PRN Reason: BLOOD PRESSURE Hydroxyzine HCl (Atarax Tablet) 10 mg PO QHS PRN PRN PRN Reason: ANXIETY Last Admin: 02/19/20 23:31 Dose: 10 mg Documented by: Piperacillin Sod/Tazobactam (Sod 3.375 gm/ Sodium Chloride) 50 mls @ 12.5 mls/hr IV Q12 [facility] Last Admin: 02/20/20 10:02 Dose: 12.5 mls/hr Documented by: Pantoprazole Sodium 40 mg/ (Sodium Chloride) 110 mls @ 330 mls/hr IV Q12 [facility] Last Infusion: 02/20/20 05:50 Dose: Infused Documented by: Lidocaine (Lidoderm Patch) 1 patch TOPICAL DAILY [facility]; Protocol Last Admin: 02/19/20 16:28 Dose: 1 patch Documented by: Nitroglycerin (Nitrostat) 0.4 mg SUBLINGUAL Q5M PRN PRN Reason: CARDIAC/CHEST PAIN Ondansetron HCl (Zofran) 4 mg IV Q8H PRN PRN PRN Reason: NAUSEA/VOMITING Potassium Chloride (K-Dur) 40 meq PO BIDCM [facility] Last Admin: 02/19/20 16:28 Dose: 40 meq Documented by: Sertraline HCl (Zoloft) 150 mg PO DAILY [facility] Last Admin: 02/19/20 12:48 Dose: 150 mg Documented by: Sodium Chloride () 10 - 40 ml IV UD PRN PRN Reason: SALINE FLUSH Last Admin: 02/18/20 20:59 Dose: 10 ml Documented by: Sodium Chloride () 10 - 40 ml IV UD PRN PRN Reason: SALINE FLUSH Tolterodine Tartrate (Detrol La) 2 mg PO DAILY [facility] Last Admin: 02/19/20 10:15 Dose: 2 mg Documented by: STROKE Vital Signs/Narrative: Vital Signs Temp Pulse Resp BP Pulse Ox 02/20/20 12:00 107 H 02/20/20 11:44 98.3 F 115 H 19 H 102/49 L 100 02/20/20 10:44 98.4 F 118 H 18 97/48 L 100 02/20/20 10:29 98.6 F 107 H 24 H 108/40 L 100 02/20/20 09:20 97.7 F L 107 H 18 98/65 99 02/20/20 09:15 109 H 18 114/94 H 100 02/20/20 09:10 108 H 18 102/52 L 99 02/20/20 09:05 122 H 18 218/205 H 96 02/20/20 09:02 97.9 F 100 18 95/57 L 97 Medical Necessity - Tobacco Use Smoking Status: Never smoker Tobacco Use: Non-smoker Assessment/Plan All Active Problems (Last Reviewed 02/15/19 @ 14:33 by Giovanna Goodwin) Acute kidney injury (Acute) UTI (urinary tract infection) (Acute) Sepsis (Acute) Hypokalemia (Acute) GI bleed (Acute) Shortness of breath (Acute) 1. Acute blood loss anemia 2/2 upper GI bleed - bleeding ulcer - continue IV protonix. Clipped and injected per Dr. Rosario today. T/C 2 units, recheck H/H after. Maintain NPO for now. 2. FROYLAN - improving. lasix held. no hydro on renal US. SONNY held 3. Acute sepsis 2/2 UTI/Pna - fever resolved. wbc up today. Continue zosyn. Urine Cx with E coli, Klebsiella. 1 of 2 blood cultures with GNR lactose mechanical insulator. Enteric panel negative. Still tachycardic/tachypneic but this is co mplicated by significant anemia. 4. Chronic systotlic CHF/cardiomyopathy - hx EF 25%. Lasix held for low BP and FROYLAN. DVT ppx: SCDs This patient was seen by Trent Hardy PA-C under the supervision of Dr. Gonzalez <Teodoro Gonzalez - Last Filed: 02/20/20 14:38> Subjective: hematochezia and clots. taken to endoscopy and had a bleeding ulcer which was injected and clipped. Vitals/I&O's: Vital Signs Temp Pulse Resp BP Pulse Ox 37.1 C 99 20 H 106/44 L 100 02/20/20 14:16 02/20/20 14:16 02/20/20 14:16 02/20/20 14:16 02/20/20 14:16 Oxygen Flow Rate (L/min) 4 Oxygen Delivery Method Nasal Cannula Weight: 66 kg Body Mass Index (BMI) 29.4 Intake and Output for Last 24 Hours 02/18/20 02/19/20 02/20/20 23:59 23:59 23:59 Intake Total 1060 / 1300 2495 / 2495 1587.0 / 1587.0 Output Total 3300 / 3850 2450 / 2450 300 / 300 Balance -2240 / -2550 45 / 45 1287.0 / 1287.0 General: Alert, Cooperative HEENT: Atraumatic, Normocephalic Neck: No Nodes, Trachea Midline Lungs: Clear to auscultation, Normal air movement, No rhonchi, No wheeze Cardiovascular: Regular rate, No murmurs Abdomen: Bowel Sounds Present, Soft, Non Tender Extremities: No edema, No Calf Tenderness Skin: No rashes, No breakdown Musculoskeletal: No Tenderness to Palpation of Joints or Extremities, No Muscle Wasting Psych/Mental Status: Normal Affect, Appropriate Microbiology Past 72 Hours 02/17/20 13:20 Urine, Catheterized Urine Culture - Final Escherichia coli Klebsiella pneumoniae sp pneum 02/17/20 13:06 Blood Culture (Wb) - Right Hand Blood Culture - Preliminary GNR lactose mechanical insulator 02/17/20 11:55 Blood Culture (Wb) - Left Hand Blood Culture - Preliminary No growth in 48 hours. 02/18/20 09:50 Stool Enteric Bacteriology - Final Laboratory Results 02/20/20 05:35: WBC 12.0 H, RBC 2.51 L, Hgb 7.6 L, Hct 25.2 L, MCV 100.4 H, MCH 30.3, MCHC 30.2 L, RDW Std Deviation 49.9 H, RDW Coeff of Som 13.6, Plt Count 85 L, MPV 12.4 H, Immature Gran % (Auto) 1.200 H, Neut % (Auto) 84.6 H, Lymph % (Auto) 7.6 L, [place] % (Auto) 5.7, Eos % (Auto) 0.7, Baso % (Auto) 0.2, Absolute Neuts (auto) 10.2 H, Absolute Lymphs (auto) 0.92, Nucleated RBC % 0 02/20/20 05:35: Sodium 141, Potassium 3.9, Chloride 109 H, Carbon Dioxide 28.0, Anion Gap 4 L, BUN 60 H, Creatinine 2.09 H, Estim Creat Clear Calc 25.72, Est GFR (MDRD) Af Amer 30 L, Est GFR (MDRD) Non-Af 25 L, BUN/Creatinine Ratio 28.7 H , Glucose 119 H, Calcium 7.3 L, Magnesium 1.8 02/20/20 05:35: Blood Type O NEGATIVE, Antibody Screen NEGATIVE, Crossmatch See Detail Current Medications Acetaminophen (Tylenol) 650 mg PO Q6H PRN PRN PRN Reason: Pain Score 1-10/Temp > 100.7 F Last Admin: 02/18/20 05:46 Dose: 650 mg Documented by: Albuterol Sulfate (Ventolin Aerosols) 2.5 mg INHALATION Q2H PRN PRN PRN Reason: SOB/Wheezing Calcium Carbonate (Tums) 500 mg PO BIDCM [facility] Last Admin: 02/19/20 16:27 Dose: 500 mg Documented by: Carvedilol (Coreg) 6.25 mg PO BID [facility] Last Admin: 02/19/20 21:00 Dose: 6.25 mg Documented by: Cholecalciferol (Vitamin D (25mcg)) 2,000 [facility] Fluticasone Propionate (Flonase Nasal [place]) 1 spray NASAL DAILY [facility] Last Admin: 02/18/20 08:35 Dose: 1 spray Documented by: Gabapentin (Neurontin) 100 mg PO TIDCM [facility] Last Admin: 02/19/20 16:27 Dose: 100 mg Documented by: Hydralazine HCl (Apresoline) 10 mg PO 4X/DAY PRN PRN Reason: BLOOD PRESSURE Hydroxyzine HCl (Atarax Tablet) 10 mg PO QHS PRN PRN PRN Reason: ANXIETY Last Admin: 02/19/20 23:31 Dose: 10 mg Documented by: Piperacillin Sod/Tazobactam (Sod 3.375 gm/ Sodium Chloride) 50 mls @ 12.5 mls/hr IV Q12 [facility] Last Admin: 02/20/20 10:02 Dose: 12.5 mls/hr Documented by: Pantoprazole Sodium 40 mg/ (Sodium Chloride) 110 mls @ 330 mls/hr IV Q12 [facility] Last Infusion: 02/20/20 05:50 Dose: Infused Documented by: Lidocaine (Lidoderm Patch) 1 patch TOPICAL DAILY [facility]; Protocol Last Admin: 02/19/20 16:28 Dose: 1 patch Documented by: Nitroglycerin (Nitrostat) 0.4 mg SUBLINGUAL Q5M PRN PRN Reason: CARDIAC/CHEST PAIN Ondansetron HCl (Zofran) 4 mg IV Q8H PRN PRN PRN Reason: NAUSEA/VOMITING Potassium Chloride (K-Dur) 40 meq PO BIDCM [facility] Last Admin: 02/19/20 16:28 Dose: 40 meq Documented by: Sertraline HCl (Zoloft) 150 mg PO DAILY [facility] Last Admin: 02/19/20 12:48 Dose: 150 mg Documented by: Sodium Chloride () 10 - 40 ml IV UD PRN PRN Reason: SALINE FLUSH Last Admin: 02/18/20 20:59 Dose: 10 ml Documented by: Sodium Chloride () 10 - 40 ml IV UD PRN PRN Reason: SALINE FLUSH Tolterodine Tartrate (Detrol La) 2 mg PO DAILY [facility] Last Admin: 02/19/20 10:15 Dose: 2 mg Documented by: STROKE Vital Signs/Narrative: Vital Signs Temp Pulse Resp BP BP Pulse Ox 02/20/20 14:16 37.1 C 99 20 H 106/44 L 100 02/20/20 12:55 36.5 C L 98 20 H 96/49 L 100 02/20/20 12:00 107 H 02/20/20 11:44 36.8 C 115 H 19 H 102/49 L 100 02/20/20 10:44 36.9 C 118 H 18 97/48 L 100 02/20/20 10:29 37.0 C 107 H 24 H 108/40 L 100 Assessment/Plan 1. Upper GI bleed * 2/2 bleeding anastomotic ulcer * s/p injection and clipping * continue PPI * hold anticoagulation 2. ABLA * 2/2 above * transfuse 2 units PRBCs * monitor sepsis * 2/2 UTI * supportive mgmt * follow up cultures 2. UTI, * catheter facilitated as patient straight caths, not a CAUTI, as she does not have a chronic indwelling catheter at baseline * 2/2 e. coli and Klebsiella * change to CTX from pip/tazo 3. Pneumonia v chronic changes * doubt CHF * has been told she had lung changes due to chemotherapy, but she is not sure what the chemotherapy agent was. Changes are unlikely due to XRT as her XRT was directed at her hip, not lungs. 4. FROYLAN on CKD3 * improving * FENa 17.39% * baseline creatinine 1.35 * nephrology following * monitoring * hold furosemide * renal showed no hydronephrosis 5. hypokalemia * ongoing, replace * monitor 6. chronic incontinence * typically straight caths, but is incontinent * will maintain marcano catheter for now. 7. anemia * monitor * no need for transfusion at this time 8. afib * controlled * resume apixaban 9. elevated troponins * likely skewed given FROYLAN but may also be a type II event related with sepsis and UTI in a patient with a cardiomyopathy (EF 25% from [facility] on 02/2019) * no EKG evidence of strain * recheck echo 10. headache * began 02/18 * have pt try acetaminophen 11. VTE prophylaxis: anticoagulated Greater than 35 minutes of which greater than 50% of the time was counseling the patient and her about the GI bleed, pain control in regards to her back and avoiding narcotics at this time given patient somnolent plus also coordinating care in regards to the patient's acute GI bleed that she sustained by discussing with general surgery and coordinating blood transfusions. Inpatient E&M: 60129 [facility] L3
[2020-02-20] MEDS: Lidocaine 5% Patch 1 PATCH TOPICAL (14:48)
[2020-02-20] MEDS: Fluticasone 0.05% 1 SPRAY NASAL.SRY NASAL (14:48)
[2020-02-20] MEDS: Gabapentin 100 MG Capsule PO (14:56)
[2020-02-20] MEDS: Ceftriaxone 1 GM/50 ML BAG IV (16:03)
[2020-02-20] MEDS: 0.9% Saline Lock 10 ML Syringe IV (19:03)
[2020-02-20 20:25] LABS: Hematocrit 27.8 % (37-47); Hemoglobin 8.7 g/dL (12.0-15.0)
[2020-02-20] MEDS: hydrOXYzine 10 MG Tablet PO (23:08)
[2020-02-20] MEDS: Carvedilol 6.25 MG Tablet PO (23:08)
[2020-02-21 03:02] VITALS: PULSE 119
[2020-02-21 03:15] VITALS: BP 116/65; PULSE 95; RESP 18; TEMP 36.7; O2SAT 97
--- NOTE | 2020-02-21 03:28 | PCM.PN.BLA ---
Progress Note Patient with bloody bowel movement x2. Will discontinue Coreg. Will start patient on gentle IV fluid 75 mL's per hour. Of note patient with a history of combined systolic and diastolic dysfunction.
[2020-02-21] MEDS: 0.9% Normal Saline 1,000 ML 75 ML IV (03:44)
--- NOTE | 2020-02-21 04:07 | PCM.DC.SUM ---
Discharge Date and Diagnosis - Problem List Patient Problems: Active and Suspected Problems (Last Reviewed 02/15/19 @ 14:33 by Giovanna Goodwin) Acute kidney injury (Acute) UTI (urinary tract infection) (Acute) Sepsis (Acute) Hypokalemia (Acute) GI bleed (Acute) Date of Admission: 02/17/20 Date of Discharge: 02/21/20 - Primary Discharge Diagnosis Acute Problems: Active Problems (Last Reviewed 02/15/19 @ 14:33 by Giovanna Goodwin) Acute kidney injury (Acute) UTI (urinary tract infection) (Acute) Sepsis (Acute) Hypokalemia (Acute) GI bleed (Acute) - Secondary Discharge Diagnosis Chronic Problems: Chronic Problems (Last Reviewed 02/15/19 @ 14:33 by Giovanna Goodwin) Iron deficiency anemia (Chronic) History of right and left heart catheterization (Chronic 02/20/19) 50% stenosis in LAD, all other coronaries normal. No need for PCI. Severe pulmonary hypertension, severe LV dysfunction: EF 25%. 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 She self catheterizes and noticed a decrease in her urine output. Amanda catheter was placed at the Hospital . Eliquis was discontinued on presentation because of thrombocytopenia. During the course of her stay urine culture was positive for E. coli and Klebsiella pneumonia. Anaerobic bottle of blood culture showed gram-negative rods lactose wagon driver. Patient received Zosyn during her hospitalization. Covid test was not on 02/17/2020 and it was negative Chest x-ray on presentation showed infiltrates. Radiology interpretation chest x-ray as cardiomegaly and congestive heart failure. Clinically patient was treated for pneumonia. Also patient had FROYLAN was treated with IV fluids. Renal ultrasound showed atrophy of right kidney and small right renal cyst. Her lisinopril was held and nephrology saw patient in consult. She had hypokalemia which was treated with potassium p.o. supplementation. During the course of her hospitalization patient had black bowel movements with gross blood and blood clots. Aspirin was discontinued. Patient was put on Protonix IV twice daily. General surgery was consulted. H&H was trended. Decreased from baseline of 10-11 to 7.6. Patient received 2 units of packed red blood cells. Patient had an EGD. EGD showed bleeding marginal ulcer. The ulcer was injected with epinephrine and clips were placed around the ulcer. However clips were unable to be placed over the ulcer due to inflammation. Per general surgery the bleeding was halted by the epinephrine injection. After the EGD with cauterization the patient had another bloody bowel movement. General surgery recommended that if patient continues to have bloody bowel movement patient she was transferred out to a tertiary institution where bariatric surgeon and IR will be available. Patient continued to have bloody bowel movement. Repeat H&H was done. H&H was 8.6. Transfer to a tertiary institution was discussed with patient. Patient preferred to go to [facility]. Transfer was discussed with nursing team and patient's . Transfer center at [facility] was called and patient was accepted Patient Problems: Active and Suspected Problems (Last Reviewed 02/15/19 @ 14:33 by Giovanna Goodwin) Acute kidney injury (Acute) UTI (urinary tract infection) (Acute) Sepsis (Acute) Hypokalemia (Acute) GI bleed (Acute) - Physical Exam Vitals/I&O's: Vital Signs Temp Pulse Resp BP Pulse Ox 98.1 F 95 18 116/65 97 02/21/20 03:15 02/21/20 03:15 02/21/20 03:15 02/21/20 03:15 02/21/20 03:15 Oxygen Flow Rate (L/min) 4 Oxygen Delivery Method Nasal Cannula Weight: 66 kg Body Mass Index (BMI) 29.4 Intake and Output for Last 24 Hours 02/19/20 02/20/20 02/21/20 23:59 23:59 23:59 Intake Total 2495 / 2495 2283.25 / 2283.25 0 / 0 Output Total 2450 / 2450 1150 / 1150 Balance 45 / 45 1133.25 / 1133.25 0 / 0 General: Alert, Oriented x3, Cooperative HEENT: Atraumatic, PERRLA, EOMI, Normocephalic Neck: Supple, No JVD, Negative Carotid Bruits Lungs: Clear to auscultation, Normal air movement Cardiovascular: Normal S1, Normal S2, No murmurs, Irregular Rate Abdomen: Bowel Sounds Present, Soft, Non Tender Extremities: No edema, Capillary Refill Less than 3 Seconds Skin: No rashes, No breakdown Musculoskeletal: No Tenderness to Palpation of Joints or Extremities Neurological: Cranial nerves II-XII grossly intact Psych/Mental Status: Normal Affect, Appropriate Microbiology Past 72 Hours 02/17/20 13:20 Urine, Catheterized Urine Culture - Final Escherichia coli Klebsiella pneumoniae sp pneum 02/17/20 13:06 Blood Culture (Wb) - Right Hand Blood Culture - Preliminary GNR lactose wagon driver 02/17/20 11:55 Blood Culture (Wb) - Left Hand Blood Culture - Preliminary No growth in 48 hours. 02/18/20 09:50 Stool Enteric Bacteriology - Final Laboratory Results 02/20/20 05:35: WBC 12.0 H, RBC 2.51 L, Hgb 7.6 L, Hct 25.2 L, MCV 100.4 H, MCH 30.3, MCHC 30.2 L, RDW Std Deviation 49.9 H, RDW Coeff of Som 13.6, Plt Count 85 L, MPV 12.4 H, Immature Gran % (Auto) 1.200 H, Neut % (Auto) 84.6 H, Lymph % (Auto) 7.6 L, [place] % (Auto) 5.7, Eos % (Auto) 0.7, Baso % (Auto) 0.2, Absolute Neuts (auto) 10.2 H, Absolute Lymphs (auto) 0.92, Nucleated RBC % 0 02/20/20 05:35: Sodium 141, Potassium 3.9, Chloride 109 H, Carbon Dioxide 28.0, Anion Gap 4 L, BUN 60 H, Creatinine 2.09 H, Estim Creat Clear Calc 25.72, Est GFR (MDRD) Af Amer 30 L, Est GFR (MDRD) Non-Af 25 L, BUN/Creatinine Ratio 28.7 H, Glucose 119 H, Calcium 7.3 L, Magnesium 1.8 02/20/20 05:35: Blood Type O NEGATIVE, Antibody Screen NEGATIVE, Crossmatch See Detail 02/20/20 19:33: Hgb 8.7 L, Hct 27.8 L Current Medications Acetaminophen (Tylenol) 650 mg PO Q6H PRN PRN PRN Reason: Pain Score 1-10/Temp > 100.7 F Last Admin: 02/18/20 05:46 Dose: 650 mg Documented by: Albuterol Sulfate (Ventolin Aerosols) 2.5 mg INHALATION Q2H PRN PRN PRN Reason: SOB/Wheezing Calcium Carbonate (Tums) 500 mg PO BIDCM [facility] Last Admin: 02/20/20 16:04 Dose: Not Given Documented by: Cholecalciferol (Vitamin [facility] (25mcg)) [facility] Last Admin: 02/20/20 14:45 Dose: Not Given Documented by: Fluticasone Propionate (Flonase Nasal [place]) 1 spray NASAL DAILY [facility] Last Admin: 02/20/20 14:48 Dose: 1 spray Documented by: Gabapentin (Neurontin) 100 mg PO TIDCM [facility] Last Admin: 02/20/20 18:26 Dose: Not Given Documented by: Hydralazine HCl (Apresoline) 10 mg PO 4X/DAY PRN PRN Reason: BLOOD PRESSURE Hydroxyzine HCl (Atarax Tablet) 10 mg PO QHS PRN PRN PRN Reason: ANXIETY Last Admin: 02/20/20 23:08 Dose: 10 mg Documented by: Pantoprazole Sodium 40 mg/ (Sodium Chloride) 110 mls @ 330 mls/hr IV Q12 [facility] Last Infusion: 02/20/20 22:57 Dose: Infused Documented by: Ceftriaxone Sodium (Rocephin) 1 gm in 50 mls @ 100 mls/hr IV Q24 [facility] Last Infusion: 02/20/20 16:33 Dose: Infused Documented by: Sodium Chloride () 1,000 mls @ 75 mls/hr IV .[id number] [facility] Last Admin: 02/21/20 03:44 Dose: 75 mls/hr Documented by: Lidocaine (Lidoderm Patch) 1 patch TOPICAL DAILY [facility]; Protocol Last Admin: 02/20/20 14:48 Dose: 1 patch Documented by: Morphine Sulfate () 1 mg IV Q4H PRN PRN PRN Reason: Pain Score 6-10/10 Nitroglycerin (Nitrostat) 0.4 mg SUBLINGUAL Q5M PRN PRN Reason: CARDIAC/CHEST PAIN Ondansetron HCl (Zofran) 4 mg IV Q8H PRN PRN PRN Reason: NAUSEA/VOMITING Potassium [facility] ([facility]) [facility] Last Admin: 02/20/20 16:04 Dose: Not Given Documented by: Sertraline HCl (Zoloft) 150 mg PO DAILY [facility] Last Admin: 02/20/20 14:46 Dose: Not Given Documented by: Sodium Chloride () 10 - 40 ml IV UD PRN PRN Reason: SALINE FLUSH Last Admin: 02/20/20 19:03 Dose: 10 ml Documented by: Sodium Chloride () 10 - 40 ml IV UD PRN PRN Reason: SALINE FLUSH Tolterodine Tartrate (Detrol La) 2 mg PO DAILY [facility] Last Admin: 02/20/20 14:46 Dose: Not Given Documented by: Discharge Diet: - - NPO Home Medications: Medications to take at Discharge Carvedilol 6.25 mg PO BID 05/29/18 Oxybutynin Chloride [Oxybutynin Chloride ER] 15 mg PO DAILY 05/29/18 Gabapentin 600 mg PO TID 08/20/18 sertraline 50 mg tablet 150 mg PO DAILY tab 12/17/18 biotin 5 mg capsule 5 mg PO DAILY 12/18/18 aspirin 81 mg tablet,delayed release 81 mg PO DAILY 02/15/19 Apixaban [Eliquis] 2.5 mg PO BID 02/17/20 Calcium Carbonate 600 mg PO BID 02/17/20 Cholecalciferol (Vitamin D3) [Vitamin D3] 2,000 unit PO DAILY 02/17/20 Cyanocobalamin (Vitamin B-12) [Cyanocobalamin Injection] 1,000 mcg IJ QMONTH 02/17/20 Fluticasone 0.05% [Flonase Nasal [place]] 1 spray NASAL DAILY 02/17/20 Lisinopril [Prinivil] 10 mg PO BID 02/17/20 Multivitamin 1 tab PO DAILY 02/17/20 Potassium Chloride [K-Tab ER] 40 meq PO BID 02/17/20 Primary Care Physician: Sharad Burns MD [Primary Care Provider] - Disposition: Acute care Hospital Minutes spent on discharge:: 50 Medical Necessity - Tobacco Use Smoking Status: Never smoker Tobacco Use: Non-smoker Meaningful Use Info Meaningful Use Diagnoses (Choose all that apply): None applicable Inpatient E&M: 00782 Disch Hosp
[2020-02-21 04:18] LABS: Absolute Lymphocyte Count 0.92 X10^3/uL (0.83-4.51); Absolute Neutrophil Count 12.3 X10^3/uL (2.0-7.7); Basophil# 0.05 X10^3/uL; Basophil% 0.4 % (0-1); Eosinophil# 0.12 X10^3/uL; Eosinophils% 0.8 % (0-5); Hematocrit 28.1 % (37-47); Hemoglobin 8.6 g/dL (12.0-15.0); Lymphocyte # 0.92 X10^3/ul (4.0); Lymphocyte % 6.4 % (19-41); Mean Corp Hgb Conc 30.6 g/dL (32-36); Mean Corpuscular Hgb 29.9 pg (27.0-32.0); Mean Corpuscular Volume 97.6 fL (81-99); Mean Platelet Vol. 11.7 fl (6.2-12.0); Monocyte% 4.9 % (0-10); NRBC Flagged by Analyzer 0 % (0-5); Neutrophil # 12.31 X10^3/uL (2.7-7.7); Neutrophil % 86.3 % (47-70); POSITIVE MORPHOLOGY YES; Platelet Count 109 K/mm3 (150-450); RBC Distribution Width CV 16.4 % (11.6-14.6); RBC Distribution Width SD 58.6 fl (35.1-43.9); Red Blood Count 2.88 M/mm3 (4.2-5.4); White Blood Count 14.3 K/mm3 (4.4-11.0)
[2020-02-21 04:19] LABS: Differential Indicated SCAN CRITERIA MET
[2020-02-21] MEDS: Morphine 2 MG/ML Syringe 1 MG IV (04:21)
[2020-02-21 04:30] LABS: Anion Gap 5 (5-15); BUN 56 mg/dL (7-18); BUN/Creat Ratio 31.5 RATIO (10-20); Calcium,Total 7.6 mg/dL (8.5-10.1); Chloride 113 mmol/L (98-107); Creatinine, Serum 1.78 mg/dL (0.55-1.02); EST Glomerular Filtration Rate 30 mL/min (>60); Est Glom Filt Rate - Afr Amer 36 mL/min (>60); Glucose 84 mg/dL (74-106); Potassium 3.8 mmol/L (3.5-5.1); Sodium Level 144 mmol/L (136-145)
[2020-02-21 04:43] LABS: Atypical Lymphocyte RARE %; Differential Comment SCANNED
--- NOTE | 2020-02-21 04:54 | NURSING ---
Spoke with [facility]. Patient will be transferred to [facility] H71, Bed 16. Phone number to contact nurse [phone]. Dr. Shawn Sanchez is the accepting doctor. Please send imaging on a disc along with her records.
[2020-02-21 06:30] VITALS: BP 117/58; PULSE 99; RESP 18; TEMP 36.7; O2SAT 97
[2020-02-21 06:46] VITALS: O2SAT 95
[2020-02-21 07:21] VITALS: PULSE 96
--- NOTE | 2020-02-21 07:43 | PCM.PN.SRG ---
Patient Problems: Active and Suspected Problems (Last Reviewed 02/15/19 @ 14:33 by Giovanna Goodwin) Acute kidney injury (Acute) UTI (urinary tract infection) (Acute) Sepsis (Acute) Hypokalemia (Acute) GI bleed (Acute) - Physical Exam Vitals/I&O's: Vital Signs Temp Pulse Resp BP Pulse Ox 98.0 F 99 18 117/58 L 97 02/21/20 06:30 02/21/20 06:30 02/21/20 06:30 02/21/20 06:30 02/21/20 06:30 Oxygen Flow Rate (L/min) 4 Oxygen Delivery Method Nasal Cannula Weight: 142 lb 10.225 oz Body Mass Index (BMI) 29.4 Intake and Output for Last 24 Hours 02/19/20 02/20/20 02/21/20 23:59 23:59 23:59 Intake Total 2495 / 2495 2283.25 / 2283.25 0 / 0 Output Total 2450 / 2450 1150 / 1150 500 / 500 Balance 45 / 45 1133.25 / 1133.25 -500 / -500 General: Alert, Oriented x3 Neck: No JVD Lungs: Normal air movement Abdomen: Soft, Non-Distended Microbiology Past 72 Hours 02/17/20 13:20 Urine, Catheterized Urine Culture - Final Escherichia coli Klebsiella pneumoniae sp pneum 02/17/20 13:06 Blood Culture (Wb) - Right Hand Blood Culture - Preliminary GNR lactose white shoe ragger 02/17/20 11:55 Blood Culture (Wb) - Left Hand Blood Culture - Preliminary No growth in 48 hours. 02/18/20 09:50 Stool Enteric Bacteriology - Final Laboratory Results 02/20/20 05:35: Blood Type O NEGATIVE, Antibody Screen NEGATIVE, Crossmatch See Detail 02/20/20 19:33: Hgb 8.7 L, Hct 27.8 L 02/21/20 04:10: Sodium 144, Potassium 3.8, Chloride 113 H, Carbon Dioxide 26.0, Anion Gap 5, BUN 56 H, Creatinine 1.78 H, Estim Creat Clear Calc 30.20, Est GFR (MDRD) Af Amer 36 L, Est GFR (MDRD) Non-Af 30 L, BUN/Creatinine Ratio 31.5 H, Glucose 84, Calcium 7.6 L 02/21/20 04:10: WBC 14.3 H, RBC 2.88 L, Hgb 8.6 L, Hct 28.1 L, MCV 97.6, MCH 29.9, MCHC 30.6 L, RDW Std Deviation 58.6 H, RDW Coeff of Som 16.4 H, Plt Count 109 L, MPV 11.7, Immature Gran % (Auto) 1.200 H, Neut % (Auto) 86.3 H, Lymph % (Auto) 6.4 L, [place] % (Auto) 4.9, Eos % (Auto) 0.8, Baso % (Auto) 0.4, Absolute Neuts (auto) 12.3 H, Absolute Lymphs (auto) 0.92, Nucleated RBC % 0, Differential Comment SCANNED, Atypical Lymphocytes RARE Current Medications Acetaminophen (Tylenol) 650 mg PO Q6H PRN PRN PRN Reason: Pain Score 1-10/Temp > 100.7 F Last Admin: 02/18/20 05:46 Dose: 650 mg Documented by: Albuterol Sulfate (Ventolin Aerosols) 2.5 mg INHALATION Q2H PRN PRN PRN Reason: SOB/Wheezing Calcium Carbonate (Tums) 500 mg PO BIDCM [facility] Last Admin: 02/20/20 16:04 Dose: Not Given Documented by: Cholecalciferol (Vitamin D (25mcg)) [facility] Last Admin: 02/20/20 14:45 Dose: Not Given Documented by: Fluticasone Propionate (Flonase Nasal Alpha) 1 spray NASAL DAILY [facility] Last Admin: 02/20/20 14:48 Dose: 1 spray Documented by: Gabapentin (Neurontin) 100 mg PO TIDCM [facility] Last Admin: 02/20/20 18:26 Dose: Not Given Documented by: Hydralazine HCl (Apresoline) 10 mg PO 4X/DAY PRN PRN Reason: BLOOD PRESSURE Hydroxyzine HCl (Atarax Tablet) 10 mg PO QHS PRN PRN PRN Reason: ANXIETY Last Admin: 02/20/20 23:08 Dose: 10 mg Documented by: Pantoprazole Sodium 40 mg/ (Sodium Chloride) 110 mls @ 330 mls/hr IV Q12 [facility] Last Infusion: 02/20/20 22:57 Dose: Infused Documented by: Ceftriaxone Sodium (Rocephin) 1 gm in 50 mls @ 100 mls/hr IV Q24 [facility] Last Infusion: 02/20/20 16:33 Dose: Infused Documented by: Sodium Chloride () 1,000 mls @ 75 mls/hr IV .[id number] [facility] Last Admin: 02/21/20 03:44 Dose: 75 mls/hr Documented by: Lidocaine (Lidoderm Patch) 1 patch TOPICAL DAILY [facility]; Protocol Last Admin: 02/20/20 14:48 Dose: 1 patch Documented by: Morphine Sulfate () 1 mg IV Q4H PRN PRN PRN Reason: Pain Score 6-10/10 Last Admin: 02/21/20 04:21 Dose: 1 mg Documented by: Nitroglycerin (Nitrostat) 0.4 mg SUBLINGUAL Q5M PRN PRN Reason: CARDIAC/CHEST PAIN Ondansetron HCl (Zofran) 4 mg IV Q8H PRN PRN PRN Reason: NAUSEA/VOMITING Potassium Chloride (K-Dur) 40 meq PO BIDCM [facility] Last Admin: 02/20/20 16:04 Dose: Not Given Documented by: Sertraline HCl (Zoloft) 150 mg PO DAILY [facility] Last Admin: 02/20/20 14:46 Dose: Not Given Documented by: Sodium Chloride () 10 - 40 ml IV UD PRN PRN Reason: SALINE FLUSH Last Admin: 02/20/20 19:03 Dose: 10 ml Documented by: Sodium Chloride () 10 - 40 ml IV UD PRN PRN Reason: SALINE FLUSH Tolterodine Tartrate (Detrol La) 2 mg PO DAILY [facility] Last Admin: 02/20/20 14:46 Dose: Not Given Documented by: Medical Necessity - Tobacco Use Smoking Status: Never smoker Tobacco Use: Non-smoker Assessment/Plan All Active Problems (Last Reviewed 02/15/19 @ 14:33 by Giovanna Goodwin) Acute kidney injury (Acute) UTI (urinary tract infection) (Acute) Sepsis (Acute) Hypokalemia (Acute) GI bleed (Acute) Shortness of breath (Acute) 69-year-old female with upper GI bleed due to bleeding marginal ulcer 1. I performed an EGD yesterday and the patient had a marginal ulcer at her anastomosis from her gastric bypass. The area was injected but the clip was unable to be placed completely across the ulcer. The patient had no further bleeding after the scope until late yesterday evening and she started bleeding again. She had 2 very large bloody bowel movements overnight. At this point I would recommend transfer to a tertiary care center and has IR and bariatric surgery available. I do not believe performing another EGD with injection of epinephrine would result in a different outcome. Juan A Rosario MD Pager: [facility] [address] [place] [address], [address] [place] [address] Office:
[2020-02-21 08:40] VITALS: BP 120/56; PULSE 93; RESP 18; TEMP 36.6; O2SAT 100
--- NOTE | 2020-02-21 09:29 | NURSING ---
Left message on 's voicemail informing him that patient had left about 45minutes ago en route to [facility].
== END 2020-02-21 08:53 | disposition short-term general hospital (02) | DRG 698 ==
LOC: ED 14:29 → PCU 16:25
PROVIDERS: Hospitalist; Internal Medicine Nephrology; Surgery; Admitting Provider Internal Medicine; Emergency Provider Emergency Medicine; PCP Family Medicine; Referring Provider Internal Medicine
PROC: 0DJ08ZZ Inspection of Upper Intestinal Tract, Via Natural or Artificial Opening Endoscopic (ICD-10-PCS; CPT 43235; principal; 2020-02-20 09:40)
DX: T83.511A Infection and inflammatory reaction due to indwelling urethral catheter, initial encounter (principal); A41.9 Sepsis, unspecified organism; K28.4 Chronic or unspecified gastrojejunal ulcer with hemorrhage; J18.9 Pneumonia, unspecified organism; N17.9 Acute kidney failure, unspecified; I13.0 Hypertensive heart and chronic kidney disease with heart failure and stage 1 through stage 4 chronic kidney disease, or unspecified chronic kidney disease; I48.20 Chronic atrial fibrillation, unspecified; I50.42 Chronic combined systolic (congestive) and diastolic (congestive) heart failure; E87.1 Hypo-osmolality and hyponatremia; D62 Acute posthemorrhagic anemia; I42.9 Cardiomyopathy, unspecified; N39.0 Urinary tract infection, site not specified; B96.20 Unspecified Escherichia coli [E. coli] as the cause of diseases classified elsewhere; B96.1 Klebsiella pneumoniae [K. pneumoniae] as the cause of diseases classified elsewhere; Y84.6 Urinary catheterization as the cause of abnormal reaction of the patient, or of later complication, without mention of misadventure at the time of the procedure; E87.6 Hypokalemia; D69.6 Thrombocytopenia, unspecified; N18.30 Chronic kidney disease, stage 3 unspecified; N28.1 Cyst of kidney, acquired; F41.9 Anxiety disorder, unspecified; E86.0 Dehydration; J84.10 Pulmonary fibrosis, unspecified; I27.20 Pulmonary hypertension, unspecified; F32.9 Major depressive disorder, single episode, unspecified; M81.0 Age-related osteoporosis without current pathological fracture; I83.11 Varicose veins of right lower extremity with inflammation; I83.12 Varicose veins of left lower extremity with inflammation; Z79.01 Long term (current) use of anticoagulants; Z79.899 Other long term (current) drug therapy; Z90.49 Acquired absence of other specified parts of digestive tract; Z79.82 Long term (current) use of aspirin; Z98.84 Bariatric surgery status; Z99.81 Dependence on supplemental oxygen; Z92.21 Personal history of antineoplastic chemotherapy; Z92.3 Personal history of irradiation; Z23 Encounter for immunization
CPT/HCPCS: 36415; 51702; 70450; 71045; 72125; 76770; 80048; 80053; 80069; 81001; 82570; 83605; 83735; 83880; 84300; 84484; 84540; 85014; 85018; 85025; 85610; 85730; 86850; 86900; 86901; 86902; 86920; 86921; 86922; 87040; 87077; 87086; 87088; 87186; 87506; 87635; 93005; 93306; 97110; 97162; 97166; 97535; 97802; 99285; G0008; J7030; J7040; P9016; 90686; A4216; J1940; J3490; U0003

== ENCOUNTER 2020-03-23 10:54 | Inpatient (IN) | payer MEDICARE, BC, SELFPAY ==
[2020-02-17 15:57] VITALS: BMI 29.4
[2020-03-23] VITALS (14 sets, daily range): BP systolic 126–151; BP diastolic 61–93; PULSE 78–94; RESP 14–28; TEMP 36.4–37.2; O2SAT 92–100; BMI 35.5; BMI 34.8
--- NOTE | 2020-03-23 11:01 | EKG12_ITS ---
Test Reason : EDEMA Blood Pressure : / mmHG Vent. Rate : 083 BPM Atrial Rate : 357 BPM P-R Int : 000 ms QRS Dur : 084 ms QT Int : 378 ms P-R-T Axes : 000 053 184 degrees QTc Int : 444 ms Atrial fibrillation Cannot rule out Anterior infarct , age undetermined Abnormal ECG Confirmed by LI JEFFRIES, CRISTI ([id number]), photographic editor GORDON ROMERO ([id number]) on 03/26/2020 11:30:27 AM Referred By: ARACELY Confirmed By:CRISTI JEFFERSON MD
--- NOTE | 2020-03-23 11:06 | ED.DCSUM_ITS ---
- ER Visit Summary Date of Service: 03/23/20 Chief Complaint: Leg swelling, shortness of breath History of Present Illness: The patient is a 69 F who presents with leg swelling and shortness of breath. She states that her swelling is getting worse in her legs bilaterally. She developed more shortness of breath today. She states that she is on a diuretic but does not know the name. She states that she is allergic to Lasix. She has been measuring her legs at home and they have increased to 3 times the regular size. She states her last known weight was 140 pounds. Today she is up to 170 pounds. She has a history of A. fib and is on Eliquis. She has been medication compliant with this. She denies any chest pain. She does have pain in her legs. She does wear 4 L of home oxygen. Physical Examination: Vital signs reviewed. Age-appropriate female who does appear mildly short of breath. HEENT exam unremarkable. Heart is irregularly irregular and tachycardic without murmurs. Lungs have rales in the bases bilaterally. Abdomen is soft and nontender. Extremities reveal 3+ symmetric pitting edema to the bilateral lower legs. Skin exam normal. Neurologic exam normal. Test Results: EKG was atrial fibrillation with a rate of 83. Nonspecific ST-T wave changes noted. Hemoglobin is 8.3 which is near baseline. Creatinine 1.61 which is also near baseline. Troponin is normal. BNP is 1535. Chest x-ray shows evidence of CHF. Emergency Department Course and Treatment: The patient was given a dose of Bumex due to her allergy to Lasix. She was never hypoxic on her home 4 L. I feel the patient requires admission due to her peripheral edema and CHF. Patient was discussed with the hospitalist for admission. Treatment Plan: [] Disposition: Admit Impression: CHF exacerbation, peripheral edema This note was generated with [employer] dictation software. It may contain incorrect words, spelling, and punctuation that were not noted in review of the chart prior to signing ED Disposition - Plan for ED Patient: Referrals: Sharad Burns MD [Primary Care Provider] -
--- NOTE | 2020-03-23 11:10 | RAD_ITS ---
STUDY: X-RAY CHEST REASON FOR EXAM: Female, 69 years old. LOWER EXTREMITY EDEMA, INCREASED SOB -- PT HAD CHF TECHNIQUE: Single AP portable view of the chest. COMPARISON: Comparison is made with prior study dated 02/17/2020. FINDINGS: EKG electrodes are seen. A right-sided portacatheter is in situ with the tip in the midportion of the superior vena cava. Stable elevation of the right hemidiaphragm. Thoracic congestion and mild degree of CHF. There is no demonstrated pleural abnormality. There is moderate cardiac enlargement. Normal mediastinum and elif. Normal visualized pulmonary arteries. There is atherosclerotic calcification of the aortic arch with tortuosity. Normal visualized thoracic spine. Status post left shoulder replacement. There is no demonstrated abnormality of the visualized soft tissue structures of the upper abdomen. RAD/Chest 1 View (Portable) IMPRESSION: Cardiomegaly and mild degree of CHF. Electronically Signed: Pako Clancy, at 12:04 EST , Service support ,
[2020-03-23] MEDS: Bumetanide 1 MG/4 ML Vial IV ×3 (11:11→21:52)
[2020-03-23 11:17] LABS: Absolute Lymphocyte Count 1.09 X10^3/uL (0.83-4.51); Absolute Neutrophil Count 5.5 X10^3/uL (2.0-7.7); Basophil# 0.05 X10^3/uL; Basophil% 0.7 % (0-1); Eosinophil# 0.18 X10^3/uL; Eosinophils% 2.5 % (0-5); Hematocrit 28.9 % (37-47); Hemoglobin 8.3 g/dL (12.0-15.0); Lymphocyte # 1.09 X10^3/ul (4.0); Mean Corp Hgb Conc 28.7 g/dL (32-36); Mean Corpuscular Hgb 28.7 pg (27.0-32.0); Mean Platelet Vol. 10.8 fl (6.2-12.0); Monocyte# 0.45 X10^3/uL; Monocyte% 6.2 % (0-10); NRBC Flagged by Analyzer 0 % (0-5); Neutrophil # 5.45 X10^3/uL (2.7-7.7); Neutrophil % 75.2 % (47-70); Platelet Count 232 K/mm3 (150-450); RBC Distribution Width CV 16.8 % (11.6-14.6); RBC Distribution Width SD 59.7 fl (35.1-43.9); Red Blood Count 2.89 M/mm3 (4.2-5.4); White Blood Count 7.3 K/mm3 (4.4-11.0)
[2020-03-23 11:22] LABS: Anion Gap 1 (5-15); BUN 22 mg/dL (7-18); BUN/Creat Ratio 13.7 RATIO (10-20); Calcium,Total 7.7 mg/dL (8.5-10.1); Chloride 113 mmol/L (98-107); Creatinine, Serum 1.61 mg/dL (0.55-1.02); EST Glomerular Filtration Rate 33 mL/min (>60); Est Glom Filt Rate - Afr Amer 41 mL/min (>60); Estimated Creatinine Clearance 40.38 ml/min; Glucose 97 mg/dL (74-106); Potassium 3.9 mmol/L (3.5-5.1); Sodium Level 144 mmol/L (136-145)
[2020-03-23 13:38] LABS: Iron 36 ug/dL (50-170); Iron Binding Capacity,Total 177 ug/dL (250-450); PERCENT IRON SATURATION 20.3 % (15.0-55.0)
[2020-03-23] MEDS: 0.9% Saline Lock 10 ML Syringe IV (14:08)
[2020-03-23] MEDS: Gabapentin 600 MG Tablet PO ×2 (14:08→21:50)
--- NOTE | 2020-03-23 14:18 | HP.PCM_ITS ---
Problem List (1) CKD (chronic kidney disease) stage 3, GFR 30-59 ml/min Status: Chronic (2) PVD (peripheral vascular disease) Status: Acute (3) Chronic fibrosis of lung Status: Chronic (4) GI bleed Status: Chronic Qualifiers: (5) Iron deficiency anemia Status: Chronic (6) Chronic atrial fibrillation Status: Chronic (7) Essential hypertension Status: Chronic (8) Chronic anemia Status: Chronic (9) Congestive heart failure Status: Acute Qualifiers: Heart failure type: diastolic History of Present Illness Date of Admission: 03/23/20 Chief Complaint: SOB, LE edema The patient is a 69 year old F with pmhx of diastolic CHF, chronic afib, chronic hypoxic respiratory failure on 4lpm baseline due to CHF, hx recent GI bleed at her gastric bypass anastomosis, who presented to the ER with LE edema and SOB. She has had increasing edema and SOB for three days. She has had severe LE edema which interferes with her ability to ambulate as her gait is shifted and her legs are very painful. She denies orthopnea stating she sleeps flat with one pillow. She has no CP/pressure. She appears to have acute CHF and was started on bumex due to issues with lasix in the past. She is a former patient of Dr. Potter. She was never taken off Eliquis after last admission and denies black or bloody stools since then.[] Past Medical History Past Medical History (Chronic Problems): Chronic Problems (Last Reviewed 02/15/19 @ 14:33 by Giovanna Goodwin) GI bleed (Chronic) CKD (chronic kidney disease) stage 3, GFR 30-59 ml/min (Chronic) Chronic fibrosis of lung (Chronic) Iron deficiency anemia (Chronic) History of right and left heart catheterization (Chronic 02/20/19) 50% stenosis in LAD, all other coronaries normal. No need for PCI. Severe pulmonary hypertension, severe LV dysfunction: EF 25%. Per [facility]U @ [facility] 02/20/2019 Chronic atrial fibrillation (Chronic) Essential hypertension (Chronic) Chronic anemia (Chronic) Medical History: Medical History (Last Reviewed 02/15/19 @ 14:33 by Giovanna Goodwin) Shortness of breath (Acute) R06.02 Chronic atrial fibrillation (Chronic) I48.2 Essential hypertension (Chronic) I10 Chronic anemia (Chronic) D64.9 Congestive heart failure (Chronic) I50.9 Anxiety F41.9 CKD (chronic kidney disease), stage III N18.3 Chronic acquired lymphedema I89.0 Chronic fibrosis of lung J84.10 Chronic venous stasis dermatitis I83.10 Depressive disorder F32.9 Osteoporosis M81.0 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 Varicose veins of both lower extremities I83.93 Venous stasis dermatitis of both lower extremities I83.11, I83.12 Allergies nitrofurantoin Allergy (Severe, Verified 03/23/20 11:01) mental status change cyclobenzaprine [From Flexeril] Adverse Reaction (Severe, Verified 03/23/20 11:01) frequent falls levofloxacin [From Levaquin] Adverse Reaction (Intermediate, Verified 03/23/20 11:01) diarrhea linezolid [From Zyvox] Adverse Reaction (Unknown, Verified 03/23/20 11:01) PT UNSURE OF REACTION azithromycin Adverse Reaction (Verified 03/23/20 11:01) Diarrhea erythromycin base Adverse Reaction (Verified 03/23/20 11:01) Diarrhea furosemide [From Lasix] Adverse Reaction (Verified 03/23/20 11:01) Nausea Home Medications: Ambulatory Orders Medication Instructions Recorded Carvedilol 6.25 mg PO BID 05/29/18 Oxybutynin Chloride [Oxybutynin 15 mg PO DAILY 05/29/18 Chloride ER] Gabapentin 600 mg PO TID 08/20/18 sertraline 50 mg tablet 150 mg PO DAILY tab 12/17/18 biotin 5 mg capsule 5 mg PO DAILY 12/18/18 Apixaban [Eliquis] 2.5 mg PO BID 02/17/20 Calcium Carbonate 600 mg PO BID 02/17/20 Cholecalciferol (Vitamin D3) 2,000 unit PO DAILY 02/17/20 [Vitamin D3] Cyanocobalamin (Vitamin B-12) 1,000 mcg IJ QMONTH 02/17/20 [Cyanocobalamin Injection] Fluticasone 0.05% [Flonase Nasal 1 spray NASAL DAILY 02/17/20 [place]] Lisinopril [Prinivil] 10 mg PO DAILY 02/17/20 Multivitamin 1 tab PO DAILY 02/17/20 Potassium Chloride [K-Tab ER] 10 meq PO BID 02/17/20 Acetaminophen/Butalbital/Caffe 1 tab PO Q4H PRN PRN 03/23/20 [Fioricet] Bumetanide [Bumex] 2 mg PO DAILY 03/23/20 Pantoprazole Sodium [Protonix] 40 mg PO BID 03/23/20 Sucralfate [Carafate] 1 gm PO 4X/DAY 03/23/20 Surgical History: Surgical History (Last Updated 02/20/19 @ 12:50 by Paulina Mace) History of right and left heart catheterization (Chronic) Onset Date: 02/20/19 Z98.890 50% stenosis in LAD, all other coronaries normal. No need for PCI. Severe pulmonary hypertension, severe LV dysfunction: EF 25%. Per [facility] @ [facility] 02/20/2019 History of bladder suspension procedure Z98.890, Z87.448 History of cataract extraction Z98.49 bilateral History of cholecystectomy Z90.49 History of gastric bypass Onset Date: 11/29/00 Z98.84 History of hysterectomy Z90.710 History of pelvic surgery Onset Date: ~2008 Z98.890 Complex resection of pelvic spindle sarcoma History of reverse total replacement of left shoulder joint Z98.890 History of right hip replacement Z96.641 History of ventral hernia repair Z98.890, Z87.19 x 4 Surgical History: cholecystectomy, gastric bypass, herniorrhaphy, hysterectomy, tonsillectomy, - - 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 Lives: With Family Smoking Status: Never smoker Tobacco Use: Non-smoker Alcohol: None Drugs: None - *Family History Maternal Family History: Family History (Last Reviewed 03/23/20 @ 14:28 by Trent CARSON PA) Father Cancer Mother Dementia Grandmother CVA (cerebral vascular accident) History Items: Diabetes - alive age 86 Paternal Family History: Family History (Last Reviewed 03/23/20 @ 14:28 by Trent CARSON, PA) Father Cancer Mother Dementia Grandmother CVA (cerebral vascular accident) History Items: Cancer - age 79 Offspring Family History: Family History (Last Reviewed 03/23/20 @ 14:28 by Trent CARSON PA) Father Cancer Mother Dementia Grandmother CVA (cerebral vascular accident) History Items: - - 3 children: 2 living, 1 Review of Systems Constitutional: Denies: Chills, Fever, Weight Change HEENT: Denies: Head Aches, Sinus Congestion, Sinus Drainage Cardiovascular: Reports: Edema. Denies: Chest Pain, Heaviness, Light Headedness, Orthopnea, Palpitations, Syncope Respiratory: Reports: Shortness of Breath, Shortness of breath at rest, Shortness of breath upon exertion. Denies: Cough, Sputum production Gastrointestinal: Denies: Abdominal Pain, Diarrhea, Nausea, Vomiting Genitourinary: Reports: Incontinence. Denies: Dysuria, Hesitancy, Urgency Musculoskeletal: Denies: Joint Pain, Joint Tenderness, Muscle pain Skin: Denies: Lesions, Rash, Wounds Neurological: Denies: Numbness, Tingling, Focal weakness Psychiatric: Denies: Anxiety, Depression, Homicidal Ideations, Suicidal Ideations Hematologic/ Lymphatic: Denies: Easy Bruising, Easy Bleeding VTE Information - Inpt Only VTE Present on Admission: No VTE Mechan Device Prophylaxis: None VTE Pharm Prophylaxis ordered?: Yes Patient Problems: Active and Suspected Problems (Last Reviewed 02/15/19 @ 14:33 by Giovanna Goodwin) PVD (peripheral vascular disease) (Acute) Congestive heart failure (Acute) - Physical Exam Vitals/I&O's: Vital Signs Temp Pulse Resp BP Pulse Ox 97.6 F L 90 20 H 144/93 H 95 03/23/20 12:55 03/23/20 13:46 03/23/20 12:55 03/23/20 12:55 03/23/20 13:15 Oxygen Flow Rate (L/min) 4 Oxygen Delivery Method Nasal Cannula Weight: 172 lb 6.424 oz Body Mass Index (BMI) 34.8 General: Alert, Oriented x3, Cooperative HEENT: Atraumatic, PERRLA, EOMI, Normocephalic Neck: Supple, No JVD, Negative Carotid Bruits Lungs: Clear to auscultation, Normal air movement Cardiovascular: No murmurs, Irregular Rate Abdomen: Bowel Sounds Present, Soft, Non Tender Extremities: Capillary Refill Less than 3 Seconds, Edema - 3+ pitting edema BLE Skin: No rashes, No breakdown Musculoskeletal: No Tenderness to Palpation of Joints or Extremities Neurological: Cranial nerves II-XII grossly intact Psych/Mental Status: Normal Affect, Appropriate, Alert and oriented to time, place, person, mood and affect Laboratory Results 03/23/20 11:00: WBC 7.3, RBC 2.89 L, Hgb 8.3 L, Hct 28.9 L, MCV 100.0 H, MCH 28.7, MCHC 28.7 L, RDW Std Deviation 59.7 H, RDW Coeff of Som 16.8 H, Plt Count 232, MPV 10.8, Immature Gran % (Auto) 0.400, Neut % (Auto) 75.2 H, Lymph % (Auto) 15.0 L, [place] % (Auto) 6.2, Eos % (Auto) 2.5, Baso % (Auto) 0.7, Absolute Neuts (auto) 5.5, Absolute Lymphs (auto) 1.09, Nucleated RBC % 0 03/23/20 11:00: Sodium 144, Potassium 3.9, Chloride 113 H, Carbon Dioxide 30.0, Anion Gap 1 L, BUN 22 H, Creatinine 1.61 H, Estim Creat Clear Calc 40.38, Est GFR (MDRD) Af Amer 41 L, Est GFR (MDRD) Non-Af 33 L, BUN/Creatinine Ratio 13.7, Glucose 97, Calcium 7.7 L, Troponin I < 0.015 03/23/20 11:00: B-Natriuretic Peptide 1535.0 H 03/23/20 11:00: Iron 36 L, TIBC 177 L, Iron Saturation 20.3 Current Medications Acetaminophen/Butalbital/Caffeine (Acetaminophen/Butalbital/Caffe 1 Tablet) tablet PO Q4H PRN PRN PRN Reason: MIGRAINE SYMPTOMS Apixaban (Apixaban 2.5 Mg Tablet) 2.5 mg PO BID [facility] Bumetanide (Bumetanide 1 Mg/4 Ml Vial) 1 mg IV Q8 [facility] Last Admin: 03/23/20 14:08 Dose: 1 mg Documented by: Calcium Carbonate (Calcium Carbonate 500 Mg Tablet) [facility] Carvedilol (Carvedilol 6.25 Mg Tablet) 6.25 mg PO BID [facility] Gabapentin (Gabapentin 600 Mg Tablet) 600 mg PO TID [facility] Last Admin: 03/23/20 14:08 Dose: 600 mg Documented by: Sodium Chloride () 250 mls @ 15 mls/hr IV .[id number] PRN PRN Reason: Saline Flush Sodium Chloride () 250 mls @ 15 mls/hr IV .[id number] PRN PRN Reason: Additional IVPB Infusion Lisinopril (Lisinopril 10 Mg Tablet) 10 mg PO DAILY [facility] Nutritional Formula (Lactose Free) (Ensure Enlive 120 Ml Liquid) 120 ml PO 4X/DAY [facility] Pantoprazole Sodium (Pantoprazole Sodium 40 Mg Tablet) 40 mg PO BID [facility] Potassium Chloride (Potassium Chloride 20 Meq Tablet) 20 meq PO BIDCM [facility] Sertraline HCl (Sertraline 100 Mg Tablet) 150 mg PO DAILY [facility] Sodium Chloride (0.9% Saline Lock 10 Ml Syringe) 10 - 40 ml IV UD PRN PRN Reason: SALINE FLUSH Last Admin: 03/23/20 14:08 Dose: 10 ml Documented by: Tolterodine Tartrate (Tolterodine Tartrate 4 Mg Cap.Sa) 4 mg PO DAILY [facility] Assessment/Plan All Active Problems (Last Reviewed 02/15/19 @ 14:33 by Giovanna Goodwin) Acute kidney injury (Acute) UTI (urinary tract infection) (Acute) Sepsis (Acute) Hypokalemia (Acute) PVD (peripheral vascular disease) (Acute) Shortness of breath (Acute) Congestive heart failure (Acute) 1. Acute diastolic CHF exacerbation, with chronic hypoxic respiratory failure - continue IV bumex, monitor I/Os, fluid restrict. SOB but no increased O2 demand. Recent echo with EF 42 %, defer repeat. BNP 1535, trop negative. 2. Chronic afib - rate controlled. continue coreg, eliquis 3. Chronic anemia - recent GI bleed, was admitted here then transferred to [facility], then was able to resume eliquis - denies bleeding since. iron 36, tibc 177. continue ppi. 4. HTN - mildly elevated. 5. CKDIII - stable 6. 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 Hx gastric bypass surgery. DVT ppx: eliquis DC planning: likely home no needs This patient was seen by Trent Hardy PA-C under the supervision of Dr. Cantrell
--- NOTE | 2020-03-23 14:30 | CASEMGMT ---
Per Margaret GUERRERO, call from [facility] and they state pt is active with them for SN, PT/OT at this time. Laurie GUERRERO CM
[2020-03-23] MEDS: Calcium Carbonate 500 MG Tablet PO (17:12)
[2020-03-23] MEDS: oxyCODONE 5 MG Tablet PO (18:21)
[2020-03-23] MEDS: Pantoprazole Sodium 40 MG Tablet PO (21:52)
[2020-03-23] MEDS: Carvedilol 6.25 MG Tablet PO (21:53)
[2020-03-23] MEDS: APIXABAN 2.5 MG TABLET PO (21:53)
[2020-03-24] VITALS (12 sets, daily range): BP systolic 110–135; BP diastolic 51–70; PULSE 67–101; RESP 12–18; TEMP 36.7–37.1; O2SAT 92–100
[2020-03-24] MEDS: oxyCODONE 5 MG Tablet PO ×4 (00:27→20:39)
[2020-03-24] MEDS: traZODone 50 MG Tablet PO (01:48)
[2020-03-24] MEDS: Gabapentin 600 MG Tablet PO ×3 (05:08→20:39)
[2020-03-24] MEDS: 0.9% Saline Lock 10 ML Syringe IV (05:08)
[2020-03-24] MEDS: Bumetanide 1 MG/4 ML Vial IV ×3 (05:08→20:40)
[2020-03-24] MEDS: Calcium Carbonate 500 MG Tablet PO ×2 (07:58→16:27)
[2020-03-24 08:06] LABS: Anion Gap 3 (5-15); BUN 21 mg/dL (7-18); BUN/Creat Ratio 12.5 RATIO (10-20); Calcium,Total 7.8 mg/dL (8.5-10.1); Chloride 113 mmol/L (98-107); Creatinine, Serum 1.68 mg/dL (0.55-1.02); EST Glomerular Filtration Rate 32 mL/min (>60); Est Glom Filt Rate - Afr Amer 39 mL/min (>60); Estimated Creatinine Clearance 37.92 ml/min; Glucose 88 mg/dL (74-106); Potassium 3.7 mmol/L (3.5-5.1); Sodium Level 145 mmol/L (136-145)
[2020-03-24] MEDS: APIXABAN 2.5 MG TABLET PO ×2 (08:53→20:39)
[2020-03-24] MEDS: Pantoprazole Sodium 40 MG Tablet PO ×2 (08:54→20:39)
[2020-03-24] MEDS: Tolterodine Tartrate 4 MG CAP.SA PO (08:54)
[2020-03-24] MEDS: Sertraline 100 MG Tablet 150 MG PO (08:55)
[2020-03-24] MEDS: Carvedilol 6.25 MG Tablet PO ×2 (08:55→20:39)
[2020-03-24] MEDS: Lisinopril 10 MG Tablet PO (08:55)
--- NOTE | 2020-03-24 11:21 | DCINST_ITS ---
- Discharge Diagnoses Current Active Problems: Current Active and Chronic Problems (Last Reviewed 03/23/20 @ 20:[address] Kyree Cantrell, DO) GI bleed (Chronic) CKD (chronic kidney disease) stage 3, GFR 30-59 ml/min (Chronic) PVD (peripheral vascular disease) (Acute) Chronic fibrosis of lung (Chronic) Iron deficiency anemia (Chronic) Chronic atrial fibrillation (Chronic) Essential hypertension (Chronic) Chronic anemia (Chronic) Congestive heart failure (Acute) You will use the following diet at home:: Cardiac, Fluid restricted (specify 2000 mls, 1500 mls) - 1800 cc / day Your food should be the consistency of: Regular Your liquids should be the consistency of: Regular/Thin Discharge Activity: Return to Normal Activity Allergies/Adverse Reactions: Allergies nitrofurantoin Allergy (Severe, Verified 03/23/20 11:01) mental status change cyclobenzaprine [From Flexeril] Adverse Reaction (Severe, Verified 03/23/20 11:01) frequent falls levofloxacin [From Levaquin] Adverse Reaction (Intermediate, Verified 03/23/20 11:01) diarrhea linezolid [From Zyvox] Adverse Reaction (Unknown, Verified 03/23/20 11:01) PT UNSURE OF REACTION azithromycin Adverse Reaction (Verified 03/23/20 11:01) Diarrhea erythromycin base Adverse Reaction (Verified 03/23/20 11:01) Diarrhea furosemide [From Lasix] Adverse Reaction (Verified 03/23/20 11:01) Nausea Medications to take at Discharge Carvedilol 6.25 mg PO BID 05/29/18 Oxybutynin Chloride [Oxybutynin Chloride ER] 15 mg PO DAILY 05/29/18 Gabapentin 600 mg PO TID 08/20/18 sertraline 50 mg tablet 150 mg PO DAILY tab 12/17/18 biotin 5 mg capsule 5 mg PO DAILY 12/18/18 Apixaban [Eliquis] 2.5 mg PO BID 02/17/20 Calcium Carbonate 600 mg PO BID 02/17/20 Cholecalciferol (Vitamin D3) [Vitamin D3] 2,000 unit PO DAILY 02/17/20 Cyanocobalamin (Vitamin B-12) [Cyanocobalamin Injection] 1,000 mcg IJ QMONTH 02/17/20 Fluticasone 0.05% [Flonase Nasal [place]] 1 spray NASAL DAILY 02/17/20 Lisinopril [Prinivil] 10 mg PO DAILY 02/17/20 Multivitamin 1 tab PO DAILY 02/17/20 Acetaminophen/Butalbital/Caffe [Fioricet] 1 tab PO Q4H PRN PRN 03/23/20 Pantoprazole Sodium [Protonix] 40 mg PO BID 03/23/20 Sucralfate [Carafate] 1 gm PO 4X/DAY 03/23/20 Bumetanide [Bumex] 2 mg PO BID #60 tab 03/24/20 Ferrous Sulfate 325 mg PO BID #60 tab 03/24/20 Potassium Chloride [K-Dur] 20 meq PO BIDCM #60 tab 03/24/20 The following prescriptions were given: Bumetanide [Bumex] 2 mg PO BID #60 tab Transmission Status: Received by [employer] Ferrous Sulfate 325 mg PO BID #60 tab Transmission Status: Received by [employer] Potassium Chloride [K-Dur] 20 meq PO BIDCM #60 tab Transmission Status: Received by [facility] Primary Care Physician: Sharad Burns MD [Primary Care Provider] - Please follow up with your Primary Care Physician in: 1-2 weeks Test Results: Test results from this visit will be discussed in further detail at your follow- up appointment, if applicable. Please Follow Up With: Camille Ware PA When: 2 weeks Proposed Discharge Date: 03/24/20
--- NOTE | 2020-03-24 14:39 | PCM.PN.HOSP ---
Patient Problems: Active and Suspected Problems (Last Reviewed 03/23/20 @ 20:[address] Kyree Cantrell, DO) PVD (peripheral vascular disease) (Acute) Congestive heart failure (Acute) Reason for Visit: SOB, LE edema Subjective: pt resting comfortably in bed NAD. SOB improved. Stable on 4lpm (home dose) O2. LE edema somewhat improved in the feet, ongoing leg swelling. Pt feels that her legs are so swollen that it is too difficult to walk. Vitals/I&O's: Vital Signs Temp Pulse Resp BP Pulse Ox 98.7 F 85 18 119/64 99 03/24/20 14:11 03/24/20 14:11 03/24/20 14:11 03/24/20 14:11 03/24/20 14:11 Oxygen Flow Rate (L/min) 4 Oxygen Delivery Method Nasal Cannula Weight: 172 lb 6.424 oz Body Mass Index (BMI) 34.8 Intake and Output for Last 24 Hours 03/22/20 03/23/20 03/24/20 23:59 23:59 23:59 Intake Total 510 / 510 240 / 240 Output Total 400 / 400 650 / 650 Balance 110 / 110 -410 / -410 General: Alert, Oriented x3, Cooperative HEENT: Atraumatic, PERRLA, EOMI, Normocephalic Neck: Supple, No JVD, Negative Carotid Bruits Lungs: Clear to auscultation, Normal air movement Cardiovascular: Regular rate, No murmurs Abdomen: Bowel Sounds Present, Soft, Non Tender Extremities: Capillary Refill Less than 3 Seconds, Edema - 2-3+ pitting edema BLE Skin: No rashes, No breakdown Musculoskeletal: No Tenderness to Palpation of Joints or Extremities Neurological: Cranial nerves II-XII grossly intact Psych/Mental Status: Normal Affect, Appropriate, Alert and oriented to time, place, person, mood and affect Laboratory Results 03/24/20 07:15: Sodium 145, Potassium 3.7, Chloride 113 H, Carbon Dioxide 29.0, Anion Gap 3 L, BUN 21 H, Creatinine 1.68 H, Estim Creat Clear Calc 37.92, Est GFR (MDRD) Af Amer 39 L, Est GFR (MDRD) Non-Af 32 L, BUN/Creatinine Ratio 12.5, Glucose 88, Calcium 7.8 L Current Medications Acetaminophen/Butalbital/Caffeine (Acetaminophen/Butalbital/Caffe 1 Tablet) 1 tablet PO Q4H PRN PRN PRN Reason: MIGRAINE SYMPTOMS Apixaban (Apixaban 2.5 Mg Tablet) 2.5 mg PO BID COUNT INCLUDES THE [facility] Last Admin: 03/24/20 08:53 Dose: 2.5 mg Documented by: Bumetanide (Bumetanide 1 Mg/4 Ml Vial) 1 mg IV Q8 COUNT INCLUDES THE [facility] Last Admin: 03/24/20 14:16 Dose: 1 mg Documented by: Calcium Carbonate (Calcium Carbonate 500 Mg Tablet) [facility] Last Admin: 03/24/20 07:58 Dose: 500 mg Documented by: Carvedilol (Carvedilol 6.25 Mg Tablet) 6.25 mg PO BID COUNT INCLUDES THE [facility] Last Admin: 03/24/20 08:55 Dose: 6.25 mg Documented by: Ferrous Sulfate (Ferrous Sulfate 325 Mg Tablet) [facility] Gabapentin (Gabapentin 600 Mg Tablet) 600 mg PO TID COUNT INCLUDES THE [facility] Last Admin: 03/24/20 13:17 Dose: 600 mg Documented by: Sodium Chloride () 250 mls @ 15 mls/hr IV .[id number] PRN PRN Reason: Saline Flush Sodium Chloride () 250 mls @ 15 mls/hr IV .[id number] PRN PRN Reason: Additional IVPB Infusion Lisinopril (Lisinopril 10 Mg Tablet) 10 mg PO DAILY COUNT INCLUDES THE [facility] Last Admin: 03/24/20 08:55 Dose: 10 mg Documented by: Nutritional Formula (Lactose Free) (Ensure Enlive 120 Ml Liquid) 120 ml PO 4X/DAY COUNT INCLUDES THE [facility] Stop: 03/24/20 18:00 Oxycodone HCl (Oxycodone 5 Mg Tablet) 5 mg PO Q6H PRN PRN PRN Reason: Pain Score 6-10 Last Admin: 03/24/20 13:17 Dose: 5 mg Documented by: Pantoprazole Sodium (Pantoprazole Sodium 40 Mg Tablet) 40 mg PO BID COUNT INCLUDES THE [facility] Last Admin: 03/24/20 08:54 Dose: 40 mg Documented by: Potassium Chloride (Potassium Chloride 20 Meq Tablet) [facility] Last Admin: 03/24/20 07:58 Dose: 20 meq Documented by: Sertraline HCl (Sertraline 100 Mg Tablet) 150 mg PO DAILY COUNT INCLUDES [facility] Last Admin: 03/24/20 08:55 Dose: 150 mg Documented by: Sodium Chloride (0.9% Saline Lock 10 Ml Syringe) 10 - 40 ml IV UD PRN PRN Reason: SALINE FLUSH Last Admin: 03/24/20 05:08 Dose: 10 ml Documented by: Tolterodine Tartrate (Tolterodine Tartrate 4 Mg Cap.Sa) 4 mg PO DAILY [facility] Last Admin: 03/24/20 08:54 Dose: 4 mg Documented by: STROKE Vital Signs/Narrative: Vital Signs Temp Pulse Resp BP Pulse Ox 03/24/20 14:11 98.7 F 85 18 119/64 99 Medical Necessity - Tobacco Use Smoking Status: Never smoker Tobacco Use: Non-smoker Assessment/Plan All Active Problems (Last Reviewed 03/23/20 @ 20:[address] Kyree Cantrell, DO) Acute kidney injury (Acute) UTI (urinary tract infection) (Acute) Sepsis (Acute) Hypokalemia (Acute) PVD (peripheral vascular disease) (Acute) Shortness of breath (Acute) Congestive heart failure (Acute) 1. Acute diastolic CHF exacerbation, with chronic hypoxic respiratory failure - continue IV bumex, monitor I/Os, fluid restrict. SOB but no increased O2 demand. Recent echo with EF 42 %, defer repeat. BNP 1535, trop negative. -LE edema improved. -Edema making it difficult to ambulate per pt - will continue diuresis overnight -apply ALLA hoses. 2. Chronic afib - rate controlled. continue coreg, eliquis 3. Chronic anemia - recent GI bleed, was admitted here then transferred to [facility], then was able to resume eliquis - denies bleeding since. iron 36, tibc 177. continue ppi. 4. HTN - mildly elevated. 5. CKDIII - stable 6. 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 Hx gastric bypass surgery. DVT ppx: eliquis DC planning: resume HHC at [place]. This patient was seen by Trent Hardy PA-C under the supervision of Dr. Cantrell
[2020-03-24] MEDS: Ferrous Sulfate 325 MG Tablet PO (16:26)
[2020-03-25] VITALS (7 sets, daily range): BP systolic 111–132; BP diastolic 59–65; PULSE 90–110; RESP 18; TEMP 36.9; O2SAT 92–100
[2020-03-25] MEDS: oxyCODONE 5 MG Tablet PO ×2 (02:44→10:37)
[2020-03-25] MEDS: Bumetanide 1 MG/4 ML Vial IV (05:21)
[2020-03-25] MEDS: Gabapentin 600 MG Tablet PO (05:28)
[2020-03-25 08:11] LABS: Anion Gap 3 (5-15); BUN 22 mg/dL (7-18); BUN/Creat Ratio 13.4 RATIO (10-20); Calcium,Total 7.7 mg/dL (8.5-10.1); Chloride 108 mmol/L (98-107); Creatinine, Serum 1.64 mg/dL (0.55-1.02); EST Glomerular Filtration Rate 33 mL/min (>60); Est Glom Filt Rate - Afr Amer 40 mL/min (>60); Estimated Creatinine Clearance 38.69 ml/min; Glucose 94 mg/dL (74-106); Potassium 3.9 mmol/L (3.5-5.1); Sodium Level 142 mmol/L (136-145)
[2020-03-25] MEDS: Calcium Carbonate 500 MG Tablet PO (08:43)
[2020-03-25] MEDS: Ferrous Sulfate 325 MG Tablet PO (08:43)
[2020-03-25] MEDS: Sertraline 100 MG Tablet 150 MG PO (08:44)
[2020-03-25] MEDS: Carvedilol 6.25 MG Tablet PO (08:44)
[2020-03-25] MEDS: Pantoprazole Sodium 40 MG Tablet PO (08:44)
[2020-03-25] MEDS: Tolterodine Tartrate 4 MG CAP.SA PO (08:44)
[2020-03-25] MEDS: Lisinopril 10 MG Tablet PO (08:45)
--- NOTE | 2020-03-25 09:44 | CASEMGMT ---
Addendum entered by Verenice Gabriel 03/25/20 13:42: D/C summ faxed to [facility] at this time. They are also notified that pt was inpt and no longer OBS, voice understanding. Laurie GUERRERO CM Addendum entered by Verenice Gabriel 03/25/20 09:53: Call to [facility] and she states that pt is not theirs. Call to [facility] and they say pt is not active with them that she is in the [facility] area. Call to [facility] and they state pt is active with them. Advised them that pt to be discharged today and H&P, ASIA order and d/c instructions to be faxed to them at this time. [facility] [phone] . Laurie GUERRERO CM Original Note: H&P, ASIA order, and D/C instructions faxed to [facility] at this time and this YOLANDA HOOK attempted to call [facility] without success at this time to notify of d/c and fax. Will attempt again later. Pt is active with [facility] palliative care at this time as well. Laurie GUERRERO CM
--- NOTE | 2020-03-25 09:45 | CASEMGMT ---
SW called [facility] and spoke with Tanya. She said patient is active with them. She was not sure patient was seen by them last. SW let her know of admission and likely d/c today. SW will fax d/c instructions to Palliative Care. Amie BARAJAS MSW
[2020-03-25] MEDS: APIXABAN 2.5 MG TABLET PO (09:48)
--- NOTE | 2020-03-25 13:01 | DS.PCM_ITS ---
Discharge Date and Diagnosis - Problem List Patient Problems: Active and Suspected Problems (Last Reviewed 03/23/20 @ 20:[address] Kyree Cantrell DO) PVD (peripheral vascular disease) (Acute) Congestive heart failure (Acute) Date of Admission: 03/23/20 Date of Discharge: 03/25/20 - Primary Discharge Diagnosis Acute Problems: Active Problems (Last Reviewed 03/23/20 @ 20:[address] Kyree Cantrell DO) Acute on chronic diastolic congestive heart failure Chronic hypoxic respiratory failure - Secondary Discharge Diagnosis Chronic Problems: Chronic Problems (Last Reviewed 03/23/20 @ 20:[address] Kyree Cantrell DO) GI bleed (Chronic) CKD (chronic kidney disease) stage 3, GFR 30-59 ml/min (Chronic) Chronic fibrosis of lung (Chronic) Iron deficiency anemia (Chronic) History of right and left heart catheterization (Chronic 02/20/19) 50% stenosis in LAD, all other coronaries normal. No need for PCI. Severe pulmonary hypertension, severe LV dysfunction: EF 25%. Per TU @ [facility] 1 Chronic atrial fibrillation (Chronic) Essential hypertension (Chronic) Chronic anemia (Chronic) Hospital Course and Treatment Imaging Results: RAD/Chest 1 View (Portable) IMPRESSION: Cardiomegaly and mild degree of CHF. Operations: None, - Procedures: None Summary of Care Provided: Hospital Course: The patient is a 69 year old F past medical history of diastolic congestive heart failure, chronic A. fib, chronic iron deficiency anemia, hypertension, CKD stage III, spindle cell carcinoma of the pelvis in remission, history of gastric bypass, who presented to the emergency room with increased shortness of breath and severe lower extremity edema. She was found to have chest x-ray consistent with congestive heart failure and a markedly elevated BNP. Patient was admitted to the PCU and placed on telemetry. She had had an echocardiogram in January and her ejection fraction was 42% with 1+ MVI, 1-2+ TVI, PASP of 50 mmHg consistent with moderate pulmonary hypertension. Repeat was deferred at this time. She responded well to IV Bumex. The patient has chronic approxirespiratory failure and uses 4 L/min at baseline. She did not require any additional oxygen supplementation during her time here. Lower extremity edema markedly improved. Patient was discharged home with resumption of home health care. Home Bumex dose was increased. She will need follow-up with her PCP in 1 to 2 weeks, follow-up with cardiology in 2 weeks. This patient was seen by Trent Hardy PA-C under the supervision of Doctor Óscar. [] Patient Problems: Active and Suspected Problems (Last Reviewed 03/23/20 @ 20:[address] Kyree Cantrell, DO) PVD (peripheral vascular disease) (Acute) Congestive heart failure (Acute) - Physical Exam Vitals/I&O's: Vital Signs Temp Pulse Resp BP Pulse Ox 98.4 F 96 18 111/59 L 94 03/25/20 08:24 03/25/20 11:00 03/25/20 08:24 03/25/20 08:24 03/25/20 08:40 Oxygen Flow Rate (L/min) 4 Oxygen Delivery Method Nasal Cannula Weight: 171 lb 11.841 oz Body Mass Index (BMI) 34.8 Intake and Output for Last 24 Hours 03/23/20 03/24/20 03/25/20 23:59 23:59 23:59 Intake Total 510 / 510 870 / 1020 420 / 420 Output Total 400 / 400 975 / 1275 650 / 650 Balance 110 / 110 -105 / -255 -230 / -230 General: Alert, Oriented x3, Cooperative HEENT: Atraumatic, PERRLA, EOMI, Normocephalic Neck: Supple, No JVD, Negative Carotid Bruits Lungs: No rales Cardiovascular: Regular rate, No murmurs Abdomen: Bowel Sounds Present, Soft, Non Tender Extremities: Capillary Refill Less than 3 Seconds, Edema - 1-2+ pitting edema ble Skin: No rashes, No breakdown Musculoskeletal: No Tenderness to Palpation of Joints or Extremities Neurological: Cranial nerves II-XII grossly intact Psych/Mental Status: Normal Affect, Appropriate, Alert and oriented to time, place, person, mood and affect Laboratory Results 03/25/20 06:55: Sodium 142, Potassium 3.9, Chloride 108 H, Carbon Dioxide 31.0, Anion Gap 3 L, BUN 22 H, Creatinine 1.64 H, Estim Creat Clear Calc 38.69, Est GFR (MDRD) Af Amer 40 L, Est GFR (MDRD) Non-Af 33 L, BUN/Creatinine Ratio 13.4, Glucose 94, Calcium 7.7 L Current Medications Acetaminophen/Butalbital/Caffeine (Acetaminophen/Butalbital/Caffe 1 Tablet) 1 tablet PO Q4H PRN PRN PRN Reason: MIGRAINE SYMPTOMS Apixaban (Apixaban 2.5 Mg Tablet) 2.5 mg PO BID [facility] Last Admin: 03/25/20 09:48 Dose: 2.5 mg Documented by: Bumetanide (Bumetanide 1 Mg/4 Ml Vial) 1 mg IV Q8 [facility] Last Admin: 03/25/20 05:21 Dose: 1 mg Documented by: Calcium Carbonate (Calcium Carbonate 500 Mg Tablet) [facility] Last Admin: 03/25/20 08:43 Dose: 500 mg Documented by: Carvedilol (Carvedilol 6.25 Mg Tablet) 6.25 mg PO BID [facility] Last Admin: 03/25/20 08:44 Dose: 6.25 mg Documented by: Ferrous Sulfate (Ferrous Sulfate 325 Mg Tablet) [facility] Last Admin: 03/25/20 08:43 Dose: 325 mg Documented by: Gabapentin (Gabapentin 600 Mg Tablet) 600 mg PO TID [facility] Last Admin: 03/25/20 05:28 Dose: 600 mg Documented by: Sodium Chloride () 250 mls @ 15 mls/hr IV .[id number] PRN PRN Reason: Saline Flush Sodium Chloride () 250 mls @ 15 mls/hr IV .[id number] PRN PRN Reason: Additional IVPB Infusion Lisinopril (Lisinopril 10 Mg Tablet) 10 mg PO DAILY [facility] Last Admin: 03/25/20 08:45 Dose: 10 mg Documented by: Oxycodone HCl (Oxycodone 5 Mg Tablet) 5 mg PO Q6H PRN PRN PRN Reason: Pain Score 6-10 Last Admin: 03/25/20 10:37 Dose: 5 mg Documented by: Pantoprazole Sodium (Pantoprazole Sodium 40 Mg Tablet) 40 mg PO BID [facility] Last Admin: 03/25/20 08:44 Dose: 40 mg Documented by: Potassium Chloride (Potassium Chloride 20 Meq Tablet) [facility] Last Admin: 03/25/20 08:43 Dose: 20 meq Documented by: Sertraline HCl (Sertraline 100 Mg Tablet) 150 mg PO DAILY [facility] Last Admin: 03/25/20 08:44 Dose: 150 mg Documented by: Sodium Chloride (0.9% Saline Lock 10 Ml Syringe) 10 - 40 ml IV UD PRN PRN Reason: SALINE FLUSH Last Admin: 03/24/20 05:08 Dose: 10 ml Documented by: Tolterodine Tartrate (Tolterodine Tartrate 4 Mg Cap.Sa) 4 mg PO DAILY [facility] Last Admin: 03/25/20 08:44 Dose: 4 mg Documented by: Discharge Diet: Low fat/ Low Cholesterol, 2000 mg Sodium Diet Discharge Activity: Return to Normal Activity Home Medications: Medications to take at Discharge Carvedilol 6.25 mg PO BID 05/29/18 Oxybutynin Chloride [Oxybutynin Chloride ER] 15 mg PO DAILY 05/29/18 Gabapentin 600 mg PO TID 08/20/18 sertraline 50 mg tablet 150 mg PO DAILY tab 12/17/18 biotin 5 mg capsule 5 mg PO DAILY 12/18/18 Apixaban [Eliquis] 2.5 mg PO BID 02/17/20 Calcium Carbonate 600 mg PO BID 02/17/20 Cholecalciferol (Vitamin D3) [Vitamin D3] 2,000 unit PO DAILY 02/17/20 Cyanocobalamin (Vitamin B-12) [Cyanocobalamin Injection] 1,000 mcg IJ QMONTH 02/17/20 Fluticasone 0.05% [Flonase Nasal [place]] 1 spray NASAL DAILY 02/17/20 Lisinopril [Prinivil] 10 mg PO DAILY 02/17/20 Multivitamin 1 tab PO DAILY 02/17/20 Acetaminophen/Butalbital/Caffe [Fioricet] 1 tab PO Q4H PRN PRN 03/23/20 Pantoprazole Sodium [Protonix] 40 mg PO BID 03/23/20 Sucralfate [Carafate] 1 gm PO 4X/DAY 03/23/20 Bumetanide [Bumex] 2 mg PO BID #60 tab 03/24/20 Ferrous Sulfate 325 mg PO BID #60 tab 03/24/20 Potassium Chloride [K-Dur] 20 meq PO BIDCM #60 tab 03/24/20 Tramadol HCl [Ultram] 50 mg PO Q8H PRN PRN #30 tab 03/25/20 Following Prescriptions Were Given to Patient: Bumetanide [Bumex] 2 mg PO BID #60 tab Transmission Status: Received by [facility] Ferrous Sulfate 325 mg PO BID #60 tab Transmission Status: Received by [facility] Potassium Chloride [K-Dur] 20 meq PO BIDCM #60 tab Transmission Status: Received by [facility] Tramadol HCl [Ultram] 50 mg PO Q8H PRN PRN #30 tab PRN Reason: Pain Score 6-10 Transmission Status: Received by [facility] Primary Care Physician: Sharad Burns MD [Primary Care Provider] - Please follow up with your Primary Care Physician in: 1-2 weeks Please Follow Up With: Camille Ware, PA When: 2 weeks Disposition: Home with Home Health Minutes spent on discharge:: 35 Patient Condition:: Stable Medical Necessity - Tobacco Use Smoking Status: Never smoker Tobacco Use: Non-smoker Meaningful Use Info Meaningful Use Diagnoses (Choose all that apply): CHF - CHF SONNY/ARB ordered at discharge?: Yes Documented LVEF (%): 65
--- NOTE | 2020-03-25 14:16 | CASEMGMT ---
Patient has a Healthcare Power of [employer] Milling Machine Set Up Operator and a Healthcare Living Will on file at [facility]. Her son Jaswant is her Healthcare Power of Thread Milling Machine Set Up Operator. Amie BARAJAS MSW
--- NOTE | 2020-03-25 14:54 | CASEMGMT ---
Readmission chart review: Pt was initially admitted 02/16-02/21/2020 for Sepsis/SOB and ended up being transferred to [facility] main [place] for GI bleed. [facility] [place] and [facility]. Pt returned to [facility] ED on 03/23/2020 increased edema to bilat lower extremity, increased SOB w/ hx CHF. Pt was admitted as OBS for Acute on Chronic diastolic CHF and then was switched to IP on 03/24/2020. Pt is on 4liters ak at home already d/t CHF. CM to follow for any further discharge planning/needs. SStmatilde GUERRERO CM
--- NOTE | 2020-03-26 15:53 | CASEMGMT ---
RN CM Discharge F/U Phone Call LACE: 10 Strata: 3 Discharge date: 03/25/2020 Call date: 03/26/2020 Call time: [phone] Attempted to reach pt without success at this time, message left for pt to call this RN CM back if/when able. SStaten RN CM Admission dx: A on C Diastolic HF
== END 2020-03-25 14:18 | disposition home or self-care (01) | DRG 291 ==
LOC: ED 11:25 → PCU 13:02
PROVIDERS: Physician Assistant; Admitting Provider Internal Medicine; Emergency Provider Emergency Medicine; PCP Family Medicine; Visit Provider Internal Medicine
DX: I13.0 Hypertensive heart and chronic kidney disease with heart failure and stage 1 through stage 4 chronic kidney disease, or unspecified chronic kidney disease (principal); I50.33 Acute on chronic diastolic (congestive) heart failure; N17.9 Acute kidney failure, unspecified; I48.20 Chronic atrial fibrillation, unspecified; J96.11 Chronic respiratory failure with hypoxia; N18.30 Chronic kidney disease, stage 3 unspecified; I73.9 Peripheral vascular disease, unspecified; J84.10 Pulmonary fibrosis, unspecified; D50.9 Iron deficiency anemia, unspecified; F41.9 Anxiety disorder, unspecified; F32.9 Major depressive disorder, single episode, unspecified; M81.0 Age-related osteoporosis without current pathological fracture; I83.11 Varicose veins of right lower extremity with inflammation; I83.12 Varicose veins of left lower extremity with inflammation; Z85.831 Personal history of malignant neoplasm of soft tissue; Z87.19 Personal history of other diseases of the digestive system; Z98.84 Bariatric surgery status; Z79.01 Long term (current) use of anticoagulants; Z87.440 Personal history of urinary (tract) infections; Z86.19 Personal history of other infectious and parasitic diseases; Z79.899 Other long term (current) drug therapy
CPT/HCPCS: 36415; 71045; 80048; 83540; 83550; 83880; 84484; 85025; 93005; 97162; 97166; 97802; 99285; J7050; A4216; J2916

== ENCOUNTER 2020-05-19 13:02 | Inpatient (IN) | payer MEDICARE, BC, SELFPAY ==
[2020-03-23 12:51] VITALS: BMI 34.8
[2020-05-19] VITALS (15 sets, daily range): BP systolic 130–164; BP diastolic 69–98; PULSE 83–102; RESP 12–28; TEMP 36.1–36.9; O2SAT 90–99; BMI 31.8; BMI 29.9
--- NOTE | 2020-05-19 13:19 | EKG12_ITS ---
Test Reason : SOB Blood Pressure : / mmHG Vent. Rate : 095 BPM Atrial Rate : 170 BPM P-R Int : 000 ms QRS Dur : 086 ms QT Int : 326 ms P-R-T Axes : 000 031 158 degrees QTc Int : 409 ms Atrial fibrillation Low voltage QRS ST & T wave abnormality, consider lateral ischemia Abnormal ECG Confirmed by EFRA JEFFRIES, CHASE ([id number]), editor publications IRAM MCKEON ([id number]) on 05/25/2020 9:20:34 AM Referred By: JENNIFER Confirmed By:DENNISE KRAUS MD
--- NOTE | 2020-05-19 13:37 | ED.DCSUM_ITS ---
History of Present Illness Chief Complaint: Shortness of Breath Informant: Patient Narrative: 1-year-old female presenting with worsening shortness of breath over the last 2 days. He does report leg swelling as well. She states he usually can walk from one room to the next without too much difficulty but she is only able to walk short distances currently. She does not have a fever, change in taste or smell, body aches. She does admit to a chronic cough which is unchanged. Patient states has had intermittent chest pressure for the last few months. This is short lasting. She denies history of cardiac stents but does admit to history of CHF. - Past Medical History (1) Congestive heart failure Status: Chronic (2) CKD (chronic kidney disease) stage 3, GFR 30-59 ml/min Status: Chronic Past Medical History - Allergies and Home Meds Allergies/Adverse Reactions: Allergies nitrofurantoin Allergy (Severe, Verified 05/19/20 13:03) mental status change cyclobenzaprine [From Flexeril] Adverse Reaction (Severe, Verified 05/19/20 13:03) frequent falls levofloxacin [From Levaquin] Adverse Reaction (Intermediate, Verified 05/19/20 13:03) diarrhea linezolid [From Zyvox] Adverse Reaction (Unknown, Verified 05/19/20 13:03) PT UNSURE OF REACTION azithromycin Adverse Reaction (Verified 05/19/20 13:03) Diarrhea erythromycin base Adverse Reaction (Verified 05/19/20 13:03) Diarrhea furosemide [From Lasix] Adverse Reaction (Verified 05/19/20 13:03) Nausea Primary Care Physician: Sharad Burns MD [Primary Care Provider] - Prior records reviewed: Yes Past Medical History: - - Viewed in problem list. 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 Lives: Spouse/ Significant Other Smoking Status: Never smoker Alcohol: None Drugs: None - Family History Maternal Family History: Family History (Last Reviewed 03/23/20 @ 14:28 by Trent CARSON, PA) Father Cancer Mother Dementia Grandmother CVA (cerebral vascular accident) Family History: Reports: Diabetes - alive age 86 Paternal Family History: Family History (Last Reviewed 03/23/20 @ 14:28 by ALLI Alfonso) Father Cancer Mother Dementia Grandmother CVA (cerebral vascular accident) Family History: Reports: Cancer - age 79 Offspring Family History: Family History (Last Reviewed 03/23/20 @ 14:28 by Trent CARSON PA) Father Cancer Mother Dementia Grandmother CVA (cerebral vascular accident) Family History: Reports: - - 3 children: 2 living, 1 Review of Systems General: Denies: Chills, Fever, Sweats Eyes: Reports: - - No change in taste or smell.. Denies: Visual changes - bilaterally, Diplopia ENT: Denies: Rhinorrhea, Sore throat Cardiovascular: Reports: Chest pain. Denies: Palpitations, Heart racing Respiratory: Reports: Dyspnea, Dyspnea on exertion. Denies: Sputum Gastrointestinal: Denies: Abdominal pain, Nausea, Vomiting, Diarrhea, Melena, Hematochezia Genitourinary: Denies: Dysuria, Hematuria, Frequency Musculoskeletal: Reports: Swelling - Bilateral lower extremity swelling. Denies: Myalgias, Extremity Pain Skin: Denies: Rash, Wounds Neurological: Denies: Headache, Weakness, Numbness Physical Exam Vital Signs/Narrative: Vital Signs Temp Pulse Resp BP Pulse Ox 05/19/20 13:04 97.4 F L 96 26 H 164/70 H 95 05/19/20 13:03 89 23 H 164/70 H 93 Inital Vital Signs reviewed: Yes General: Well nourished, No Acute Distress Head: Normocephalic, Atraumatic Eyes: Perrl, EOMI ENT: Moist mucous membranes, No rhinorrhea Cardiovascular: Regular rate, Irregular Extremities: Edema. Negative for: Calf Tenderness Skin: Normal color, No rash Neurological: Alert, Oriented x3, Cranial nerves II-XII grossly intact, Normal Strength, Normal Sensation Psychological: Normal affect, Normal Mood Diagnostic/Tx/Re-eval Clinical Impression(s) from Imaging Studies Chest X-Ray 05/19/20 13:44 IMPRESSION: Bilateral pneumonia, pulmonary edema, or ARDS greater on the left than the right. Electronically Signed: Laron Argueta MD at 14:27 EST Tel , Service support , Laboratory Data 05/19/20 05/19/20 05/19/20 13:15 13:15 13:15 WBC 12.1 H RBC 3.51 L Hgb 10.1 L Hct 35.4 L MCV 100.9 H MCH 28.8 MCHC 28.5 L RDW Std Deviation 63.3 H RDW Coeff of Som 17.8 H Plt Count 223 MPV 10.9 Immature Gran % (Auto) 0.600 Neut % (Auto) 84.8 H Lymph % (Auto) 9.7 L [place] % (Auto) 4.4 Eos % (Auto) 0.2 Baso % (Auto) 0.3 Absolute Neuts (auto) 10.3 H Absolute Lymphs (auto) 1.17 Nucleated RBC % 0.3 Sodium 145 Potassium 3.5 Chloride 108 H Carbon Dioxide 32.0 Anion Gap 5 BUN 36 H Creatinine 1.86 H Estim Creat Clear Calc 30.86 Est GFR (MDRD) Af Amer 34 L Est GFR (MDRD) Non-Af 28 L BUN/Creatinine Ratio 19.4 Glucose 114 H Calcium 8.2 L Troponin I 0.017 B-Natriuretic Peptide 2104.9 H - Rhythm Strip Rhythm Strip: A-fib Rate: 95 - EKG Initial EKG Interpretation: Atrial Fibrillation - Ventricular rate of 95 bpm., Non-Specific ST Changes - Medical Decision Making Patient presents with shortness of breath over the last 2 days. She has a history of heart failure. Patient states that she can only walk 1 room at a time when she used to be able to walk 3 rooms. She is requiring 5 L of oxygen here which is a liter above her baseline. She also reports intermittent chest pain. Initial EKG interpreted by myself shows atrial fibrillation at 95 bpm. Chest x-ray as read by the radiologist shows bilateral pneumonia, pulmonary edema, or ARDS greater on the left than the right, however at this time I believe it is likely due to heart failure as my interpretation of this chest x- ray. Patient does have an elevated BNP and slight lower extremity edema. BC shows her hemoglobin is above her baseline. Her GFR is around her baseline currently. Patient states that she self caths usually and requests a Amanda catheter since she is being admitted. Patient's Covid swab is pending currently. Discussed patient with hospitalist who wanted to give 2 mg of IV Bumex as well as place the patient on BiPAP. I had already ordered her Nitropaste. Discussed with patient with the plan would be for admission. She is amenable to this. Patient will be signed out to incoming ED physician for follow-up on Covid?19 swab as well as monitoring until admission takes place. Impression: 1. CHF exacerbation 2. Shortness of breath ED Disposition - Plan for ED Patient: Referrals: Sharad Burns MD [Primary Care Provider] -
[2020-05-19 13:41] LABS: Absolute Lymphocyte Count 1.17 X10^3/uL (0.83-4.51); Absolute Neutrophil Count 10.3 X10^3/uL (2.0-7.7); Basophil# 0.04 X10^3/uL; Basophil% 0.3 % (0-1); Eosinophil# 0.02 X10^3/uL; Eosinophils% 0.2 % (0-5); Hematocrit 35.4 % (37-47); Hemoglobin 10.1 g/dL (12.0-15.0); Lymphocyte # 1.17 X10^3/ul (4.0); Lymphocyte % 9.7 % (19-41); Mean Corp Hgb Conc 28.5 g/dL (32-36); Mean Corpuscular Hgb 28.8 pg (27.0-32.0); Mean Corpuscular Volume 100.9 fL (81-99); Mean Platelet Vol. 10.9 fl (6.2-12.0); Monocyte# 0.53 X10^3/uL; Monocyte% 4.4 % (0-10); NRBC Flagged by Analyzer 0.3 % (0-5); Neutrophil # 10.26 X10^3/uL (2.7-7.7); Neutrophil % 84.8 % (47-70); Platelet Count 223 K/mm3 (150-450); RBC Distribution Width CV 17.8 % (11.6-14.6); RBC Distribution Width SD 63.3 fl (35.1-43.9); Red Blood Count 3.51 M/mm3 (4.2-5.4); White Blood Count 12.1 K/mm3 (4.4-11.0)
--- NOTE | 2020-05-19 13:44 | RAD_ITS ---
STUDY: X-RAY CHEST REASON FOR EXAM: Female, 70 years old. SOB/DYSPNEA TECHNIQUE: Single AP portable view of the chest. COMPARISON: 03/23/2020 FINDINGS: Right internal jugular chest port which is unchanged. Poor inspiration with some bibasilar atelectasis. Alveolar opacity throughout both lungs consistent with bilateral pneumonia, pulmonary edema, or ARDS. This is greater on the left than the right. There is no demonstrated pleural abnormality. There is moderate cardiac enlargement. Normal mediastinum and elif. Normal visualized pulmonary arteries. Normal visualized aortic arch and descending thoracic aorta. Normal visualized thoracic spine. Status post left shoulder reverse arthroplasty. There is no demonstrated abnormality of the visualized soft tissue structures of the upper abdomen. RAD/Chest 1 View (Portable) IMPRESSION: Bilateral pneumonia, pulmonary edema, or ARDS greater on the left than the right. Electronically Signed: Laron Argueta MD at 14:27 EST Tel , Service support ,
[2020-05-19 14:02] LABS: Anion Gap 5 (5-15); BUN 36 mg/dL (7-18); BUN/Creat Ratio 19.4 RATIO (10-20); Calcium,Total 8.2 mg/dL (8.5-10.1); Chloride 108 mmol/L (98-107); Creatinine, Serum 1.86 mg/dL (0.55-1.02); EST Glomerular Filtration Rate 28 mL/min (>60); Est Glom Filt Rate - Afr Amer 34 mL/min (>60); Estimated Creatinine Clearance 30.86 ml/min; Glucose 114 mg/dL (74-106); Potassium 3.5 mmol/L (3.5-5.1); Sodium Level 145 mmol/L (136-145)
[2020-05-19 14:10] LABS: BNP,B-Type NATRIURETIC PEPTIDE 2104.9 pg/mL (0-100)
--- NOTE | 2020-05-19 14:34 | NURSING ---
DR LAGUNAS FOR DR MUSTAFA
[2020-05-19] MEDS: Nitroglycerin Oint 1 INCH PACKET TD ×2 (14:44→22:11)
[2020-05-19] MEDS: Bumetanide 1 MG/4 ML Vial 2 MG IV (14:45)
--- NOTE | 2020-05-19 14:57 | NURSING ---
GAVIN LAGUNAS CHF EXAC
--- NOTE | 2020-05-19 15:37 | PCM.HP.STD ---
Problem List (1) Acute kidney injury Status: Acute (2) UTI (urinary tract infection) Status: Resolved Qualifiers: Urinary tract infection type: catheter-associated UTI Indwelling urinary catheter type: unspecified Encounter type: initial encounter Qualified Code(s): T83.511A - Infection and inflammatory reaction due to indwelling urethral catheter, initial encounter; N39.0 - Urinary tract infection, site not specified (3) Sepsis Status: Resolved Qualifiers: Sepsis acute organ dysfunction status: with acute organ dysfunction Severe sepsis acute organ dysfunction type: acute renal failure (4) Hypokalemia Status: Resolved (5) GI bleed Status: Resolved Qualifiers: (6) CKD (chronic kidney disease) stage 3, GFR 30-59 ml/min Status: Chronic (7) PVD (peripheral vascular disease) Status: Chronic (8) Chronic fibrosis of lung Status: Chronic (9) Iron deficiency anemia Status: Chronic (10) History of right and left heart catheterization Status: Chronic Comment: 50% stenosis in LAD, all other coronaries normal. No need for PCI. Severe pulmonary hypertension, severe LV dysfunction: EF 25%. Per TU @ [facility] 02/20/2019 (11) Shortness of breath Status: Acute (12) Chronic atrial fibrillation Status: Chronic (13) Essential hypertension Status: Chronic (14) Chronic anemia Status: Chronic (15) Congestive heart failure Status: Acute Qualifiers: Heart failure type: combined systolic and diastolic History of Present Illness Date of Admission: 05/19/20 Mrs Carey is a 70 year old F who has a complicated PMH as noted below who presented to the ED on 05/19/2020 with worsening SOB over the last 4 days. She states that at baseline she wears 4 L nasal cannula and is able to ambulate thorough about 3 rooms at her home with ease but over the last 4 days she has gotten progressively SOB and is now only able to ambulate trough about 1/2 of a room at her house. She does admit to eating ham at [employer] but states that she ate very little amounts. She has had no sick contacts and denies fever, chills, myalgias, changes in smell or taste and admits to a chronic cough which is at her baseline. She also notes B LE edema which has worsened. She is to see a university relations vice president at [facility] soon but has not seen them yet and is unable to remember that persons name. In the ED she is requiring 5 L and is dyspneic with conversation on that. Her EKG shows rate controlled a-fib which is not new for her. Her CXR shows marked B pulmonary edema/infiltrates that is severely worsened when compared to her last CXR done here. She has marked JVD and HJR was noted on exam. She has crackles B lung bases to about 2/3 lung dooley. COVID swab is pending. Lab shows a mild white count elevation, with a chronic stable macrocytic anemia and a sCr of 1.86 which is close to her baseline (1.6-1.8). Her BNP was 2104.9 which is markedly higher than what she typically runs. She was given Bumex in the ED and placed on BIPAP to assist with her CHF. She will be admitted to PCU. Past Medical History Past Medical History (Chronic Problems): Chronic Problems (Last Reviewed 03/23/20 @ 20:[address] Kyree Cantrell DO) CKD (chronic kidney disease) stage 3, GFR 30-59 ml/min (Chronic) PVD (peripheral vascular disease) (Chronic) Chronic fibrosis of lung (Chronic) Iron deficiency anemia (Chronic) History of right and left heart catheterization (Chronic 02/20/19) 50% stenosis in LAD, all other coronaries normal. No need for PCI. Severe pulmonary hypertension, severe LV dysfunction: EF 25%. Per [facility] @ [facility] 02/20/2019 Chronic atrial fibrillation (Chronic) Essential hypertension (Chronic) Chronic anemia (Chronic) Medical History: Medical History (Last Updated 05/19/20 @ 15:[address] 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 Varicose veins of both lower extremities I83.93 Venous stasis dermatitis of both lower extremities I83.11, I83.12 Allergies nitrofurantoin Allergy (Severe, Verified 05/19/20 13:03) mental status change cyclobenzaprine [From Flexeril] Adverse Reaction (Severe, Verified 05/19/20 13:03) frequent falls levofloxacin [From Levaquin] Adverse Reaction (Intermediate, Verified 05/19/20 13:03) diarrhea linezolid [From Zyvox] Adverse Reaction (Unknown, Verified 05/19/20 13:03) PT UNSURE OF REACTION azithromycin Adverse Reaction (Verified 05/19/20 13:03) Diarrhea erythromycin base Adverse Reaction (Verified 05/19/20 13:03) Diarrhea furosemide [From Lasix] Adverse Reaction (Verified 05/19/20 13:03) Nausea Home Medications: Ambulatory Orders Medication Instructions Recorded Carvedilol 6.25 mg PO BID 05/29/18 Oxybutynin Chloride [Oxybutynin 15 mg PO DAILY 05/29/18 Chloride ER] Gabapentin 600 mg PO TID 08/20/18 sertraline 50 mg tablet 150 mg PO DAILY tab 12/17/18 biotin 5 mg capsule 5 mg PO DAILY 12/18/18 Apixaban [Eliquis] 2.5 mg PO BID 02/17/20 Calcium Carbonate 600 mg PO BID 02/17/20 Cholecalciferol (Vitamin D3) 2,000 unit PO DAILY 02/17/20 [Vitamin D3] Fluticasone 0.05% [Flonase Nasal 1 spray NASAL DAILY PRN 02/17/20 [place]] Lisinopril [Prinivil] 10 mg PO DAILY 02/17/20 Multivitamin 1 tab PO DAILY 02/17/20 Pantoprazole Sodium [Protonix] 40 mg PO BID 03/23/20 Sucralfate [Carafate] 1 gm PO 4X/DAY 03/23/20 Bumetanide [Bumex] 2 mg PO BID #60 tab 03/24/20 Potassium Chloride [K-Dur] 20 meq PO BIDCM #60 tab 03/24/20 Tramadol HCl [Ultram] 50 mg PO Q8H PRN PRN #30 tab 03/25/20 Surgical History: Surgical History (Last Reviewed 05/19/20 @ 15:[address] Bree Waldrop DO) History of right and left heart catheterization (Chronic) Onset Date: 10/02/19 Z98.890 50% stenosis in LAD, all other coronaries normal. No need for PCI. Severe pulmonary hypertension, severe LV dysfunction: EF 25%. Per [facility] @ 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 Psychiatric History: Anxiety, Depression MBA INTERN History: No pertinent MBA INTERN history Lives: Spouse/ Significant Other Smoking Status: Never smoker Alcohol: None Drugs: None - *Family History Maternal Family History: Family History (Last Reviewed 05/19/20 @ 15:[address] Bree Waldrop DO) Father Cancer Mother Dementia Grandmother CVA (cerebral vascular accident) History Items: Diabetes - alive age 86 Paternal Family History: Family History (Last Reviewed 05/19/20 @ 15:[address] Bree Waldrop DO) Father Cancer Mother Dementia Grandmother CVA (cerebral vascular accident) History Items: Cancer - age 79 Offspring Family History: Family History (Last Reviewed 05/19/20 @ 15:[address] Bree Waldrop DO) Father Cancer Mother Dementia Grandmother CVA (cerebral vascular accident) History Items: - - 3 children: 2 living, 1 Review of Systems Constitutional: Reports: Fatigue. Denies: Anorexia, Chills, Fever, Night Sweats, Malaise, Weakness, Weight Change Eyes: Denies: Double vision, Drainage, Eyelid Inflammation, Pain, Redness, Vision Change HEENT: Reports: Difficulty Hearing, Hard of Hearing. Denies: Difficulty Swallowing, Eye Pain, Head Aches, Nasal bleeding, Nasal Congestion, Post Nasal Drip, Sinus Congestion, Sinus Drainage, Sore Throat, Visual Changes Cardiovascular: Reports: Edema, Orthopnea, Paroxysmal Noc. Dyspnea. Denies: Chest Pain, Claudication, Chest Pressure, Chest Tightness, Heaviness, Light Headedness, Palpitations, Syncope Respiratory: Reports: Cough - chronic, Shortness of Breath, Shortness of breath at rest, Shortness of breath upon exertion. Denies: Hemoptysis, Pleuritic Pain, Sputum production, Wheezing Gastrointestinal: Denies: Abdominal Pain, Constipation, Diarrhea, Dyspepsia, Hematemesis, Hematochezia, Nausea, Melena, Vomiting Genitourinary: Reports: Incontinence, Retention, - - self caths at home. Denies: Dysuria, Frequency, Nocturia, Urgency Musculoskeletal: Reports: Back Pain - chronic. Denies: Arm Pain, Joint Pain, Joint stiffness, Joint swelling, Joint Tenderness, Muscle pain, Neck Pain, Shoulder Pain Skin: Denies: Dryness, Jaundice, Lesions, Pruritis, Rash, Skin Changes, Wounds Neurological: Denies: Balance problems, Change in Speech, Slurred speech, Confusion, Difficulty swallowing, Focal weakness, Headaches, Incoordination, Numbness, Tingling, Tremor, Seizures Psychiatric: Reports: Anxiety. Denies: Depression Endocrine: Denies: Change in Body Habitus, Heat/ Cold Intolerance, Polydipsia, Polyuria Hematologic/ Lymphatic: Reports: Anemia. Denies: Adenopathy, Easy Bruising, Easy Bleeding, Petechiae, Purpura VTE Information - Inpt Only VTE Present on Admission: No VTE Mechan Device Prophylaxis: None VTE Pharm Prophylaxis ordered?: No Reason prophylaxis not ordered:: Treatment Not Indicated Patient Problems: Active and Suspected Problems (Last Reviewed 03/23/20 @ 20:[address] Kyree Cantrell, DO) Acute kidney injury (Acute) Shortness of breath (Acute) Congestive heart failure (Acute) - Physical Exam Vitals/I&O's: Vital Signs Temp Pulse Resp BP Pulse Ox 97.4 F L 102 H 22 H 146/89 H 99 05/19/20 13:04 05/19/20 15:08 05/19/20 15:08 05/19/20 15:08 05/19/20 15:08 Oxygen Flow Rate (L/min) 6 Oxygen Delivery Method Nasal Cannula Weight: 71.5 kg Body Mass Index (BMI) 31.8 General: Alert, Oriented x3, Cooperative, No apparent distress, Well developed, Well nourished, - - thin, cachetic WF lying in bed, appears older than stated age, severe kyphosis, dyspnea with conversation HEENT: Atraumatic, PERRLA, EOMI, Normocephalic, EAC Clear Oral: No Gingival or Mucosal Lesions/ Ulcerations, Dry Mucosa, - - poor dentition, mallampati 2 Neck: Supple, No Nodes, No Nuchal Rigidity, Trachea Midline, Thyroid Normal Size and Texture, JVD, Bilateral, - - +HJR Lungs: No rhonchi, No wheeze, Diminished, Rales Cardiovascular: Regular rate, Normal S1, Normal S2, No murmurs, No Ectopic Activity, No rub noted, No Gallop, - - irreg rhythm Abdomen: Bowel Sounds Present, Soft, Non Tender, Non-Distended, No Hepato-splenomegaly, No hernias noted Extremities: No clubbing, No cyanosis, Capillary Refill Less than 3 Seconds, Edema - 1-2+ pitting edema B LE, Peripheral Pulses Normal Skin: No rashes, No breakdown, - - pale Musculoskeletal: No Tenderness to Palpation of Joints or Extremities, No Muscle Wasting, Arthritic Changes, - - severe kyphosis Lymphatic: No Cervical, Supraclavicular, or Inguinal Adenopathy Neurological: Cranial nerves II-XII grossly intact, Neuro grossly intact, Muscle tone normal, Coordination normal, - - generalized weakness Psych/Mental Status: Normal Affect, Appropriate Microbiology Past 72 Hours 05/19/20 14:33 Mucosa - Nose SARS-CoV-2 Antigen (Rapid) - Final Laboratory Results 05/19/20 13:15: WBC 12.1 H, RBC 3.51 L, Hgb 10.1 L, Hct 35.4 L, MCV 100.9 H, MCH 28.8, MCHC 28.5 L, RDW Std Deviation 63.3 H, RDW Coeff of Som 17.8 H, Plt Count 223, MPV 10.9, Immature Gran % (Auto) 0.600, Neut % (Auto) 84.8 H, Lymph % (Auto) 9.7 L, [place] % (Auto) 4.4, Eos % (Auto) 0.2, Baso % (Auto) 0.3, Absolute Neuts (auto) 10.3 H, Absolute Lymphs (auto) 1.17, Nucleated RBC % 0.3 05/19/20 13:15: Sodium 145, Potassium 3.5, Chloride 108 H, Carbon Dioxide 32.0, Anion Gap 5, BUN 36 H, Creatinine 1.86 H, Estim Creat Clear Calc 30.86, Est GFR (MDRD) Af Amer 34 L, Est GFR (MDRD) Non-Af 28 L, BUN/Creatinine Ratio 19.4, Glucose 114 H, Calcium 8.2 L, Troponin I 0.017 05/19/20 13:15: B-Natriuretic Peptide 2104.9 H Assessment/Plan All Active Problems (Last Reviewed 03/23/20 @ 20:[address] Kyree Cantrell, DO) Acute kidney injury (Acute) Shortness of breath (Acute) Congestive heart failure (Acute) GI bleed (Resolved) Hypokalemia (Resolved) Sepsis (Resolved) UTI (urinary tract infection) (Resolved) Acute on Chronic Hypoxic Respiratory Failure 2/2 Acute Exacerbation of HFrEF -ECHO done 02/19/2020 and showed global LV dysfunction with an EF of 42%, RVSP 50 mmHg -Bumex ggt -check urine antigens with cough but doubt this is infectious -COVID-19 pending -Nitro paste for now BID -Baseline O2 use is 4 L -BIPAP for now to off load and help with failure--> will wean as pt more comfortable -I&O--> has marcano -Daily weights -repeat CXR in am -BNP was 2104.9 on admission -continue home BB and ACEI Mild Leukocytosis -doubt infections suspect reactive -monitor PAF -DOAC -Coreg Chronic Macrocytic Anemia -hgb at baseline -monitor CKD stage 3-4 -sCr close to baseline of 1.6-1.8 -watch with diuresis -hold gabapentin for now and may need to lower dose of gabapentin at d/c with renal failure -avoid nephrotoxins HTN -continue home meds Pulmonary Fibrosis/Restrictive Lung disease -O2 -nebs prn Urinary Incontinence -Marcano for now -pt does self cath some at home -cont oxybutinin GERD/PUD -cont PPI and Carafate Depression -cont Zoloft DVT prophylaxis -DOAC Code Status -Full Inpatient E&M: 11373 Init Hosp L3
[2020-05-19] MEDS: Carvedilol 6.25 MG Tablet PO (17:29)
[2020-05-19] MEDS: Bumetanide 25 MG in CONTAINER,EMPTY 1 BAG CONT INF (17:33)
[2020-05-19] MEDS: Albuterol 2.5 MG/3 ML VIAL.NEB. INHALATION (19:13)
[2020-05-19] MEDS: Sucralfate 1 GM Tablet PO (22:07)
[2020-05-19] MEDS: APIXABAN 2.5 MG TABLET PO (22:07)
[2020-05-19] MEDS: Pantoprazole Sodium 40 MG Tablet PO (22:07)
[2020-05-19] MEDS: traMADol 50 MG Tablet PO (22:52)
[2020-05-20] VITALS (35 sets, daily range): BP systolic 118–170; BP diastolic 63–107; PULSE 82–116; RESP 12–31; TEMP 36.3–37.3; O2SAT 88–98
[2020-05-20] MEDS: Acetaminophen 325 MG Tablet 650 MG PO (03:44)
[2020-05-20] MEDS: oxyCODONE 5 MG Tablet PO ×2 (05:46→22:15)
[2020-05-20] MEDS: Sucralfate 1 GM Tablet PO ×2 (05:46→22:15)
--- NOTE | 2020-05-20 05:55 | RAD_ITS ---
STUDY: X-RAY CHEST REASON FOR EXAM: Female, 70 years old. cough, congestion, chf TECHNIQUE: Single AP portable view of the chest. COMPARISON: 05/19/2020 FINDINGS: Right internal jugular chest port which is unchanged. No change in alveolar opacities in both lungs consistent with bilateral pneumonia, pulmonary edema, or ARDS. There is no demonstrated pleural abnormality. Normal size heart. Normal mediastinum and elif. Normal visualized pulmonary arteries. Normal visualized aortic arch and descending thoracic aorta. Normal visualized thoracic spine. Status post left shoulder reverse arthroplasty. There is no demonstrated abnormality of the visualized soft tissue structures of the upper abdomen. RAD/Chest 1 View (Portable) IMPRESSION: No change from 05/19/2020 Electronically Signed: Laron Argueta MD at 9:21 EST Tel , Service support ,
[2020-05-20 06:43] LABS: Absolute Neutrophil Count 10.1 X10^3/uL (2.0-7.7); Basophil# 0.03 X10^3/uL; Basophil% 0.2 % (0-1); Eosinophil# 0.03 X10^3/uL; Eosinophils% 0.2 % (0-5); Hematocrit 32.3 % (37-47); Hemoglobin 9.3 g/dL (12.0-15.0); Lymphocyte % 10.6 % (19-41); Mean Corp Hgb Conc 28.8 g/dL (32-36); Mean Corpuscular Hgb 28.8 pg (27.0-32.0); Mean Platelet Vol. 10.6 fl (6.2-12.0); Monocyte# 0.76 X10^3/uL; Monocyte% 6.2 % (0-10); NRBC Flagged by Analyzer 0.4 % (0-5); Neutrophil # 10.11 X10^3/uL (2.7-7.7); Neutrophil % 82.2 % (47-70); Platelet Count 179 K/mm3 (150-450); RBC Distribution Width CV 17.8 % (11.6-14.6); RBC Distribution Width SD 63.1 fl (35.1-43.9); Red Blood Count 3.23 M/mm3 (4.2-5.4); White Blood Count 12.3 K/mm3 (4.4-11.0)
[2020-05-20] MEDS: LORazepam 0.5 MG Tablet PO (06:50)
--- NOTE | 2020-05-20 07:01 | PCM.CON.CC ---
Reason for Consult Date of Consultation: 05/20/20 Reason for Consultation: Acute hypoxemic respiratory failure History of Present Illness: The patient is a 70-year-old female, with a history as outlined below, who presented to the emergency department on May 19 with reports of progressive shortness of breath and lower extremity edema. The patient does have a history of chronic atrial fibrillation and chronic systolic congestive heart failure, having previously been managed by Dr. Potter of cardiology. The patient does have an apparent chronic supplemental oxygen requirement of 4 L/min at baseline. The patient was just admitted to the hospital in March for several days under similar circumstances with decompensated heart failure. Cardiology was never consulted during the prior hospital admission. The patient does not currently have any scheduled cardiology follow-up visits. On presentation to the emergency department, the patient was noted to be afebrile and hemodynamically stable. Laboratory evaluation revealed a white blood cell count of 12,000. Chemistry profile was notable for a creatinine of 1.86. Troponin was negative. BNP was increased to 2104. Chest x-ray revealed an elevated right hemidiaphragm with bilateral airspace disease. The patient received IV Lasix and was initially admitted to the progressive care unit. Over the course of the night, the patient's oxygen requirement increased. The decision was made earlier this morning to transfer the patient to the medical intensive care unit to facilitate BiPAP utilization. The patient was also transitioned to a continuous Bumex drip. Past Medical History Past Medical History (Chronic Problems): Chronic Problems (Last Updated 05/19/20 @ 15:[address] Bree Waldrop DO) Iron deficiency anemia (Chronic) CKD (chronic kidney disease) stage 3, GFR 30-59 ml/min (Chronic) PVD (peripheral vascular disease) (Chronic) Chronic fibrosis of lung (Chronic) History of right and left heart catheterization (Chronic 02/20/19) 50% stenosis in LAD, all other coronaries normal. No need for PCI. Severe pulmonary hypertension, severe LV dysfunction: EF 25%. Per TU @ [facility] 02/20/2019 Chronic atrial fibrillation (Chronic) Essential hypertension (Chronic) Chronic anemia (Chronic) Medical History: Medical History (Last Updated 05/19/20 @ 15:[address] 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 Varicose veins of both lower extremities I83.93 Venous stasis dermatitis of both lower extremities I83.11, I83.12 Allergies nitrofurantoin Allergy (Severe, Verified 05/19/20 13:03) mental status change cyclobenzaprine [From Flexeril] Adverse Reaction (Severe, Verified 05/19/20 13:03) frequent falls levofloxacin [From Levaquin] Adverse Reaction (Intermediate, Verified 05/19/20 13:03) diarrhea linezolid [From Zyvox] Adverse Reaction (Unknown, Verified 05/19/20 13:03) PT UNSURE OF REACTION azithromycin Adverse Reaction (Verified 05/19/20 13:03) Diarrhea erythromycin base Adverse Reaction (Verified 05/19/20 13:03) Diarrhea furosemide [From Lasix] Adverse Reaction (Verified 05/19/20 13:03) Nausea Home Medications: Ambulatory Orders Medication Instructions Recorded Carvedilol 6.25 mg PO BID 05/29/18 Oxybutynin Chloride [Oxybutynin 15 mg PO DAILY 05/29/18 Chloride ER] Gabapentin 600 mg PO TID 08/20/18 sertraline 50 mg tablet 150 mg PO DAILY tab 12/17/18 biotin 5 mg capsule 5 mg PO DAILY 12/18/18 Apixaban [Eliquis] 2.5 mg PO BID 02/17/20 Calcium Carbonate 600 mg PO BID 02/17/20 Cholecalciferol (Vitamin D3) 2,000 unit PO DAILY 02/17/20 [Vitamin D3] Fluticasone 0.05% [Flonase Nasal 1 spray NASAL DAILY PRN 02/17/20 [place]] Lisinopril [Prinivil] 10 mg PO DAILY 02/17/20 Multivitamin 1 tab PO DAILY 02/17/20 Pantoprazole Sodium [Protonix] 40 mg PO BID 03/23/20 Sucralfate [Carafate] 1 gm PO 4X/DAY 03/23/20 Bumetanide [Bumex] 2 mg PO BID #60 tab 03/24/20 Potassium Chloride [K-Dur] 20 meq PO BIDCM #60 tab 03/24/20 Tramadol HCl [Ultram] 50 mg PO Q8H PRN PRN #30 tab 03/25/20 Surgical History: Surgical History (Last Reviewed 05/19/20 @ 15:[address] Bree Waldrop DO) History of right and left heart catheterization (Chronic) Onset Date: 02/20/19 Z98.890 50% stenosis in LAD, all other coronaries normal. No need for PCI. Severe pulmonary hypertension, severe LV dysfunction: EF 25%. Per DJN @ [facility] 02/20/2019 History of bladder suspension procedure Z98.890, Z87.448 History of cataract extraction Z98.49 bilateral History of cholecystectomy Z90.49 History of gastric bypass Onset Date: 11/29/00 Z98.84 History of hysterectomy Z90.710 History of pelvic surgery Onset Date: ~2008 Z98.890 Complex resection of pelvic spindle sarcoma History of reverse total replacement of left shoulder joint Z98.890 History of right hip replacement Z96.641 History of ventral hernia repair Z98.890, Z87.19 x 4 Surgical History: cholecystectomy, gastric bypass, herniorrhaphy, hysterectomy, tonsillectomy, - - 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 Psychiatric History: Anxiety, Depression PRACTICE DIRECTOR History: No pertinent PRACTICE DIRECTOR history Lives: Spouse/ Significant Other Smoking Status: Never smoker Alcohol: None Drugs: None - *Family History Maternal Family History: Family History (Last Reviewed 05/19/20 @ 15:[address] Bree Waldrop DO) Father Cancer Mother Dementia Grandmother CVA (cerebral vascular accident) History Items: Diabetes - alive age 86 Paternal Family History: Family History (Last Reviewed 05/19/20 @ 15:[address] Bree Waldrop DO) Father Cancer Mother Dementia Grandmother CVA (cerebral vascular accident) History Items: Cancer - age 79 Offspring Family History: Family History (Last Reviewed 05/19/20 @ 15:[address] Bree Waldrop DO) Father Cancer Mother Dementia Grandmother CVA (cerebral vascular accident) History Items: - - 3 children: 2 living, 1 Review of Systems Constitutional: Reports: Weakness. Denies: Chills, Fever Eyes: Denies: Blurred vision, Double vision HEENT: Denies: Head Aches, Sinus Congestion, Sinus Drainage Cardiovascular: Reports: Edema. Denies: Chest Pain Respiratory: Reports: Shortness of Breath Gastrointestinal: Denies: Abdominal Pain, Nausea, Vomiting Genitourinary: Denies: Dysuria Musculoskeletal: Denies: Joint Pain, Joint Tenderness Skin: Denies: Rash, Wounds Neurological: Denies: Numbness, Tingling, Focal weakness Psychiatric: Denies: Anxiety, Depression, Homicidal Ideations, Suicidal Ideations Hematologic/ Lymphatic: Reports: Anemia Patient Problems: Active and Suspected Problems (Last Updated 05/19/20 @ 15:[address] Bree Waldrop DO) Acute kidney injury (Acute) Shortness of breath (Acute) Congestive heart failure (Acute) Objective: The patient's most recent lab work, culture data and imaging studies have all been personally reviewed. Surface echocardiogram from January 2020 revealed normal LV size with mild global LV systolic dysfunction with an ejection fraction of 42%. Right ventricular systolic pressure was estimated to be 50 mmHg. Rapid coronavirus antigen testing was negative. Strep and urine Legionella antigens were negative. - Physical Exam Vitals/I&O's: Vital Signs Temp Pulse Resp BP Pulse Ox 98.1 F 107 H 22 H 150/83 H 98 05/20/20 06:50 05/20/20 06:50 05/20/20 06:50 05/20/20 06:50 05/20/20 06:50 Oxygen Flow Rate (L/min) 15 Oxygen Delivery Method Non-Rebreather Weight: 149 lb 11.102 oz Body Mass Index (BMI) 29.9 Intake and Output for Last 24 Hours 05/18/20 05/19/20 05/20/20 23:59 23:59 23:59 Intake Total 110 / 110 Output Total 450 / 1250 1500 / 1500 Balance -450 / -1190 -1390 / -1390 General: - - The patient is somnolent but arousable to verbal stimulation. BiPAP remains in place. HEENT: Atraumatic, Normocephalic Oral: No Gingival or Mucosal Lesions/ Ulcerations Neck: Supple, No Nodes, Trachea Midline Lungs: Diminished, - - Poor inspiratory effort Cardiovascular: Normal S1, Normal S2, Irregular Rate Abdomen: Bowel Sounds Present, Soft, Non Tender Extremities: No clubbing, No cyanosis, Edema Skin: - - Lower extremity venous stasis dermatitis Musculoskeletal: No Muscle Wasting Lymphatic: No Cervical, Supraclavicular, or Inguinal Adenopathy Neurological: Cranial nerves II-XII grossly intact Psych/Mental Status: Flat Affect Labs (Last 48 Hours) 05/19/20 05/19/20 05/19/20 13:15 13:15 13:15 WBC 12.1 H RBC 3.51 L Hgb 10.1 L Hct 35.4 L MCV 100.9 H MCH 28.8 MCHC 28.5 L RDW Std Deviation 63.3 H RDW Coeff of Som 17.8 H Plt Count 223 MPV 10.9 Immature Gran % (Auto) 0.600 Neut % (Auto) 84.8 H Lymph % (Auto) 9.7 L [place] % (Auto) 4.4 Eos % (Auto) 0.2 Baso % (Auto) 0.3 Absolute Neuts (auto) 10.3 H Absolute Lymphs (auto) 1.17 Nucleated RBC % 0.3 Sodium 145 Potassium 3.5 Chloride 108 H Carbon Dioxide 32.0 Anion Gap 5 BUN 36 H Creatinine 1.86 H Estim Creat Clear Calc 30.86 Est GFR (MDRD) Af Amer 34 L Est GFR (MDRD) Non-Af 28 L BUN/Creatinine Ratio 19.4 Glucose 114 H Calcium 8.2 L Phosphorus Magnesium Total Bilirubin AST ALT Alkaline Phosphatase Troponin I 0.017 B-Natriuretic Peptide 2104.9 H Total Protein Albumin TSH 05/19/20 05/19/20 05/20/20 18:00 19:57 05:40 WBC 12.3 H RBC 3.23 L Hgb 9.3 L Hct 32.3 L MCV 100.0 H MCH 28.8 MCHC 28.8 L RDW Std Deviation 63.1 H RDW Coeff of Som 17.8 H Plt Count 179 MPV 10.6 Immature Gran % (Auto) 0.600 Neut % (Auto) 82.2 H Lymph % (Auto) 10.6 L [place] % (Auto) 6.2 Eos % (Auto) 0.2 Baso % (Auto) 0.2 Absolute Neuts (auto) 10.1 H Absolute Lymphs (auto) 1.30 Nucleated RBC % 0.4 Sodium Potassium Chloride Carbon Dioxide Anion Gap BUN Creatinine Estim Creat Clear Calc Est GFR (MDRD) Af Amer Est GFR (MDRD) Non-Af BUN/Creatinine Ratio Glucose Calcium Phosphorus Magnesium Total Bilirubin AST ALT Alkaline Phosphatase Troponin I 0.028 0.021 B-Natriuretic Peptide Total Protein Albumin TSH 05/20/20 05:40 WBC RBC Hgb Hct MCV MCH MCHC RDW Std Deviation RDW Coeff of Som Plt Count MPV Immature Gran % (Auto) Neut % (Auto) Lymph % (Auto) [place] % (Auto) Eos % (Auto) Baso % (Auto) Absolute Neuts (auto) Absolute Lymphs (auto) Nucleated RBC % Sodium Pending Potassium Pending Chloride Pending Carbon Dioxide Pending Anion Gap Pending BUN Pending Creatinine Pending Estim Creat Clear Calc Est GFR (MDRD) Af Amer Pending Est GFR (MDRD) Non-Af Pending BUN/Creatinine Ratio Pending Glucose Pending Calcium Pending Phosphorus Pending Magnesium Pending Total Bilirubin Pending AST Pending ALT Pending Alkaline Phosphatase Pending Troponin I B-Natriuretic Peptide Total Protein Pending Albumin Pending TSH Pending Microbiology 05/19/20 17:20 Urine Catheter - Amanda Legionella Antigen - Final 05/19/20 17:20 Urine Catheter - Amanda Streptococcus pneumoniae Antigen (M - Final 05/19/20 14:33 Mucosa - Nose SARS-CoV-2 Antigen (Rapid) - Final Clinical Impression(s) from Imaging Studies Chest X-Ray 05/19/20 13:44 IMPRESSION: Bilateral pneumonia, pulmonary edema, or ARDS greater on the left than the right. Electronically Signed: Laron Argueta MD at 14:27 EST Tel , Service support , Current Medications Acetaminophen (Acetaminophen 325 Mg Tablet) 650 mg PO Q6H PRN PRN PRN Reason: Pain Score 1-10/Temp > 100.7 F Last Admin: 05/20/20 03:44 Dose: 650 mg Documented by: Albuterol Sulfate (Albuterol 2.5 Mg/3 Ml Vial.Neb.) 2.5 mg INHALATION Q2H PRN PRN PRN Reason: SOB/Wheezing Last Admin: 05/19/20 19:13 Dose: 2.5 mg Documented by: Apixaban (Apixaban 2.5 Mg Tablet) 2.5 mg PO BID [facility] Last Admin: 05/19/20 22:07 Dose: 2.5 mg Documented by: Carvedilol ([facility] 6.25 Mg Tablet) [facility] Last Admin: 05/19/20 17:29 Dose: 6.25 mg Documented by: Fluticasone Propionate (Fluticasone 0.05% 1 [place] Nasal.Sry) 1 spray NASAL DAILY PRN PRN Reason: ALLERGIES Bumetanide 25 mg/ (Miscellaneous Information) 100 mls @ 2 mls/hr CONT INF .Q50H [facility] Last Admin: 05/19/20 17:33 Dose: 0.5 mg/hr, 2 mls/hr Documented by: Lisinopril (Lisinopril 10 Mg Tablet) 10 mg PO DAILY [facility] Melatonin (Melatonin 3 Mg Tablet) 3 mg PO QHS PRN PRN PRN Reason: INSOMNIA Multivitamins (Multivitamins,Therapeutic Tablet) [facility] Nitroglycerin (Nitroglycerin Oint 1 Inch Packet) 1 inch TD Q12 [facility] Last Admin: 05/19/20 22:11 Dose: 1 inch Documented by: Nutritional Formula (Lactose Free) (Ensure Enlive 120 Ml Liquid) 120 ml PO 4X/DAY [facility] Last Admin: 05/19/20 22:11 Dose: Not Given Documented by: Ondansetron HCl (Ondansetron 4 Mg/2 Ml Vial) 4 mg IV Q8H PRN PRN PRN Reason: NAUSEA/VOMITING Oxycodone HCl (Oxycodone 5 Mg Tablet) 5 mg PO Q4H PRN PRN PRN Reason: Pain Score 6-10 Last Admin: 05/20/20 05:46 Dose: 5 mg Documented by: Pantoprazole Sodium (Pantoprazole Sodium 40 Mg Tablet) 40 mg PO BID [facility] Last Admin: 05/19/20 22:07 Dose: 40 mg Documented by: Potassium Chloride (Potassium Chloride 20 Meq Tablet) [facility] Last Admin: 05/19/20 17:29 Dose: 20 meq Documented by: Sertraline HCl (Sertraline 50 Mg Tablet) 150 mg PO DAILY [facility] Sodium Chloride (0.9% Saline Lock 10 Ml Syringe) 10 - 40 ml IV UD PRN PRN Reason: SALINE FLUSH Sucralfate (Sucralfate 1 Gm Tablet) 1 gm PO 1HR_ACHS [facility] Last Admin: 05/20/20 05:46 Dose: 1 gm Documented by: Tolterodine Tartrate (Tolterodine Tartrate 4 Mg Cap.Sa) 4 mg PO DAILY [facility] Assessment/Plan Active and Suspected Problems (Last Updated 05/19/20 @ 15:[address] Bree Waldrpo, DO) Acute kidney injury (Acute) Shortness of breath (Acute) Congestive heart failure (Acute) RECOMMENDATIONS: 1. Continue patient on BiPAP therapy and wean as tolerated, with a goal to maintain oxygen saturations at or above 90%. 2. Continue aggressive diuresis as tolerated by hemodynamics and renal function. 3. Check procalcitonin level. 4. Potassium repletion as ordered. 5. Avoid any further sedating medications. 6. Continue Eliquis as ordered. 7. Close outpatient cardiology follow-up is warranted. IMPRESSIONS: 1. Acute on chronic hypoxemic respiratory failure likely secondary to decompensated heart failure The patient had a similar presentation in March when she was admitted to the hospital. For now, the patient will be continued on BiPAP therapy along with a continuous Bumex infusion in hopes that she can be weaned from noninvasive positive pressure ventilatory support as she is optimized from a volume perspective. The patient's last echocardiogram did reveal a depressed ejection fraction along with pulmonary hypertension. At this time, it is reasonable to continue current medical management per cardiology recommendations. The patient's pulmonary hypertension can be further worked up on an outpatient basis in the pulmonary medicine clinic. 2. Chronic atrial fibrillation Continue current medical management per cardiology recommendations including Eliquis and beta-boris. 3. Hypokalemia Electrolyte repletion as ordered. Recheck levels in the morning. 4. 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 The patient will be continued on diuretic therapy as tolerated by hemodynamics and renal function. 5. 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 Continue home medications as indicated. TIME: 38 minutes of critical care time, independent of procedures, was spent addressing the patient's acute on chronic hypoxemic respiratory failure, decompensated heart failure, chronic atrial fibrillation, hypokalemia, review of all data and collaboration with the care team. ([id number]) [id number] Critical care first hour
[2020-05-20 07:13] LABS: ALB/GLOB Ratio 0.5 RATIO (0.9-2.4); AST(SGOT) 27 U/L (15-37); Alanine Aminotransfer ALT/SGPT 19 U/L (13-56); Albumin, Serum 2.1 g/dL (3.2-5.0); Alkaline Phosphatase 127 U/L (45-117); Anion Gap 6 (5-15); BUN 34 mg/dL (7-18); BUN/Creat Ratio 19.7 RATIO (10-20); Calcium,Total 7.6 mg/dL (8.5-10.1); Chloride 109 mmol/L (98-107); Creatinine, Serum 1.73 mg/dL (0.55-1.02); EST Glomerular Filtration Rate 31 mL/min (>60); Est Glom Filt Rate - Afr Amer 37 mL/min (>60); Estimated Creatinine Clearance 30.53 ml/min; Globulin 4.6 g/dL (2.2-4.2); Glucose 94 mg/dL (74-106); Magnesium 1.7 mg/dL (1.6-2.6); Phosphorus 3.3 mg/dL (2.5-4.9); Potassium 3.3 mmol/L (3.5-5.1); Protein, Total 6.7 g/dL (6.4-8.2); Sodium Level 145 mmol/L (136-145); Thyroid Stim Hormone (TSH) 1.41 uIU/mL (0.358-3.74)
--- NOTE | 2020-05-20 07:19 | PCM.PN.HOSP ---
Patient Problems: Active and Suspected Problems (Last Updated 05/19/20 @ 15:[address] Bree Waldrop, DO) Acute kidney injury (Acute) Shortness of breath (Acute) Congestive heart failure (Acute) Reason for Visit: Follow-up for acute on chronic hypoxic respiratory failure Objective: Seen and examined. No fever. Heart rate 80s to 90s per minute respiratory rate 20-28 per note, tachypnea pulse ox 93% on 50% FiO2 BiPAP Short of breath. Mild leg swelling. Physical exam General: Alert, Oriented x3, Cooperative HEENT: Atraumatic, PERRLA, EOMI, Normocephalic Oral: No Gingival or Mucosal Lesions/ Ulcerations Neck: Supple, No JVD, Negative Carotid Bruits Lungs: Air entry diminished in bilateral lung bases. Bilateral expiratory rhonchi present. Tachypnea and hypoxia. Cardiovascular: Regular rate, Regular Rhythm, Normal S1, Normal S2, No murmurs Abdomen: Bowel Sounds Present, Soft, Non Tender, Non-Distended : No renal angle tenderness. No suprapubic tenderness. Extremities: Mild bilateral leg edema, Capillary Refill Less than 3 Seconds Skin: No rashes, No breakdown Musculoskeletal: No Tenderness to Palpation of Joints or Extremities Neurological: Cranial nerves II-XII grossly intact, Deep Tendon Reflexes 2+/4 and Symmetrical, Neuro grossly intact Psych/Mental Status: Normal Affect, Appropriate. Vitals/I&O's: Vital Signs Temp Pulse Resp BP Pulse Ox 98.9 F 107 H 21 H 124/107 H 97 05/20/20 07:07 05/20/20 07:07 05/20/20 07:07 05/20/20 07:07 05/20/20 07:07 Oxygen Flow Rate (L/min) 15 Oxygen Delivery Method Non-Rebreather Weight: 145 lb 1.027 oz Body Mass Index (BMI) 29.9 Intake and Output for Last 24 Hours 05/18/20 05/19/20 05/20/20 23:59 23:59 23:59 Intake Total 110 / 110 Output Total 450 / 1250 1500 / 1500 Balance -450 / -1190 -1390 / -1390 Microbiology Past 72 Hours 05/19/20 17:20 Urine Catheter - Amanda Legionella Antigen - Final 05/19/20 17:20 Urine Catheter - Amanda Streptococcus pneumoniae Antigen (M - Final 05/19/20 14:33 Mucosa - Nose SARS-CoV-2 Antigen (Rapid) - Final Laboratory Results 05/19/20 13:15: WBC 12.1 H, RBC 3.51 L, Hgb 10.1 L, Hct 35.4 L, MCV 100.9 H, MCH 28.8, MCHC 28.5 L, RDW Std Deviation 63.3 H, RDW Coeff of Som 17.8 H, Plt Count 223, MPV 10.9, Immature Gran % (Auto) 0.600, Neut % (Auto) 84.8 H, Lymph % (Auto) 9.7 L, [place] % (Auto) 4.4, Eos % (Auto) 0.2, Baso % (Auto) 0.3, Absolute Neuts (auto) 10.3 H, Absolute Lymphs (auto) 1.17, Nucleated RBC % 0.3 05/19/20 13:15: Sodium 145, Potassium 3.5, Chloride 108 H, Carbon Dioxide 32.0, Anion Gap 5, BUN 36 H, Creatinine 1.86 H, Estim Creat Clear Calc 30.86, Est GFR (MDRD) Af Amer 34 L, Est GFR (MDRD) Non-Af 28 L, BUN/Creatinine Ratio 19.4, Glucose 114 H, Calcium 8.2 L, Troponin I 0.017 05/19/20 13:15: B-Natriuretic Peptide 2104.9 H 05/19/20 18:00: Troponin I 0.028 05/19/20 19:57: Troponin I 0.021 05/20/20 05:40: WBC 12.3 H, RBC 3.23 L, Hgb 9.3 L, Hct 32.3 L, MCV 100.0 H, MCH 28.8, MCHC 28.8 L, RDW Std Deviation 63.1 H, RDW Coeff of Som 17.8 H, Plt Count 179, MPV 10.6, Immature Gran % (Auto) 0.600, Neut % (Auto) 82.2 H, Lymph % (Auto) 10.6 L, [place] % (Auto) 6.2, Eos % (Auto) 0.2, Baso % (Auto) 0.2, Absolute Neuts (auto) 10.1 H, Absolute Lymphs (auto) 1.30, Nucleated RBC % 0.4 05/20/20 05:40: Sodium 145, Potassium 3.3 L, Chloride 109 H, Carbon Dioxide 30.0, Anion Gap 6, BUN 34 H, Creatinine 1.73 H, Estim Creat Clear Calc 30.53, Est GFR (MDRD) Af Amer 37 L, Est GFR (MDRD) Non-Af 31 L, BUN/Creatinine Ratio 19.7, Glucose 94, Calcium 7.6 L, Phosphorus 3.3, Magnesium 1.7, Total Bilirubin 0.50, AST 27, ALT 19, Alkaline Phosphatase 127 H, Total Protein 6.7, Albumin 2.1 L, Globulin 4.6 H, Albumin/Globulin Ratio 0.5 L, TSH 1.41 Current Medications Acetaminophen (Acetaminophen 325 Mg Tablet) 650 mg PO Q6H PRN PRN PRN Reason: Pain Score 1-10/Temp > 100.7 F Last Admin: 05/20/20 03:44 Dose: 650 mg Documented by: Albuterol Sulfate (Albuterol 2.5 Mg/3 Ml Vial.Neb.) 2.5 mg INHALATION Q2H PRN PRN PRN Reason: SOB/Wheezing Last Admin: 05/19/20 19:13 Dose: 2.5 mg Documented by: Apixaban (Apixaban 2.5 Mg Tablet) 2.5 mg PO BID [facility] Last Admin: 05/19/20 22:07 Dose: 2.5 mg Documented by: Carvedilol (Carvedilol 6.25 Mg Tablet) 6.25 mg PO BIDCM [facility] Last Admin: 05/19/20 17:29 Dose: 6.25 mg Documented by: Fluticasone Propionate (Fluticasone 0.05% 1 [place] Nasal.Sry) 1 spray NASAL DAILY PRN PRN Reason: ALLERGIES Bumetanide 25 mg/ (Miscellaneous Information) 100 mls @ 2 mls/hr CONT INF .Q50H [facility] Last Admin: 05/19/20 17:33 Dose: 0.5 mg/hr, 2 mls/hr Documented by: Lisinopril (Lisinopril 10 Mg Tablet) 10 mg PO DAILY [facility] Melatonin (Melatonin 3 Mg Tablet) 3 mg PO QHS PRN PRN PRN Reason: INSOMNIA Multivitamins ([facility]it[facility],Therapeutic Tablet) [facility] Nitroglycerin (Nitroglycerin Oint 1 Inch Packet) 1 inch TD Q12 [facility] Last Admin: 05/19/20 22:11 Dose: 1 inch Documented by: Nutritional Formula (Lactose Free) (Ensure Enlive 120 Ml Liquid) 120 ml PO 4X/DAY [facility] Last Admin: 05/19/20 22:11 Dose: Not Given Documented by: Ondansetron HCl (Ondansetron 4 Mg/2 Ml Vial) 4 mg IV Q8H PRN PRN PRN Reason: NAUSEA/VOMITING Oxycodone HCl (Oxycodone 5 Mg Tablet) 5 mg PO Q4H PRN PRN PRN Reason: Pain Score 6-10 Last Admin: 05/20/20 05:46 Dose: 5 mg Documented by: Pantoprazole Sodium (Pantoprazole Sodium 40 Mg Tablet) 40 mg PO BID [facility] Last Admin: 05/19/20 22:07 Dose: 40 mg Documented by: Potassium Chloride (Potassium Chloride 20 Meq Tablet) 20 meq PO BIDCM [facility] Last Admin: 05/19/20 17:29 Dose: 20 meq Documented by: Sertraline HCl (Sertraline 50 Mg Tablet) 150 mg PO DAILY [facility] Sodium Chloride (0.9% Saline Lock 10 Ml Syringe) 10 - 40 ml IV UD PRN PRN Reason: SALINE FLUSH Sucralfate (Sucralfate 1 Gm Tablet) 1 gm PO 1HR_ACHS [facility] Last Admin: 05/20/20 05:46 Dose: 1 gm Documented by: Tolterodine Tartrate (Tolterodine Tartrate 4 Mg Cap.Sa) 4 mg PO DAILY [facility] STROKE Vital Signs/Narrative: Vital Signs Temp Pulse Resp BP BP Pulse Ox 05/20/20 07:07 98.9 F 107 H 21 H 124/107 H 97 05/20/20 06:50 98.1 F 107 H 22 H 150/83 H 98 05/20/20 04:00 98.3 F 87 20 H 154/86 H 93 05/20/20 03:30 87 26 H 93 Medical Necessity - Tobacco Use Smoking Status: Never smoker Assessment/Plan All Active Problems (Last Updated 05/19/20 @ 15:[address] Bree Waldrop DO) Acute kidney injury (Acute) Shortness of breath (Acute) Congestive heart failure (Acute) GI bleed (Resolved) Hypokalemia (Resolved) Sepsis (Resolved) UTI (urinary tract infection) (Resolved) This is a 70-year-old female admitted with progressive worsening of shortness of breath for 4 days, increased requirement of oxygen more than her baseline, 4 L and chest x-ray finding of pulmonary edema since 2 acute on chronic hypoxic respiratory failure secondary to acute CHF exacerbation. 1. Acute on Chronic Hypoxic Respiratory Failure 2/2 Acute Exacerbation of HFrEF: Patient had echo in February 19, 2020 reported as EF 42%, global LV dysfunction, RVSP 50 mmHg. BNP 2105. Serial 2 troponins are negative. On Bumex drip. Urinary antigens are negative. Rapid SARS-CoV-2 antigen negative. Mild leukocytosis with neutrophilia, no change in last 2 labs probably stress response/inflammatory. On BiPAP, CHF core measures, patient has Amanda including strict I and O's, daily weight monitoring. Seen by diving fisher increase the dose of carvedilol 12.5 mg daily. On lisinopril 10 mg daily and nitroglycerin ointment. Paroxysmal A. fib: As mentioned above Chronic Macrocytic Anemia -hgb at baseline -monitor CKD stage 3: Estimated creatinine clearance fluctuates around 30 ml/minute. Serum creatinine and estimated GFR is on baseline 1.6-1.8.. -hold gabapentin for now and may need to lower dose of gabapentin at d/c with renal failure -avoid nephrotoxins HTN -continue home meds Chronic pulmonary Fibrosis/Restrictive Lung disease -O2, bronchodilator as needed Chronic urinary Incontinence -Amanda for now -pt does self cath some at home -cont oxybutinin GERD/PUD, history of gastric bypass surgery and GI bleed -cont PPI and Carafate. Patient had GI bleed during previous hospitalization in February 2020 when EGD showed bleeding marginal ulcer and patient had epinephrine and clips were placed on transfer to [facility]. Depression -cont Zoloft DVT prophylaxis -On Eliquis 2.5 mg twice daily. Code Status -Full Inpatient E&M: 07266 [facility] L3
--- NOTE | 2020-05-20 07:47 | CON.PCM_ITS ---
Reason for Consult Date of Consultation: 05/20/20 Reason for Consultation: Shortness of breath History of Present Illness: The patient is a 70 year old F with a history of pulmonary hypertension, pulmonary fibrosis, mild cardiomyopathy, chronic persistent atrial fibrillation, essential hypertension who presented to the emergency room after noting progressive shortness of breath over the last few days. She denied any chest pain. She has had some pedal edema which has been persistent and has also had what appears to be orthopnea. She is usually on chronic supplemental oxygen requirement of 4 L/min and she was in the hospital in March for several days for decompensated heart failure. At that time she underwent an echocardiogram which demonstrated an ejection fraction of 42%, mitral annular calcification, and pulmonary artery systolic pressure estimated to be 50 mmHg. Her cardiac catheterization in February 2019 demonstrated no obstructive coronary disease, as moderately severe pulmonary hypertension with pulmonary artery systolic pressure of 59 mmHg. She was discharged on diuretics, Eliquis for her atrial fibrillation as well as other pulmonary medications. She was seen in the emergency room she was noted to have an elevated creatinine, troponin was negative, and her natruretic peptide was elevated. Rapid Covid test was negative. She was admitted to the telemetry unit but continued to decompensate and I was called upon her transfer to the ICU. [] Past Medical History Allergies/Adverse Reactions: Allergies nitrofurantoin Allergy (Severe, Verified 05/19/20 13:03) mental status change cyclobenzaprine [From Flexeril] Adverse Reaction (Severe, Verified 05/19/20 13:03) frequent falls levofloxacin [From Levaquin] Adverse Reaction (Intermediate, Verified 05/19/20 13:03) diarrhea linezolid [From Zyvox] Adverse Reaction (Unknown, Verified 05/19/20 13:03) PT UNSURE OF REACTION azithromycin Adverse Reaction (Verified 05/19/20 13:03) Diarrhea erythromycin base Adverse Reaction (Verified 05/19/20 13:03) Diarrhea furosemide [From Lasix] Adverse Reaction (Verified 05/19/20 13:03) Nausea Home Medications: Ambulatory Orders Medication Instructions Recorded Carvedilol 6.25 mg PO BID 05/29/18 Oxybutynin Chloride [Oxybutynin 15 mg PO DAILY 05/29/18 Chloride ER] Gabapentin 600 mg PO TID 08/20/18 sertraline 50 mg tablet 150 mg PO DAILY tab 12/17/18 biotin 5 mg capsule 5 mg PO DAILY 12/18/18 Apixaban [Eliquis] 2.5 mg PO BID 02/17/20 Calcium Carbonate 600 mg PO BID 02/17/20 Cholecalciferol (Vitamin D3) 2,000 unit PO DAILY 02/17/20 [Vitamin D3] Fluticasone 0.05% [Flonase Nasal 1 spray NASAL DAILY PRN 02/17/20 [place]] Lisinopril [Prinivil] 10 mg PO DAILY 02/17/20 Multivitamin 1 tab PO DAILY 02/17/20 Pantoprazole Sodium [Protonix] 40 mg PO BID 03/23/20 Sucralfate [Carafate] 1 gm PO 4X/DAY 03/23/20 Bumetanide [Bumex] 2 mg PO BID #60 tab 03/24/20 Potassium Chloride [K-Dur] 20 meq PO BIDCM #60 tab 03/24/20 Tramadol HCl [Ultram] 50 mg PO Q8H PRN PRN #30 tab 03/25/20 Past Medical History (Chronic Problems): Chronic Problems (Last Updated 05/19/20 @ 15:[address] Bree Waldrop DO) Iron deficiency anemia (Chronic) CKD (chronic kidney disease) stage 3, GFR 30-59 ml/min (Chronic) PVD (peripheral vascular disease) (Chronic) Chronic fibrosis of lung (Chronic) History of right and left heart catheterization (Chronic 02/20/19) 50% stenosis in LAD, all other coronaries normal. No need for PCI. Severe pulmonary hypertension, severe LV dysfunction: EF 25%. 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 Bree Waldrop DO) Father Cancer Mother Dementia Grandmother CVA (cerebral vascular accident) History Items: Diabetes - alive age 86 Paternal Family History: Family History (Last Reviewed 05/19/20 @ 15:[address] Bree Waldrop DO) Father Cancer Mother Dementia Grandmother CVA (cerebral vascular accident) History Items: Cancer - age 79 Offspring Family History: Family History (Last Reviewed 05/19/20 @ 15:[address] Bree Waldrop DO) Father Cancer Mother Dementia Grandmother CVA (cerebral vascular accident) History Items: - - 3 children: 2 living, 1 Lives: Spouse/ Significant Other Smoking Status: Never smoker Alcohol: None Drugs: None Review of Systems - Review of Systems General: Reports: Fatigue. Denies: Fever, Chills, Night Sweats Cardiovascular: Reports: Shortness of Breath, Orthopnea, Peripheral Edema. Denies: Chest Discomfort, PND, Palpitations, Lightheadedness, Dizziness, Near Syncope, Syncope Respiratory: Denies: Cough, Sputum Production, Hemoptysis Gastrointestinal: Denies: Hematemesis, Hematochezia, Melena Genitourinary: Denies: Dysuria, Hematuria Muscoloskeletal: Denies: Myalgias Skin: Denies: Rash Neurological: Denies: Dizziness Subjectve: Patient seen and evaluated. Appears to be short of breath. On supplemental O2. Objective: Vital Signs Temp Pulse Resp BP Pulse Ox 98.9 F 107 H 21 H 124/107 H 97 05/20/20 07:07 05/20/20 07:07 05/20/20 07:07 05/20/20 07:07 05/20/20 07:07 Oxygen Flow Rate (L/min) 15 Oxygen Delivery Method Non-Rebreather Weight: 145 lb 1.027 oz Body Mass Index (BMI) 29.9 Intake and Output for Last 24 Hours 05/18/20 05/19/20 05/20/20 23:59 23:59 23:59 Intake Total 110 / 110 Output Total 450 / 1250 1500 / 1500 Balance -450 / -1190 -1390 / -1390 General: Awake, Alert, Oriented x 3 HEENT: PERRL, EOMI, Sclera Non Icteric Neck: Supple, Good ROM, No Lymph Node Enlargement Lungs: Diminished Abdiel Bases Cardiovascular: Irregular Rhythm, Normal S1, Normal S2, No Murmurs, No Rubs, No Gallops Vascular: No Carotid Bruits, Normal Femoral Pulses, Normal Radial Pulses, Normal Dorsalis Pedal Pulse, Normal Posterior Tibial Pulses Abdomen: Bowel Sounds Present, Soft, Non Tender, No HSM, No Organomegaly Extremities: No Cyanosis, No Clubbing, Bilateral Edema +1 Musculoskeletal: No Erythema Skin: No Rashes Lymphatic: No Lymph Node Enlargement Neurological: No Focal Motor or Sensory Deficit Psych/Mental Status: Appropriate 05/19/20 13:15: WBC 12.1 H, RBC 3.51 L, Hgb 10.1 L, Hct 35.4 L, MCV 100.9 H, MCH 28.8, MCHC 28.5 L, Plt Count 223, MPV 10.9, Immature Gran % (Auto) 0.600, Neut % (Auto) 84.8 H, Lymph % (Auto) 9.7 L, [place] % (Auto) 4.4, Eos % (Auto) 0.2, Baso % (Auto) 0.3, Absolute Neuts (auto) 10.3 H, Nucleated RBC % 0.3 05/19/20 13:15: Sodium 145, Potassium 3.5, Chloride 108 H, Carbon Dioxide 32.0, Anion Gap 5, BUN 36 H, Creatinine 1.86 H, Est GFR (MDRD) Af Amer 34 L, Est GFR (MDRD) Non-Af 28 L, BUN/Creatinine Ratio 19.4, Glucose 114 H, Calcium 8.2 L, Troponin I 0.017 05/19/20 13:15: B-Natriuretic Peptide 2104.9 H 05/19/20 18:00: Troponin I 0.028 05/19/20 19:57: Troponin I 0.021 05/20/20 05:40: WBC 12.3 H, RBC 3.23 L, Hgb 9.3 L, Hct 32.3 L, MCV 100.0 H, MCH 28.8, MCHC 28.8 L, Plt Count 179, MPV 10.6, Immature Gran % (Auto) 0.600, Neut % (Auto) 82.2 H, Lymph % (Auto) 10.6 L, [place] % (Auto) 6.2, Eos % (Auto) 0.2, Baso % (Auto) 0.2, Absolute Neuts (auto) 10.1 H, Nucleated RBC % 0.4 05/20/20 05:40: Sodium 145, Potassium 3.3 L, Chloride 109 H, Carbon Dioxide 30.0, Anion Gap 6, BUN 34 H, Creatinine 1.73 H, Est GFR (MDRD) Af Amer 37 L, Est GFR (MDRD) Non-Af 31 L, BUN/Creatinine Ratio 19.7, Glucose 94, Calcium 7.6 L, Phosphorus 3.3, Magnesium 1.7, Total Bilirubin 0.50 Rhythm: EKG: Atrial fibrillation with a controlled ventricular response rate ECHO: Global left ventricular systolic dysfunction estimated EF 42%. Pulmonary systolic pressure of 50 mmHg. Stress Test: Cardiac Cath: 50% mid LAD stenosis. Minimal left circumflex and right coronary artery disease. Moderately severe pulmonary hypertension present PCI: CT Surgery: Holter monitor: EPS: PPM: CXR: Chest CT Scan: Assessment/Plan 1. Heart failure with reduced ejection fraction * Patient is noted to have global reduction in left ventricular systolic function estimated to be 42%. The exact precipitating factor or agent for this exacerbation is not clear. Her ventricular response rate may be mildly elevated. * I would recommend that we increase her carvedilol to 12.5 mg twice a day * Continue diuretic with bumetanide but with an aliquots of intravenous Lasix(she has diarrhea with oral Lasix( * I do not think there is a reason to repeat her echocardiogram at this time * 2. Pulmonary hypertension * The above does not appear to be secondary to cardiac disease and may be intrinsic pulmonary disease. Will defer to the protective services case worker on further treatment * 3. Atrial fibrillation chronic persistent * She is anticoagulated with Eliquis which will be continued. No changes will be made at this particular time. I do not think that with her pulmonary issues she is a candidate for DC cardioversion. In addition I do not think she is a candidate for ablation either. * * Thank you for allowing me to participate in the care of your patient. Please don't hesitate to call if any issues arise.
[2020-05-20] MEDS: Furosemide 100 MG/10 ML Vial 60 MG IV (10:13)
[2020-05-20] MEDS: 0.9% Saline Lock 10 ML Syringe IV ×2 (10:15→18:44)
[2020-05-20 10:58] LABS: Procalcitonin 0.19 ng/mL (0.00-0.09)
--- NOTE | 2020-05-20 13:16 | CHAPLAIN ---
Type of Pastoral Visit _x__ Initial Visit ___ Follow-up Visit ___ On-call Visit ___ General Patient Visit ___ Spiritual Assessment ___ Family Conference ___ Bereavement ___ Rapid Response ___ Code Blue ___ Other (describe below) Pastoral Care Referral From _x__ Patient ___ Family ___ Nurse ___ Physician ___ Manager Corporate ___ Compliance Manager ___ Other (describe below) Sacrament/Intervention ___ Active listening ___ Anointing ___ Yazdanism ___ Bereavement ___ Communion ___ Ryann exploration ___ ___ Life review _x__ Prayer ___ Reconciliation ___ Sacrament of Sick _x__ Supportive presence ___ Wedding ___ Other (describe below) Pastoral Comments patient is on bi-pap and unable to talk; prayer and assurance of presence given
--- NOTE | 2020-05-20 14:00 | CASEMGMT ---
RN CM NOTE: Patient unable to participate in assessment @ this time. Will defer for today. YOLANDA HOOK updated by nursing that patient's is incarcerated and son lives with patient but unsure of how much involvement in her care. Rolly GUERRERO BSN ACM
--- NOTE | 2020-05-20 19:55 | NURSING ---
Pt given a break from BiPAP and placed on 5lpm NC oxygen for mouthcare and med administration; pt greg very well and followed directions. BiPAP placed on standby.
[2020-05-20] MEDS: Carvedilol 12.5 MG Tablet PO (19:58)
--- NOTE | 2020-05-20 20:45 | NURSING ---
Pt picking at NC and oxygen sats dropping into the 70s%, BiPAP replaced and FiO2 bumped temporarily to 65% to assist in recovery. Pt cooperative w/care.
--- NOTE | 2020-05-20 20:50 | NURSING ---
This RN went in the room because pt's sats were in the 70s. Pt. was struggling to breathe. Bipap placed back on pt. Sats still in 70's, fiO2 increased to 65%. Sats slowly improving. Pt. breathing more comfortably and states she is feeling better.
--- NOTE | 2020-05-20 21:00 | NURSING ---
FiO2 reduced back to 55% on BiPAP.
[2020-05-20] MEDS: Sertraline 50 MG Tablet 150 MG PO (22:16)
[2020-05-20] MEDS: APIXABAN 2.5 MG TABLET PO (22:16)
[2020-05-21] VITALS (35 sets, daily range): BP systolic 110–160; BP diastolic 64–119; PULSE 84–103; RESP 11–25; TEMP 36.7–37.3; O2SAT 87–96
--- NOTE | 2020-05-21 04:00 | NURSING ---
Pt placed on 5lpm NC
[2020-05-21 04:12] LABS: Absolute Lymphocyte Count 1.22 X10^3/uL (0.83-4.51); Absolute Neutrophil Count 9.8 X10^3/uL (2.0-7.7); Basophil# 0.02 X10^3/uL; Basophil% 0.2 % (0-1); Eosinophil# 0.06 X10^3/uL; Eosinophils% 0.5 % (0-5); Hematocrit 33.7 % (37-47); Hemoglobin 9.5 g/dL (12.0-15.0); Lymphocyte # 1.22 X10^3/ul (4.0); Lymphocyte % 10.3 % (19-41); Mean Corp Hgb Conc 28.2 g/dL (32-36); Mean Corpuscular Hgb 28.4 pg (27.0-32.0); Mean Corpuscular Volume 100.6 fL (81-99); Mean Platelet Vol. 10.2 fl (6.2-12.0); Monocyte# 0.64 X10^3/uL; Monocyte% 5.4 % (0-10); NRBC Flagged by Analyzer 0.3 % (0-5); Neutrophil # 9.84 X10^3/uL (2.7-7.7); Platelet Count 165 K/mm3 (150-450); RBC Distribution Width CV 17.8 % (11.6-14.6); RBC Distribution Width SD 63.9 fl (35.1-43.9); Red Blood Count 3.35 M/mm3 (4.2-5.4); White Blood Count 11.9 K/mm3 (4.4-11.0)
[2020-05-21 04:23] LABS: Anion Gap 3 (5-15); BUN 31 mg/dL (7-18); BUN/Creat Ratio 19.6 RATIO (10-20); Chloride 105 mmol/L (98-107); Creatinine, Serum 1.58 mg/dL (0.55-1.02); EST Glomerular Filtration Rate 34 mL/min (>60); Est Glom Filt Rate - Afr Amer 41 mL/min (>60); Estimated Creatinine Clearance 33.43 ml/min; Glucose 88 mg/dL (74-106); Potassium 3.1 mmol/L (3.5-5.1); Sodium Level 145 mmol/L (136-145)
--- NOTE | 2020-05-21 05:40 | NURSING ---
Pt replaced to BiPAP at 55% FiO2 after sats dropped to 83%
--- NOTE | 2020-05-21 05:46 | PCM.PN.INT ---
Subjective: The patient was seen and examined at the bedside this morning. Events from the last 24 hours have been reviewed. The patient is currently afebrile, hemodynamically stable and maintaining appropriate oxygen saturations on BIPAP. Creatinine has improved this morning to 1.58. Potassium is low at 3.1. The patient was only able to come off of BIPAP overnight for 20 minute increments, prior to desaturating. The patient is currently documented to be overall net negative 5.9L for the hospital admission. Objective: The patient's most recent lab work, culture data and imaging studies have all been personally reviewed. General: Alert, Cooperative, - - Remains on BIPAP HEENT: Atraumatic, PERRLA, Normocephalic Oral: Dry Mucosa Neck: Supple, No Nodes, Trachea Midline Lungs: Diminished Cardiovascular: Normal S1, Normal S2, Irregular Rate Abdomen: Bowel Sounds Present, Soft, Non Tender Extremities: No clubbing, No cyanosis, Edema Skin: - - No significant change from previous. Musculoskeletal: - - Excessive kyphosis Lymphatic: No Cervical, Supraclavicular, or Inguinal Adenopathy Neurological: Neuro grossly intact Psych/Mental Status: Flat Affect Vital Signs Temp Pulse Resp BP Pulse Ox 98.4 F 89 16 144/70 H 95 05/21/20 04:00 05/21/20 05:00 05/21/20 05:00 05/21/20 05:00 05/21/20 05:00 Oxygen Flow Rate (L/min) 5 Oxygen Delivery Method Nasal Cannula Weight: 135 lb 12.876 oz Body Mass Index (BMI) 29.9 Intake and Output for Last 24 Hours 05/19/20 05/20/20 05/21/20 23:59 23:59 23:59 Intake Total 649.56 / 649.56 Output Total 450 / 1250 5200 / 5200 Balance -450 / -1190 -4550.44 / -4550.44 Labs (Last 48 Hours) 05/19/20 05/19/20 05/19/20 13:15 13:15 13:15 WBC 12.1 H RBC 3.51 L Hgb 10.1 L Hct 35.4 L MCV 100.9 H MCH 28.8 MCHC 28.5 L RDW Std Deviation 63.3 H RDW Coeff of Som 17.8 H Plt Count 223 MPV 10.9 Immature Gran % (Auto) 0.600 Neut % (Auto) 84.8 H Lymph % (Auto) 9.7 L [place] % (Auto) 4.4 Eos % (Auto) 0.2 Baso % (Auto) 0.3 Absolute Neuts (auto) 10.3 H Absolute Lymphs (auto) 1.17 Nucleated RBC % 0.3 Sodium 145 Potassium 3.5 Chloride 108 H Carbon Dioxide 32.0 Anion Gap 5 BUN 36 H Creatinine 1.86 H Estim Creat Clear Calc 30.86 Est GFR (MDRD) Af Amer 34 L Est GFR (MDRD) Non-Af 28 L BUN/Creatinine Ratio 19.4 Glucose 114 H Calcium 8.2 L Phosphorus Magnesium Total Bilirubin AST ALT Alkaline Phosphatase Troponin I 0.017 B-Natriuretic Peptide 2104.9 H Total Protein Albumin Globulin Albumin/Globulin Ratio Procalcitonin TSH 05/19/20 05/19/20 05/20/20 18:00 19:57 05:40 WBC 12.3 H RBC 3.23 L Hgb 9.3 L Hct 32.3 L MCV 100.0 H MCH 28.8 MCHC 28.8 L RDW Std Deviation 63.1 H RDW Coeff of Som 17.8 H Plt Count 179 MPV 10.6 Immature Gran % (Auto) 0.600 Neut % (Auto) 82.2 H Lymph % (Auto) 10.6 L [place] % (Auto) 6.2 Eos % (Auto) 0.2 Baso % (Auto) 0.2 Absolute Neuts (auto) 10.1 H Absolute Lymphs (auto) 1.30 Nucleated RBC % 0.4 Sodium Potassium Chloride Carbon Dioxide Anion Gap BUN Creatinine Estim Creat Clear Calc Est GFR (MDRD) Af Amer Est GFR (MDRD) Non-Af BUN/Creatinine Ratio Glucose Calcium Phosphorus Magnesium Total Bilirubin AST ALT Alkaline Phosphatase Troponin I 0.028 0.021 B-Natriuretic Peptide Total Protein Albumin Globulin Albumin/Globulin Ratio Procalcitonin TSH 05/20/20 05/20/20 05/21/20 05:40 10:10 04:05 WBC 11.9 H RBC 3.35 L Hgb 9.5 L Hct 33.7 L MCV 100.6 H MCH 28.4 MCHC 28.2 L RDW Std Deviation 63.9 H RDW Coeff of Som 17.8 H Plt Count 165 MPV 10.2 Immature Gran % (Auto) 0.600 Neut % (Auto) 83.0 H Lymph % (Auto) 10.3 L [place] % (Auto) 5.4 Eos % (Auto) 0.5 Baso % (Auto) 0.2 Absolute Neuts (auto) 9.8 H Absolute Lymphs (auto) 1.22 Nucleated RBC % 0.3 Sodium 145 Potassium 3.3 L Chloride 109 H Carbon Dioxide 30.0 Anion Gap 6 BUN 34 H Creatinine 1.73 H Estim Creat Clear Calc 30.53 Est GFR (MDRD) Af Amer 37 L Est GFR (MDRD) Non-Af 31 L BUN/Creatinine Ratio 19.7 Glucose 94 Calcium 7.6 L Phosphorus 3.3 Magnesium 1.7 Total Bilirubin 0.50 AST 27 ALT 19 Alkaline Phosphatase 127 H Troponin I B-Natriuretic Peptide Total Protein 6.7 Albumin 2.1 L Globulin 4.6 H Albumin/Globulin Ratio 0.5 L Procalcitonin 0.19 H TSH 1.41 05/21/20 04:05 WBC RBC Hgb Hct MCV MCH MCHC RDW Std Deviation RDW Coeff of Som Plt Count MPV Immature Gran % (Auto) Neut % (Auto) Lymph % (Auto) [place] % (Auto) Eos % (Auto) Baso % (Auto) Absolute Neuts (auto) Absolute Lymphs (auto) Nucleated RBC % Sodium 145 Potassium 3.1 L Chloride 105 Carbon Dioxide 37.0 H Anion Gap 3 L BUN 31 H Creatinine 1.58 H Estim Creat Clear Calc 33.43 Est GFR (MDRD) Af Amer 41 L Est GFR (MDRD) Non-Af 34 L BUN/Creatinine Ratio 19.6 Glucose 88 Calcium 8.0 L Phosphorus Magnesium Total Bilirubin AST ALT Alkaline Phosphatase Troponin I B-Natriuretic Peptide Total Protein Albumin Globulin Albumin/Globulin Ratio Procalcitonin TSH Microbiology 05/19/20 17:20 Urine Catheter - Amanda Legionella Antigen - Final 05/19/20 17:20 Urine Catheter - Amanda Streptococcus pneumoniae Antigen (M - Final 05/19/20 14:33 Mucosa - Nose SARS-CoV-2 Antigen (Rapid) - Final Clinical Impression(s) from Imaging Studies Chest X-Ray 05/19/20 13:44 IMPRESSION: Bilateral pneumonia, pulmonary edema, or ARDS greater on the left than the right. Electronically Signed: Laron Argueta MD at 14:27 EST Tel , Service support , Chest X-Ray 05/20/20 05:55 IMPRESSION: No change from 05/19/2020 Electronically Signed: Laron Argueta MD at 9:21 EST Tel , Service support , Medical Necessity - Tobacco Use Smoking Status: Never smoker Assessment/Plan All Active Problems (Last Updated 05/19/20 @ 15:[address] Bree Waldrop, DO) Acute kidney injury (Acute) Shortness of breath (Acute) Congestive heart failure (Acute) GI bleed (Resolved) Hypokalemia (Resolved) Sepsis (Resolved) UTI (urinary tract infection) (Resolved) RECOMMENDATIONS: 1. Continue patient on BiPAP therapy and wean as tolerated, with a goal to maintain oxygen saturations at or above 90%. 2. Consider de-escalation of diuretic regimen, given elevated bicarbonate and concern for evolving contraction alkalosis 3. Obtain arterial blood gas. 4. Obtain repeat chest x-ray. 5. Additional potassium repletion. 6. Check respiratory viral panel 7. Continue Eliquis as ordered. 8. Close outpatient cardiology follow-up is warranted. IMPRESSIONS: 1. Acute on chronic hypoxemic respiratory failure likely secondary to decompensated heart failure The patient had a similar presentation in March when she was admitted to the hospital. The patient has been maintained on BiPAP and a continuous Bumex infusion. She is overall net negative for the hospitalization but continues to require noninvasive positive pressure ventilatory support. I would recommend that we de-escalate her diuretic regimen as she appears to be developing a contraction alkalosis. Arterial blood gas will be obtained along with a repeat chest x-ray. Respiratory viral panel will be obtained. Continue to wean from BiPAP therapy as tolerated. Remainder of medical management per cardiology recommendations. The patient's pulmonary hypertension can be further worked up on an outpatient basis in the pulmonary medicine clinic. 2. Chronic atrial fibrillation Continue current medical management per cardiology recommendations including Eliquis and beta-boris. 3. Hypokalemia Electrolyte repletion as ordered. Recheck levels in the morning. 4. 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 The patient will be continued on diuretic therapy as tolerated by hemodynamics and renal function. 5. 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 Continue home medications as indicated. TIME: 33 minutes of critical care time, independent of procedures, was spent addressing the patient's acute on chronic hypoxemic respiratory failure, decompensated heart failure, chronic atrial fibrillation, hypokalemia, review of all data and collaboration with the care team. [id number]) [id number] Critical care first hour
[2020-05-21] MEDS: 0.9% Saline Lock 10 ML Syringe IV ×2 (05:51→10:22)
--- NOTE | 2020-05-21 07:29 | PN_ITS ---
Patient Problems: Active and Suspected Problems (Last Updated 05/19/20 @ 15:[address] Bree Waldrop, DO) Acute kidney injury (Acute) Shortness of breath (Acute) Congestive heart failure (Acute) Reason for Visit: Follow-up for acute hypoxic respiratory failure secondary to heart failure exacerbation Objective: Patient on BiPAP 55% FiO2. Yesterday evening, nurse called me that patient not able to get off the BiPAP even for meal because of shortness of breath. No fever. COVID-19 PCR is negative. Patient put on high flow humidified oxygen, AIR VO Physical exam General: Alert, Oriented x3, Cooperative but short of breath and weak HEENT: Atraumatic, PERRLA, EOMI, Normocephalic Oral: No Gingival or Mucosal Lesions/ Ulcerations Neck: Supple, No JVD, Negative Carotid Bruits Lungs: Air entry diminished in bilateral lung bases. Bilateral expiratory rhonchi present. Severe hypoxia. Cardiovascular: Regular rate, Regular Rhythm, Normal S1, Normal S2, No murmurs Abdomen: Bowel Sounds Present, Soft, Non Tender, Non-Distended : No renal angle tenderness. No suprapubic tenderness. Extremities: Mild bilateral leg edema, Capillary Refill Less than 3 Seconds Skin: No rashes, No breakdown Musculoskeletal: No Tenderness to Palpation of Joints or Extremities Neurological: Cranial nerves II-XII grossly intact, Deep Tendon Reflexes 2+/4 and Symmetrical, Neuro grossly intact Psych/Mental Status: Mild sad and depressed Vitals/I&O's: Vital Signs Temp Pulse Resp BP Pulse Ox 98.4 F 98 22 H 159/81 H 91 05/21/20 04:00 05/21/20 06:00 05/21/20 06:00 05/21/20 06:00 05/21/20 06:00 Oxygen Flow Rate (L/min) 5 Oxygen Delivery Method Bi-pap Weight: 135 lb 12.876 oz Body Mass Index (BMI) 29.9 Intake and Output for Last 24 Hours 05/19/20 05/20/20 05/21/20 23:59 23:59 23:59 Intake Total 649.56 / 649.56 13.03 / 13.03 Output Total 450 / 1250 5200 / 5200 1000 / 1000 Balance -450 / -1190 -4550.44 / -4550.44 -986.97 / -986.97 Microbiology Past 72 Hours 05/19/20 17:20 Urine Catheter - Amanda Legionella Antigen - Final 05/19/20 17:20 Urine Catheter - Amanda Streptococcus pneumoniae Antigen (M - Final 05/19/20 14:33 Mucosa - Nose SARS-CoV-2 Antigen (Rapid) - Final Laboratory Results 05/20/20 10:10: Procalcitonin 0.19 H 05/21/20 04:05: WBC 11.9 H, RBC 3.35 L, Hgb 9.5 L, Hct 33.7 L, MCV 100.6 H, MCH 28.4, MCHC 28.2 L, RDW Std Deviation 63.9 H, RDW Coeff of Som 17.8 H, Plt Count 165, MPV 10.2, Immature Gran % (Auto) 0.600, Neut % (Auto) 83.0 H, Lymph % (Auto) 10.3 L, [place] % (Auto) 5.4, Eos % (Auto) 0.5, Baso % (Auto) 0.2, Absolute Neuts (auto) 9.8 H, Absolute Lymphs (auto) 1.22, Nucleated RBC % 0.3 05/21/20 04:05: Sodium 145, Potassium 3.1 L, Chloride 105, Carbon Dioxide 37.0 H , Anion Gap 3 L, BUN 31 H, Creatinine 1.58 H, Estim Creat Clear Calc 33.43, Est GFR (MDRD) Af Amer 41 L, Est GFR (MDRD) Non-Af 34 L, BUN/Creatinine Ratio 19.6, Glucose 88, Calcium 8.0 L Current Medications Acetaminophen (Acetaminophen 325 Mg Tablet) 650 mg PO Q6H PRN PRN PRN Reason: Pain Score 1-10/Temp > 100.7 F Last Admin: 05/20/20 03:44 Dose: 650 mg Documented by: Albuterol Sulfate (Albuterol 2.5 Mg/3 Ml Vial.Neb.) 2.5 mg INHALATION Q2H PRN PRN PRN Reason: SOB/Wheezing Last Admin: 05/19/20 19:13 Dose: 2.5 mg Documented by: Apixaban (Apixaban 2.5 Mg Tablet) 2.5 mg PO BID DANNY Last Admin: 05/20/20 22:16 Dose: 2.5 mg Documented by: Carvedilol (Carvedilol 12.5 Mg Tablet) 12.5 mg PO BIDCM [facility] [place] Last Admin: 05/20/20 19:58 Dose: 12.5 mg Documented by: Fluticasone Propionate (Fluticasone 0.05% 1 [place] Nasal.Sry) 1 spray NASAL DAILY PRN PRN Reason: ALLERGIES Bumetanide 25 mg/ (Miscellaneous Information) 100 mls @ 2 mls/hr CONT INF .Q50H [facility] [place] Last Infusion: 05/21/20 05:51 Dose: 0.5 mg/hr, 2 mls/hr Documented by: Pantoprazole Sodium 40 mg/ (Sodium Chloride) 110 mls @ 330 mls/hr IV Q12 [facility] Last Infusion: 05/20/20 22:40 Dose: Infused Documented by: Potassium Chloride () 10 meq in 100 mls @ 100 mls/hr IV BOLUS Q1H [facility] Stop: 05/21/20 11:29 Lisinopril (Lisinopril 10 Mg Tablet) 10 mg PO DAILY [facility] Last Admin: 05/20/20 17:09 Dose: Not Given Documented by: Melatonin (Melatonin 3 Mg Tablet) 3 mg PO QHS PRN PRN PRN Reason: INSOMNIA Metoprolol Tartrate (Metoprolol Tartrate 5 Mg/5 Ml Vial) 5 mg IV Q6 PRN PRN Reason: HR>130/m Multivitamins ([facility]it[facility],Therapeutic Tablet) [facility] Last Admin: 05/20/20 17:09 Dose: Not Given Documented by: Ondansetron HCl (Ondansetron 4 Mg/2 Ml Vial) 4 mg IV Q8H PRN PRN PRN Reason: NAUSEA/VOMITING Oxycodone HCl (Oxycodone 5 Mg Tablet) 5 mg PO Q4H PRN PRN PRN Reason: Pain Score 6-10 Last Admin: 05/20/20 22:15 Dose: 5 mg Documented by: Sertraline HCl (Sertraline 50 Mg Tablet) 150 mg PO DAILY [facility] [place] Last Admin: 05/20/20 22:16 Dose: 150 mg Documented by: Sodium Chloride (0.9% Saline Lock 10 Ml Syringe) 10 - 40 ml IV UD PRN PRN Reason: SALINE FLUSH Last Admin: 05/21/20 05:51 Dose: 30 ml Documented by: Sucralfate (Sucralfate 1 Gm Tablet) 1 gm PO 1HR_ACHS [facility] [place] Last Admin: 05/20/20 22:15 Dose: 1 gm Documented by: Tolterodine Tartrate (Tolterodine Tartrate 4 Mg Cap.Sa) 4 mg PO DAILY [facility] [place] Last Admin: 05/20/20 17:09 Dose: Not Given Documented by: STROKE Vital Signs/Narrative: Vital Signs Temp Pulse Resp BP Pulse Ox 05/21/20 06:00 98 22 H 159/81 H 91 05/21/20 05:00 89 16 144/70 H 95 05/21/20 04:00 98.4 F 103 H 24 H 157/119 H 93 05/21/20 03:53 101 H 24 H 93 Medical Necessity - Tobacco Use Smoking Status: Never smoker Assessment/Plan All Active Problems (Last Updated 05/19/20 @ 15:[address] Bree Waldrop, DO) Acute kidney injury (Acute) Shortness of breath (Acute) Congestive heart failure (Acute) GI bleed (Resolved) Hypokalemia (Resolved) Sepsis (Resolved) UTI (urinary tract infection) (Resolved) This is a 70-year-old female admitted with progressive worsening of shortness of breath for 4 days, increased requirement of oxygen more than her baseline, 4 L and chest x-ray finding of pulmonary edema since 2 acute on chronic hypoxic respiratory failure secondary to acute CHF exacerbation. 1. Acute on Chronic Hypoxic Respiratory Failure 2/2 Acute Exacerbation of HFrEF: Patient had echo in February 19, 2020 reported as EF 42%, global LV dysfunction, RVSP 50 mmHg. BNP 2105. Serial 2 troponins are negative. On Bumex drip. Urinary antigens are negative. Rapid SARS-CoV-2 antigen negative. Mild leukocytosis with neutrophilia, no change in last 2 labs probably stress response/inflammatory. On BiPAP, CHF core measures, patient has Amanda including strict I and O's, daily weight monitoring. Seen by track machine operator repairer increase the dose of carvedilol 12.5 mg daily. On lisinopril 10 mg daily and nitroglycerin ointment. 05/21: Chest x-ray and CT chest individually reviewed. Bilateral subsegmental atelectasis or pneumonitis. Bilateral peripheral patchy groundglass opacity and alveolar densities suspicious of COVID-19 or viral pneumonitis. Discussed with ID. Agreed for starting on Decadron and remdesivir. ID consult. Paroxysmal A. fib: As mentioned above. Chronic Macrocytic Anemia: H&H at baseline 9.5/33.7. CKD stage 3: Estimated creatinine clearance fluctuates around 30 ml/minute. Serum creatinine and estimated GFR is on baseline 1.6-1.8.. -hold gabapentin for now and may need to lower dose of gabapentin at d/c with renal failure. BUN/creatinine showing improvement 31/1.58. -avoid nephrotoxins HTN -continue home meds Chronic pulmonary Fibrosis/Restrictive Lung disease -O2, bronchodilator as needed Chronic urinary Incontinence -Amanda for now for accurate intake and output. Patient does self- catheterization at home. -cont oxybutinin GERD/PUD, history of gastric bypass surgery and GI bleed -cont PPI and Carafate. Patient had GI bleed during previous hospitalization in February 2020 when EGD showed bleeding marginal ulcer and patient had epinephrine and clips were placed on transfer to [facility]. Depression -cont Zoloft DVT prophylaxis -On Eliquis 2.5 mg twice daily. CODE STATUS: DNRCC arrest. Total time of the visit including total time spent in counseling or coordination of care, (more than 50% of the total time, spent in obtaining medical information from nurses and other ancillary care providers,explaining to the patient about labs, imaging, diagnosis and management), discussion with aerodynamic consultant ID and clinical marketing manager, review of labs and imaging is 30 minutes. Living will/advanced directive/end of life care: Patient does have living will or advanced directive. Patient's power of deputy attorney general is his son, Mr. Zaki Michaud. After discussion of benefits/risks procedures involved with full code, DNR CC arrest and DNR CC, the patient opted for DNR-CC Arrest with no intubation. On further review during previous hospitalization on 02/21/2028 showed patient signed DNR CC arrest, in presence of Dr. Gonzalez the hospitalist Patient does not want artificial life support including intubation, tube feed, ventilator and/chest compression, central venous catheter, vasopressor and DC shock if needed Total time spent in [id number] encounter in discussion of advanced directive 16 minutes. Inpatient E&M: [id number] [facility] L3
[2020-05-21 07:41] LABS: Allen Test Positive; Base Excess 14 mmol/L (-2 to +2); Bicarbonate 39.2 mmol/L (22-26); Blood Gas Specimen Type ART; FI02 55; O2 Delivery Device BiPAP; PO2 61 mmHG (75-100); RR 12; SITE L Radial; SO2 88 % (95-99); Total Carbon Dioxide 41 mmol/L; pCO2 69.5 mmHg (35-45); pH 7.36 (7.35-7.45)
[2020-05-21 07:42] LABS: EPAP 8; IPAP 14
--- NOTE | 2020-05-21 08:20 | RAD_ITS ---
STUDY: X-RAY CHEST REASON FOR EXAM: Female, 70 years old. Respiratory Failure TECHNIQUE: Single AP portable view of the chest. COMPARISON: 05/20/2020 FINDINGS: Right internal jugular chest port which is unchanged. No change in alveolar opacities in both lungs consistent with bilateral pneumonia, pulmonary edema, or ARDS. There is no demonstrated pleural abnormality. Normal size heart. Normal mediastinum and elif. Normal visualized pulmonary arteries. Normal visualized aortic arch and descending thoracic aorta. Normal visualized thoracic spine. Status post left shoulder reverse arthroplasty. There is no demonstrated abnormality of the visualized soft tissue structures of the upper abdomen. RAD/Chest 1 View (Portable) IMPRESSION: There has been noticing again seen since the previous study. Electronically Signed: Nilo Bowen, at 9:33 EST Tel , Service support ,
[2020-05-21] MEDS: Sucralfate 1 GM Tablet PO ×4 (09:08→20:42)
[2020-05-21] MEDS: Carvedilol 12.5 MG Tablet PO ×2 (09:08→16:13)
[2020-05-21] MEDS: Tolterodine Tartrate 4 MG CAP.SA PO (09:09)
[2020-05-21] MEDS: Multivitamins,Therapeutic Tablet 1 TABLET PO (09:09)
[2020-05-21] MEDS: Lisinopril 10 MG Tablet PO (09:09)
[2020-05-21] MEDS: APIXABAN 2.5 MG TABLET PO ×2 (09:09→20:42)
[2020-05-21] MEDS: Sertraline 50 MG Tablet 150 MG PO (09:10)
[2020-05-21] MEDS: Bumetanide 0.5 MG Tablet 1 MG PO ×2 (10:22→20:40)
[2020-05-21] MEDS: oxyCODONE 5 MG Tablet PO ×2 (10:22→20:39)
[2020-05-21] MEDS: Potassium Chloride 10mEq/100mL 10 MEQ/100 ML IV.SOLN. 100 MEQ IV BOLUS ×4 (10:23→15:15)
--- NOTE | 2020-05-21 11:10 | CPS ---
Critical blood gas result of CO2 69.[address] Walls by the PHONE COUNSELOR.
--- NOTE | 2020-05-21 11:12 | CT_ITS ---
STUDY: CT CHEST WITHOUT CONTRAST REASON FOR EXAM: Female, 70 years old. RESPIRATORY FAILURE. SPESIS, CHF, A-FIB, PULMONARY FIBROSIS. H/O LUNG CA. RADIATION DOSAGE (If Supplied By Facility): CTDIvol = ( 12.27 ) mGy, DLP = ( 450.58 ) mGycm TECHNIQUE: Transaxial imaging was performed without the administration of intravenous contrast material. Individualized dose optimization techniques were used for this CT. COMPARISON: 05/29/2018, chest x-ray earlier today FINDINGS: Right internal jugular chest port. Bilateral peripheral patchy groundglass opacities consistent with subsegmental atelectasis or pneumonitis. More dense alveolar densities in the lung bases consistent with bibasilar atelectasis or superimposed bacterial pneumonia. There is no demonstrated pleural abnormality. There is moderate cardiac enlargement. There are calcifications of the coronary arteries. Normal mediastinum. Normal hilar regions. There is prominence of the pulmonary hilar arteries without peripheral pulmonary vascular congestion, suggesting pulmonary hypertension. Normal aorta arch and descending thoracic aorta. Prominent hemangioma the T6 vertebral body. Kyphosis of the cervical and thoracic spine but no compression fracture. Mild dextroscoliosis of the thoracic spine. Status post left shoulder arthroplasty which produces streak artifact obscures the superior chest. Status post cholecystectomy. CT/Chest without Contrast IMPRESSION: 1. Bilateral subsegmental atelectasis or pneumonitis. Commonly reported imaging features of Covid 19 pneumonia are present. Other processes such as influenza pneumonia and organizing pneumonia, as can be seen with drug toxicity and connective tissue disease, can cause a similar imaging pattern. 2. Bibasilar alveolar densities worrisome for superimposed bibasilar atelectasis or bacterial pneumonia. 3. Cardiomegaly. 4. Suspect pulmonary arterial hypertension. Electronically Signed: Laron Argueta MD at 13:37 EST Tel , Service support ,
--- NOTE | 2020-05-21 13:15 | CASEMGMT ---
YOLANDA HOOK NOTE: Attempted initial RN MONSTER assessment. Pt out of room at this time @ radiology for CT. Pt has been on BIPAP and switched to Airvo today. Pt was discharged home w/[facility]. Call placed to Kasia @ [facility]. Pt is still active with them and is getting PT/OT. She did have SN, but that was d/c'd on 04/28 and plan was for them to re-evalute today to add SN back on. Kasia made aware pt was admitted to [facility] on 05/19. If pt is able to return home @ d/c, will need ASIA order placed for PT/OT, and may need new order to add SN. [facility]: PH: [phone]. Faxed H/P to [facility] at this time. YOLANDA HOOK to attempt initial assessment at a later time. D/C Plan: DEXTER ULLOA RN, CM
--- NOTE | 2020-05-21 13:54 | PN.CARD_ITS ---
Objective: Vital Signs Temp Pulse Resp BP Pulse Ox 98.4 F 90 22 H 148/75 H 92 05/21/20 04:00 05/21/20 10:10 05/21/20 10:10 05/21/20 10:00 05/21/20 10:10 Oxygen Flow Rate (L/min) 60 Oxygen Delivery Method Airvo Weight: 135 lb 12.876 oz Body Mass Index (BMI) 29.9 Intake and Output for Last 24 Hours 05/19/20 05/20/20 05/21/20 23:59 23:59 23:59 Intake Total 649.56 / 649.56 397.33 / 397.33 Output Total 450 / 1250 5200 / 5200 2200 / 2200 Balance -450 / -1190 -4550.44 / -4550.44 -1802.67 / -1802.67 General: Awake, Alert, Oriented x 3 HEENT: PERRL, EOMI, Sclera Non Icteric Neck: Supple, Good ROM, No Lymph Node Enlargement Lungs: Clear to auscultation Cardiovascular: Irregular Rhythm, Normal S1, Normal S2, No Murmurs, No Rubs, No Gallops Vascular: No Carotid Bruits, Normal Femoral Pulses, Normal Radial Pulses, Normal Dorsalis Pedal Pulse, Normal Posterior Tibial Pulses Abdomen: Bowel Sounds Present, Soft, Non Tender, No HSM, No Organomegaly Extremities: No Cyanosis, No Clubbing, No edema Neurological: No Focal Motor or Sensory Deficit 05/21/20 04:05: WBC 11.9 H, RBC 3.35 L, Hgb 9.5 L, Hct 33.7 L, MCV 100.6 H, MCH 28.4, MCHC 28.2 L, Plt Count 165, MPV 10.2, Immature Gran % (Auto) 0.600, Neut % (Auto) 83.0 H, Lymph % (Auto) 10.3 L, Moffat % (Auto) 5.4, Eos % (Auto) 0.5, Baso % (Auto) 0.2, Absolute Neuts (auto) 9.8 H, Nucleated RBC % 0.3 05/21/20 04:05: Sodium 145, Potassium 3.1 L, Chloride 105, Carbon Dioxide 37.0 H , Anion Gap 3 L, BUN 31 H, Creatinine 1.58 H, Est GFR (MDRD) Af Amer 41 L, Est GFR (MDRD) Non-Af 34 L, BUN/Creatinine Ratio 19.6, Glucose 88, Calcium 8.0 L 05/21/20 07:36: pH 7.36, Bicarbonate Actual 39.2 H, Base Excess 14 H, O2 Saturation 88 L, ABG pCO2 69.5 H*, ABG pO2 61 L, Andrey Test Positive Rhythm: EKG: ECHO: Stress Test: Cardiac Cath: PCI: CT Surgery: Holter monitor: EPS: PPM: CXR: Chest CT Scan: Medical Necessity - Tobacco Use Smoking Status: Never smoker Assessment/Plan 1. Heart failure with reduced ejection fraction * Patient is noted to have global reduction in left ventricular systolic function estimated to be 42%. The exact precipitating factor or agent for this exacerbation is not clear. Her ventricular response rate may be mildly elevated. * I would recommend that we increase her carvedilol to 12.5 mg twice a day * Continue diuretic with bumetanide as an oral dose * I do not think there is a reason to repeat her echocardiogram at this time * 2. Pulmonary hypertension * The above does not appear to be secondary to cardiac disease and may be intrinsic pulmonary disease. Will defer to the state trooper on further treatment * CT scan definitely demonstrates evidence of pulmonary artery dilatation 3. Atrial fibrillation chronic persistent * She is anticoagulated with Eliquis which will be continued. No changes will be made at this particular time. I do not think that with her pulmonary issues she is a candidate for DC cardioversion. In addition I do not think she is a candidate for ablation either. * * Thank you for allowing me to participate in the care of your patient. Please don't hesitate to call if any issues arise.
--- NOTE | 2020-05-21 16:00 | NURSING ---
pt notified return to [facility]. Disc additional testing, meds ordered. Many questions answered. pt expresses desire to wait till antibody test results before starting Remdesiver. Dr. Camacho notified.
[2020-05-21] MEDS: dexAMETHasone 10 MG/ML Vial 6 MG IV (20:38)
[2020-05-21] MEDS: Acetaminophen 325 MG Tablet 650 MG PO (20:41)
[2020-05-22] VITALS (34 sets, daily range): BP systolic 108–154; BP diastolic 60–105; PULSE 78–104; RESP 11–22; TEMP 36.4–36.9; O2SAT 90–98
[2020-05-22] MEDS: oxyCODONE 5 MG Tablet PO ×3 (00:49→21:43)
--- NOTE | 2020-05-22 02:16 | NURSING ---
Spoke w/pt extensively this evening regarding Code status; described in detail all events/procedures/drug administrations during a cardiac and/or respiratory arrest; described chest compressions and intubation process. Also discussed pt prognosis regarding current health condition. Pt able to restate information appropriately and after thinking about everything pt states I still want everything done. 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 I fully understand what that means.
[2020-05-22] MEDS: Acetaminophen 325 MG Tablet 650 MG PO (04:45)
[2020-05-22] MEDS: 0.9% Saline Lock 10 ML Syringe IV (04:46)
[2020-05-22 05:08] LABS: Absolute Lymphocyte Count 0.66 X10^3/uL (0.83-4.51); Absolute Neutrophil Count 9.2 X10^3/uL (2.0-7.7); Basophil# 0.01 X10^3/uL; Basophil% 0.1 % (0-1); Eosinophil# 0.01 X10^3/uL; Eosinophils% 0.1 % (0-5); Hematocrit 33.5 % (37-47); Hemoglobin 9.8 g/dL (12.0-15.0); Lymphocyte # 0.66 X10^3/ul (4.0); Lymphocyte % 6.5 % (19-41); Mean Corp Hgb Conc 29.3 g/dL (32-36); Mean Corpuscular Hgb 29.3 pg (27.0-32.0); Mean Platelet Vol. 10.7 fl (6.2-12.0); Monocyte# 0.13 X10^3/uL; Monocyte% 1.3 % (0-10); NRBC Flagged by Analyzer 0 % (0-5); Neutrophil # 9.24 X10^3/uL (2.7-7.7); Neutrophil % 91.5 % (47-70); Platelet Count 147 K/mm3 (150-450); RBC Distribution Width CV 17.8 % (11.6-14.6); RBC Distribution Width SD 64.3 fl (35.1-43.9); Red Blood Count 3.35 M/mm3 (4.2-5.4); White Blood Count 10.1 K/mm3 (4.4-11.0)
[2020-05-22 05:24] LABS: ALB/GLOB Ratio 0.3 RATIO (0.9-2.4); AST(SGOT) 16 U/L (15-37); Alanine Aminotransfer ALT/SGPT 17 U/L (13-56); Albumin, Serum 1.8 g/dL (3.2-5.0); Alkaline Phosphatase 115 U/L (45-117); Anion Gap 3 (5-15); BUN 31 mg/dL (7-18); BUN/Creat Ratio 21.2 RATIO (10-20); Chloride 103 mmol/L (98-107); Creatinine, Serum 1.46 mg/dL (0.55-1.02); EST Glomerular Filtration Rate 37 mL/min (>60); Est Glom Filt Rate - Afr Amer 45 mL/min (>60); Estimated Creatinine Clearance 33.54 ml/min; Globulin 5.3 g/dL (2.2-4.2); Glucose 123 mg/dL (74-106); Magnesium 1.4 mg/dL (1.6-2.6); Potassium 3.5 mmol/L (3.5-5.1); Protein, Total 7.1 g/dL (6.4-8.2); Sodium Level 144 mmol/L (136-145)
--- NOTE | 2020-05-22 05:43 | PN_ITS ---
Subjective: The patient was seen and examined at the bedside this morning. Events from the last 24 hours have been reviewed. The patient is currently afebrile, hemodynamically stable and maintaining appropriate oxygen saturations on Airvo heated high flow with an FiO2 requirement of 64%. Potassium was noted to be 3.5 this morning with a magnesium level of 1.4. Creatinine is stable at 1.46. The patient remains systemically anticoagulated on Eliquis and is currently on twice daily by mouth Bumex. Although the patient had a negative coronavirus PCR, CT chest obtained yesterday revealed multifocal airspace disease and groundglass changes bilaterally. The case was apparently discussed with infectious diseases who agreed with maintaining the patient in Covid precautions and starting Decadron and remdesivir. Coronavirus serology was ordered. The patient subsequently refused remdesivir until the results of her serology testing was known. The patient is currently documented to be overall net -7.8 L for the hospital admission. Apparently, there was some confusion yesterday regarding the patient's CODE STATUS. Although she is currently entered as a DNR CCA, upon my discussion with the patient this morning, she is in fact requesting to be a full code. Objective: The patient's most recent lab work, culture data and imaging studies have all been personally reviewed. Surface echocardiogram from January 2020 revealed mild global LV systolic dysfunction with an ejection fraction of 42%. Pulmonary artery systolic pressure was estimated to be 50 mmHg. Coronavirus PCR was negative on May 21. Respiratory viral panel was negative. Strep and urine Legionella antigens were negative. General: Alert, Cooperative, No apparent distress HEENT: Atraumatic, PERRLA, Normocephalic, - Oral: Dry Mucosa, - - Poor dentition Neck: Supple, No Nodes, Trachea Midline Lungs: No rhonchi, No wheeze, No rales, Diminished Cardiovascular: Normal S1, Normal S2, Irregular Rate Abdomen: Bowel Sounds Present, Soft, Non Tender Extremities: No clubbing, No cyanosis, Edema Skin: - - No significant change from previous Musculoskeletal: - - Exaggerated kyphosis Lymphatic: No Cervical, Supraclavicular, or Inguinal Adenopathy Neurological: Cranial nerves II-XII grossly intact, Neuro grossly intact Psych/Mental Status: Normal Affect, Appropriate Vital Signs Temp Pulse Resp BP Pulse Ox 98.2 F 104 H 17 154/86 H 92 05/22/20 04:00 05/22/20 05:00 05/22/20 05:00 05/22/20 05:00 05/22/20 05:00 Oxygen Flow Rate (L/min) 50 Oxygen Delivery Method Airvo Weight: 134 lb 7.712 oz Body Mass Index (BMI) 29.9 Intake and Output for Last 24 Hours 05/20/20 05/21/20 05/22/20 23:59 23:59 23:59 Intake Total 649.56 / 649.56 898.44 / 1048.44 150 / 150 Output Total 5200 / 5200 2975 / 3525 550 / 550 Balance -4550.44 / -4550.44 -2076.56 / -2476.56 -400 / -400 Labs (Last 48 Hours) 05/20/20 05/20/20 05/20/20 05:40 05:40 10:10 WBC 12.3 H RBC 3.23 L Hgb 9.3 L Hct 32.3 L MCV 100.0 H MCH 28.8 MCHC 28.8 L RDW Std Deviation 63.1 H RDW Coeff of Som 17.8 H Plt Count 179 MPV 10.6 Immature Gran % (Auto) 0.600 Neut % (Auto) 82.2 H Lymph % (Auto) 10.6 L Nobles % (Auto) 6.2 Eos % (Auto) 0.2 Baso % (Auto) 0.2 Absolute Neuts (auto) 10.1 H Absolute Lymphs (auto) 1.30 Nucleated RBC % 0.4 Specimen Type Sample Site pH Bicarbonate Actual Total CO2 Base Excess O2 Saturation O2 % ABG pCO2 ABG pO2 Andrey Test Respiration Rate O2 Delivery Device EPAP IPAP Sodium 145 Potassium 3.3 L Chloride 109 H Carbon Dioxide 30.0 Anion Gap 6 BUN 34 H Creatinine 1.73 H Estim Creat Clear Calc 30.53 Est GFR (MDRD) Af Amer 37 L Est GFR (MDRD) Non-Af 31 L BUN/Creatinine Ratio 19.7 Glucose 94 Calcium 7.6 L Phosphorus 3.3 Magnesium 1.7 Total Bilirubin 0.50 AST 27 ALT 19 Alkaline Phosphatase 127 H Total Protein 6.7 Albumin 2.1 L Globulin 4.6 H Albumin/Globulin Ratio 0.5 L Procalcitonin 0.19 H TSH 1.41 COVID-19 (SHAILESH) SARS Serology 05/21/20 05/21/20 05/21/20 04:05 04:05 07:23 WBC 11.9 H RBC 3.35 L Hgb 9.5 L Hct 33.7 L MCV 100.6 H MCH 28.4 MCHC 28.2 L RDW Std Deviation 63.9 H RDW Coeff of Som 17.8 H Plt Count 165 MPV 10.2 Immature Gran % (Auto) 0.600 Neut % (Auto) 83.0 H Lymph % (Auto) 10.3 L Nobles % (Auto) 5.4 Eos % (Auto) 0.5 Baso % (Auto) 0.2 Absolute Neuts (auto) 9.8 H Absolute Lymphs (auto) 1.22 Nucleated RBC % 0.3 Specimen Type Sample Site pH Bicarbonate Actual Total CO2 Base Excess O2 Saturation O2 % ABG pCO2 ABG pO2 Andrey Test Respiration Rate O2 Delivery Device EPAP IPAP Sodium 145 Potassium 3.1 L Chloride 105 Carbon Dioxide 37.0 H Anion Gap 3 L BUN 31 H Creatinine 1.58 H Estim Creat Clear Calc 33.43 Est GFR (MDRD) Af Amer 41 L Est GFR (MDRD) Non-Af 34 L BUN/Creatinine Ratio 19.6 Glucose 88 Calcium 8.0 L Phosphorus Magnesium Total Bilirubin AST ALT Alkaline Phosphatase Total Protein Albumin Globulin Albumin/Globulin Ratio Procalcitonin TSH COVID-19 (SHAILESH) Not Detected SARS Serology 05/21/20 05/21/20 05/22/20 07:36 16:00 05:00 WBC 10.1 RBC 3.35 L Hgb 9.8 L Hct 33.5 L MCV 100.0 H MCH 29.3 MCHC 29.3 L RDW Std Deviation 64.3 H RDW Coeff of Som 17.8 H Plt Count 147 L MPV 10.7 Immature Gran % (Auto) 0.500 Neut % (Auto) 91.5 H Lymph % (Auto) 6.5 L Nobles % (Auto) 1.3 Eos % (Auto) 0.1 Baso % (Auto) 0.1 Absolute Neuts (auto) 9.2 H Absolute Lymphs (auto) 0.66 L Nucleated RBC % 0 Specimen Type ART Sample Site L Radial pH 7.36 Bicarbonate Actual 39.2 H Total CO2 41 Base Excess 14 H O2 Saturation 88 L O2 % 55 ABG pCO2 69.5 H* ABG pO2 61 L Andrey Test Positive Respiration Rate 12 O2 Delivery Device BiPAP EPAP 8 IPAP 14 Sodium Potassium Chloride Carbon Dioxide Anion Gap BUN Creatinine Estim Creat Clear Calc Est GFR (MDRD) Af Amer Est GFR (MDRD) Non-Af BUN/Creatinine Ratio Glucose Calcium Phosphorus Magnesium Total Bilirubin AST ALT Alkaline Phosphatase Total Protein Albumin Globulin Albumin/Globulin Ratio Procalcitonin TSH COVID-19 (SHAILESH) SARS Serology Pending 05/22/20 05:00 WBC RBC Hgb Hct MCV MCH MCHC RDW Std Deviation RDW Coeff of Som Plt Count MPV Immature Gran % (Auto) Neut % (Auto) Lymph % (Auto) Nobles % (Auto) Eos % (Auto) Baso % (Auto) Absolute Neuts (auto) Absolute Lymphs (auto) Nucleated RBC % Specimen Type Sample Site pH Bicarbonate Actual Total CO2 Base Excess O2 Saturation O2 % ABG pCO2 ABG pO2 Andrey Test Respiration Rate O2 Delivery Device EPAP IPAP Sodium 144 Potassium 3.5 Chloride 103 Carbon Dioxide 38.0 H Anion Gap 3 L BUN 31 H Creatinine 1.46 H Estim Creat Clear Calc 33.54 Est GFR (MDRD) Af Amer 45 L Est GFR (MDRD) Non-Af 37 L BUN/Creatinine Ratio 21.2 H Glucose 123 H Calcium 8.0 L Phosphorus Magnesium 1.4 L Total Bilirubin 0.40 AST 16 ALT 17 Alkaline Phosphatase 115 Total Protein 7.1 Albumin 1.8 L Globulin 5.3 H Albumin/Globulin Ratio 0.3 L Procalcitonin TSH COVID-19 ([facility]AILESH) SARS Serology Microbiology 05/21/20 07:23 Mucosa - Nasopharyngeal Respiratory Panel (PCR) - Final Clinical Impression(s) from Imaging Studies Chest X-Ray 05/19/20 13:44 IMPRESSION: Bilateral pneumonia, pulmonary edema, or ARDS greater on the left than the right. Electronically Signed: Laron Argueta MD at 14:27 EST Tel , Service support , Chest X-Ray 05/20/20 05:55 IMPRESSION: No change from 05/19/2020 Electronically Signed: Laron Argueta MD at 9:21 EST Tel , Service support , Chest X-Ray 05/21/20 08:20 IMPRESSION: There has been noticing again seen since the previous study. Electronically Signed: Nilo Bowen, at 9:33 EST Tel , Service support , Chest CT 05/21/20 11:12 IMPRESSION: 1. Bilateral subsegmental atelectasis or pneumonitis. Commonly reported imaging features of Covid 19 pneumonia are present. Other processes such as influenza pneumonia and organizing pneumonia, as can be seen with drug toxicity and connective tissue disease, can cause a similar imaging pattern. 2. Bibasilar alveolar densities worrisome for superimposed bibasilar atelectasis or bacterial pneumonia. 3. Cardiomegaly. 4. Suspect pulmonary arterial hypertension. Electronically Signed: Laron Argueta MD at 13:37 EST Tel , Service support , Medical Necessity - Tobacco Use Smoking Status: Never smoker Assessment/Plan All Active Problems (Last Updated 05/19/20 @ 15:[address] Bree Waldrop, DO) Acute kidney injury (Acute) Shortness of breath (Acute) Congestive heart failure (Acute) GI bleed (Resolved) Hypokalemia (Resolved) Sepsis (Resolved) UTI (urinary tract infection) (Resolved) RECOMMENDATIONS: 1. Continue Airvo heated high flow and continue to wean FiO2 to maintain oxygen saturations at or above 90%. 2. Continue diuretic regimen per cardiology recommendations. 3. Okay to discontinue coronavirus precautions from my perspective. 4. Continue Eliquis as ordered. 5. Magnesium repletion as ordered. IMPRESSIONS: 1. Acute on chronic hypoxemic respiratory failure likely secondary to decompensated heart failure The patient had a similar presentation in March when she was admitted to the hospital. The patient was initially placed on BiPAP and a continuous Bumex infusion. She has been weaned from BiPAP at this time and is currently maintaining appropriate oxygen saturations on heated high flow. We will plan to continue to wean FiO2 to maintain oxygen saturations at or above 90%. Coronavirus work-up was negative. Plan to continue diuretic regimen per cardiology recommendations. The patient's pulmonary hypertension can be further worked up on an outpatient basis in the pulmonary medicine clinic. 2. Chronic atrial fibrillation Continue current medical management per cardiology recommendations including Eliquis and beta-boris. 3. Hypomagnesemia Magnesium repletion as ordered. Recheck levels in the morning. 4. 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 The patient will be continued on diuretic therapy as tolerated by hemodynamics and renal function. 5. 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 Continue home medications as indicated. CODE status: Discussed CODE status at length including difference between FULL code, DNR-CCA and DNR-CC status. Following discussions about the differences in these status, patient requested FULL CODE STATUS. Advanced Care Planning Face to Face Time: 12 minutes This note was generated with Tellyo dictation software. It may contain incorrect words, spelling, and punctuation that were not noted in checking the note before signing. Inpatient E&M: 06562 [facility] H[facility] L3 Procedures: 79809 Advncd Care Plan 30 Min
[2020-05-22 07:07] LABS: SARS-COV-2 TOTAL ABS Nonreactive (Nonreactive)
--- NOTE | 2020-05-22 07:49 | PN_ITS ---
Patient Problems: Active and Suspected Problems (Last Updated 05/19/20 @ 15:[address] Bree Waldrop, DO) Acute kidney injury (Acute) Shortness of breath (Acute) Congestive heart failure (Acute) Reason for Visit: Follow-up for acute on chronic hypoxic respiratory failure, CHF examination, pulmonary fibrosis Objective: No fever or chills. Heart rate varies from 90s to 100s. Blood pressure is normal range. On AIRVO. Overall shortness of breath is better as compared to yesterday Patient had SARS-CoV-2 serology nonreactive therefore remdesivir discontinued. Physical exam General: Alert, Oriented x3, cooperative. HEENT: Atraumatic, PERRLA, EOMI, Normocephalic Oral: No Gingival or Mucosal Lesions/ Ulcerations Neck: Supple, No JVD, Negative Carotid Bruits Lungs: Air entry diminished in bilateral lung bases. Bilateral expiratory rhonchi present. Cardiovascular: Regular rate, Regular Rhythm, Normal S1, Normal S2, No murmurs Abdomen: Bowel Sounds Present, Soft, Non Tender, Non-Distended : No renal angle tenderness. No suprapubic tenderness. Extremities: Mild bilateral leg edema, Capillary Refill Less than 3 Seconds Skin: No rashes, No breakdown Musculoskeletal: No Tenderness to Palpation of Joints or Extremities Neurological: Cranial nerves II-XII grossly intact, Deep Tendon Reflexes 2+/4 and Symmetrical, Neuro grossly intact Psych/Mental Status: Appropriate. Vitals/I&O's: Vital Signs Temp Pulse Resp BP Pulse Ox 98.2 F 91 11 L 146/77 H 95 05/22/20 04:00 05/22/20 06:00 05/22/20 06:00 05/22/20 06:00 05/22/20 06:00 Oxygen Flow Rate (L/min) 50 Oxygen Delivery Method Airvo Weight: 134 lb 7.712 oz Body Mass Index (BMI) 29.9 Intake and Output for Last 24 Hours 05/20/20 05/21/20 05/22/20 23:59 23:59 23:59 Intake Total 649.56 / 649.56 898.44 / 1048.44 250 / 250 Output Total 5200 / 5200 2975 / 3525 1050 / 1050 Balance -4550.44 / -4550.44 -2076.56 / -2476.56 -800 / -800 Microbiology Past 72 Hours 05/21/20 07:23 Mucosa - Nasopharyngeal Respiratory Panel (PCR) - Final 05/19/20 17:20 Urine Catheter - Amanda Legionella Antigen - Final 05/19/20 17:20 Urine Catheter - Amanda Streptococcus pneumoniae Antigen (M - Final 05/19/20 14:33 Mucosa - Nose SARS-CoV-2 Antigen (Rapid) - Final Laboratory Results 05/21/20 07:23: COVID-19 ([facility]AILESH) Not Detected 05/21/20 16:00: SARS Serology Nonreactive 05/22/20 05:00: WBC 10.1, RBC 3.35 L, Hgb 9.8 L, Hct 33.5 L, MCV 100.0 H, MCH 29.3, MCHC 29.3 L, RDW Std Deviation 64.3 H, RDW Coeff of Som 17.8 H, Plt Count 147 L, MPV 10.7, Immature Gran % (Auto) 0.500, Neut % (Auto) 91.5 H, Lymph % (Auto) 6.5 L, Burnet % (Auto) 1.3, Eos % (Auto) 0.1, Baso % (Auto) 0.1, Absolute Neuts (auto) 9.2 H, Absolute Lymphs (auto) 0.66 L, Nucleated RBC % 0 05/22/20 05:00: Sodium 144, Potassium 3.5, Chloride 103, Carbon Dioxide 38.0 H, Anion Gap 3 L, BUN 31 H, Creatinine 1.46 H, Estim Creat Clear Calc 33.54, Est GFR (MDRD) Af Amer 45 L, Est GFR (MDRD) Non-Af 37 L, BUN/Creatinine Ratio 21.2 H , Glucose 123 H, Calcium 8.0 L, Magnesium 1.4 L, Total Bilirubin 0.40, AST 16, ALT 17, Alkaline Phosphatase 115, Total Protein 7.1, Albumin 1.8 L, Globulin 5.3 H, Albumin/Globulin Ratio 0.3 L Current Medications Acetaminophen (Acetaminophen 325 Mg Tablet) 650 mg PO Q6H PRN PRN PRN Reason: Pain Score 1-10/Temp > 100.7 F Last Admin: 05/22/20 04:45 Dose: 650 mg Documented by: Albuterol Sulfate (Albuterol 2.5 Mg/3 Ml Vial.Neb.) 2.5 mg INHALATION Q2H PRN PRN PRN Reason: SOB/Wheezing Last Admin: 05/19/20 19:13 Dose: 2.5 mg Documented by: Apixaban (Apixaban 2.5 Mg Tablet) 2.5 mg PO BID [facility] Last Admin: 05/21/20 20:42 Dose: 2.5 mg Documented by: Bumetanide (Bumetanide 0.5 Mg Tablet) 1 mg PO BID [facility] Last Admin: 05/21/20 20:40 Dose: 1 mg Documented by: Carvedilol ([facility] 12.5 Mg Tablet) [facility] Last Admin: 05/21/20 16:13 Dose: 12.5 mg Documented by: Dexamethasone Sodium Phosphate (Dexamethasone 10 Mg/Ml Vial) 6 mg IV DAILY [facility] Last Admin: 05/21/20 20:38 Dose: 6 mg Documented by: Fluticasone Propionate (Fluticasone 0.05% 1 [place] Nasal.Sry) 1 spray NASAL DAILY PRN PRN Reason: ALLERGIES Pantoprazole Sodium 40 mg/ (Sodium Chloride) 110 mls @ 330 mls/hr IV Q12 [facility] Last Infusion: 05/21/20 21:28 Dose: Infused Documented by: Magnesium Sulfate 2 gm/ Sodium (Chloride) 104 mls @ 52 mls/hr IV X1 ONE Stop: 05/22/20 08:43 Lisinopril (Lisinopril 10 Mg Tablet) 10 mg PO DAILY [facility] Last Admin: 05/21/20 09:09 Dose: 10 mg Documented by: Melatonin (Melatonin 3 Mg Tablet) 3 mg PO QHS PRN PRN PRN Reason: INSOMNIA Metoprolol Tartrate (Metoprolol Tartrate 5 Mg/5 Ml Vial) 5 mg IV Q6 PRN PRN Reason: HR>130/m Multivitamins (Multivitamins,Therapeutic Tablet) [facility] Last Admin: 05/21/20 09:09 Dose: 1 tablet Documented by: Ondansetron HCl (Ondansetron 4 Mg/2 Ml Vial) 4 mg IV Q8H PRN PRN PRN Reason: NAUSEA/VOMITING Oxycodone HCl (Oxycodone 5 Mg Tablet) 5 mg PO Q4H PRN PRN PRN Reason: Pain Score 6-10 Last Admin: 05/22/20 04:45 Dose: 5 mg Documented by: Sertraline HCl (Sertraline 50 Mg Tablet) 150 mg PO DAILY [facility] Last Admin: 05/21/20 09:10 Dose: 150 mg Documented by: Sodium Chloride (0.9% Saline Lock 10 Ml Syringe) 10 - 40 ml IV UD PRN PRN Reason: SALINE FLUSH Last Admin: 05/22/20 04:46 Dose: 30 ml Documented by: Sucralfate (Sucralfate 1 Gm Tablet) 1 gm PO 1HR_ACHS [facility] Last Admin: 05/21/20 20:42 Dose: 1 gm Documented by: Tolterodine Tartrate (Tolterodine Tartrate 4 Mg Cap.Sa) 4 mg PO DAILY [facility] Last Admin: 05/21/20 09:09 Dose: 4 mg Documented by: STROKE Vital Signs/Narrative: Vital Signs Temp Pulse Resp BP Pulse Ox 05/22/20 06:00 91 11 L 146/77 H 95 05/22/20 05:00 104 H 17 154/86 H 92 05/22/20 04:00 98.2 F 102 H 13 126/77 H 93 05/22/20 03:51 91 Medical Necessity - Tobacco Use Smoking Status: Never smoker Assessment/Plan All Active Problems (Last Updated 05/19/20 @ 15:[address] Bree Waldrop, DO) Acute kidney injury (Acute) Shortness of breath (Acute) Congestive heart failure (Acute) GI bleed (Resolved) Hypokalemia (Resolved) Sepsis (Resolved) UTI (urinary tract infection) (Resolved) This is a 70-year-old female admitted with progressive worsening of shortness of breath for 4 days, increased requirement of oxygen more than her baseline, 4 L and chest x-ray finding of pulmonary edema since 2 acute on chronic hypoxic respiratory failure secondary to acute CHF exacerbation. 1. Acute on Chronic Hypoxic Respiratory Failure 2/2 Acute Exacerbation of HFrEF: Patient had echo in February 19, 2020 reported as EF 42%, global LV dysfunction, RVSP 50 mmHg. BNP 2105. Serial 2 troponins are negative. On Bumex drip. Urinary antigens are negative. Rapid SARS-CoV-2 antigen negative. Mild leukocytosis with neutrophilia, no change in last 2 labs probably stress response/inflammatory. On BiPAP, CHF core measures, patient has Amanda including strict I and O's, daily weight monitoring. Seen by set up / operator increase the dose of carvedilol 12.5 mg daily. On lisinopril 10 mg daily and nitroglycerin ointment. 05/21: Chest x-ray and CT chest individually reviewed. Bilateral subsegmental atelectasis or pneumonitis. Bilateral peripheral patchy groundglass opacity and alveolar densities suspicious of COVID-19 or viral pneumonitis. Discussed with ID. Agreed for starting on Decadron and remdesivir. ID consult. 05/22/2020: Continue oxygen therapy, high flow oxygen with BiPAP rescue. Cage Supervisor increase the dose of Coreg to 12.5 mg twice daily. Continue oral Bumex. Paroxysmal A. fib: As mentioned above. Chronic Macrocytic Anemia: H&H at baseline 9.5/33.7. 05/22/2020 : H&H is stable. CKD stage 3: Estimated creatinine clearance fluctuates around 30 ml/minute. Serum creatinine and estimated GFR is on baseline 1.6-1.8.. -hold gabapentin for now and may need to lower dose of gabapentin at d/c with renal failure. BUN/creatinine showing improvement 21/06.58. -avoid nephrotoxins 05/22: BUN/creatinine slightly better, tolerating diuretics well. Negative -7.8 L fluid balance. HTN -continue home meds Chronic pulmonary Fibrosis/Restrictive Lung disease -O2, bronchodilator as needed Chronic urinary Incontinence -Amanda for now for accurate intake and output. Patient does self- catheterization at home. -cont oxybutinin GERD/PUD, history of gastric bypass surgery and GI bleed -cont PPI and Carafate. Patient had GI bleed during previous hospitalization in February 2020 when EGD showed bleeding marginal ulcer and patient had epinephrine and clips were placed on transfer to [facility]. Depression -cont Zoloft DVT prophylaxis -On Eliquis 2.5 mg twice daily. CODE STATUS: As per the conversation with nursing staff, patient yesterday evening requested to be full code, CPR, intubation ventilator if needed to the night nurse. It was also confirmed with patient's son yesterday therefore CODE STATUS changed to full code. All in the previous hospitalization, there is CODE STATUS saying DNRCC arrest signed by Dr. Gonzalez. [facility]M: 489[facility]
[2020-05-22] MEDS: Multivitamins,Therapeutic Tablet 1 TABLET PO (08:38)
[2020-05-22] MEDS: Sucralfate 1 GM Tablet PO ×4 (08:38→21:35)
[2020-05-22] MEDS: Carvedilol 12.5 MG Tablet PO ×2 (08:38→17:57)
[2020-05-22] MEDS: Bumetanide 0.5 MG Tablet 1 MG PO ×2 (08:39→21:36)
[2020-05-22] MEDS: Tolterodine Tartrate 4 MG CAP.SA PO (08:40)
[2020-05-22] MEDS: Sertraline 50 MG Tablet 150 MG PO (08:41)
[2020-05-22] MEDS: Lisinopril 10 MG Tablet PO (08:41)
[2020-05-22] MEDS: APIXABAN 2.5 MG TABLET PO ×2 (08:41→21:36)
--- NOTE | 2020-05-22 10:03 | PN.CARD_ITS ---
Objective: Vital Signs Temp Pulse Resp BP Pulse Ox 98.2 F 91 11 L 146/77 H 95 05/22/20 04:00 05/22/20 06:00 05/22/20 06:00 05/22/20 06:00 05/22/20 06:00 Oxygen Flow Rate (L/min) 50 Oxygen Delivery Method Airvo Weight: 134 lb 7.712 oz Body Mass Index (BMI) 29.9 Intake and Output for Last 24 Hours 05/20/20 05/21/20 05/22/20 23:59 23:59 23:59 Intake Total 649.56 / 649.56 898.44 / 1048.44 250 / 250 Output Total 5200 / 5200 2975 / 3525 1050 / 1050 Balance -4550.44 / -4550.44 -2076.56 / -2476.56 -800 / -800 General: Awake, Alert, Oriented x 3 HEENT: PERRL, EOMI, Sclera Non Icteric Neck: Supple, Good ROM, No Lymph Node Enlargement Lungs: Clear to auscultation Cardiovascular: Irregular Rhythm, Normal S1, Normal S2, No Murmurs, No Rubs, No Gallops Vascular: No Carotid Bruits, Normal Femoral Pulses, Normal Radial Pulses, Normal Dorsalis Pedal Pulse, Normal Posterior Tibial Pulses Abdomen: Bowel Sounds Present, Soft, Non Tender, No HSM, No Organomegaly Extremities: No Cyanosis, No Clubbing, No edema Musculoskeletal: No Erythema Skin: No Rashes Lymphatic: No Lymph Node Enlargement Neurological: No Focal Motor or Sensory Deficit 05/22/20 05:00: WBC 10.1, RBC 3.35 L, Hgb 9.8 L, Hct 33.5 L, MCV 100.0 H, MCH 29.3, MCHC 29.3 L, Plt Count 147 L, MPV 10.7, Immature Gran % (Auto) 0.500, Neut % (Auto) 91.5 H, Lymph % (Auto) 6.5 L, [place] % (Auto) 1.3, Eos % (Auto) 0.1, Baso % (Auto) 0.1, Absolute Neuts (auto) 9.2 H, Nucleated RBC % 0 05/22/20 05:00: Sodium 144, Potassium 3.5, Chloride 103, Carbon Dioxide 38.0 H, Anion Gap 3 L, BUN 31 H, Creatinine 1.46 H, Est GFR (MDRD) Af Amer 45 L, Est GFR (MDRD) Non-Af 37 L, BUN/Creatinine Ratio 21.2 H, Glucose 123 H, Calcium 8.0 L, Magnesium 1.4 L, Total Bilirubin 0.40 Rhythm: EKG: ECHO: Stress Test: Cardiac Cath: PCI: CT Surgery: Holter monitor: EPS: PPM: CXR: Chest CT Scan: Medical Necessity - Tobacco Use Smoking Status: Never smoker Assessment/Plan 1. Heart failure with reduced ejection fraction * Patient is noted to have global reduction in left ventricular systolic function estimated to be 42%. The exact precipitating factor or agent for this exacerbation is not clear. Her ventricular response rate may be mildly elevated. * I would recommend that we increase her carvedilol to 12.5 mg twice a day * Continue diuretic with bumetanide as an oral dose * I do not think there is a reason to repeat her echocardiogram at this time * No changes will be made at this time. 2. Pulmonary hypertension * The above does not appear to be secondary to cardiac disease and may be intrinsic pulmonary disease. Will defer to the hand embroiderer on further treatment * CT scan definitely demonstrates evidence of pulmonary artery dilatation 3. Atrial fibrillation chronic persistent * She is anticoagulated with Eliquis which will be continued. No changes will be made at this particular time. I do not think that with her pulmonary issues she is a candidate for DC cardioversion. In addition I do not think she is a candidate for ablation either. * * Thank you for allowing me to participate in the care of your patient. Please don't hesitate to call if any issues arise.
[2020-05-23] VITALS (32 sets, daily range): BP systolic 98–163; BP diastolic 58–104; PULSE 76–99; RESP 12–21; TEMP 36.3–36.6; O2SAT 92–97
[2020-05-23] MEDS: Acetaminophen 325 MG Tablet 650 MG PO (00:39)
[2020-05-23] MEDS: oxyCODONE 5 MG Tablet PO ×3 (01:47→19:48)
[2020-05-23 03:47] LABS: Absolute Lymphocyte Count 1.29 X10^3/uL (0.83-4.51); Absolute Neutrophil Count 9.8 X10^3/uL (2.0-7.7); Basophil# 0.01 X10^3/uL; Basophil% 0.1 % (0-1); Eosinophil# 0.15 X10^3/uL; Eosinophils% 1.3 % (0-5); Hematocrit 32.9 % (37-47); Hemoglobin 9.4 g/dL (12.0-15.0); Lymphocyte # 1.29 X10^3/ul (4.0); Lymphocyte % 10.8 % (19-41); Mean Corp Hgb Conc 28.6 g/dL (32-36); Mean Corpuscular Hgb 28.5 pg (27.0-32.0); Mean Corpuscular Volume 99.7 fL (81-99); Mean Platelet Vol. 10.3 fl (6.2-12.0); Monocyte# 0.71 X10^3/uL; Monocyte% 5.9 % (0-10); NRBC Flagged by Analyzer 0 % (0-5); Neutrophil # 9.77 X10^3/uL (2.7-7.7); Neutrophil % 81.5 % (47-70); Platelet Count 167 K/mm3 (150-450); RBC Distribution Width CV 17.8 % (11.6-14.6); RBC Distribution Width SD 63.9 fl (35.1-43.9)
[2020-05-23 04:06] LABS: ALB/GLOB Ratio 0.3 RATIO (0.9-2.4); AST(SGOT) 11 U/L (15-37); Alanine Aminotransfer ALT/SGPT 15 U/L (13-56); Albumin, Serum 1.7 g/dL (3.2-5.0); Alkaline Phosphatase 102 U/L (45-117); Anion Gap 3 (5-15); BUN 33 mg/dL (7-18); BUN/Creat Ratio 23.4 RATIO (10-20); Calcium,Total 7.9 mg/dL (8.5-10.1); Chloride 100 mmol/L (98-107); Creatinine, Serum 1.41 mg/dL (0.55-1.02); EST Glomerular Filtration Rate 39 mL/min (>60); Est Glom Filt Rate - Afr Amer 47 mL/min (>60); Estimated Creatinine Clearance 34.73 ml/min; Glucose 110 mg/dL (74-106); Magnesium 1.8 mg/dL (1.6-2.6); Protein, Total 6.7 g/dL (6.4-8.2); Sodium Level 143 mmol/L (136-145)
[2020-05-23] MEDS: Sucralfate 1 GM Tablet PO ×4 (06:55→21:29)
--- NOTE | 2020-05-23 07:21 | PCM.PN.INT ---
Subjective: The patient was seen and examined at the bedside this morning. Events from the last 24 hours have been reviewed. The patient is currently afebrile, hemodynamically stable and maintaining appropriate oxygen saturations on Airvo heated high flow with an FiO2 requirement of 60% and flow rate of 50 L/min. Potassium is low this morning at 3.0. Creatinine is stable at 1.4. The patient remains on twice daily Bumex and is systemically anticoagulated on Eliquis. She is currently documented to be overall net -8.3 L for the hospital admission. Per nursing report, the patient did have some coughing with ingestion of liquids, raising the concern for possible aspiration. Objective: The patient's most recent lab work, culture data and imaging studies have all been personally reviewed. Surface echocardiogram from January 2020 revealed mild global LV systolic dysfunction with an ejection fraction of 42%. Pulmonary artery systolic pressure was estimated to be 50 mmHg. Coronavirus PCR was negative on May 21. Respiratory viral panel was negative. Strep and urine Legionella antigens were negative. General: Alert, Cooperative HEENT: Atraumatic, Normocephalic Oral: Dry Mucosa, - - Poor dentition Neck: Supple, No Nodes, Trachea Midline Lungs: Diminished Cardiovascular: Normal S1, Normal S2, Irregular Rate Abdomen: Bowel Sounds Present, Soft, Non Tender Extremities: No clubbing, No cyanosis, Edema Musculoskeletal: No Tenderness to Palpation of Joints or Extremities Lymphatic: No Cervical, Supraclavicular, or Inguinal Adenopathy Neurological: Neuro grossly intact Psych/Mental Status: Normal Affect, Appropriate Vital Signs Temp Pulse Resp BP Pulse Ox 97.9 F 88 17 119/71 96 05/23/20 03:00 05/23/20 06:00 05/23/20 06:00 05/23/20 06:00 05/23/20 06:00 Oxygen Flow Rate (L/min) 50 Oxygen Delivery Method Airvo Weight: 136 lb 3.931 oz Body Mass Index (BMI) 29.9 Intake and Output for Last 24 Hours 05/21/20 05/22/20 05/23/20 23:59 23:59 23:59 Intake Total 898.44 / 1048.44 574 / 624 50 / 50 Output Total 2975 / 3525 1500 / 1850 350 / 350 Balance -2076.56 / -2476.56 -926 / -1226 -300 / -300 Labs (Last 48 Hours) 05/21/20 05/21/20 05/21/20 07:23 07:36 16:00 WBC RBC Hgb Hct MCV MCH MCHC RDW Std Deviation RDW Coeff of Som Plt Count MPV Immature Gran % (Auto) Neut % (Auto) Lymph % (Auto) [place] % (Auto) Eos % (Auto) Baso % (Auto) Absolute Neuts (auto) Absolute Lymphs (auto) Nucleated RBC % Specimen Type ART Sample Site L Radial pH 7.36 Bicarbonate Actual 39.2 H Total CO2 41 Base Excess 14 H O2 Saturation 88 L O2 % 55 ABG pCO2 69.5 H* ABG pO2 61 L Andrey Test Positive Respiration Rate 12 O2 Delivery Device BiPAP EPAP 8 IPAP 14 Sodium Potassium Chloride Carbon Dioxide Anion Gap BUN Creatinine Estim Creat Clear Calc Est GFR (MDRD) Af Amer Est GFR (MDRD) Non-Af BUN/Creatinine Ratio Glucose Calcium Magnesium Total Bilirubin AST ALT Alkaline Phosphatase Total Protein Albumin Globulin Albumin/Globulin Ratio COVID-19 ([facility]ESH) Not Detected SARS Serology Nonreactive 05/22/20 05/22/20 05/23/20 05:00 05:00 03:35 WBC 10.1 12.0 H RBC 3.35 L 3.30 L Hgb 9.8 L 9.4 L Hct 33.5 L 32.9 L MCV 100.0 H 99.7 H MCH 29.3 28.5 MCHC 29.3 L 28.6 L RDW Std Deviation 64.3 H 63.9 H RDW Coeff of Som 17.8 H 17.8 H Plt Count 147 L 167 MPV 10.7 10.3 Immature Gran % (Auto) 0.500 0.400 Neut % (Auto) 91.5 H 81.5 H Lymph % (Auto) 6.5 L 10.8 L [place] % (Auto) 1.3 5.9 Eos % (Auto) 0.1 1.3 Baso % (Auto) 0.1 0.1 Absolute Neuts (auto) 9.2 H 9.8 H Absolute Lymphs (auto) 0.66 L 1.29 Nucleated RBC % 0 0 Specimen Type Sample Site pH Bicarbonate Actual Total CO2 Base Excess O2 Saturation O2 % ABG pCO2 ABG pO2 Andrey Test Respiration Rate O2 Delivery Device EPAP IPAP Sodium 144 Potassium 3.5 Chloride 103 Carbon Dioxide 38.0 H Anion Gap 3 L BUN 31 H Creatinine 1.46 H Estim Creat Clear Calc 33.54 Est GFR (MDRD) Af Amer 45 L Est GFR (MDRD) Non-Af 37 L BUN/Creatinine Ratio 21.2 H Glucose 123 H Calcium 8.0 L Magnesium 1.4 L Total Bilirubin 0.40 AST 16 ALT 17 Alkaline Phosphatase 115 Total Protein 7.1 Albumin 1.8 L Globulin 5.3 H Albumin/Globulin Ratio 0.3 L COVID-19 ([facility]) SARS Serology 05/23/20 03:35 WBC RBC Hgb Hct MCV MCH MCHC RDW Std Deviation RDW Coeff of Som Plt Count MPV Immature Gran % (Auto) Neut % (Auto) Lymph % (Auto) [place] % (Auto) Eos % (Auto) Baso % (Auto) Absolute Neuts (auto) Absolute Lymphs (auto) Nucleated RBC % Specimen Type Sample Site pH Bicarbonate Actual Total CO2 Base Excess O2 Saturation O2 % ABG pCO2 ABG pO2 Andrey Test Respiration Rate O2 Delivery Device EPAP IPAP Sodium 143 Potassium 3.0 L Chloride 100 Carbon Dioxide 40.0 H Anion Gap 3 L BUN 33 H Creatinine 1.41 H Estim Creat Clear Calc 34.73 Est GFR (MDRD) Af Amer 47 L Est GFR (MDRD) Non-Af 39 L BUN/Creatinine Ratio 23.4 H Glucose 110 H Calcium 7.9 L Magnesium 1.8 Total Bilirubin 0.30 AST 11 L ALT 15 Alkaline Phosphatase 102 Total Protein 6.7 Albumin 1.7 L Globulin 5.0 H Albumin/Globulin Ratio 0.3 L COVID-19 ([facility]) SARS Serology Microbiology 05/21/20 07:23 Mucosa - Nasopharyngeal Respiratory Panel (PCR) - Final Clinical Impression(s) from Imaging Studies Chest X-Ray 05/19/20 13:44 IMPRESSION: Bilateral pneumonia, pulmonary edema, or ARDS greater on the left than the right. Electronically Signed: Laron Argueta MD at 14:27 EST Tel , Service support , Chest X-Ray 05/20/20 05:55 IMPRESSION: No change from 05/19/2020 Electronically Signed: Laron Argueta MD at 9:21 EST Tel , Service support , Chest X-Ray 05/21/20 08:20 IMPRESSION: There has been noticing again seen since the previous study. Electronically Signed: Nilo Bowen, at 9:33 EST Tel , Service support , Chest CT 05/21/20 11:12 IMPRESSION: 1. Bilateral subsegmental atelectasis or pneumonitis. Commonly reported imaging features of Covid 19 pneumonia are present. Other processes such as influenza pneumonia and organizing pneumonia, as can be seen with drug toxicity and connective tissue disease, can cause a similar imaging pattern. 2. Bibasilar alveolar densities worrisome for superimposed bibasilar atelectasis or bacterial pneumonia. 3. Cardiomegaly. 4. Suspect pulmonary arterial hypertension. Electronically Signed: Laron Argueta MD at 13:37 EST Tel , Service support , Medical Necessity - Tobacco Use Smoking Status: Never smoker Assessment/Plan All Active Problems (Last Updated 05/19/20 @ 15:[address] Bree Waldrop, DO) Acute kidney injury (Acute) Shortness of breath (Acute) Congestive heart failure (Acute) GI bleed (Resolved) Hypokalemia (Resolved) Sepsis (Resolved) UTI (urinary tract infection) (Resolved) RECOMMENDATIONS: 1. Continue Airvo heated high flow and continue to wean FiO2 to maintain oxygen saturations at or above 90%. 2. Continue diuretic regimen per cardiology recommendations. 3. Continue Eliquis as ordered. 4. Start Unasyn over concerns for possible aspiration event. 5. Obtain speech therapy evaluation. IMPRESSIONS: 1. Acute on chronic hypoxemic respiratory failure likely secondary to decompensated heart failure The patient had a similar presentation in March when she was admitted to the hospital. The patient was initially placed on BiPAP and a continuous Bumex infusion. She has been weaned from BiPAP at this time and is currently maintaining appropriate oxygen saturations on heated high flow. We will plan to continue to wean FiO2 to maintain oxygen saturations at or above 90%. Coronavirus work-up was negative. Plan to continue diuretic regimen per cardiology recommendations. The patient's pulmonary hypertension can be further worked up on an outpatient basis in the pulmonary medicine clinic. Over concerns for potential aspiration, and Unasyn was started this morning. I would recommend formal speech therapy evaluation. 2. Chronic atrial fibrillation Continue current medical management per cardiology recommendations including Eliquis and beta-boris. 3. Hypokalemia Electrolyte repletion as ordered. Recheck levels in the morning. 4. Acute on chronic kidney disease Improving. 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 The patient will be continued on diuretic therapy as tolerated by hemodynamics and renal function. 5. 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 Continue home medications as indicated. CODE status: Discussed CODE status at length including difference between FULL code, DNR-CCA and DNR-CC status. Following discussions about the differences in these status, patient requested FULL CODE STATUS. This note was generated with [email or web address] dictation software. It may contain incorrect words, spelling, and punctuation that were not noted in checking the note before signing. Inpatient E&M: 79080 Subs Hosp L3
--- NOTE | 2020-05-23 10:25 | PN.CARD_ITS ---
Subjectve: Patient seen and evaluated. Appears to be stable. No significant changes since yesterday Objective: Vital Signs Temp Pulse Resp BP Pulse Ox 97.9 F 89 21 H 130/76 H 97 05/23/20 03:00 05/23/20 07:40 05/23/20 07:40 05/23/20 07:00 05/23/20 07:40 Oxygen Flow Rate (L/min) 50 Oxygen Delivery Method Airvo Weight: 136 lb 3.931 oz Body Mass Index (BMI) 29.9 Intake and Output for Last 24 Hours 05/21/20 05/22/20 05/23/20 23:59 23:59 23:59 Intake Total 898.44 / 1048.44 574 / 624 50 / 50 Output Total 2975 / 3525 1500 / 1850 600 / 600 Balance -2076.56 / -2476.56 -926 / -1226 -550 / -550 General: Awake, Alert, Oriented x 3 HEENT: PERRL, EOMI, Sclera Non Icteric Neck: Supple, Good ROM, No Lymph Node Enlargement Lungs: Diminished Abdiel Bases Cardiovascular: Irregular Rhythm, Normal S1, Normal S2, No Murmurs, No Rubs, No Gallops Vascular: No Carotid Bruits, Normal Femoral Pulses, Normal Radial Pulses, Normal Dorsalis Pedal Pulse, Normal Posterior Tibial Pulses Abdomen: Bowel Sounds Present, Soft, Non Tender, No HSM, No Organomegaly Extremities: No Cyanosis, No Clubbing, No edema Neurological: No Focal Motor or Sensory Deficit 05/23/20 03:35: WBC 12.0 H, RBC 3.30 L, Hgb 9.4 L, Hct 32.9 L, MCV 99.7 H, MCH 28.5, MCHC 28.6 L, Plt Count 167, MPV 10.3, Immature Gran % (Auto) 0.400, Neut % (Auto) 81.5 H, Lymph % (Auto) 10.8 L, [place] % (Auto) 5.9, Eos % (Auto) 1.3, Baso % (Auto) 0.1, Absolute Neuts (auto) 9.8 H, Nucleated RBC % 0 05/23/20 03:35: Sodium 143, Potassium 3.0 L, Chloride 100, Carbon Dioxide 40.0 H , Anion Gap 3 L, BUN 33 H, Creatinine 1.41 H, Est GFR (MDRD) Af Amer 47 L, Est GFR (MDRD) Non-Af 39 L, BUN/Creatinine Ratio 23.4 H, Glucose 110 H, Calcium 7.9 L, Magnesium 1.8, Total Bilirubin 0.30 Rhythm: EKG: ECHO: Stress Test: Cardiac Cath: PCI: CT Surgery: Holter monitor: EPS: PPM: CXR: Chest CT Scan: Medical Necessity - Tobacco Use Smoking Status: Never smoker Assessment/Plan 1. Heart failure with reduced ejection fraction * Patient is noted to have global reduction in left ventricular systolic function estimated to be 42%. The exact precipitating factor or agent for this exacerbation is not clear. Her ventricular response rate may be mildly elevated. * I would recommend that we continue her carvedilol 12.5 mg twice a day * Continue diuretic with bumetanide as an oral dose * I do not think there is a reason to repeat her echocardiogram at this time * No changes will be made at this time. 2. Pulmonary hypertension * The above does not appear to be secondary to cardiac disease and may be intrinsic pulmonary disease. Will defer to the liquor grinding mill operator on further treatment * CT scan definitely demonstrates evidence of pulmonary artery dilatation, as well as some groundglass appearance * Will defer further treatment to the liquor grinding mill operator 3. Atrial fibrillation chronic persistent * She is anticoagulated with Eliquis which will be continued. No changes will be made at this particular time. I do not think that with her pulmonary issues she is a candidate for DC cardioversion. In addition I do not think she is a candidate for ablation either. * * Thank you for allowing me to participate in the care of your patient. Please don't hesitate to call if any issues arise.
[2020-05-23] MEDS: APIXABAN 2.5 MG TABLET PO ×2 (10:55→21:29)
[2020-05-23] MEDS: Sertraline 50 MG Tablet 150 MG PO (10:55)
[2020-05-23] MEDS: Multivitamins,Therapeutic Tablet 1 TABLET PO (10:55)
[2020-05-23] MEDS: Bumetanide 0.5 MG Tablet 1 MG PO ×2 (10:55→21:29)
[2020-05-23] MEDS: Tolterodine Tartrate 4 MG CAP.SA PO (10:55)
[2020-05-23] MEDS: Lisinopril 10 MG Tablet PO (10:55)
[2020-05-23] MEDS: Carvedilol 12.5 MG Tablet PO ×2 (10:55→19:41)
--- NOTE | 2020-05-23 12:51 | PCM.PN.HOSP ---
Patient Problems: Active and Suspected Problems (Last Updated 05/19/20 @ 15:[address] Bree Waldrop, DO) Acute kidney injury (Acute) Shortness of breath (Acute) Congestive heart failure (Acute) Reason for Visit: Follow-up for acute on chronic hypoxic respiratory failure, CHF exacerbation and pulmonary fibrosis. Objective: Shortness of breath is better. Patient on high flow oxygen. Patient is able to talk and comprehend. She denies any history of his smoking, occupational exposure or dust fumes or irritants. She has pulmonary fibrosis. Denies history of lung cancer. 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 Physical exam General: Alert, Oriented x3, cooperative. HEENT: Atraumatic, PERRLA, EOMI, Normocephalic Oral: No Gingival or Mucosal Lesions/ Ulcerations Neck: Supple, No JVD, Negative Carotid Bruits Lungs: Air entry diminished in bilateral lung bases. Bilateral coarse crepitations present, mainly inspiratory. Cardiovascular: Regular rate, Regular Rhythm, Normal S1, Normal S2, No murmurs Abdomen: Bowel Sounds Present, Soft, Non Tender, Non-Distended. Surgical scar present in the abdomen of previous surgeries. : No renal angle tenderness. No suprapubic tenderness. Extremities: Mild bilateral leg edema, Capillary Refill Less than 3 Seconds Skin: No rashes, No breakdown Musculoskeletal: No Tenderness to Palpation of Joints or Extremities Neurological: Cranial nerves II-XII grossly intact, Deep Tendon Reflexes 2+/4 and Symmetrical, Neuro grossly intact Psych/Mental Status: Appropriate. Vitals/I&O's: Vital Signs Temp Pulse Resp BP Pulse Ox 97.9 F 81 12 130/76 H 95 05/23/20 03:00 05/23/20 09:15 05/23/20 09:15 05/23/20 07:00 05/23/20 09:15 Oxygen Flow Rate (L/min) 50 Oxygen Delivery Method Airvo Weight: 136 lb 3.931 oz Body Mass Index (BMI) 29.9 Intake and Output for Last 24 Hours 05/21/20 05/22/20 05/23/20 23:59 23:59 23:59 Intake Total 898.44 / 1048.44 574 / 624 272 / 272 Output Total 2975 / 3525 1500 / 1850 750 / 750 Balance -2076.56 / -2476.56 -926 / -1226 -478 / -478 Microbiology Past 72 Hours 05/21/20 07:23 Mucosa - Nasopharyngeal Respiratory Panel (PCR) - Final Laboratory Results 05/23/20 03:35: WBC 12.0 H, RBC 3.30 L, Hgb 9.4 L, Hct 32.9 L, MCV 99.7 H, MCH 28.5, MCHC 28.6 L, RDW Std Deviation 63.9 H, RDW Coeff of Som 17.8 H, Plt Count 167, MPV 10.3, Immature Gran % (Auto) 0.400, Neut % (Auto) 81.5 H, Lymph % (Auto) 10.8 L, [place] % (Auto) 5.9, Eos % (Auto) 1.3, Baso % (Auto) 0.1, Absolute Neuts (auto) 9.8 H, Absolute Lymphs (auto) 1.29, Nucleated RBC % 0 05/23/20 03:35: Sodium 143, Potassium 3.0 L, Chloride 100, Carbon Dioxide 40.0 H, Anion Gap 3 L, BUN 33 H, Creatinine 1.41 H, Estim Creat Clear Calc 34.73, Est GFR (MDRD) Af Amer 47 L, Est GFR (MDRD) Non-Af 39 L, BUN/Creatinine Ratio 23.4 H, Glucose 110 H, Calcium 7.9 L, Magnesium 1.8, Total Bilirubin 0.30, AST 11 L, ALT 15, Alkaline Phosphatase 102, Total Protein 6.7, Albumin 1.7 L, Globulin 5.0 H, Albumin/Globulin Ratio 0.3 L Current Medications Acetaminophen (Acetaminophen 325 Mg Tablet) 650 mg PO Q6H PRN PRN PRN Reason: Pain Score 1-10/Temp > 100.7 F Last Admin: 05/23/20 00:39 Dose: 650 mg Documented by: Albuterol Sulfate (Albuterol 2.5 Mg/3 Ml Vial.Neb.) 2.5 mg INHALATION Q2H PRN PRN PRN Reason: SOB/Wheezing Last Admin: 05/19/20 19:13 Dose: 2.5 mg Documented by: Apixaban (Apixaban 2.5 Mg Tablet) 2.5 mg PO BID DANNY Last Admin: 05/23/20 10:55 Dose: 2.5 mg Documented by: Bumetanide (Bumetanide 0.5 Mg Tablet) 1 mg PO BID [facility] Last Admin: 05/23/20 10:55 Dose: 1 mg Documented by: Carvedilol (Carvedilol 12.5 Mg Tablet) 12.5 mg PO BIDCM [facility] Last Admin: 05/23/20 10:55 Dose: 12.5 mg Documented by: Fluticasone Propionate (Fluticasone 0.05% 1 [place] Nasal.Sry) 1 spray NASAL DAILY PRN PRN Reason: ALLERGIES Pantoprazole Sodium 40 mg/ (Sodium Chloride) 110 mls @ 330 mls/hr IV Q12 [facility] Last Infusion: 05/23/20 11:19 Dose: Infused Documented by: Ampicillin Sodium/Sulbactam (Sodium 3 gm/ Sodium Chloride) 112 mls @ 150 mls/hr IV Q6 [facility] Last Infusion: 05/23/20 11:44 Dose: Infused Documented by: Lisinopril (Lisinopril 10 Mg Tablet) 10 mg PO DAILY [facility] Last Admin: 05/23/20 10:55 Dose: 10 mg Documented by: Melatonin (Melatonin 3 Mg Tablet) 3 mg PO QHS PRN PRN PRN Reason: INSOMNIA Metoprolol Tartrate (Metoprolol Tartrate 5 Mg/5 Ml Vial) 5 mg IV Q6 PRN PRN Reason: HR>130/m Multivitamins (Multivitamins,Therapeutic Tablet) [facility] Last Admin: 05/23/20 10:55 Dose: 1 tablet Documented by: Ondansetron HCl (Ondansetron 4 Mg/2 Ml Vial) 4 mg IV Q8H PRN PRN PRN Reason: NAUSEA/VOMITING Oxycodone HCl (Oxycodone 5 Mg Tablet) 5 mg PO Q4H PRN PRN PRN Reason: Pain Score 6-10 Last Admin: 05/23/20 06:54 Dose: 5 mg Documented by: Potassium Chloride (Potassium Chl Soln 20 Meq/15 Ml Udc) 40 meq PO DAILY [facility] Sertraline HCl (Sertraline 50 Mg Tablet) 150 mg PO DAILY [facility] Last Admin: 05/23/20 10:55 Dose: 150 mg Documented by: Sodium Chloride (0.9% Saline Lock 10 Ml Syringe) 10 - 40 ml IV UD PRN PRN Reason: SALINE FLUSH Last Admin: 05/22/20 04:46 Dose: 30 ml Documented by: Sucralfate (Sucralfate 1 Gm Tablet) 1 gm PO 1HR_ACHS [facility] Last Admin: 05/23/20 10:55 Dose: 1 gm Documented by: Tolterodine Tartrate (Tolterodine Tartrate 4 Mg Cap.Sa) 4 mg PO DAILY [facility] Last Admin: 05/23/20 10:55 Dose: 4 mg Documented by: STROKE Vital Signs/Narrative: Vital Signs Pulse Resp Pulse Ox 05/23/20 09:15 81 12 95 Medical Necessity - Tobacco Use Smoking Status: Never smoker Assessment/Plan All Active Problems (Last Updated 05/19/20 @ 15:[address] Bree Waldrop, DO) Acute kidney injury (Acute) Shortness of breath (Acute) Congestive heart failure (Acute) GI bleed (Resolved) Hypokalemia (Resolved) Sepsis (Resolved) UTI (urinary tract infection) (Resolved) This is a 70-year-old female admitted with progressive worsening of shortness of breath for 4 days, increased requirement of oxygen more than her baseline, 4 L and chest x-ray finding of pulmonary edema since 2 acute on chronic hypoxic respiratory failure secondary to acute CHF exacerbation. 1. Acute on Chronic Hypoxic Respiratory Failure 2/2 Acute Exacerbation of HFrEF: Patient had echo in February 19, 2020 reported as EF 42%, global LV dysfunction, RVSP 50 mmHg. BNP 2104. Serial 2 troponins are negative. On Bumex drip. Urinary antigens are negative. Rapid SARS-CoV-2 antigen negative. Mild leukocytosis with neutrophilia, no change in last 2 labs probably stress response/inflammatory. On BiPAP, CHF core measures, patient has Amanda including strict I and O's, daily weight monitoring. Seen by electric organ checker increase the dose of carvedilol 12.5 mg daily. On lisinopril 10 mg daily and nitroglycerin ointment. 05/21: Chest x-ray and CT chest individually reviewed. Bilateral subsegmental atelectasis or pneumonitis. Bilateral peripheral patchy groundglass opacity and alveolar densities suspicious of COVID-19 or viral pneumonitis. Discussed with ID. Agreed for starting on Decadron and remdesivir. ID consult. 05/22/2020: Continue oxygen therapy, high flow oxygen with BiPAP rescue. Oxygen Furnace Operator increase the dose of Coreg to 12.5 mg twice daily. Continue oral Bumex. 2: Continue above treatment. Currently on 50 to 60% FiO2 high flow oxygen. Mild leukocytosis 12,000 probably reactive. Paroxysmal A. fib: As mentioned above. Chronic Macrocytic Anemia: H&H at baseline 9.5/33.7. 05/22/2020 : H&H is stable. CKD stage 3: Estimated creatinine clearance fluctuates around 30 ml/minute. Serum creatinine and estimated GFR is on baseline 1.6-1.8.. -hold gabapentin for now and may need to lower dose of gabapentin at d/c with renal failure. BUN/creatinine showing improvement 21/06.58. -avoid nephrotoxins 05/22: BUN/creatinine slightly better, tolerating diuretics well. Negative -7.8 L fluid balance. 05/23: Mild hypokalemia, potassium is replaced. Magnesium 1.8. HTN -continue home meds Chronic pulmonary Fibrosis/Restrictive Lung disease -O2, bronchodilator as needed Chronic urinary Incontinence -Amanda for now for accurate intake and output. Patient does self-catheterization at home. -cont oxybutinin GERD/PUD, history of gastric bypass surgery and GI bleed. 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 Patient also had hernia surgery on the right side. Patient follows [facility] oncologist. -cont PPI and Carafate. Patient had GI bleed during previous hospitalization in February 2020 when EGD showed bleeding marginal ulcer and patient had epinephrine and clips were placed on transfer to [facility]. Depression -cont Zoloft DVT prophylaxis -On Eliquis 2.5 mg twice daily. CODE STATUS: As per the conversation with nursing staff, patient yesterday evening requested to be full code, CPR, intubation ventilator if needed to the night nurse. It was also confirmed with patient's son yesterday therefore CODE STATUS changed to full code. All in the previous hospitalization, there is CODE STATUS saying DNRCC arrest signed by Dr. Gonzalez. Inpatient E&M: [id number] [facility] L3
--- NOTE | 2020-05-23 15:14 | CASEMGMT ---
RN CM assessment: Chart reviewed at this time d/t pt currently on airvo and in precautions and unable to answer questions via phone at this time. Pt is well-known to this RN CM from previous visits. Care providers, pharmacy, and demographics verified/updated at this time. Presentation: Pt c/o increasing SOB that started yesterday w/ increasing swelling to lower extremities Admitting dx: Decompensated HF PCP: Katy Specialists: Saida, onc; [facility] cardio Preferred Pharmacy: [facility] in [place] Insurance: [facility] A/B, [place] Prescription Benefit: Yes Living Will/HPOA: Pt states has LW/HPOA and is aware that they are on file at [facility] at this time. Pt's son, Jaswant Cabrera, is HPOA. LNOK: Jaswant Cabrera, son/HPOA; Laron Cherry, Living Arrangements: Pt states that she lives with her son on main level of 2 story home with about 5 railed steps in. Pt states her is currently incarcerated. Pt states son does assist her with ADL's at home. Transportation: Pt states her son does most of the driving and states no transportation concerns at this time. DME/HHC: Pt states has the following DME: cane, rollator, w/c, scooter, raised toilet seat, therapy dog, shower chair, and 5liters home oxygen through [employer]. Pt states has has [facility] in the past but is currently active [facility] and has [facility] [place] in the past. Pt states is retired. Pt states does not smoke cigarettes or drink ETOH. CM to follow for increased home oxygen need, PT/OT recommendations, and any further discharge planning/needs. Pt Goal: Home Plan: TBD SStaten RN CM
[2020-05-24] VITALS (35 sets, daily range): BP systolic 134–177; BP diastolic 76–106; PULSE 81–106; RESP 12–38; TEMP 36.2–36.6; O2SAT 86–98
[2020-05-24] MEDS: oxyCODONE 5 MG Tablet PO ×3 (00:14→20:43)
[2020-05-24 04:26] LABS: Absolute Lymphocyte Count 1.14 X10^3/uL (0.83-4.51); Absolute Neutrophil Count 8.3 X10^3/uL (2.0-7.7); Basophil# 0.01 X10^3/uL; Basophil% 0.1 % (0-1); Eosinophil# 0.29 X10^3/uL; Eosinophils% 2.8 % (0-5); Hematocrit 34.1 % (37-47); Hemoglobin 9.9 g/dL (12.0-15.0); Lymphocyte # 1.14 X10^3/ul (4.0); Lymphocyte % 10.9 % (19-41); Mean Corpuscular Hgb 28.8 pg (27.0-32.0); Mean Corpuscular Volume 99.1 fL (81-99); Mean Platelet Vol. 10.7 fl (6.2-12.0); Monocyte# 0.62 X10^3/uL; NRBC Flagged by Analyzer 0 % (0-5); Neutrophil # 8.32 X10^3/uL (2.7-7.7); Neutrophil % 79.8 % (47-70); Platelet Count 166 K/mm3 (150-450); RBC Distribution Width CV 17.8 % (11.6-14.6); RBC Distribution Width SD 63.9 fl (35.1-43.9); Red Blood Count 3.44 M/mm3 (4.2-5.4); White Blood Count 10.4 K/mm3 (4.4-11.0)
[2020-05-24 04:57] LABS: ALB/GLOB Ratio 0.3 RATIO (0.9-2.4); AST(SGOT) 18 U/L (15-37); Alanine Aminotransfer ALT/SGPT 14 U/L (13-56); Albumin, Serum 1.8 g/dL (3.2-5.0); Alkaline Phosphatase 103 U/L (45-117); Anion Gap 2 (5-15); BUN 26 mg/dL (7-18); BUN/Creat Ratio 22.8 RATIO (10-20); Calcium,Total 7.8 mg/dL (8.5-10.1); Chloride 101 mmol/L (98-107); Creatinine, Serum 1.14 mg/dL (0.55-1.02); EST Glomerular Filtration Rate 50 mL/min (>60); Est Glom Filt Rate - Afr Amer 60 mL/min (>60); Estimated Creatinine Clearance 43.52 ml/min; Globulin 5.3 g/dL (2.2-4.2); Glucose 93 mg/dL (74-106); Potassium 3.1 mmol/L (3.5-5.1); Protein, Total 7.1 g/dL (6.4-8.2); Sodium Level 142 mmol/L (136-145)
[2020-05-24] MEDS: Sucralfate 1 GM Tablet PO ×4 (05:48→20:44)
--- NOTE | 2020-05-24 06:27 | PN_ITS ---
Subjective: The patient was seen and examined at the bedside this morning. Events from the last 24 hours have been reviewed. The patient is currently afebrile, hemodynamically stable and maintaining appropriate oxygen saturations on Airvo heated high flow oxygen with an FiO2 requirement of 60% and flow rate of 50 L/min. Potassium is again low at 3.1. Creatinine has improved to 1.14. The patient was placed on a modified diet yesterday by speech therapy over concerns for possible aspiration. The patient denies any significant shortness of breath this morning. Objective: The patient's most recent lab work, culture data and imaging studies have all been personally reviewed. Surface echocardiogram from January 2020 revealed mild global LV systolic dysfunction with an ejection fraction of 42%. Pulmonary artery systolic pressure was estimated to be 50 mmHg. Coronavirus PCR was negative on May 21. Respiratory viral panel was negative. Strep and urine Legionella antigens were negative. General: Alert, Cooperative, No apparent distress HEENT: Atraumatic, PERRLA, Normocephalic Oral: Moist Mucosa, - - Exceedingly poor dentition. Neck: Supple, No Nodes, Trachea Midline Lungs: Diminished, Rales Cardiovascular: Normal S1, Normal S2, No murmurs, Irregular Rate Abdomen: Bowel Sounds Present, Soft, Non Tender Extremities: No clubbing, No cyanosis, Edema Skin: - - No significant change from previous. Musculoskeletal: - - Exaggerated kyphosis Lymphatic: No Cervical, Supraclavicular, or Inguinal Adenopathy Neurological: Cranial nerves II-XII grossly intact, Neuro grossly intact Psych/Mental Status: Normal Affect, Appropriate Vital Signs Temp Pulse Resp BP Pulse Ox 97.9 F 97 21 H 151/91 H 91 05/24/20 00:00 05/24/20 05:24 05/24/20 05:24 05/24/20 05:00 05/24/20 05:24 Oxygen Flow Rate (L/min) 50 Oxygen Delivery Method Room Air Weight: 132 lb 11.492 oz Body Mass Index (BMI) 29.9 Intake and Output for Last 24 Hours 05/22/20 05/23/20 05/24/20 23:59 23:59 23:59 Intake Total 574 / 624 1486 / 1966 712 / 712 Output Total 1500 / 1850 1250 / 1750 1450 / 1450 Balance -926 / -1226 236 / 216 -738 / -738 Labs (Last 48 Hours) 05/21/20 05/23/20 05/23/20 16:00 03:35 03:35 WBC 12.0 H RBC 3.30 L Hgb 9.4 L Hct 32.9 L MCV 99.7 H MCH 28.5 MCHC 28.6 L RDW Std Deviation 63.9 H RDW Coeff of Som 17.8 H Plt Count 167 MPV 10.3 Immature Gran % (Auto) 0.400 Neut % (Auto) 81.5 H Lymph % (Auto) 10.8 L Mcleod % (Auto) 5.9 Eos % (Auto) 1.3 Baso % (Auto) 0.1 Absolute Neuts (auto) 9.8 H Absolute Lymphs (auto) 1.29 Nucleated RBC % 0 Sodium 143 Potassium 3.0 L Chloride 100 Carbon Dioxide 40.0 H Anion Gap 3 L BUN 33 H Creatinine 1.41 H Estim Creat Clear Calc 34.73 Est GFR (MDRD) Af Amer 47 L Est GFR (MDRD) Non-Af 39 L BUN/Creatinine Ratio 23.4 H Glucose 110 H Calcium 7.9 L Magnesium 1.8 Total Bilirubin 0.30 AST 11 L ALT 15 Alkaline Phosphatase 102 Total Protein 6.7 Albumin 1.7 L Globulin 5.0 H Albumin/Globulin Ratio 0.3 L SARS Serology Nonreactive 05/24/20 05/24/20 04:15 04:15 WBC 10.4 RBC 3.44 L Hgb 9.9 L Hct 34.1 L MCV 99.1 H MCH 28.8 MCHC 29.0 L RDW Std Deviation 63.9 H RDW Coeff of Som 17.8 H Plt Count 166 MPV 10.7 Immature Gran % (Auto) 0.400 Neut % (Auto) 79.8 H Lymph % (Auto) 10.9 L Mcleod % (Auto) 6.0 Eos % (Auto) 2.8 Baso % (Auto) 0.1 Absolute Neuts (auto) 8.3 H Absolute Lymphs (auto) 1.14 Nucleated RBC % 0 Sodium 142 Potassium 3.1 L Chloride 101 Carbon Dioxide 39.0 H Anion Gap 2 L BUN 26 H Creatinine 1.14 H Estim Creat Clear Calc 43.52 Est GFR (MDRD) Af Amer 60 Est GFR (MDRD) Non-Af 50 L BUN/Creatinine Ratio 22.8 H Glucose 93 Calcium 7.8 L Magnesium Total Bilirubin 0.30 AST 18 ALT 14 Alkaline Phosphatase 103 Total Protein 7.1 Albumin 1.8 L Globulin 5.3 H Albumin/Globulin Ratio 0.3 L SARS Serology Clinical Impression(s) from Imaging Studies Chest X-Ray 05/19/20 13:44 IMPRESSION: Bilateral pneumonia, pulmonary edema, or ARDS greater on the left than the right. Electronically Signed: Laron Argueta MD at 14:27 EST Tel , Service support , Chest X-Ray 05/20/20 05:55 IMPRESSION: No change from 05/19/2020 Electronically Signed: Laron Argueta MD at 9:21 EST Tel , Service support , Chest X-Ray 05/21/20 08:20 IMPRESSION: There has been noticing again seen since the previous study. Electronically Signed: Nilo Bowen at 9:33 EST Tel , Service support , Chest CT 05/21/20 11:12 IMPRESSION: 1. Bilateral subsegmental atelectasis or pneumonitis. Commonly reported imaging features of Covid 19 pneumonia are present. Other processes such as influenza pneumonia and organizing pneumonia, as can be seen with drug toxicity and connective tissue disease, can cause a similar imaging pattern. 2. Bibasilar alveolar densities worrisome for superimposed bibasilar atelectasis or bacterial pneumonia. 3. Cardiomegaly. 4. Suspect pulmonary arterial hypertension. Electronically Signed: Laron Argueta MD at 13:37 EST Tel , Service support , Medical Necessity - Tobacco Use Smoking Status: Never smoker Assessment/Plan All Active Problems (Last Updated 05/19/20 @ 15:[address] Bree Waldrop DO) Acute kidney injury (Acute) Shortness of breath (Acute) Congestive heart failure (Acute) GI bleed (Resolved) Hypokalemia (Resolved) Sepsis (Resolved) UTI (urinary tract infection) (Resolved) RECOMMENDATIONS: 1. Continue Airvo heated high flow and continue to wean FiO2 to maintain oxygen saturations at or above 90%. 2. Continue diuretic regimen per cardiology recommendations. 3. Continue Eliquis as ordered. 4. Continue empiric antimicrobials over concerns for possible aspiration event. 5. Dietary advancement per speech therapy recommendations. 6. Additional potassium repletion. IMPRESSIONS: 1. Acute on chronic hypoxemic respiratory failure likely secondary to decompensated heart failure/potential aspiration pneumonia The patient had a similar presentation in March when she was admitted to the hospital. The patient was initially placed on BiPAP and a continuous Bumex infusion. She has been weaned from BiPAP at this time and is currently maintaining appropriate oxygen saturations on heated high flow. We will plan to continue to wean FiO2 to maintain oxygen saturations at or above 90%. Coronavirus work-up was negative. Plan to continue diuretic regimen per cardiology recommendations. The patient's pulmonary hypertension can be further worked up on an outpatient basis in the pulmonary medicine clinic. Over concerns for potential aspiration, antimicrobials were initiated. Recommend cautious dietary advancement per speech therapy recommendations. 2. Chronic atrial fibrillation Continue current medical management per cardiology recommendations including Eliquis and beta-boris. 3. Hypokalemia Additional electrolyte repletion as ordered. Recheck levels in the morning. 4. Acute on chronic kidney disease Improving. 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 The patient will be continued on diuretic therapy as tolerated by hemodynamics and renal function. 5. 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 Continue home medications as indicated. This note was generated with [employer] dictation software. It may contain incorrect words, spelling, and punctuation that were not noted in checking the note before signing. Inpatient E&M: [id number] [facility] L3
--- NOTE | 2020-05-24 07:32 | PCM.PN.HOSP ---
Patient Problems: Active and Suspected Problems (Last Updated 05/19/20 @ 15:[address] Bree Waldrop, DO) Acute kidney injury (Acute) Shortness of breath (Acute) Congestive heart failure (Acute) Reason for Visit: Follow-up for acute on chronic hypoxic respiratory failure, CHF exacerbation and pulmonary fibrosis Objective: Patient heart rate and blood pressure in acceptable range. On high flow oxygen. Respiratory rate 26 to 38/min, shortness of breath better. Physical exam General: Alert, awake, oriented x3, Cooperative, on BiPAP HEENT: Atraumatic, PERRLA, EOMI, Normocephalic Oral: No Gingival or Mucosal Lesions/ Ulcerations Neck: Supple, No JVD, Negative Carotid Bruits Lungs: Air entry severely diminished in bilateral lung bases. Bilateral expiratory rhonchi present. Cardiovascular: Sinus bradycardia with PVCs. Normal S1, Normal S2, No murmurs Abdomen: Bowel Sounds Present, Soft, Non Tender, Non-Distended. Surgical scar present : No renal angle tenderness. No suprapubic tenderness. Extremities: No edema, Capillary Refill Less than 3 Seconds Skin: No rashes, No breakdown Musculoskeletal: No Tenderness to Palpation of Joints or Extremities. Mild muscle atrophy of extremities and loss of subcutaneous fat. Neurological: Cranial nerves II-XII grossly intact, Deep Tendon Reflexes 2+/4 and Symmetrical, Neuro grossly intact Psych/Mental Status: Normal Affect, Appropriate. Vitals/I&O's: Vital Signs Temp Pulse Resp BP Pulse Ox 97.6 F L 102 H 18 168/89 H 91 05/24/20 06:00 05/24/20 07:00 05/24/20 06:00 05/24/20 06:00 05/24/20 06:00 Oxygen Flow Rate (L/min) 50 Oxygen Delivery Method Airvo Weight: 132 lb 11.492 oz Body Mass Index (BMI) 29.9 Intake and Output for Last 24 Hours 05/22/20 05/23/20 05/24/20 23:59 23:59 23:59 Intake Total 574 / 624 1486 / 1966 824 / 824 Output Total 1500 / 1850 1250 / 1750 1450 / 1450 Balance -926 / -1226 236 / 216 -626 / -626 Microbiology Past 72 Hours 05/21/20 07:23 Mucosa - Nasopharyngeal Respiratory Panel (PCR) - Final Laboratory Results 05/24/20 04:15: WBC 10.4, RBC 3.44 L, Hgb 9.9 L, Hct 34.1 L, MCV 99.1 H, MCH 28.8, MCHC 29.0 L, RDW Std Deviation 63.9 H, RDW Coeff of Som 17.8 H, Plt Count 166, MPV 10.7, Immature Gran % (Auto) 0.400, Neut % (Auto) 79.8 H, Lymph % (Auto) 10.9 L, [place] % (Auto) 6.0, Eos % (Auto) 2.8, Baso % (Auto) 0.1, Absolute Neuts (auto) 8.3 H, Absolute Lymphs (auto) 1.14, Nucleated RBC % 0 05/24/20 04:15: Sodium 142, Potassium 3.1 L, Chloride 101, Carbon Dioxide 39.0 H, Anion Gap 2 L, BUN 26 H, Creatinine 1.14 H, Estim Creat Clear Calc 43.52, Est GFR (MDRD) Af Amer 60, Est GFR (MDRD) Non-Af 50 L, BUN/Creatinine Ratio 22.8 H, Glucose 93, Calcium 7.8 L, Total Bilirubin 0.30, AST 18, ALT 14, Alkaline Phosphatase 103, Total Protein 7.1, Albumin 1.8 L, Globulin 5.3 H, Albumin/Globulin Ratio 0.3 L Current Medications Acetaminophen (Acetaminophen 325 Mg Tablet) 650 mg PO Q6H PRN PRN PRN Reason: Pain Score 1-10/Temp > 100.7 F Last Admin: 05/23/20 00:39 Dose: 650 mg Documented by: Albuterol Sulfate (Albuterol 2.5 Mg/3 Ml Vial.Neb.) 2.5 mg INHALATION Q2H PRN PRN PRN Reason: SOB/Wheezing Last Admin: 05/19/20 19:13 Dose: 2.5 mg Documented by: Apixaban (Apixaban 2.5 Mg Tablet) 2.5 mg PO BID [facility] Last Admin: 05/23/20 21:29 Dose: 2.5 mg Documented by: Bumetanide (Bumetanide 0.5 Mg Tablet) 1 mg PO BID [facility] Last Admin: 05/23/20 21:29 Dose: 1 mg Documented by: Carvedilol (Carvedilol 12.5 Mg Tablet) 12.5 mg PO BIDCM [facility] Last Admin: 05/23/20 19:41 Dose: 12.5 mg Documented by: Fluticasone Propionate (Fluticasone 0.05% 1 [place] Nasal.Sry) 1 spray NASAL DAILY PRN PRN Reason: ALLERGIES Pantoprazole Sodium 40 mg/ (Sodium Chloride) 110 mls @ 330 mls/hr IV Q12 [facility] Last Infusion: 05/23/20 22:54 Dose: Infused Documented by: Ampicillin Sodium/Sulbactam (Sodium 3 gm/ Sodium Chloride) 112 mls @ 150 mls/hr IV Q6 [facility] Last Infusion: 05/24/20 06:31 Dose: Infused Documented by: Lisinopril (Lisinopril 10 Mg Tablet) 10 mg PO DAILY [facility] Last Admin: 05/23/20 10:55 Dose: 10 mg Documented by: Melatonin (Melatonin 3 Mg Tablet) 3 mg PO QHS PRN PRN PRN Reason: INSOMNIA Metoprolol Tartrate (Metoprolol Tartrate 5 Mg/5 Ml Vial) 5 mg IV Q6 PRN PRN Reason: HR>130/m Multivitamins ([facility]it[facility],Therapeutic [facility]t) [facility] Last Admin: 05/23/20 10:55 Dose: 1 tablet Documented by: Ondansetron HCl (Ondansetron 4 Mg/2 Ml Vial) 4 mg IV Q8H PRN PRN PRN Reason: NAUSEA/VOMITING Oxycodone HCl (Oxycodone 5 Mg Tablet) 5 mg PO Q4H PRN PRN PRN Reason: Pain Score 6-10 Last Admin: 05/24/20 00:14 Dose: 5 mg Documented by: Potassium Chloride (Potassium Chl Soln 20 Meq/15 Ml Udc) 40 meq PO DAILY [facility] Last Admin: 05/23/20 15:20 Dose: 40 meq Documented by: Sertraline HCl (Sertraline 50 Mg Tablet) 150 mg PO DAILY [facility] Last Admin: 05/23/20 10:55 Dose: 150 mg Documented by: Sodium Chloride (0.9% Saline Lock 10 Ml Syringe) 10 - 40 ml IV UD PRN PRN Reason: SALINE FLUSH Last Admin: 05/22/20 04:46 Dose: 30 ml Documented by: Sucralfate (Sucralfate 1 Gm Tablet) 1 gm PO 1HR_ACHS [facility] Last Admin: 05/24/20 05:48 Dose: 1 gm Documented by: Tolterodine Tartrate (Tolterodine Tartrate 4 Mg Cap.Sa) 4 mg PO DAILY [facility] Last Admin: 05/23/20 10:55 Dose: 4 mg Documented by: STROKE Vital Signs/Narrative: Vital Signs Temp Pulse Resp BP Pulse Ox 05/24/20 07:00 102 H 05/24/20 06:00 97.6 F L 100 18 168/89 H 91 05/24/20 05:24 97 21 H 91 05/24/20 05:00 97 31 H 151/91 H 93 05/24/20 04:00 92 21 H 155/93 H 91 Medical Necessity - Tobacco Use Smoking Status: Never smoker Assessment/Plan All Active Problems (Last Updated 05/19/20 @ 15:[address] Bree Waldrop, DO) Acute kidney injury (Acute) Shortness of breath (Acute) Congestive heart failure (Acute) GI bleed (Resolved) Hypokalemia (Resolved) Sepsis (Resolved) UTI (urinary tract infection) (Resolved) This is a 70-year-old female admitted with progressive worsening of shortness of breath for 4 days, increased requirement of oxygen more than her baseline, 4 L and chest x-ray finding of pulmonary edema since 2 acute on chronic hypoxic respiratory failure secondary to acute CHF exacerbation. 1. Acute on Chronic Hypoxic Respiratory Failure 2/2 Acute Exacerbation of HFrEF: Patient had echo in February 19, 2020 reported as EF 42%, global LV dysfunction, RVSP 50 mmHg. BNP 2105. Serial 2 troponins are negative. On Bumex drip. Urinary antigens are negative. Rapid SARS-CoV-2 antigen negative. Mild leukocytosis with neutrophilia, no change in last 2 labs probably stress response/inflammatory. On BiPAP, CHF core measures, patient has Amanda including strict I and O's, daily weight monitoring. Seen by beet end supervisor increase the dose of carvedilol 12.5 mg daily. On lisinopril 10 mg daily and nitroglycerin ointment. 05/21: Chest x-ray and CT chest individually reviewed. Bilateral subsegmental atelectasis or pneumonitis. Bilateral peripheral patchy groundglass opacity and alveolar densities suspicious of COVID-19 or viral pneumonitis. Discussed with ID. Agreed for starting on Decadron and remdesivir. ID consult. 05/22/2020: Continue oxygen therapy, high flow oxygen with BiPAP rescue. Wood Room Hand increase the dose of Coreg to 12.5 mg twice daily. Continue oral Bumex. 05/23: Continue above treatment. Currently on 50 to 60% FiO2 high flow oxygen. Mild leukocytosis 12,000 probably reactive. 05/24: Patient is still on BiPAP alternating with high flow oxygen. Blood pressure is high ranging from 168-1 77. Lisinopril increased to 20 mg daily. If worsening of kidney function, decrease lisinopril to 10 mg or hold it. Paroxysmal A. fib: As mentioned above. Chronic Macrocytic Anemia: H&H at baseline 9.5/33.7. 05/22/2020 : H&H is stable. CKD stage 3: Estimated creatinine clearance fluctuates around 30 ml/minute. Serum creatinine and estimated GFR is on baseline 1.6-1.8.. -hold gabapentin for now and may need to lower dose of gabapentin at d/c with renal failure. BUN/creatinine showing improvement 21/06.58. -avoid nephrotoxins 05/22: BUN/creatinine slightly better, tolerating diuretics well. Negative -7.8 L fluid balance. 05/23: Mild hypokalemia, potassium is replaced. Magnesium 1.8. 05/24: Patient BUN/creatinine showing improvement. Hypokalemia. Potassium replaced. HTN -continue home meds Chronic pulmonary Fibrosis/Restrictive Lung disease -O2, bronchodilator as needed Chronic urinary Incontinence -Amanda for now for accurate intake and output. Patient does self-catheterization at home. -cont oxybutinin GERD/PUD, history of gastric bypass surgery and GI bleed. 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 Patient also had hernia surgery on the right side. Patient follows [facility] oncologist. -cont PPI and Carafate. Patient had GI bleed during previous hospitalization in February 2020 when EGD showed bleeding marginal ulcer and patient had epinephrine and clips were placed on transfer to [facility]. Depression -cont Zoloft DVT prophylaxis -On Eliquis 2.5 mg twice daily. CODE STATUS: As per the conversation with nursing staff, patient yesterday evening requested to be full code, CPR, intubation ventilator if needed to the night nurse. It was also confirmed with patient's son yesterday therefore CODE STATUS changed to full code. Although in the previous hospitalization, there is CODE STATUS saying DNRCC arrest signed by Dr. Gonzalez. Inpatient E&M: 14091 Subs Hosp L3
--- NOTE | 2020-05-24 07:46 | PN.CARD_ITS ---
Subjectve: Patient seen status quo ante Objective: Vital Signs Temp Pulse Resp BP Pulse Ox 97.6 F L 102 H 18 168/89 H 91 05/24/20 06:00 05/24/20 07:00 05/24/20 06:00 05/24/20 06:00 05/24/20 06:00 Oxygen Flow Rate (L/min) 50 Oxygen Delivery Method Airvo Weight: 132 lb 11.492 oz Body Mass Index (BMI) 29.9 Intake and Output for Last 24 Hours 05/22/20 05/23/20 05/24/20 23:59 23:59 23:59 Intake Total 574 / 624 1486 / 1966 824 / 824 Output Total 1500 / 1850 1250 / 1750 1450 / 1450 Balance -926 / -1226 236 / 216 -626 / -626 General: Awake, Alert, Oriented x 3 HEENT: PERRL, EOMI, Sclera Non Icteric Neck: Supple, Good ROM, No Lymph Node Enlargement Lungs: Clear to auscultation Cardiovascular: Irregular Rhythm, Normal S1, Normal S2, No Murmurs, No Rubs, No Gallops Vascular: No Carotid Bruits, Normal Femoral Pulses, Normal Radial Pulses, Normal Dorsalis Pedal Pulse, Normal Posterior Tibial Pulses Abdomen: Bowel Sounds Present, Soft, Non Tender, No HSM, No Organomegaly Extremities: No Cyanosis, No Clubbing, No edema Neurological: No Focal Motor or Sensory Deficit 05/24/20 04:15: WBC 10.4, RBC 3.44 L, Hgb 9.9 L, Hct 34.1 L, MCV 99.1 H, MCH 28.8, MCHC 29.0 L, Plt Count 166, MPV 10.7, Immature Gran % (Auto) 0.400, Neut % (Auto) 79.8 H, Lymph % (Auto) 10.9 L, [place] % (Auto) 6.0, Eos % (Auto) 2.8, Baso % (Auto) 0.1, Absolute Neuts (auto) 8.3 H, Nucleated RBC % 0 05/24/20 04:15: Sodium 142, Potassium 3.1 L, Chloride 101, Carbon Dioxide 39.0 H , Anion Gap 2 L, BUN 26 H, Creatinine 1.14 H, Est GFR (MDRD) Af Amer 60, Est GFR (MDRD) Non-Af 50 L, BUN/Creatinine Ratio 22.8 H, Glucose 93, Calcium 7.8 L, Total Bilirubin 0.30 Rhythm: EKG: ECHO: Stress Test: Cardiac Cath: PCI: CT Surgery: Holter monitor: EPS: PPM: CXR: Chest CT Scan: Medical Necessity - Tobacco Use Smoking Status: Never smoker Assessment/Plan 1. Heart failure with reduced ejection fraction * Patient is noted to have global reduction in left ventricular systolic function estimated to be 42%. The exact precipitating factor or agent for this exacerbation is not clear. Her ventricular response rate may be mildly elevated. * I would recommend that we continue her carvedilol 12.5 mg twice a day * Continue diuretic with bumetanide as an oral dose * I do not think there is a reason to repeat her echocardiogram at this time * No changes will be made at this time. 2. Pulmonary hypertension * The above does not appear to be secondary to cardiac disease and may be intrinsic pulmonary disease. Will defer to the reel stripper on further treatment * CT scan definitely demonstrates evidence of pulmonary artery dilatation, as well as some groundglass appearance * Will defer further treatment to the reel stripper 3. Atrial fibrillation chronic persistent * She is anticoagulated with Eliquis which will be continued. No changes will be made at this particular time. I do not think that with her pulmonary issues she is a candidate for DC cardioversion. In addition I do not think she is a candidate for ablation either. * * Thank you for allowing me to participate in the care of your patient. Please don't hesitate to call if any issues arise.
[2020-05-24] MEDS: Lisinopril 10 MG Tablet PO ×2 (07:49→11:39)
[2020-05-24] MEDS: Carvedilol 12.5 MG Tablet PO ×2 (07:50→17:21)
[2020-05-24] MEDS: Bumetanide 0.5 MG Tablet 1 MG PO ×2 (07:50→20:44)
[2020-05-24] MEDS: Bumetanide 1 MG/4 ML Vial 2 MG IV (08:17)
[2020-05-24] MEDS: 0.9% Saline Lock 10 ML Syringe IV (08:18)
[2020-05-24] MEDS: Potassium Chloride 10mEq/100mL 10 MEQ/100 ML IV.SOLN. 100 MEQ IV BOLUS ×4 (08:26→17:20)
--- NOTE | 2020-05-24 08:37 | NURSING ---
0800- pt taken off bedpan. rr 30 and sats dropping to 87-88% on airvo. lungs assessed and more crackles post throughout. bp elevated. po lisinopril, coreg and bumex po all given early. dr. basurto notified and cps called to adjust settings. pt repositioned in bed and sitting at 90 degrees. refusing to try anything for breakfast at this time.
--- NOTE | 2020-05-24 08:39 | NURSING ---
0825 cps in and pt placed on bipap and seemingly greg well. resp down and pt sats now at 94%. will monitor. one time dose of iv bumex given per new order.
[2020-05-24] MEDS: APIXABAN 2.5 MG TABLET PO ×2 (10:20→20:43)
[2020-05-24] MEDS: Sertraline 50 MG Tablet 150 MG PO (10:20)
[2020-05-24] MEDS: Multivitamins,Therapeutic Tablet 1 TABLET PO ×2 (10:21→10:24)
[2020-05-24] MEDS: Tolterodine Tartrate 4 MG CAP.SA PO (10:21)
--- NOTE | 2020-05-24 13:49 | CPS ---
Pt has had a nose bleed, was clotted. R.T. cleaned her up with a wipe and informed Rn.
[2020-05-24] MEDS: NYSTATIN 500,000 UNIT/5 ML UDC 500000 UNIT PO ×2 (17:25→20:44)
--- NOTE | 2020-05-24 17:35 | NURSING ---
pts called from in senior living. updated on condition and able to talk with for a few minutes.pt sitting up in bed eating an icee.
[2020-05-25] VITALS (29 sets, daily range): BP systolic 96–180; BP diastolic 51–114; PULSE 60–125; RESP 12–38; TEMP 36.1–36.6; O2SAT 89–98
[2020-05-25] MEDS: hydrALAZINE 20 MG/ML Vial 10 MG IV (01:10)
[2020-05-25] MEDS: 0.9% Saline Lock 10 ML Syringe IV ×2 (01:14→03:23)
[2020-05-25] MEDS: Bumetanide 1 MG/4 ML Vial 2 MG IV (02:23)
--- NOTE | 2020-05-25 02:44 | PCM.HOSP.N ---
Hospitalist Note Patient clinically deteriorating from a respiratory standpoint. Not tolerating BiPAP or AVAPS attempts. Discussed options with patient including intubation versus potentially comfort care measures. Patient very adamantly stated that she did not want to have a tube to breath for her. Discussed CODE status at length including difference between FULL code, DNR-CCA and DNR-CC status. Following discussions about the differences in these status, requested to DNRCC, comfort care realizing that this may mean her demise but she is adamant that she does not want CPR nor intubated. Attempted to call and only received voicemail in addition to son who is listed as primary call with no voicemail several times. Advanced Care Planning Face to Face Time: 16 minutes. Procedures: [id number] Advncd Care Plan 30 Min
[2020-05-25] MEDS: Morphine 2 MG/ML Syringe IV ×3 (03:10→14:54)
[2020-05-25] MEDS: Metoprolol Tartrate 5 MG/5 ML Vial IV (03:22)
[2020-05-25] MEDS: LORazepam 2 MG/ML Syringe 1 MG IV (05:23)
--- NOTE | 2020-05-25 10:20 | CASEMGMT ---
SW reviewed POA document in chart. Son is listed as primary, second, and sister third. SW attempted to call son about 10am. One number rang and then disconnected. The other number just rings busy. The hospice superintendent also called the son this morning about 8am as did the ICU nurse, son did not answer. is incarcerated. SW called [facility], spoke w/Jazmin. She states if needed they could go to the residential to have papers signed. SW is going to continue to try son this morning, if SW does not get a hold of son by this afternoon will call the [facility] to see about having hospice coming there to sign papers. ARIANA Crawford
--- NOTE | 2020-05-25 11:28 | CASEMGMT ---
Addendum entered by Kaye Sheth 05/25/20 14:59: SW spoke w/[facility], Nanette is on her way now to [facility] to speak to pt's and have him sign papers. JENN Crawford-Rober Addendum entered by Kaye Sheth 05/25/20 12:36: SW called pt's sister, Tequila Post (Sue), message left, she called back. SW asked if she has any way to reach the pt's son Jaswant. She states she asked the swedger w/[employer] to go knock on the son's door and tell him to call the hospital. The swedger did so and the son stated that he already spoke to the hospital this morning. SW then tried the son, again. The [phone] number rings then disconnects, and he [phone] just rings busy. CONTROL SYSTEMS ENGINEER also called son and was not able to reach him. DANIEL called [facility], directed to speak w/Officer Backinsw. He states that Hospice could come to the long-term to have pt sign papers. DANIEL explained that under normal circumstances we would speak w/family to let them know how pt is doing prior to speaking w/hospice, SW inquired if there is any way to do this. He states to call the nurse and speak w/her, will have him come to the phone. If he is agreeable to sign hospice papers then hospice can come down to the long-term at any time to have him sign the papers. DANIEL called the [facility] nurse, spoke w/pt's . He is very upset to learn that his is so ill and not doing well. DANIEL offered support to . SW explained to that pt agreed to comfort care and did not want to have a breathing tube. SW asked if he would be willing to sign the papers for hospice. The nurse then came to the phone and asked if he can speak w/pt. DANIEL explained can hold up the phone but the pt will likely not be able to respond. DANIEL explained will call back from ICU. DANIEL spoke w/RN, he states pt may not respond but can hold the phone up to the pt's ear. SW went into the room, tried to wake her, she opened her eyes a bit then shut them. SW explained to pt will be calling her for him to say hello to her. SW called the Alf nurse again, she put on phone. SW held up phone to her ear and he spoke to her, we did this twice. She did make one noise but otherwise did not respond to . SW then spoke w/ again. He states that pt agreed to being intubated just now. SW gently explained to that pt is on pain medication at present. SW explained that pt was alert and oriented early this morning and pt agreed to comfort care and to not be intubated at that time. very upset, SW offered support. SW asked again about the hospice papers, he states he is willing to sign the papers. SW let the RN at the long-term know this. SW called [facility], SW let them know is willing to sign the papers. It is anticipated they will send someone to the long-term today to have sign the papers. SW let RN know. ARIANA Crawford Original Note: SW tried son again, still is not home and just rang, then disconnected. SW tried the second number and it still just rings busy. ARIANA Crawford
--- NOTE | 2020-05-25 16:11 | DS.PCM_ITS ---
Discharge Date and Diagnosis - Problem List Patient Problems: Active and Suspected Problems (Last Updated 05/19/20 @ 15:[address] Bree Waldrop DO) Acute kidney injury (Acute) Shortness of breath (Acute) Congestive heart failure (Acute) Date of Admission: 05/19/20 Date of Discharge: 05/25/20 - Primary Discharge Diagnosis Acute Problems: Active Problems (Last Updated 05/19/20 @ 15:[address] Bree Waldrop DO) Acute kidney injury (Acute) Shortness of breath (Acute) Congestive heart failure (Acute) - Secondary Discharge Diagnosis Chronic Problems: Chronic Problems (Last Updated 05/19/20 @ 15:[address] Bree Waldrop DO) Iron deficiency anemia (Chronic) CKD (chronic kidney disease) stage 3, GFR 30-59 ml/min (Chronic) PVD (peripheral vascular disease) (Chronic) Chronic fibrosis of lung (Chronic) History of right and left heart catheterization (Chronic 02/20/19) 50% stenosis in LAD, all other coronaries normal. No need for PCI. Severe pulmonary hypertension, severe LV dysfunction: EF 25%. Per TU @ [facility] 02/20/2019 Chronic atrial fibrillation (Chronic) Essential hypertension (Chronic) Chronic anemia (Chronic) Hospital Course and Treatment Imaging Results: Diagnostic Data Chest X-Ray 05/21/20 08:20 IMPRESSION: There has been noticing again seen since the previous study. Electronically Signed: Nilo Bowen at 9:33 EST Tel , Service support , Chest CT 05/21/20 11:12 IMPRESSION: 1. Bilateral subsegmental atelectasis or pneumonitis. Commonly reported imaging features of Covid 19 pneumonia are present. Other processes such as influenza pneumonia and organizing pneumonia, as can be seen with drug toxicity and connective tissue disease, can cause a similar imaging pattern. 2. Bibasilar alveolar densities worrisome for superimposed bibasilar atelectasis or bacterial pneumonia. 3. Cardiomegaly. 4. Suspect pulmonary arterial hypertension. Electronically Signed: Laron Argueta MD at 13:37 EST Tel , Service support , cardiology- Dr Connelly critical care- Dr Walls Operations: None, - Procedures: None Summary of Care Provided: The patient is a 70 year old F with an extensive PMH as outlined who was admitted via the ED on 05/19/2020 with a complaint of worsening shortness of breath of 4 days prior to admission. Patient usually will 4 L of oxygen at home but her shortness of breath had been getting worse. She also noticed worsening of her lower extremity edema. She had been seen a evs tech at [facility] but has not seen them in quite a while. In the ED she was requiring increasing amounts of oxygen up to 5 L. EKG showed rate controlled A. fib and chest x-ray showed bilateral pulmonary edema which had worsened since her last visit. BNP was 06/22/2003. She was admitted and managed for acute on chronic heart failure with use ejection fraction. She was diuresed with IV Bumex drip and input and output was monitored. She was placed on BiPAP as needed to help with heart failure. Cardiology and critical care were consulted. Patient required increasing amounts of oxygen and was put on air view with FiO2 requirement of 60% and flow rate of 50 L/min. Stay was also complicated by hypokalemia which was corrected per protocol. 2D echo done in January 2020 showed EF of 42% with mild global left ventricular systolic dysfunction and pulmonary artery systolic pressure 50 mmHg. Covid test done was negative. Patient shortness of breath gradually worsened to the point where she was told she might need to be intubated. At this point, patient said she did not want to be intubated and an IV when to use BiPAP unless absolutely necessary and patient was willing to change her CODE STATUS to DNR CC after extensive counseling. His son was also spoken to and agreed with the change in CODE STATUS. Patient's CODE STATUS was switched to DNR CC and hospice was consulted. Patient was accepted to inpatient hospice and discharged on 05/25/2020. Patient seen and examined prior to discharge. She was lethargic and on BiPAP. She had no complaints. Review of symptoms otherwise negative. Labs and vitals reviewed. Home medication reviewed and reconciled O/E: Vital Signs Temp Pulse Resp BP Pulse Ox 97.8 F 107 H 30 H 127/66 H 94 05/25/20 12:00 05/25/20 15:33 05/25/20 15:33 05/25/20 14:00 05/25/20 15:33 [] General: Alert, confused, , on BiPAP HEENT: Atraumatic, PERRLA, EOMI, Normocephalic Oral: No Gingival or Mucosal Lesions/ Ulcerations Neck: Supple, No JVD, Negative Carotid Bruits Lungs: markedly diminished breath sounds bibasally, no wheezes or crackles. On BIPAP Cardiovascular: Sinus bradycardia with PVCs. Normal S1, Normal S2, No murmurs Abdomen: Bowel Sounds Present, Soft, Non Tender, Non-Distended. Surgical scar present : No renal angle tenderness. No suprapubic tenderness. Extremities: No edema, Capillary Refill Less than 3 Seconds Skin: No rashes, No breakdown Musculoskeletal: No Tenderness to Palpation of Joints or Extremities. Mild muscle atrophy of extremities and loss of subcutaneous fat. Neurological: Cranial nerves II-XII grossly intact, Deep Tendon Reflexes 2+/4 and Symmetrical, Neuro grossly intact Psych/Mental Status:anxious, confused. Plan is for discharge to hospice inpatient medical facility. Patient Problems: Active and Suspected Problems (Last Updated 05/19/20 @ 15:[address] Bree Waldrop, DO) Acute kidney injury (Acute) Shortness of breath (Acute) Congestive heart failure (Acute) - Physical Exam Vitals/I&O's: Vital Signs Temp Pulse Resp BP Pulse Ox 97.8 F 107 H 30 H 127/66 H 94 05/25/20 12:00 05/25/20 15:33 05/25/20 15:33 05/25/20 14:00 05/25/20 15:33 Oxygen Flow Rate (L/min) 50 Oxygen Delivery Method Bi-pap Weight: 133 lb 9.602 oz Body Mass Index (BMI) 29.9 Intake and Output for Last 24 Hours 05/23/20 05/24/20 05/25/20 23:59 23:59 23:59 Intake Total 1486 / 1966 1688 / 1688 222 / 222 Output Total 1250 / 1750 3000 / 3500 1575 / 1575 Balance 236 / 216 -1312 / -1812 -1353 / -1353 Current Medications Acetaminophen (Acetaminophen 325 Mg Tablet) 650 mg PO Q4H PRN PRN PRN Reason: Temp>101F or Pain Score 1-10 Al Hydroxide/Mg Hydroxide (Mag Hydrox/Al Hydrox/Simeth 30 Ml Udc) 30 ml PO Q4H PRN PRN PRN Reason: Epigastric Distress Albuterol Sulfate (Albuterol 2.5 Mg/3 Ml Vial.Neb.) 2.5 mg INHALATION Q2H PRN PRN PRN Reason: SOB/Wheezing Last Admin: 05/19/20 19:13 Dose: 2.5 mg Documented by: Apixaban (Apixaban 2.5 Mg Tablet) 2.5 mg PO BID [facility] Last Admin: 05/25/20 10:00 Dose: Not Given Documented by: Atropine Sulfate (Atropine Sulfate 1% 2 Ml Bottle) 4 drop PO Q3H PRN PRN PRN Reason: Congestion Benzonatate (Benzonatate 100 Mg Capsule) 100 mg PO TID PRN PRN PRN Reason: Non-Productive Cough Bumetanide (Bumetanide 0.5 Mg Tablet) 1 mg PO BID [facility] Last Admin: 05/25/20 10:00 Dose: Not Given Documented by: [facility]il[facility] ([facility] 12.5 Mg [facility]) [facility] Last Admin: 05/25/20 10:00 Dose: Not Given Documented by: Diphenhydramine HCl (Diphenhydramine 25 Mg Capsule) 25 mg PO Q4H PRN PRN PRN Reason: Extrapyridimal Spasm/Itching Fluticasone Propionate (Fluticasone 0.05% 1 [place] Nasal.Sry) 1 spray NASAL DAILY PRN PRN Reason: ALLERGIES Guaifenesin (Guaifenesin Dm 10 Ml Udc) 5 - 10 ml PO Q4H PRN PRN PRN Reason: Non-Productive Cough Guaifenesin (Guaifenesin 10 Ml Udc (200mg/10ml)) 10 - 20 ml PO Q4H PRN PRN PRN Reason: Productive Cough Haloperidol (Haloperidol 1 Mg Tablet) 1 mg PO Q2H PRN PRN PRN Reason: Opioid Induced Nausa/Vomiting Haloperidol Lactate (Haloperidol Lactate 10 Mg/5 Ml Udc) 0 mg SL/PO Q1H PRN PRN PRN Reason: Hyperactivity/Anxiety Hydralazine HCl (Hydralazine 20 Mg/Ml Vial) 10 mg IV Q4H PRN PRN PRN Reason: SBP > 160 Last Admin: 05/25/20 01:10 Dose: 10 mg Documented by: Pantoprazole Sodium 40 mg/ (Sodium Chloride) 110 mls @ 330 mls/hr IV Q12 [facility] Last Infusion: 05/25/20 10:56 Dose: Infused Documented by: Ibuprofen (Ibuprofen 100 Mg/5 Ml Udc) 400 - 600 mg PO Q4H PRN PRN PRN Reason: Bone or Musculoskeletal Pain Lisinopril (Lisinopril 20 Mg Tablet) 20 mg PO DAILY [facility] Last Admin: 05/25/20 10:01 Dose: Not Given Documented by: Loperamide HCl (Loperamide 2 Mg Capsule) 2 mg PO UD PRN PRN Reason: After each liquid stool Loperamide HCl (Loperamide 1 Mg/7.5 Ml) 2 mg PO UD PRN PRN Reason: After each liquid stool Lorazepam (Lorazepam 0.5 Mg Tablet) 0.5 mg SL/PO Q3H PRN PRN PRN Reason: Restlessness/Anxiety Lorazepam (Lorazepam 2 Mg/Ml Syringe) 1 mg IV Q3H PRN PRN PRN Reason: dyspnea, agitation, anxiety Last Admin: 05/25/20 05:23 Dose: 1 mg Documented by: Melatonin (Melatonin 3 Mg Tablet) 3 mg PO QHS PRN PRN PRN Reason: INSOMNIA Metoprolol Tartrate (Metoprolol Tartrate 5 Mg/5 Ml Vial) 5 mg IV Q6 PRN PRN Reason: HR>130/m Last Admin: 05/25/20 03:22 Dose: 5 mg Documented by: Morphine Sulfate (Morphine 2 Mg/Ml Syringe) 2 mg IV Q2H PRN PRN PRN Reason: Dyspnea Last Admin: 05/25/20 14:54 Dose: 2 mg Documented by: Multivitamins (Multivitamins,Therapeutic Tablet) 1 tablet PO DAILYCM [facility] Last Admin: 05/24/20 10:24 Dose: 1 tablet Documented by: Nutritional Formula (Lactose Free) (Ensure Enlive 120 Ml Liquid) 120 ml PO TID [facility] Last Admin: 05/25/20 13:10 Dose: Not Given Documented by: Nystatin (Nystatin 500,000 Unit/5 Ml Udc) 500,000 unit PO 4X/DAY [facility] Last Admin: 05/25/20 13:14 Dose: Not Given Documented by: Ondansetron HCl (Ondansetron 4 Mg/2 Ml Vial) 4 mg IV Q8H PRN PRN PRN Reason: NAUSEA/VOMITING Oxycodone HCl (Oxycodone 5 Mg Tablet) 5 mg PO Q4H PRN PRN PRN Reason: Pain Score 6-10 Last Admin: 05/24/20 20:43 Dose: 5 mg Documented by: Potassium Chloride (Potassium Chloride 20 Meq Tablet) 40 meq PO DAILY [facility] Last Admin: 05/24/20 14:10 Dose: 40 meq Documented by: Promethazine HCl (Promethazine 25 Mg Tablet) 12.5 mg PO Q6H PRN PRN PRN Reason: UNSPECIFIED NAUSEA/VOMITING Sertraline HCl (Sertraline 50 Mg Tablet) 150 mg PO DAILY [facility] Last Admin: 05/25/20 10:01 Dose: Not Given Documented by: Sodium Chloride (0.9% Saline Lock 10 Ml Syringe) 10 - 40 ml IV UD PRN PRN Reason: SALINE FLUSH Last Admin: 05/25/20 03:23 Dose: 10 ml Documented by: Sucralfate (Sucralfate 1 Gm Tablet) 1 gm PO 1HR_ACHS [facility] Last Admin: 05/25/20 14:42 Dose: Not Given Documented by: Tolterodine Tartrate (Tolterodine Tartrate 4 Mg Cap.Sa) 4 mg PO DAILY [facility] Last Admin: 05/25/20 10:00 Dose: Not Given Documented by: Discharge Diet: Low fat/ Low Cholesterol Home Medications: Medications to take at Discharge Carvedilol 6.25 mg PO BID 05/29/18 Oxybutynin Chloride [Oxybutynin Chloride ER] 15 mg PO DAILY 05/29/18 Gabapentin 600 mg PO TID 08/20/18 sertraline 50 mg tablet 150 mg PO DAILY tab 12/17/18 biotin 5 mg capsule 5 mg PO DAILY 12/18/18 Apixaban [Eliquis] 2.5 mg PO BID 02/17/20 Calcium Carbonate 600 mg PO BID 02/17/20 Cholecalciferol (Vitamin D3) [Vitamin D3] 2,000 unit PO DAILY 02/17/20 Fluticasone 0.05% [Flonase Nasal [place]] 1 spray NASAL DAILY PRN 02/17/20 Lisinopril [Prinivil] 10 mg PO DAILY 02/17/20 Multivitamin 1 tab PO DAILY 02/17/20 Pantoprazole Sodium [Protonix] 40 mg PO BID 03/23/20 Sucralfate [Carafate] 1 gm PO 4X/DAY 03/23/20 Bumetanide [Bumex] 2 mg PO BID #60 tab 03/24/20 Potassium Chloride [K-Dur] 20 meq PO BIDCM #60 tab 03/24/20 Tramadol HCl [Ultram] 50 mg PO Q8H PRN PRN #30 tab 03/25/20 Primary Care Physician: Sharad Burns MD [Primary Care Provider] - Disposition: Hospice Medical Facility Minutes spent on discharge:: 55 Patient Condition:: Critical Medical Necessity - Tobacco Use Smoking Status: Never smoker Meaningful Use Info Meaningful Use Diagnoses (Choose all that apply): CHF - CHF SONNY/ARB ordered at discharge?: No Reason SONNY/ARB not ordered?: Worsening renal dysfunctn Documented LVEF (%): 42 - being discharged to hospice facility Inpatient E&M: 60696 Disch Hosp
== END 2020-05-25 17:00 | disposition hospice, inpatient (51) | DRG 291 ==
LOC: ED 14:28 → PCU 15:44 → ICU 05-20 07:05
PROVIDERS: Internal Medicine; Internal Medicine Critical Care Medicine; Admitting Provider Internal Medicine; Emergency Provider Student in an Organized Health Care Education/Training Program; PCP Family Medicine; Visit Provider Student in an Organized Health Care Education/Training Program
DX: I13.0 Hypertensive heart and chronic kidney disease with heart failure and stage 1 through stage 4 chronic kidney disease, or unspecified chronic kidney disease (principal); J96.21 Acute and chronic respiratory failure with hypoxia; I50.23 Acute on chronic systolic (congestive) heart failure; N17.9 Acute kidney failure, unspecified; I48.19 Other persistent atrial fibrillation; I42.9 Cardiomyopathy, unspecified; R32 Unspecified urinary incontinence; E87.6 Hypokalemia; E83.42 Hypomagnesemia; D53.9 Nutritional anemia, unspecified; D50.9 Iron deficiency anemia, unspecified; N18.30 Chronic kidney disease, stage 3 unspecified; J84.10 Pulmonary fibrosis, unspecified; K21.9 Gastro-esophageal reflux disease without esophagitis; K27.9 Peptic ulcer, site unspecified, unspecified as acute or chronic, without hemorrhage or perforation; I89.0 Lymphedema, not elsewhere classified; I73.9 Peripheral vascular disease, unspecified; F41.9 Anxiety disorder, unspecified; M81.0 Age-related osteoporosis without current pathological fracture; F32.9 Major depressive disorder, single episode, unspecified; I83.11 Varicose veins of right lower extremity with inflammation; I83.12 Varicose veins of left lower extremity with inflammation; I27.20 Pulmonary hypertension, unspecified; Z98.84 Bariatric surgery status; Z79.01 Long term (current) use of anticoagulants; Z79.899 Other long term (current) drug therapy; Z90.49 Acquired absence of other specified parts of digestive tract; Z87.440 Personal history of urinary (tract) infections; Z87.19 Personal history of other diseases of the digestive system; Z86.19 Personal history of other infectious and parasitic diseases; Z85.831 Personal history of malignant neoplasm of soft tissue
CPT/HCPCS: 36415; 36600; 51702; 71045; 71250; 80048; 80053; 82803; 83735; 83880; 84100; 84145; 84443; 84484; 85025; 86769; 87426; 87449; 87633; 87635; 92507; 92610; 93005; 94002; 94003; 94640; 94660; 97110; 97163; 97166; 97530; 97803; 99285; A4216; J0295; J1940; U0002